=== PATIENT | male | born 1965 | race Caucasian/White ===

== ENCOUNTER 2018-11-19 02:22 | Emergency (ER) | payer OTHER ==
[2018-11-19 03:48] LABS: Protime INR 1.35
[2018-11-19 03:48] LABS: Absolute Lymphocytes (CBC) 1.9 K/uL (0.7-4.9); Absolute Monocytes 1.3 K/uL (0.1-1.3); Absolute Neutrophil 8.4 K/uL (1.8-8.0); Basophils % 0.6 % (0-1.3); Eosinophils % 2.6 % (0-4.4); Hematocrit 41.7 % (39.6-49.0); Lymphocytes % 15.7 % (15.3-44.8); MPV 8.6 fL (7.6-11.3); Monocytes % 10.8 % (3.3-12.3)
[2018-11-19 03:56] LABS: Potassium 4.1 mmol/L (3.5-5.1)
--- NOTE | 2018-11-19 04:14 | EDPHYS ---
Physician Documentation [facility] Name: Meryl Nelson Age: 53 yrs Sex: Male : 1965 Arrival Date: 11/19/2018 Time: 02:24 Bed 6 Private MD: ED Physician Uriel Bhatia HPI: 11/19 04:14 This 53 yrs old Male presents to ER via Ambulatory with complaints of Nose kdr Pain. 04:14 The patient presents with a nose bleed, that is apparently anterior, from the right kdr nare, occurred from an unknown cause, after blowing nose, while sneezing, that is intermittent moderate amount bright red, stopped /dried blood noted. causative factors include: unknown, and the bleeding resolved prior to arrival. Onset: The symptoms/episode began/occurred suddenly, just prior to arrival. Modifying factors: The symptoms are alleviated by nothing. the symptoms are aggravated by blowing nose. Associated signs and symptoms: Loss of consciousness: the patient experienced no loss of consciousness, Pertinent positives: Pertinent negatives: blurred vision, chest pain, cough, ear ache, fever, lightheadedness, nausea, rhinorrhea, shortness of breath, sore throat, vertigo. Severity of symptoms: At their worst the symptoms were very mild in the emergency department the symptoms have resolved. The patient has not experienced similar symptoms in the past. The patient has not recently seen a physician. The patient is concerned that since he is on Coumadin, he may have a coagulopathy. Historical: - Allergies: 02:40 No Known Allergies; lp1 - Home Meds: 02:40 metoprolol tartrate 100 mg Oral tab 1 tab 2 times per day [Active]; warfarin 5 mg Oral lp1 tab 1 tab once daily [Active]; lisinopril 20 mg Oral tab 1 tab once daily [Active]; Lyrica 75 mg Oral daily [Active]; Seroquel Oral [Active]; duloxetine oral oral [Active]; - PMHx: 02:40 Hypertension; neuropathy; Diabetes - NIDDM; Bipolar disorder; lp1 - PSHx: 02:40 Artificial heart valve; lp1 - Immunization history:: Adult Immunizations up to date. - Social history:: Smoking status: Patient/guardian denies using tobacco. - Ebola Screening: : No symptoms or risks identified at this time. ROS: 04:14 Constitutional: Negative for fever, chills, and weight loss, Eyes: Negative for injury, kdr pain, redness, and discharge, Neck: Negative for injury, pain, and swelling, Cardiovascular: Negative for chest pain, palpitations, and edema, Respiratory: Negative for shortness of breath, cough, wheezing, and pleuritic chest pain, Abdomen/GI: Negative for abdominal pain, nausea, vomiting, diarrhea, and constipation. 04:14 ENT: Positive for nose bleed, Negative for Exam: 04:14 Constitutional: This is a well developed, well nourished patient who is awake, alert, kdr and in no acute distress. Head/Face: Normocephalic, atraumatic. Eyes: Pupils equal round and reactive to light, extra-ocular motions intact. Lids and lashes normal. Conjunctiva and sclera are non-icteric and not injected. Cornea within normal limits. Periorbital areas with no swelling, redness, or edema. Neck: Trachea midline, no thyromegaly or masses palpated, and no cervical lymphadenopathy. Supple, full range of motion without nuchal rigidity, or vertebral point tenderness. No Meningismus. Chest/axilla: Normal chest wall appearance and motion. Nontender with no deformity. No lesions are appreciated. Cardiovascular: Regular rate and rhythm with a normal S1 and S2. No gallops, murmurs, or rubs. Normal PMI, no JVD. No pulse deficits. 04:14 ENT: Nose: External nose: no obvious acute abnormality, Nasal septum: is midline, no septal hematoma appreciated, Nasal mucosa: Dried blood. clotted blood, in right nare, small amount in superior aspect. Vital Signs: 02:41 BP 163 / 85; Pulse 92; Resp 18; Temp 98.3(O); Pulse Ox 98% on R/A; Weight 136.08 kg; lp1 Height 6 ft. 1 in. (185.42 cm); Pain 0/10; 03:37 BP 128 / 51; Pulse 86; Resp 17; Pulse Ox 100% on R/A; Pain 0/10; ed1 04:21 BP 143 / 76; Pulse 79; Resp 16; Pulse Ox 100% on R/A; Pain 0/10; ed1 02:41 Body Mass Index 39.58 (136.08 kg, 185.42 cm) lp1 MDM: 04:13 Patient medically screened. kdr 04:14 Data reviewed: vital signs, nurses notes. Counseling: I had a detailed discussion with kdr the patient and/or guardian regarding: the historical points, exam findings, and any diagnostic results supporting the discharge/admit diagnosis, lab results, the need for outpatient follow up. 11/19 02:58 Order name: PT-INR; Complete Time: 04:05 kdr 11/19 02:58 Order name: CBC with Diff; Complete Time: 04:05 kdr 11/19 02:58 Order name: Chem 7; Complete Time: 04:05 kdr Administered Medications: No medications were administered Disposition: 11/19/18 04:13 Discharged to Home. Impression: Epistaxis - Right nare. - Condition is Stable. - Discharge Instructions: Nosebleed, [id number]. - Medication Reconciliation Form, Thank You Letter form. - Follow up: Private Physician; When: 2 - 3 days; Reason: If symptoms return, Further diagnostic work-up, Recheck today's complaints, Continuance of care, Re-evaluation by your physician. Follow up: Parisa Santos MD; When: 2 - 3 days; Reason: If symptoms return, Further diagnostic work-up, Recheck today's complaints, Continuance of care, Re-evaluation by your physician. - Problem is new. - Symptoms have improved. Signatures: Dispatcher [employer] EDMS Uriel Bhatia MD MD kdr Keysha Brooks RN RN ed1 Alejandrina Jo RN RN lp1 Corrections: (The following items were deleted from the chart) 04:22 04:13 11/19/2018 04:13 Discharged to Home. Impression: Epistaxis - Right nare. ed1 Condition is Stable. Forms are Medication Reconciliation Form, Thank You Letter, Antibiotic Education, Prescription Opioid Use. Follow up: Private Physician; When: 2 - 3 days; Reason: If symptoms return, Further diagnostic work-up, Recheck today's complaints, Continuance of care, Re-evaluation by your physician. Follow up: Parisa Santos; When: 2 - 3 days; Reason: If symptoms return, Further diagnostic work-up, Recheck today's complaints, Continuance of care, Re-evaluation by your physician. Problem is new. Symptoms have improved. kdr
--- NOTE | 2018-11-19 04:14 | ER ---
Nurse's Notes [facility] Name: Meryl Nelson Age: 53 yrs Sex: Male : 1965 Arrival Date: 11/19/2018 Time: 02:24 Bed 6 Private MD: Diagnosis: Epistaxis-Right nare Presentation: 11/19 02:37 Presenting complaint: Patient states: Bleeding to right nostril that began about 1800 lp1 last night after sneezing, patient states bleeding to right nostril every time he sneezes; has been having congestion, sore throat since Tuesday; No active bleeding during triage. Transition of care: patient was not received from another setting of care. Onset of symptoms was November 18, 2018 at 18:00. Risk Assessment: Do you want to hurt yourself or someone else? Patient reports no desire to harm self or others. Initial Sepsis Screen: Does the patient meet any 2 criteria? No. Patient's initial sepsis screen is negative. Does the patient have a suspected source of infection? No. Patient's initial sepsis screen is negative. Care prior to arrival: None. 02:37 Method Of Arrival: Ambulatory lp1 02:37 Acuity: BOBBY 4 lp1 Historical: - Allergies: 02:40 No Known Allergies; lp1 - Home Meds: 02:40 metoprolol tartrate 100 mg Oral tab 1 tab 2 times per day [Active]; warfarin 5 mg Oral lp1 tab 1 tab once daily [Active]; lisinopril 20 mg Oral tab 1 tab once daily [Active]; Lyrica 75 mg Oral daily [Active]; Seroquel Oral [Active]; duloxetine oral oral [Active]; - PMHx: 02:40 Hypertension; neuropathy; Diabetes - NIDDM; Bipolar disorder; lp1 - PSHx: 02:40 Artificial heart valve; lp1 - Immunization history:: Adult Immunizations up to date. - Social history:: Smoking status: Patient/guardian denies using tobacco. - Ebola Screening: : No symptoms or risks identified at this time. Screenin:41 Abuse screen: Denies threats or abuse. Denies injuries from another. Nutritional lp1 screening: No deficits noted. Tuberculosis screening: No symptoms or risk factors identified. Fall Risk None identified. Assessment: 03:37 General: Appears in no apparent distress. Behavior is calm, cooperative. Pain: Denies ed1 pain. Neuro: Level of Consciousness is awake, alert, obeys commands, Oriented to person, place, time, situation. Cardiovascular: Denies chest pain, Heart tones S1 S2 present. Respiratory: Airway is patent Respiratory effort is even, unlabored, Respiratory pattern is regular, symmetrical, Breath sounds are clear bilaterally. GI: No signs and/or symptoms were reported involving the gastrointestinal system. : No signs and/or symptoms were reported regarding the genitourinary system. EENT: Reports nasal discharge that is bloody. Derm: Skin is pink, warm \T\ dry. Musculoskeletal: Circulation, motion, and sensation intact. 04:21 Reassessment: Patient appears in no apparent distress at this time. Patient and/or ed1 family updated on plan of care and expected duration. Pain level reassessed. Patient is alert, oriented x 3, equal unlabored respirations, skin warm/dry/pink. No active bleeding noted Patient denies pain at this time. Vital Signs: 02:41 BP 163 / 85; Pulse 92; Resp 18; Temp 98.3(O); Pulse Ox 98% on R/A; Weight 136.08 kg; lp1 Height 6 ft. 1 in. (185.42 cm); Pain 0/10; 03:37 BP 128 / 51; Pulse 86; Resp 17; Pulse Ox 100% on R/A; Pain 0/10; ed1 04:21 BP 143 / 76; Pulse 79; Resp 16; Pulse Ox 100% on R/A; Pain 0/10; ed1 02:41 Body Mass Index 39.58 (136.08 kg, 185.42 cm) lp1 ED Course: 02:24 Patient arrived in ED. ds1 02:24 Keysha Brooks, RN is Primary Nurse. ed1 02:39 Triage completed. lp1 02:41 Arm band placed on left wrist. lp1 02:41 Patient has correct armband on for positive identification. Bed in low position. Pulse lp1 ox on. NIBP on. 02:54 Uriel Bhatia MD is Attending Physician. kdr 03:37 No provider procedures requiring assistance completed. ed1 04:13 Parisa Santos MD is Referral Physician. kdr 04:21 Patient did not have IV access during this emergency room visit. ed1 Administered Medications: No medications were administered Outcome: 04:13 Discharge ordered by . kdr 04:21 Discharged to home ambulatory. ed1 04:21 Condition: good 04:21 Discharge instructions given to patient, Instructed on discharge instructions, follow up and referral plans. Demonstrated understanding of instructions, follow-up care. 04:22 Patient left the ED. ed1 Signatures: Uriel Bhatia MD MD kdr Sanford, Demi ds1 Keysha Brooks RN RN ed1 Alejandrina Jo RN RN lp1
== END 2018-11-19 04:22 | disposition home or self-care (01) ==
LOC: ER 02:22
DX: R04.0 Epistaxis (principal); I10 Essential (primary) hypertension; E11.21 Type 2 diabetes mellitus with diabetic nephropathy; F31.9 Bipolar disorder, unspecified; Z79.01 Long term (current) use of anticoagulants; Z95.2 Presence of prosthetic heart valve
CPT/HCPCS: 36415; 80048; 85025; 85610; 99283

== ENCOUNTER 2019-02-13 09:09 | Emergency (ER) | payer OTHER ==
--- NOTE | 2019-02-13 10:32 | ER ---
Nurse's Notes [facility] Name: Meryl Nelson Age: 53 yrs Sex: Male : 1965 Arrival Date: 02/13/2019 Time: 09:12 Bed 18 Private MD: Jacques Reinoso Diagnosis: Dental caries;Dental root caries Presentation: 02/13 09:20 Presenting complaint: Patient states: "I have this infection that infecting the whole aj1 upper part of my jaw and I have an artificial heart valve so I'm at risk for endocarditis, I can't get help from my family doctor because he wont get involved in my dental care and my insurance declined to give me dental permission they said I have to come here. It started out as one tooth and then it just affected the whole top of my gums". Transition of care: patient was not received from another setting of care. Onset of symptoms was January 2019. Risk Assessment: Do you want to hurt yourself or someone else? Patient reports no desire to harm self or others. Initial Sepsis Screen: Does the patient meet any 2 criteria? No. Patient's initial sepsis screen is negative. Does the patient have a suspected source of infection? Yes: Other: dental infection. Care prior to arrival: None. 09:20 Method Of Arrival: Ambulatory aj 09:20 Acuity: BOBBY 3 aj1 Triage Assessment: 09:23 General: Appears in no apparent distress. uncomfortable, Behavior is calm, cooperative, aj1 appropriate for age. Pain: Complains of pain in mouth Pain currently is 4 out of 10 on a pain scale. Neuro: Level of Consciousness is awake, alert, obeys commands. Cardiovascular: Patient's skin is warm and dry. Respiratory: Airway is patent Respiratory effort is even, unlabored, Respiratory pattern is regular, symmetrical. Historical: - Allergies: 09: No Known Allergies; aj1 - Home Meds: : lisinopril 20 mg Oral tab 1 tab once daily [Active]; duloxetine Oral [Active]; Lyrica aj1 75 mg Oral daily [Active]; metoprolol tartrate 100 mg Oral tab 1 tab 2 times per day [Active]; Seroquel Oral [Active]; warfarin 5 mg Oral tab 1 tab once daily [Active]; - PMHx: 09:23 Bipolar disorder; Diabetes - NIDDM; Hypertension; neuropathy; artificial heart valve; aj1 - Immunization history:: Flu vaccine is up to date. - Social history:: Smoking status: Patient/guardian denies using tobacco. - Ebola Screening: : Patient denies travel to an Ebola-affected area in the 21 days before illness onset. - Family history:: not pertinent. Screenin:28 Abuse screen: Denies threats or abuse. Denies injuries from another. Nutritional bp screening: No deficits noted. Tuberculosis screening: No symptoms or risk factors identified. Fall Risk None identified. Assessment: 09:28 General: SEE TRIAGE NOTE. bp 10:39 Reassessment: PT D/C HOME AMBULATORY, DX WITH DENTAL CARIES. bp Vital Signs: 09:23 BP 144 / 90; Pulse 76; Resp 18; Temp 97.0; Pulse Ox 97% on R/A; Weight 140.61 kg (R); aj1 Height 6 ft. 1 in. (185.42 cm) (R); Pain 4/10; 10:29 BP 165 / 76; Pulse 69; Resp 14; Pulse Ox 96% ; bp 09:23 Body Mass Index 40.90 (140.61 kg, 185.42 cm) aj1 ED Course: 09:12 Patient arrived in ED. mr 09:13 Jacques Reinoso MD is Private Physician. mr 09:22 Triage completed. aj1 09:23 Arm band placed on Patient placed in an exam room. aj1 09:25 Macho Blanchard MD is Attending Physician. arden 09:27 Kem Castaneda, KVNG is Primary Nurse. bp 09:28 Patient has correct armband on for positive identification. Bed in low position. Call bp light in reach. Side rails up X2. 10:31 Jacques Reinoso MD is Referral Physician. arden 10:32 Stuart Fontana DDS is Referral Physician. arden 10:39 No provider procedures requiring assistance completed. Patient did not have IV access bp during this emergency room visit. Administered Medications: 10:33 Drug: Augmentin 875 mg Route: PO; bp 10:33 Follow up: Response: No adverse reaction bp Outcome: 10:31 Discharge ordered by MD. arden 10:40 Discharged to home ambulatory. bp 10:40 Condition: stable 10:40 Discharge instructions given to patient, Instructed on discharge instructions, follow up and referral plans. medication usage, Demonstrated understanding of instructions, follow-up care, medications, Prescriptions given X 1. 10:40 Patient left the ED. bp Signatures: Michelle Cheema RN RN aj1 Macho Blanchard MD MD cha Rivera Jeanne Kem Bob RN RN bp
--- NOTE | 2019-02-13 10:33 | EDPHYS ---
Physician Documentation [facility] Name: Meryl Nelson Age: 53 yrs Sex: Male : 1965 Arrival Date: 02/13/2019 Time: 09:12 Bed 18 Private MD: Jacques Reinoso ED Physician Macho Blanchard HPI: 02/13 10:27 This 53 yrs old Male presents to ER via Ambulatory with complaints of Mouth arden Problem. 10:27 The patient presents with pain, redness, swelling. The problem is located in the arden frenulum and gums. Onset: The symptoms/episode began/occurred 7 day(s) ago. Duration: The symptoms are continuous, and are steadily getting worse. Modifying factors: The symptoms are alleviated by nothing, the symptoms are aggravated by nothing. Associated signs and symptoms: The patient has no apparent associated signs or symptoms. Severity of symptoms: At their worst the symptoms were mild, in the emergency department the symptoms are unchanged. The patient has not experienced similar symptoms in the past. Historical: - Allergies: 09:23 No Known Allergies; aj1 - Home Meds: 09:23 lisinopril 20 mg Oral tab 1 tab once daily [Active]; duloxetine Oral [Active]; Lyrica aj1 75 mg Oral daily [Active]; metoprolol tartrate 100 mg Oral tab 1 tab 2 times per day [Active]; Seroquel Oral [Active]; warfarin 5 mg Oral tab 1 tab once daily [Active]; - PMHx: 09:23 Bipolar disorder; Diabetes - NIDDM; Hypertension; neuropathy; artificial heart valve; aj1 - Immunization history:: Flu vaccine is up to date. - Social history:: Smoking status: Patient/guardian denies using tobacco. - Ebola Screening: : Patient denies travel to an Ebola-affected area in the 21 days before illness onset. - Family history:: not pertinent. ROS: 10:27 Constitutional: Negative for fever, chills, and weight loss, Eyes: Negative for injury, arden pain, redness, and discharge, Neck: Negative for injury, pain, and swelling, Cardiovascular: Negative for chest pain, palpitations, and edema, Respiratory: Negative for shortness of breath, cough, wheezing, and pleuritic chest pain, Abdomen/GI: Negative for abdominal pain, nausea, vomiting, diarrhea, and constipation, Back: Negative for injury and pain, : Negative for injury, bleeding, discharge, and swelling, MS/Extremity: Negative for injury and deformity, Skin: Negative for injury, rash, and discoloration, Neuro: Negative for headache, weakness, numbness, tingling, and seizure, Psych: Negative for depression, anxiety, suicide ideation, homicidal ideation, and hallucinations, Allergy/Immunology: Negative for hives, rash, and allergies, Endocrine: Negative for neck swelling, polydipsia, polyuria, polyphagia, and marked weight changes, Hematologic/Lymphatic: Negative for swollen nodes, abnormal bleeding, and unusual bruising. 10:27 ENT: Positive for dental pain, Teeth pain Exam: 10:27 Constitutional: This is a well developed, well nourished patient who is awake, alert, arden and in no acute distress. Head/Face: Normocephalic, atraumatic. Eyes: Pupils equal round and reactive to light, extra-ocular motions intact. Lids and lashes normal. Conjunctiva and sclera are non-icteric and not injected. Cornea within normal limits. Periorbital areas with no swelling, redness, or edema. Neck: Trachea midline, no thyromegaly or masses palpated, and no cervical lymphadenopathy. Supple, full range of motion without nuchal rigidity, or vertebral point tenderness. No Meningismus. Chest/axilla: Normal chest wall appearance and motion. Nontender with no deformity. No lesions are appreciated. Cardiovascular: Regular rate and rhythm with a normal S1 and S2. No gallops, murmurs, or rubs. Normal PMI, no JVD. No pulse deficits. Respiratory: Lungs have equal breath sounds bilaterally, clear to auscultation and percussion. No rales, rhonchi or wheezes noted. No increased work of breathing, no retractions or nasal flaring. Abdomen/GI: Soft, non-tender, with normal bowel sounds. No distension or tympany. No guarding or rebound. No evidence of tenderness throughout. Back: No spinal tenderness. No costovertebral tenderness. Full range of motion. Skin: Warm, dry with normal turgor. Normal color with no rashes, no lesions, and no evidence of cellulitis. MS/ Extremity: Pulses equal, no cyanosis. Neurovascular intact. Full, normal range of motion. Neuro: Awake and alert, GCS 15, oriented to person, place, time, and situation. Cranial nerves II-XII grossly intact. Motor strength 5/5 in all extremities. Sensory grossly intact. Cerebellar exam normal. Normal gait. Psych: Awake, alert, with orientation to person, place and time. Behavior, mood, and affect are within normal limits. 10:27 ENT: Mouth: Lips: normal, Oral mucosa: normal, Gums: noted to have cellulitis, Tongue: is normal, abscess, is not appreciated, drooling, is not appreciated, Posterior pharynx: is normal, airway is patent, no erythema, no exudate, no peritonsilar mass, no pooling of secretions, no swelling, normal tonsil apperance, normal sized tonsils, normal uvula appearance, normal uvula size. 10:27 : Vital Signs: 09:23 BP 144 / 90; Pulse 76; Resp 18; Temp 97.0; Pulse Ox 97% on R/A; Weight 140.61 kg (R); aj1 Height 6 ft. 1 in. (185.42 cm) (R); Pain 4/10; 10:29 BP 165 / 76; Pulse 69; Resp 14; Pulse Ox 96% ; bp 09:23 Body Mass Index 40.90 (140.61 kg, 185.42 cm) aj1 MDM: 09:25 Patient medically screened. [facility] 10:30 Data reviewed: vital signs, nurses notes. arden Administered Medications: 10:33 Drug: Augmentin 875 mg Route: PO; bp 10:33 Follow up: Response: No adverse reaction bp Disposition: 02/13/19 10:31 Discharged to Home. Impression: Dental caries, Dental root caries. - Condition is Stable. - Discharge Instructions: Dental Caries, Adult, Dental Pain, Type 2 Diabetes Mellitus, Diagnosis, Adult, Dental Pain, [id number], Diet and Dental Disease, Type 2 Diabetes Mellitus, Diagnosis, Adult, [id number], Type 2 Diabetes Mellitus, Self Care, Adult. - Prescriptions for Augmentin 875- 125 mg Oral Tablet - take 1 tablet by ORAL route every 12 hours for 10 days; 20 tablet. - Medication Reconciliation Form, Thank You Letter, Antibiotic Education, Prescription Opioid Use form. - Follow up: Jacques Reinoso MD; When: 2 - 3 days; Reason: Recheck today's complaints, Continuance of care, Re-evaluation by your physician. Follow up: Stuart Fontana DDS; When: 2 - 3 days; Reason: Recheck today's complaints, Re-evaluation by your physician. - Problem is new. - Symptoms have improved. Signatures: Michelle Cheema RN RN aj1 Macho Blanchard MD MD cha Peltier, Brian, RN RN bp Corrections: (The following items were deleted from the chart) 10:32 10:31 02/13/2019 10:31 Discharged to Home. Impression: Dental caries; Dental root arden caries. Condition is Stable. Forms are Medication Reconciliation Form, Thank You Letter, Antibiotic Education, Prescription Opioid Use. Follow up: Jacques Reinoso; When: 2 - 3 days; Reason: Recheck today's complaints, Continuance of care, Re-evaluation by your physician. Problem is new. Symptoms have improved. arden 10:40 10:32 02/13/2019 10:31 Discharged to Home. Impression: Dental caries; Dental root bp caries. Condition is Stable. Discharge Instructions: Dental Caries, Adult, Dental Pain, Type 2 Diabetes Mellitus, Diagnosis, Adult, Dental Pain, [id number], Diet and Dental Disease, Type 2 Diabetes Mellitus, Diagnosis, Adult, [id number], Type 2 Diabetes Mellitus, Self Care, Adult. Prescriptions for Augmentin 875-125 mg Oral Tablet - take 1 tablet by ORAL route every 12 hours for 10 days; 20 tablet. and Forms are Medication Reconciliation Form, Thank You Letter, Antibiotic Education, Prescription Opioid Use. Follow up: Jacques Reinoso; When: 2 - 3 days; Reason: Recheck today's complaints, Continuance of care, Re-evaluation by your physician. Follow up: Stuart Fontana; When: 2 - 3 days; Reason: Recheck today's complaints, Re-evaluation by your physician. Problem is new. Symptoms have improved. arden
[2019-02-13] MEDS ORDERED: AMOX/K CLAV 875 MG TAB ONE (10:45)
== END 2019-02-13 10:40 | disposition home or self-care (01) ==
LOC: ER 09:09
DX: K02.7 Dental root caries (principal); K02.9 Dental caries, unspecified; F31.9 Bipolar disorder, unspecified; E11.9 Type 2 diabetes mellitus without complications; I10 Essential (primary) hypertension; Z79.01 Long term (current) use of anticoagulants
CPT/HCPCS: 99283

== ENCOUNTER 2021-01-29 18:15 | Emergency (ER) | payer OTHER ==
[2021-01-29] MEDS ORDERED: HYDROCODONE/APAP 7.5/325 MG TAB ONE (22:00)
--- NOTE | 2021-01-29 23:11 | EDPHYS ---
Physician Documentation [facility] Name: Meryl Nelson Age: 55 yrs Sex: Male : 1965 Arrival Date: 01/29/2021 Time: 18:17 Bed 18 Private MD: ED Physician Lobo Gonzalez HPI: 01/29 21:10 This 55 yrs old Male presents to ER via Ambulatory with complaints of Foot cp Injury. 21:10 The patient presents with pain, that is acute, swelling, tenderness. The complaints cp affect the dorsum of left foot. Context: resulted from the patient falling, the patient can fully bear weight, the patient is able to ambulate, with moderate difficulty. Onset: The symptoms/episode began/occurred 2 day(s) ago. Associated signs and symptoms: Pertinent negatives calf tenderness, fever. Treatment prior to arrival includes: no previous treatment. Historical: - Allergies: 18:41 No Known Allergies; tw2 - Home Meds: 18:41 warfarin 5 mg Oral tab 1 tab once daily [Active]; Lyrica 75 mg Oral daily [Active]; tw2 lisinopril 20 mg Oral tab 1 tab once daily [Active]; duloxetine Oral [Active]; carvedilol 6.25 mg oral tab 1 tab 2 times per day [Active]; - PMHx: 18:41 Artificial heart valve; Bipolar disorder; Diabetes - NIDDM; Hypertension; neuropathy; tw2 - PSHx: 18:41 None; tw2 - Immunization history:: Adult Immunizations. - Social history:: Smoking status: . ROS: 21:15 MS/extremity: Positive for ecchymosis, pain, swelling, tenderness, of the dorsum of cp left foot, Negative for paresthesias. 21:15 Constitutional: Negative for body aches, chills, fever. cp 21:15 Cardiovascular: Negative for chest pain. 21:15 Respiratory: Negative for cough, shortness of breath, wheezing. 21:15 Neuro: Negative for altered mental status, headache, weakness. 21:15 All other systems are negative. Exam: 21:22 Constitutional: The patient appears in no acute distress, alert, awake, cp non-diaphoretic, non-toxic, well developed, well nourished. 21:22 Head/Face: Normocephalic, atraumatic. cp 21:22 Cardiovascular: Rate: normal. 21:22 Respiratory: the patient does not display signs of respiratory distress, Respirations: normal, no use of accessory muscles. 21:22 Musculoskeletal/extremity: Extremities: grossly normal except: noted in the dorsum of left foot: ecchymosis, pain, swelling, tenderness, There is no evidence of erythema, ROM: limited passive range of motion due to pain, in the left foot, Pulses: noted to be 2+ in the left dorsalis pedis artery. 21:22 Skin: cellulitis, is not appreciated, no rash present. Vital Signs: 18:37 BP 141 / 80; Pulse 95; Resp 18; Temp 98.1(TE); Pulse Ox 95% on R/A; Weight 154.22 kg tw2 (R); Height 6 ft. 1 in. (185.42 cm) (R); Pain 2/10; 18:37 Body Mass Index 44.86 (154.22 kg, 185.42 cm) tw2 Procedures: 23:30 Splinting: Splint applied to left foot using walking boot. applied by nurse. Examined cp by me, post splint application: neurovascular intact, Patient tolerated well. MDM: 21:09 Patient medically screened. cp 22:00 Differential diagnosis: dislocation, closed fracture, contusion. cp 23:10 Data reviewed: vital signs, nurses notes, radiologic studies, plain films. cp 23:10 Test interpretation: by ED physician or midlevel provider: xrays of left foot negative cp for fracture. Counseling: I had a detailed discussion with the patient and/or guardian regarding: the historical points, exam findings, and any diagnostic results supporting the discharge/admit diagnosis, radiology results, the need for outpatient follow up, a orthopedic surgeon, to return to the emergency department if symptoms worsen or persist or if there are any questions or concerns that arise at home. Response to treatment: the patient's symptoms have markedly improved after treatment, and as a result, I will discharge patient. 01/29 21:03 Order name: XRAY Foot LEFT 3 View cp 01/29 23:09 Order name: Walking boot; Complete Time: 23:36 cp 01/29 23:09 Order name: Crutches; Complete Time: 23:35 cp Administered Medications: 21:45 Drug: Hydrocodone-Acetaminophen (7.5 mg-325 mg) 1 tabs Route: PO; sf 23:35 Follow up: Response: No adverse reaction; Pain is decreased sf Disposition: 23:30 Chart complete. cp 01/30 06:35 Co-signature as Attending Physician, Lobo Gonzalez MD. [email or web address] Disposition: 01/29/21 23:10 Discharged to Home. Impression: Unspecified sprain of left foot. - Condition is Stable. - Discharge Instructions: Foot Sprain. - Prescriptions for Tramadol 50 mg Oral Tablet - take 1 tablet by ORAL route every 8 hours as needed; 12 tablet. - Medication Reconciliation Form, Thank You Letter, Antibiotic Education, Prescription Opioid Use form. - Follow up: Robert Macias MD; When: 5 - 6 days; Reason: Recheck today's complaints. - Problem is new. - Symptoms have improved. Signatures: Dispatcher [employer] EDMS Macho Villasenor PA PA cp Dionna Gamboa RN RN 2 Lobo Gonzalez MD MD [facility] Robert Sheridan RN RN Corrections: (The following items were deleted from the chart) 01/29 23:35 23:10 01/29/2021 23:10 Discharged to Home. Impression: Unspecified sprain of left foot. sf Condition is Stable. Forms are Medication Reconciliation Form, Thank You Letter, Antibiotic Education, Prescription Opioid Use. Follow up: Robert Macias; When: 5 - 6 days; Reason: Recheck today's complaints. Problem is new. Symptoms have improved. cp
--- NOTE | 2021-01-29 23:36 | ER ---
Nurse's Notes [facility] Name: Meryl Nelson Age: 55 yrs Sex: Male : 1965 Arrival Date: 01/29/2021 Time: 18:17 Bed 18 Private MD: Diagnosis: Unspecified sprain of left foot Presentation: 01/29 18:37 Chief complaint: Patient states: i broke my LEFT foot, i dont know what i did, i fell tw2 and hit my head 2 days ago, it was on a bit after that i had the pain, i can still walk on it, it is swelling and has started to get red and inflammed looking. Coronavirus screen: At this time, the client does not indicate any symptoms associated with coronavirus-19. Ebola Screen: Patient denies travel to an Ebola-affected area in the 21 days before illness onset. Initial Sepsis Screen: Does the patient meet any 2 criteria? HR > 90 bpm. No. Patient's initial sepsis screen is negative. Does the patient have a suspected source of infection? No. Patient's initial sepsis screen is negative. Risk Assessment: Do you want to hurt yourself or someone else? Patient reports no desire to harm self or others. Onset of symptoms was January 29, 2021. 18:37 Method Of Arrival: Ambulatory tw2 18:37 Acuity: BOBBY 4 tw2 Triage Assessment: 18:41 General: Appears in no apparent distress. obese, Behavior is calm, cooperative, tw2 appropriate for age. Pain: Complains of pain in left foot. Musculoskeletal: Range of motion: intact in all extremities, Reports increased swelling and redness of the LEFT foot. Injury Description: injury from fall. Historical: - Allergies: 18:41 No Known Allergies; tw2 - Home Meds: 18:41 warfarin 5 mg Oral tab 1 tab once daily [Active]; Lyrica 75 mg Oral daily [Active]; tw2 lisinopril 20 mg Oral tab 1 tab once daily [Active]; duloxetine Oral [Active]; carvedilol 6.25 mg oral tab 1 tab 2 times per day [Active]; - PMHx: 18:41 Artificial heart valve; Bipolar disorder; Diabetes - NIDDM; Hypertension; neuropathy; tw2 - PSHx: 18:41 None; tw2 - Immunization history:: Adult Immunizations. - Social history:: Smoking status: . Screenin:40 Abuse screen: Denies threats or abuse. Denies injuries from another. Nutritional sf screening: No deficits noted. Tuberculosis screening: No symptoms or risk factors identified. Fall Risk Fall in past 12 months (25 points). No secondary diagnosis (0 pts). No IV (0 pts). Ambulatory Aid- None/Bed Rest/Nurse Assist (0 pts). Gait- Impaired (20 pts.). Mental Status- Oriented to own ability (0 pts). Total Ballesteros Fall Scale indicates High Risk Score (45 or more points). Fall prevention measures have been instituted. Side Rails Up X 2 Placed Close to Nursing Station. Assessment: 21:40 General: Appears in no apparent distress. unkempt, Behavior is calm, cooperative. Pain: sf Complains of pain in dorsum of left foot. Neuro: No deficits noted. Level of Consciousness is awake, alert, Oriented to person, place, time, situation. Cardiovascular: No deficits noted. Patient's skin is warm and dry. Respiratory: No deficits noted. Airway is patent Respiratory effort is even, unlabored, Respiratory pattern is regular, symmetrical. GI: No deficits noted. No signs and/or symptoms were reported involving the gastrointestinal system. : No deficits noted. No signs and/or symptoms were reported regarding the genitourinary system. Derm: No deficits noted. No signs and/or symptoms reported regarding the dermatologic system. Musculoskeletal: Range of motion: intact in all extremities, Swelling present in left foot. Vital Signs: 18:37 BP 141 / 80; Pulse 95; Resp 18; Temp 98.1(TE); Pulse Ox 95% on R/A; Weight 154.22 kg tw2 (R); Height 6 ft. 1 in. (185.42 cm) (R); Pain 2/10; 18:37 Body Mass Index 44.86 (154.22 kg, 185.42 cm) tw2 ED Course: 18:17 Patient arrived in ED. ds1 18:39 Triage completed. tw2 18:42 Arm band placed on. tw2 20:56 Macho Villasenor PA is PHCP. cp 20:56 Lobo Gonzalez MD is Attending Physician. cp 21:30 XRAY Foot LEFT 3 View In Process Unspecified. EDMS 21:36 Sheridan, Robert, RN is Primary Nurse. sf 21:40 Patient has correct armband on for positive identification. Bed in low position. Call sf light in reach. Side rails up X 1. Door closed. Noise minimized. Visitors limited. Lights dimmed. 21:40 No provider procedures requiring assistance completed. Patient did not have IV access sf during this emergency room visit. 23:10 Robert Macias MD is Referral Physician. cp 23:20 Crutch training done. ortho boot applied to left foot. sf Administered Medications: 21:45 Drug: Hydrocodone-Acetaminophen (7.5 mg-325 mg) 1 tabs Route: PO; sf 23:35 Follow up: Response: No adverse reaction; Pain is decreased sf Outcome: 23:10 Discharge ordered by MD. cp 23:20 Discharged to home ambulatory, with crutches. sf 23:20 Condition: stable 23:20 Discharge instructions given to patient, Instructed on discharge instructions, follow up and referral plans. medication usage, crutch walking, ortho boot use Demonstrated understanding of instructions, follow-up care, medications, crutch walking, splint care, Prescriptions given X 1. 23:35 Patient left the ED. sf Signatures: Dispatcher [employer] [facility] Mcaho Villasenor PA PA Dionna Javier, RN RN tw2 Robert Sheridan, RN RN sf
[2021-01-29 23:40] VITALS: BP 141/80; TEMP 98.1; O2SAT 95
--- NOTE | 2021-01-30 10:59 | RAD REPORT ---
EXAM DESCRIPTION: Foot Left 3 View CLINICAL HISTORY: 55 years Male, Pain;Swelling COMPARISON: None. FINDINGS: No fracture or dislocation. Joint spaces are preserved. Osteopenia. Diffuse soft tissue swelling IMPRESSION: No acute osseous abnormality. Electronically signed by: Doe Moreno DO 01/29/2021 10:21 PM CDT Due to temporary technical issues with the PACS/Fluency reporting system, reports are being signed by the in house radiologist without review as a courtesy to ensure prompt reporting. The interpreting r adiologist is fully responsible for the content of the report.
== END 2021-01-29 23:35 | disposition home or self-care (01) ==
LOC: ER 18:15
DX: S93.602A Unspecified sprain of left foot, initial encounter (principal); W18.30XA Fall on same level, unspecified, initial encounter; I10 Essential (primary) hypertension; E11.40 Type 2 diabetes mellitus with diabetic neuropathy, unspecified; Z95.2 Presence of prosthetic heart valve; Z79.01 Long term (current) use of anticoagulants
CPT/HCPCS: 99284

== ENCOUNTER 2021-10-29 09:30 | Emergency (ER) | payer OTHER ==
[2021-10-29] MEDS ORDERED: MORPHINE 4 MG/ML SYR ONE (10:24)
[2021-10-29] MEDS ORDERED: ONDANSETRON 4 MG/2 ML VIAL ONE (10:24)
[2021-10-29] MEDS ORDERED: NA CHLORIDE 0.9% 100 ML ONE (10:24)
[2021-10-29] MEDS ORDERED: PIPERACIL/TAZO 3.375 GM VIAL IV ONE (10:25)
[2021-10-29 10:27] LABS: Absolute Lymphocytes (CBC) 1.8 K/uL (0.7-4.9); Hematocrit 41.6 % (39.6-49.0); Lymphocytes % 12.6 % (15.3-44.8); MPV 8.4 fL (7.6-11.3); RBC Red Blood Cell Count 4.74 M/uL (4.33-5.43)
[2021-10-29 10:51] LABS: Potassium 3.8 mmol/L (3.5-5.1)
--- NOTE | 2021-10-29 10:55 | RAD REPORT ---
EXAM DESCRIPTION: US - Extremity Venous Uni Ltd - 10/29/2021 10:24 am CLINICAL HISTORY: Pain;Swelling COMPARISON: None. TECHNIQUE: Real-time sonographic evaluation of the left lower extremity deep venous system was perfo rmed. FINDINGS: Normal compressibility, flow augmentation, phasic flow and spontaneous flow are identified in the left lower extremity common femoral, superficial femoral, popliteal and posterior tibial vein s. No intraluminal filling defects seen. IMPRESSION: No DVT in the left lower extremity.
--- NOTE | 2021-10-29 11:28 | EDPHYS ---
Physician Documentation [facility] Name: Meryl Nelson Age: 56 yrs Sex: Male : 1965 Arrival Date: 10/29/2021 Time: 09:36 Bed 15 Private MD: ED Physician Uriel Bhatia HPI: 10/29 14:27 This 56 yrs old Male presents to ER via Ambulatory with complaints of Leg Swelling, Leg kdr Pain. 14:27 The patient presents with decreased range of motion, pain, that is acute, swelling, kdr tenderness. The complaints affect the lateral aspect of left calf, left lateral ankle, left calf, left Achilles, medial aspect of left calf, left medial ankle, left stokes and anterior aspect of left ankle. Context: The problem was sustained at home, resulted from an unknown cause, the patient can fully bear weight, the patient is able to ambulate, with mild difficulty, Problem is a result from a previous injury: No. Onset: The symptoms/episode began/occurred gradually, 1 week(s) ago. Modifying factors: The symptoms are alleviated by nothing. the symptoms are aggravated by nothing. Associated signs and symptoms: The patient has no apparent associated signs or symptoms. Treatment prior to arrival includes: no previous treatment. Severity of symptoms: At their worst the symptoms were mild, moderate, just prior to arrival, in the emergency department the symptoms are unchanged. The patient has not experienced similar symptoms in the past. The patient has not recently seen a physician. Historical: - Allergies: 09:41 No Known Allergies; ic1 - Home Meds: 09:41 carvedilol 6.25 mg Oral tab 1 tab 2 times per day [Active]; duloxetine Oral [Active]; ic1 lisinopril 20 mg Oral tab 1 tab once daily [Active]; Lyrica 75 mg Oral daily [Active]; warfarin 5 mg Oral tab 1 tab once daily [Active]; - PMHx: 09:41 Artificial heart valve; Bipolar disorder; Hypertension; Diabetes - NIDDM; neuropathy; ic1 - Immunization history:: Adult Immunizations up to date. - Social history:: Smoking status: Patient denies any tobacco usage or history of. ROS: 14:27 Constitutional: Negative for fever, chills, and weight loss, Eyes: Negative for injury, kdr pain, redness, and discharge, Neck: Negative for injury, pain, and swelling, Cardiovascular: Negative for chest pain, palpitations, and edema, Respiratory: Negative for shortness of breath, cough, wheezing, and pleuritic chest pain, Abdomen/GI: Negative for abdominal pain, nausea, vomiting, diarrhea, and constipation, Back: Negative for injury and pain, : Negative for injury, bleeding, discharge, and swelling, MS/Extremity: Negative for injury and deformity, Neuro: Negative for headache, weakness, numbness, tingling, and seizure activity. Psych: Negative for depression, anxiety, suicide ideation, homicidal ideation, and hallucinations, Allergy/Immunology: Negative for hives, rash, and allergies, Endocrine: Negative for neck swelling, polydipsia, polyuria, polyphagia, and marked weight changes, Hematologic/Lymphatic: Negative for swollen nodes, abnormal bleeding, and unusual bruising. 14:27 Skin: Positive for cellulitis, erythema, swelling, of the lateral aspect of left calf, left lateral ankle, left calf, left Achilles, medial aspect of left calf, left medial ankle, left stokes and anterior aspect of left ankle, diffusely. Exam: 14:27 Constitutional: This is a well developed, well nourished patient who is awake, alert, kdr and in no acute distress. Head/Face: Normocephalic, atraumatic. Eyes: Pupils equal round and reactive to light, extra-ocular motions intact. Lids and lashes normal. Conjunctiva and sclera are non-icteric and not injected. Cornea within normal limits. Periorbital areas with no swelling, redness, or edema. Neck: Trachea midline, no thyromegaly or masses palpated, and no cervical lymphadenopathy. Supple, full range of motion without nuchal rigidity, or vertebral point tenderness. No Meningismus. Chest/axilla: Normal chest wall appearance and motion. Nontender with no deformity. No lesions are appreciated. Cardiovascular: Regular rate and rhythm with a normal S1 and S2. No gallops, murmurs, or rubs. Normal PMI, no JVD. No pulse deficits. Respiratory: Lungs have equal breath sounds bilaterally, clear to auscultation and percussion. No rales, rhonchi or wheezes noted. No increased work of breathing, no retractions or nasal flaring. Back: No spinal tenderness. No costovertebral tenderness. Full range of motion. Skin: Warm, dry with normal turgor. Normal color with no rashes, no lesions, and no evidence of cellulitis. MS/ Extremity: Pulses equal, no cyanosis. Neurovascular intact. Full, normal range of motion. Neuro: Awake and alert, GCS 15, oriented to person, place, time, and situation. Cranial nerves II-XII grossly intact. Motor strength 5/5 in all extremities. Sensory grossly intact. Cerebellar exam normal. Normal gait. Psych: Awake, alert, with orientation to person, place and time. Behavior, mood, and affect are within normal limits. Vital Signs: 09:39 Pulse 90; Resp 18; Temp 98.5(O); Pulse Ox 94% on R/A; ic1 10:48 BP 161 / 75; Pulse 85; Resp 21; Pulse Ox 83% on R/A; ww 11:12 BP 134 / 66; Pulse 83; Resp 14; Pulse Ox 93% on 2 lpm NC; ww 12:28 BP 116 / 75; Pulse 87; Resp 18; Temp 98.8; Pulse Ox 93% on R/A; ww 10:48 2LNC placed, patient states that he has had low readings previously ww MDM: 11:27 Patient medically screened. kdr 14:30 Data reviewed: vital signs, nurses notes, lab test result(s), radiologic studies. kdr Counseling: I had a detailed discussion with the patient and/or guardian regarding: the historical points, exam findings, and any diagnostic results supporting the discharge/admit diagnosis, lab results, radiology results, the need for outpatient follow up. ED course: Patient is feeling much better with the interventions given. He was happy with the care provided and the plan for discharge and follow-up. Patient was offered admission however he indicated that he had a number of things to take care of with regard to his roommate and that he would follow-up as needed. He had no other concerns or questions and was discharged in good condition. 10/29 09:52 Order name: CBC with Diff; Complete Time: 11:00 kdr 10/29 09:52 Order name: Chem 7; Complete Time: 11:00 kdr 10/29 09:52 Order name: US Extremity Venous Unilateral Ltd; Complete Time: 11:00 kdr 10/29 09:52 Order name: Blood Culture Adult (2) kdr Administered Medications: 10:50 Drug: morphine 4 mg Route: IVP; Site: left antecubital; ww 10:52 Drug: Zofran (Ondansetron) 4 mg Route: IVP; Site: left antecubital; ww 10:59 Drug: Zosyn (piperacillin-tazobactam) 3.375 grams Route: IVPB; Infused Over: 60 mins; Site: left antecubital; Disposition Summary: 10/29/21 11:27 Discharge Ordered Location: Home kdr Problem: new kdr Symptoms: have improved kdr Condition: Stable kdr Diagnosis - Cellulitis of left lower limb kdr Followup: kdr - With: Private Physician - When: 2 - 3 days - Reason: If symptoms return, Further diagnostic work-up, Recheck today's complaints, Continuance of care, Re-evaluation by your physician Discharge Instructions: - Discharge Summary Sheet kdr - Cellulitis, Adult, [id number] kdr Forms: - Medication Reconciliation Form kdr - Thank You Letter kdr - Antibiotic Education kdr - Prescription Opioid Use kdr Prescriptions: - Tramadol 50 mg Oral Tablet - take 1 tablet by ORAL route every 8 hours as needed; 12 tablet; Refills: 0, kdr Product Selection Permitted - Bactrim DS 800-160 mg Oral Tablet - take 1 tablet by ORAL route every 12 hours for 10 days; 20 tablet; Refills: 0, kdr Product Selection Permitted - Keflex 750 mg Oral capsule - take 1 capsule by ORAL route 4 times per day; 40 capsule; Refills: 0, Product kdr Selection Permitted Signatures: Dispatcher [employer] Uriel Chambers MD MD kdr Wood, Whitney, RN RN ww Creggett, Iesha, RN RN ic1
--- NOTE | 2021-10-29 11:28 | ER ---
Nurse's Notes [facility] Name: Meryl Nelson Age: 56 yrs Sex: Male : 1965 Arrival Date: 10/29/2021 Time: 09:36 Bed 15 Private MD: Diagnosis: Cellulitis of left lower limb Presentation: 10/29 09:40 Chief complaint: Patient states: Pt c/o L leg swelling and pain x 24 hours. Also thinks ic1 he may had a fever. Denies recent trauma to the extremity. Coronavirus screen: Vaccine status: Patient reports receiving the 2nd dose of the covid vaccine. Ebola Screen: No symptoms or risks identified at this time. Initial Sepsis Screen: Does the patient meet any 2 criteria? No. Patient's initial sepsis screen is negative. Does the patient have a suspected source of infection? No. Patient's initial sepsis screen is negative. Risk Assessment: Do you want to hurt yourself or someone else? Patient reports no desire to harm self or others. Onset of symptoms was October 29, 2021. 09:40 Method Of Arrival: Ambulatory ic1 09:40 Acuity: BOBBY 3 ic1 Triage Assessment: 09:41 General: Appears in no apparent distress. Behavior is calm, cooperative. Pain: ic1 Complains of pain in left leg. Historical: - Allergies: 09:41 No Known Allergies; ic1 - Home Meds: 09:41 carvedilol 6.25 mg Oral tab 1 tab 2 times per day [Active]; duloxetine Oral [Active]; ic1 lisinopril 20 mg Oral tab 1 tab once daily [Active]; Lyrica 75 mg Oral daily [Active]; warfarin 5 mg Oral tab 1 tab once daily [Active]; - PMHx: 09:41 Artificial heart valve; Bipolar disorder; Hypertension; Diabetes - NIDDM; neuropathy; ic1 - Immunization history:: Adult Immunizations up to date. - Social history:: Smoking status: Patient denies any tobacco usage or history of. Screenin:14 Abuse screen: Denies threats or abuse. Denies injuries from another. Nutritional ww screening: No deficits noted. Tuberculosis screening: No symptoms or risk factors identified. Fall Risk None identified. Assessment: 10:30 General: Appears uncomfortable, obese, Behavior is calm, cooperative, appropriate for ww age. Pain: Complains of pain in lateral aspect of right calf, right calf, medial aspect of right calf, right stokes and left leg. Neuro: Level of Consciousness is awake, alert, obeys commands, Oriented to person, place, time, situation, Speech is normal. Cardiovascular: Denies chest pain, Patient's skin is warm and dry. Rhythm is regular Chest pain is denied. Respiratory: Airway is patent Respiratory effort is even, unlabored, Respiratory pattern is regular, symmetrical, Denies shortness of breath. GI: Abdomen is obese, Abd is soft and non tender X 4 quads. : No deficits noted. No signs and/or symptoms were reported regarding the genitourinary system. EENT: No deficits noted. No signs and/or symptoms were reported regarding the EENT system. Derm: Skin has lesions on bilateral lower extremity with redness and swelling. Musculoskeletal: Circulation, motion, and sensation intact. 11:40 Reassessment: Patient appears in no apparent distress at this time. No changes from previously documented assessment. Patient and/or family updated on plan of care and expected duration. Pain level reassessed. 12:27 Reassessment: Patient appears in no apparent distress at this time. ww Vital Signs: 09:39 Pulse 90; Resp 18; Temp 98.5(O); Pulse Ox 94% on R/A; ic1 10:48 BP 161 / 75; Pulse 85; Resp 21; Pulse Ox 83% on R/A; ww 11:12 BP 134 / 66; Pulse 83; Resp 14; Pulse Ox 93% on 2 lpm NC; ww 12:28 BP 116 / 75; Pulse 87; Resp 18; Temp 98.8; Pulse Ox 93% on R/A; ww 10:48 2LNC placed, patient states that he has had low readings previously ED Course: 09:36 Patient arrived in ED. am2 09:39 Uriel Bhatia MD is Attending Physician. kdr 09:41 Triage completed. ic1 09:41 Arm band placed on right wrist. ic1 09:43 Donita Camacho, RN is Primary Nurse. ww 10:10 Initial lab(s) drawn, by va, sent to lab. Inserted saline lock: 18 gauge in left ww antecubital area, using aseptic technique. Blood collected. 10:24 US Extremity Venous Unilateral Ltd In Process Unspecified. EDMS 11:14 Patient has correct armband on for positive identification. Bed in low position. Call ww light in reach. Side rails up X 1. teacher of the emotionally disturbed on. Pulse ox on. NIBP on. 12:27 No provider procedures requiring assistance completed. intact, bleeding controlled, No ww redness/swelling at site. Pressure dressing applied. Administered Medications: 10:50 Drug: morphine 4 mg Route: IVP; Site: left antecubital; ww 10:52 Drug: Zofran (Ondansetron) 4 mg Route: IVP; Site: left antecubital; ww 10:59 Drug: Zosyn (piperacillin-tazobactam) 3.375 grams Route: IVPB; Infused Over: 60 mins; ww Site: left antecubital; Outcome: 11:27 Discharge ordered by . kdr 12:27 Discharged to home ww 12:27 Condition: stable 12:27 Discharge instructions given to patient, Instructed on discharge instructions, follow up and referral plans. medication usage, safety practices, wound care, Demonstrated understanding of instructions, follow-up care, medications, wound care, Prescriptions given X 3. 12:28 Patient left the ED. ww Signatures: Dispatcher [employer] EDMS Uriel Bhatia MD MD kdr Anne Luna Whitney RN RN Tania Page RN RN ic1
[2021-10-29 12:43] VITALS: O2SAT 93
[2021-10-29 12:45] VITALS: BP 116/75; TEMP 98.8
== END 2021-10-29 12:28 | disposition home or self-care (01) ==
LOC: ER 09:30
DX: L03.116 Cellulitis of left lower limb (principal); I10 Essential (primary) hypertension; Z95.4 Presence of other heart-valve replacement; Z79.01 Long term (current) use of anticoagulants
CPT/HCPCS: 87040 ×2; 85025; 80048; 36415; 93971; 96375; 96374; 99284; J2543; J2405

== ENCOUNTER 2021-11-02 11:01 | Inpatient (IN) | payer OTHER ==
[2021-11-02] MEDS ORDERED: FUROSEMIDE 20 MG/ 2ML VIAL ONE (12:22)
--- NOTE | 2021-11-02 12:31 | RAD REPORT ---
EXAM DESCRIPTION: RAD - Chest Single View - 11/02/2021 12:25 pm CLINICAL HISTORY: DYSPNEA COMPARISON: CHEST SINGLE VIEW dated 07/24/2008; CHEST SINGLE VIEW dated 07/16/2008 FINDINGS: Lines: None. Lungs: Increased bilateral interstitial markings. Pleural: Small effusions likely. Cardiac: Cardiomegaly. Sternotomy. Bones: No acute fractures. Other: IMPRESSION: Interstitial pulmonary edema, less likely multiple pneumonia.
[2021-11-02 12:47] LABS: Protime INR 2.46
[2021-11-02 12:48] LABS: Hematocrit 43.8 % (39.6-49.0); Lymphocytes % 16.6 % (15.3-44.8); MPV 8.5 fL (7.6-11.3); RBC Red Blood Cell Count 5.01 M/uL (4.33-5.43)
[2021-11-02 13:02] LABS: Albumin 3.1 g/dL (3.4-5.0); Bilirubin Direct 0.2 mg/dL (0-0.2); Bilirubin Total 0.5 mg/dL (0.2-1.0); Potassium 4.1 mmol/L (3.5-5.1); Protein, Total 8.4 g/dL (6.4-8.2); Troponin High Sensitivity 16.3 pg/mL (<58.9)
[2021-11-02] MEDS ORDERED: ENOXAPARIN 100 MG/ML SYR SQ ONE (15:15)
[2021-11-02] MEDS ORDERED: METOPROLOL TARTRATE 5 MG/5 ML INJ IV ONE (15:15)
[2021-11-02] MEDS ORDERED: ENOXAPARIN 40 MG/0.4 ML SQ ONE (15:16)
--- NOTE | 2021-11-02 16:18 | ER ---
Nurse's Notes [facility] Name: Meryl Nelson Age: 56 yrs Sex: Male : 1965 Arrival Date: 11/02/2021 Time: 11:03 Bed 3 Private MD: Diagnosis: Unspecified atrial fibrillation;Unspecified combined systolic (congestive) and diastolic (congestive) heart failure Presentation: 11/02 11:32 Chief complaint: Patient states: hx of chf with increased sob and infection noted to l 6 lower leg. states sob x 24hrs and infection x 4 days. currently taking antibiotics for cellulitis to e. Coronavirus screen: Vaccine status:. Ebola Screen: Patient denies travel to an Ebola-affected area in the 21 days before illness onset. Initial Sepsis Screen: Does the patient meet any 2 criteria? RR > 20 per min. Systolic BP < 90 mmHg. Mean Arterial Pressure (MAP) < 65. HR > 90 bpm. Does the patient have a suspected source of infection? Yes: Skin breakdown/wound. Risk Assessment: Do you want to hurt yourself or someone else? Patient reports no desire to harm self or others. Onset of symptoms was October 05, 2021. 11:32 Method Of Arrival: Ambulatory [facility] 11:32 Acuity: BOBBY 3 [facility] Triage Assessment: 11:35 General: Appears uncomfortable, obese, well groomed, Behavior is calm, cooperative. 6 Pain: Complains of pain in scalp. Respiratory: Reports shortness of breath cough that is non-productive, pain with cough Airway is patent Trachea midline Respiratory effort is even, Onset: The symptoms/episode began/occurred suddenly, the patient has moderate shortness of breath. Historical: - Allergies: 12:35 No Known Allergies; ld1 - PMHx: 12:35 Artificial heart valve; Diabetes - NIDDM; Bipolar disorder; Hypertension; neuropathy; ld1 - PSHx: 12:35 None; ld1 - Immunization history:: Adult Immunizations up to date. - Social history:: Smoking status: Patient denies any tobacco usage or history of. Screenin:35 Abuse screen: Denies threats or abuse. Denies injuries from another. Nutritional ld1 screening: No deficits noted. Tuberculosis screening: No symptoms or risk factors identified. Fall Risk None identified. Assessment: 12:35 General: Appears in no apparent distress. uncomfortable, Behavior is calm, cooperative, ld1 appropriate for age. Pain: Denies pain. Neuro: Level of Consciousness is awake, alert, obeys commands, Oriented to person, place, time, situation. Cardiovascular: Capillary refill < 3 seconds Patient's skin is warm and dry. Rhythm is sinus tachycardia. Respiratory: Airway is patent Respiratory effort is even, unlabored, Breath sounds are clear bilaterally. 13:58 Reassessment: Patient appears in no apparent distress at this time. Patient and/or ld1 family updated on plan of care and expected duration. Pain level reassessed. Pt reports "feeling a little bit better.". 15:53 General: Appears in no apparent distress. uncomfortable, Behavior is calm, cooperative, jd3 appropriate for age, anxious. Pain: Denies pain. Neuro: Level of Consciousness is awake, alert, obeys commands, Oriented to person, place, time, situation. Cardiovascular: Capillary refill < 3 seconds Patient's skin is warm and dry. Rhythm is irregular. Respiratory: Reports shortness of breath at rest Airway is patent Respiratory effort is even, unlabored, Respiratory pattern is regular, symmetrical, Breath sounds are clear bilaterally. GI: No signs and/or symptoms were reported involving the gastrointestinal system. : No signs and/or symptoms were reported regarding the genitourinary system. EENT: No signs and/or symptoms were reported regarding the EENT system. Derm: Skin is intact, Skin is dry, Skin is normal, Skin temperature is warm. Musculoskeletal: Circulation, motion, and sensation intact. Range of motion: intact in all extremities. 17:43 Reassessment: Patient appears in no apparent distress at this time. Patient and/or jd3 family updated on plan of care and expected duration. Pain level reassessed. Patient is alert, oriented x 3, equal unlabored respirations, skin warm/dry/pink. Vital Signs: 11:32 BP 153 / 115; Pulse 127; Resp 22; Temp 98.4; Pulse Ox 94% ; Weight 145.15 kg; Height 6 jh6 ft. 1 in. (185.42 cm); Pain 2/10; 12:35 Pulse 122; Resp 18; Pulse Ox 94% on R/A; ld1 13:57 BP 146 / 105; Pulse 136; Resp 18; Pulse Ox 94% on R/A; ld1 15:02 BP 155 / 99; Pulse 134; Resp 21; Pulse Ox 97% on R/A; ld1 15:54 BP 163 / 89; Pulse 110; Resp 18 S; Pulse Ox 96% on R/A; jd3 17:44 BP 159 / 90; Pulse 74; Resp 17 S; Pulse Ox 96% on R/A; jd3 11:32 Body Mass Index 42.22 (145.15 kg, 185.42 cm) 6 ED Course: 11:03 Patient arrived in ED. as 11:34 Triage completed. jh6 11:36 Arm band placed on left wrist. jh6 11:59 Faby Mejia FNP-C is PHCP. kb 11:59 Mukund Bland MD is Attending Physician. kb 12:25 XRAY Chest (1 view) In Process Unspecified. EDMS 12:35 Patient has correct armband on for positive identification. Call light in reach. Side ld1 rails up X2. Pulse ox on. NIBP on. Door closed. Noise minimized. Warm blanket given. 12:35 COVID-19 SARS RT PCR (Document "Date of Onset" if Symptomatic) Sent. ld1 12:35 No provider procedures requiring assistance completed. Inserted saline lock: 20 gauge ld1 in left antecubital area, using aseptic technique. Blood collected. 12:38 Sanna Pierre, KVNG is Primary Nurse. jh5 15:39 Primary Nurse role handed off by Sanna Pierre, KVNG jd3 15:39 Chino Tse, KVNG is Primary Nurse. jd3 15:53 EKG done, by ED staff, reviewed by Mukund Bland MD. jd3 16:17 Prince Leblanc MD is Hospitalizing Provider. kb 17:43 Patient admitted, IV remains in place. jd3 Administered Medications: 12:35 Drug: Lasix (furosemide) 40 mg Route: IVP; Site: left antecubital; ld1 14:49 Follow up: Response: No adverse reaction ld1 15:20 Drug: Lovenox (enoxaparin) 1 mg/kg Route: Sub-Q; Site: abdomen; ld1 16:20 Follow up: Response: No adverse reaction jd3 15:20 Drug: Lopressor (metoprolol) 5 mg Route: IVP; Site: left antecubital; ld1 15:35 Drug: Lopressor (metoprolol) 5 mg Route: IVP; Site: left antecubital; ld1 15:48 Drug: Lopressor (metoprolol) 5 mg Route: IVP; Site: left antecubital; jd3 16:40 Follow up: Response: No adverse reaction jd3 16:39 Drug: Metoprolol 25 mg Route: PO; jd3 17:30 Follow up: Response: No adverse reaction jd3 16:39 Drug: Ativan (LORazepam) 0.5 mg Route: IVP; Site: left antecubital; jd3 17:30 Follow up: Response: No adverse reaction jd3 Outcome: 16:17 Decision to Hospitalize by Provider. kb 17:42 Admitted to Med/surg accompanied by tech, via wheelchair, room 219, with chart, Report jd3 called to Ibeth CALDERON 17:42 Condition: stable 17:42 Instructed on the need for admit, Demonstrated understanding of instructions. 18:04 Patient left the ED. jhoracio Signatures: Dispatcher [employer] EDFaby Arvizu, PRODUCE ASSOCIATE-C PRODUCE ASSOCIATE-Vaishali Garcia Jonathon RN RN jd3 Joaquina Vásquez RN RN ld1 Sanna Pierre RN RN jh5 Elva Gaitan RN RN jh6 Corrections: (The following items were deleted from the chart) 15:53 15:53 EKG done, dara jhoracio
--- NOTE | 2021-11-02 16:18 | EDPHYS ---
Physician Documentation [facility] Name: Meryl Nelson Age: 56 yrs Sex: Male : 1965 Arrival Date: 11/02/2021 Time: 11:03 Bed 3 Private MD: ED Physician Mukund Bland HPI: 11/02 16:37 This 56 yrs old Male presents to ER via Ambulatory with complaints of Shortness Of kb Breath. 16:18 Pt reports he has been retaining fluid to lower extremities for a month, was diagnosed kb with left lower extremity cellulitis 4 days ago, started antibiotics at that time. Comes in today for shortness of breath that has been getting worse since it started 2 days ago. . 16:37 The patient has shortness of breath at rest. Onset: The symptoms/episode began/occurred kb 2 day(s) ago. Duration: The symptoms are continuous. The patient's shortness of breath is aggravated by exertion, is alleviated by nothing. Associated signs and symptoms: The patient has no apparent associated signs or symptoms. Severity of symptoms: At their worst the symptoms were moderate in the emergency department the symptoms are unchanged. The patient has not experienced similar symptoms in the past. The patient has not recently seen a physician. Historical: - Allergies: 12:35 No Known Allergies; ld1 - PMHx: 12:35 Artificial heart valve; Diabetes - NIDDM; Bipolar disorder; Hypertension; neuropathy; ld1 - PSHx: 12:35 None; ld1 - Immunization history:: Adult Immunizations up to date. - Social history:: Smoking status: Patient denies any tobacco usage or history of. ROS: 16:42 Constitutional: Negative for fever, chills, and weight loss. kb 16:42 Respiratory: Positive for shortness of breath, Negative for cough, dyspnea on exertion, hemoptysis, orthopnea, pleurisy, sputum production, wheezing. 16:42 All other systems are negative. 16:42 Cardiovascular: Positive for edema. kb Exam: 16:42 Constitutional: This is a well developed, well nourished patient who is awake, alert, kb and in no acute distress. Head/Face: Normocephalic, atraumatic. ENT: Moist Mucous membranes Abdomen/GI: Soft, non-tender. No distention Skin: Warm, dry with normal turgor. Normal color. MS/ Extremity: Pulses equal, no cyanosis. Neurovascular intact. Full, normal range of motion. Neuro: Awake and alert, GCS 15, oriented to person, place, time, and situation. Moves all extremities. Normal gait. Psych: Awake, alert, with orientation to person, place and time. Behavior, mood, and affect are within normal limits. 16:42 Cardiovascular: Rate: tachycardic, Rhythm: irregularly irregular, Pulses: no pulse deficits are appreciated, Edema: 2+ edema to level of left ankle and right ankle. 16:42 Respiratory: mild respiratory distress is noted, moderate respiratory distress is noted, Respirations: labored breathing, Breath sounds: decreased breath sounds, that are moderate, are located in both bases. Vital Signs: 11:32 BP 153 / 115; Pulse 127; Resp 22; Temp 98.4; Pulse Ox 94% ; Weight 145.15 kg; Height 6 6 ft. 1 in. (185.42 cm); Pain 2/10; 12:35 Pulse 122; Resp 18; Pulse Ox 94% on R/A; ld1 13:57 BP 146 / 105; Pulse 136; Resp 18; Pulse Ox 94% on R/A; ld1 15:02 BP 155 / 99; Pulse 134; Resp 21; Pulse Ox 97% on R/A; ld1 15:54 BP 163 / 89; Pulse 110; Resp 18 S; Pulse Ox 96% on R/A; jd3 17:44 BP 159 / 90; Pulse 74; Resp 17 S; Pulse Ox 96% on R/A; jd3 11:32 Body Mass Index 42.22 (145.15 kg, 185.42 cm) [facility] MDM: 12:00 Patient medically screened. kb 16:16 Data reviewed: vital signs, nurses notes. Data interpreted: Pulse oximetry: on room air kb is 96 %. Interpretation: normal. Counseling: I had a detailed discussion with the patient and/or guardian regarding: the historical points, exam findings, and any diagnostic results supporting the discharge/admit diagnosis, lab results, radiology results, the need for further work-up and treatment in the hospital. Physician consultation: Prince Benji GOMEZ was contacted at 16:00, regarding admission, to the telemetry unit. patient's condition, and will see patient in ED. 11/02 12:09 Order name: Basic Metabolic Panel kb 11/02 12:09 Order name: CBC with Diff; Complete Time: 13:04 kb 11/02 12:09 Order name: LFT's kb 11/02 12:09 Order name: Magnesium kb 11/02 12:09 Order name: NT PRO-BNP kb 11/02 12:09 Order name: PT-INR; Complete Time: 12:49 kb 11/02 12:09 Order name: Troponin HS kb 11/02 12:09 Order name: XRAY Chest (1 view); Complete Time: 12:41 kb 11/02 12:09 Order name: COVID-19 SARS RT PCR (Document "Date of Onset" if Symptomatic); Complete kb Time: 14:30 11/02 15:15 Order name: Troponin HS; Complete Time: 16:12 kb 11/02 12:09 Order name: EKG; Complete Time: 12:10 kb 11/02 12:09 Order name: Cardiac monitoring; Complete Time: 12:53 kb 11/02 12:09 Order name: EKG - Nurse/Tech; Complete Time: 12:53 kb 11/02 12:09 Order name: IV Saline Lock; Complete Time: 12:35 kb 11/02 12:09 Order name: Labs collected and sent; Complete Time: 12:35 kb 11/02 12:09 Order name: O2 Per Protocol; Complete Time: 12:35 kb 11/02 12:09 Order name: O2 Sat Monitoring; Complete Time: 12:35 kb 11/02 14:44 Order name: Vital Signs; Complete Time: 15:02 kb 11/02 14:44 Order name: EKG; Complete Time: 14:45 kb 11/02 14:44 Order name: EKG - Nurse/Tech; Complete Time: 15:01 kb 11/02 15:35 Order name: EKG; Complete Time: 15:36 kb 11/02 15:35 Order name: EKG - Nurse/Tech; Complete Time: 15:42 kb 11/02 15:37 Order name: Labs - recollect needed: recollect green top; Complete Time: 15:44 bd 11/02 16:40 Order name: EKG - Nurse/Tech; Complete Time: 16:40 jd3 Administered Medications: 12:35 Drug: Lasix (furosemide) 40 mg Route: IVP; Site: left antecubital; ld1 14:49 Follow up: Response: No adverse reaction ld1 15:20 Drug: Lovenox (enoxaparin) 1 mg/kg Route: Sub-Q; Site: abdomen; ld1 16:20 Follow up: Response: No adverse reaction jd3 15:20 Drug: Lopressor (metoprolol) 5 mg Route: IVP; Site: left antecubital; ld1 15:35 Drug: Lopressor (metoprolol) 5 mg Route: IVP; Site: left antecubital; ld1 15:48 Drug: Lopressor (metoprolol) 5 mg Route: IVP; Site: left antecubital; jd3 16:40 Follow up: Response: No adverse reaction jd3 16:39 Drug: Metoprolol 25 mg Route: PO; jd3 17:30 Follow up: Response: No adverse reaction jd3 16:39 Drug: Ativan (LORazepam) 0.5 mg Route: IVP; Site: left antecubital; jd3 17:30 Follow up: Response: No adverse reaction jd3 Disposition: 18:17 Co-signature as Attending Physician, Mukund Bland MD I agree with the assessment and rn plan of care. Attestation: The patient's history, exam findings, diagnostics, and a summary of any interventions or procedures was reviewed in detail with Faby BURGESS. Disposition Summary: 11/02/21 16:17 Hospitalization Ordered Hospitalization Status: Inpatient Admission kb Provider: Prince vita Leblanc Location: Telemetry/MedSurg (Inpatient) kb Condition: Stable kb Problem: new kb Symptoms: are unchanged kb Bed/Room Type: Standard Room Assignment: 219(11/02/21 16:53) dw Diagnosis - Unspecified atrial fibrillation kb - Unspecified combined systolic (congestive) and diastolic (congestive) heart failure kb Forms: - Medication Reconciliation Form kb - SBAR form kb Signatures: Dispatcher [employer] Faby Carson FNP-C FNP-Ckb Dirrim, Barbara bd Woody, Diana, RN RN Mukund Kennedy MD MD rn Davies, Jonathon, RN RN jd3 Dibbern, Lauren, RN RN ld1 Elva Gaitan RN RN jh6 Corrections: (The following items were deleted from the chart) 16:53 16:17 kb dw
[2021-11-02] MEDS ORDERED: LORazepam 2 MG/ML VIAL ONE (16:32)
[2021-11-02] MEDS ORDERED: METOPROLOL TAR 25 MG TAB ONE (16:33)
--- NOTE | 2021-11-02 17:40 | P.HP ---
Certification for Inpatient Patient admitted to: Inpatient With expected LOS: >2 Midnights Practitioner: I am a practitioner with admitting privileges, knowledge of patient current condition, hospital course, and medical plan of care. Services: Services provided to patient in accordance with Admission requirements found in Title 42 Section 412.3 of the Code of Federal Regulations Patient History Date of Service: 11/02/21 Reason for admission: ChF exacerbation History of Present Illness: Patient is a 56-year-old male with a past medical history of obesity, aortic valve replacement with a mechanical valve. Is currently on warfarin. He presented to the ER complaining of acute onset of shortness of breath that started the day before admission. Patient denies any fever or cough. He reports that his been having orthopneic symptoms and bilateral lower extremity edema. His legs have been swollen for the past 6 years but more so over the past few weeks. He follows up with a patient educator at [place]. He is currently on treatment for left lower extremity cellulitis. He has a visibly inflamed left lower extremity. Patient follows up with a patient educator. ER course: He arrived in the ER in rapid A. fib and required 3 injection Lopressor to restore normal heart rate. He was volume overloaded on physical exam. His chest x-ray showed mild pulmonary edema. He was given 40 mg of IV Lasix. During my encounter with the patient, he was more comfortable and was able to lie flat on his bed. His oxygen saturation was 96% on room air. Allergies No Known Allergies Allergy (Verified 07/22/16 11:19) Home Medications: Doxepin HCl [Sinequan] 100 mg PO BEDTIME 07/22/16 Duloxetine HCl [Cymbalta] 60 mg PO TID 07/22/16 Metoprolol Tartrate [Lopressor] 100 mg PO BID 07/22/16 Quetiapine [Seroquel] 100 mg PO DAILY 07/22/16 Warfarin Sodium [Coumadin] 5 mg PO DAILY 5 PM 07/22/16 Physical Examination - Physical Exam General: In no apparent distress HEENT: Atraumatic, Normocephalic Respiratory: Diminished, Crackles/rales Cardiovascular: Edema, Systolic murmur Musculoskeletal: Swelling Neurological: Normal speech, Normal affect - Studies Laboratory Data (last 24 hrs) 11/02/21 12:30: PT 28.5 H, INR 2.46 11/02/21 12:30: WBC 12.10 H D, Hgb 14.3, Hct 43.8, Plt Count 378 D 11/02/21 12:30: Sodium 138, Potassium 4.1, BUN 15, Creatinine 0.92, Glucose 124 H, Magnesium BOTTLE HOP, Total Bilirubin 0.5, AST 128 H, ALT 194 H, Alkaline Phosphatase 127 H Assessment and Plan - Problems (Diagnosis) (1) Acute hypoxemic respiratory failure Current Visit: Yes Status: Acute (2) CHF exacerbation Current Visit: Yes Status: Acute (3) H/O mechanical aortic valve replacement Current Visit: Yes Status: Acute (4) Rapid atrial fibrillation Current Visit: Yes Status: Acute - Advance Directives Does patient have a Living Will: No Does patient have a Durable POA for Healthcare: No Physician Review Additional Text: Assessment Patient is 56-year-old male with a known past medical history of mechanical aortic valve replacement for which is on warfarin. He is currently being admitted for decompensated CHF. He has no known history of congestive heart failure. Acute respiratory distress Rapid atrial fibrillation Mechanical aortic valve Obesity Left lower extremity cellulitis Plan: Admit inpatient with telemetry Start patient on diuresis and monitor ins and outs I will restart his metoprolol at 100 mg twice daily Follow-up 2D echo Resume home dose of warfarin at 6 mg Patient is currently on doxycycline and Keflex for which he is taking for his left lower extremity cellulitis. We'll continue on this Repeat CBC tomorrow
[2021-11-02] MEDS: FUROSEMIDE 40 MG/4 ML VIAL IV SCH (20:48)
[2021-11-02] MEDS ORDERED: DULOXETINE 30 MG CAP PO SCH (21:00)
[2021-11-02] MEDS ORDERED: HOME MED 1 EA UNK (Duloxetine Hcl [Cymbalta] 60 MG Capsule.Dr) PO SCH (21:00)
[2021-11-02] MEDS ORDERED: DOXEPIN HCL 25 MG CAP PO SCH (21:00)
[2021-11-02] MEDS ORDERED: HOME MED 1 EA UNK (Metoprolol Tartrate [Lopressor] 100 MG Tablet) PO SCH (21:00)
[2021-11-02] MEDS ORDERED: DOXEPIN HCL 50 MG PO SCH (21:00)
[2021-11-02] MEDS ORDERED: METOPROLOL TAR 50 MG TAB PO SCH (21:00)
[2021-11-03] MEDS: METOPROLOL TAR 50 MG TAB PO SCH ×3 (03:48→21:35)
[2021-11-03 05:30] LABS: Absolute Lymphocytes (CBC) 2.5 K/uL (0.7-4.9); Hematocrit 43.7 % (39.6-49.0); Lymphocytes % 18.6 % (15.3-44.8); MPV 8.1 fL (7.6-11.3); RBC Red Blood Cell Count 4.97 M/uL (4.33-5.43)
[2021-11-03] MEDS ORDERED: CEPHALEXIN 250 MG CAP ONE (06:20)
[2021-11-03] MEDS: CEPHALEXIN 250 MG CAP PO SCH ×2 (06:37→12:47)
[2021-11-03 08:07] LABS: Protime INR 1.79
--- NOTE | 2021-11-03 08:14 | EKG ---
Test Date: 2021-11-03 Test Time: 01:02:34 Commercial Singer: UMAG MEASUREMENT RESULTS: Intervals: Rate: 111 [place]: QRSD: 88 QT: 370 QTc: 503 [place]: P: DE: QRS: 54 T: 81 INTERPRETIVE STATEMENTS: Atrial fibrillation with rapid ventricular response with premature ventricular or aberrantly conducted complexes Nonspecific ST and T wave abnormality, probably digitalis effect Abnormal ECG Compared to ECG 07/22/2016 11:35:27 Ventricular premature complex(es) now present ST (T wave) deviation now present Sinus rhythm no longer present Electronically Signed On 11-03-21 08:13:37 FISHER NET by Burke Green
--- NOTE | 2021-11-03 08:16 | EKG ---
Test Date: 2021-11-02 Test Time: 15:03:02 Fingerprint Technician: JR Harrison MEASUREMENT RESULTS: Intervals: Rate: 133 NV: QRSD: 84 QT: 320 QTc: 476 [place]: P: NV: QRS: 82 T: 66 INTERPRETIVE STATEMENTS: Atrial fibrillation with rapid ventricular response ST elevation, consider inferior injury or acute infarct ACUTE OK / STEMI Consider right ventricular involvement in acute inferior infarct Abnormal ECG Compared to ECG 11/02/2021 12:47:29 Myocardial infarct finding now present Myocardial infarct finding now present ST (T wave) deviation still present Electronically Signed On 11-03-21 08:13:52 PRESS WORKER HELPER by Burke Green
--- NOTE | 2021-11-03 08:17 | EKG ---
Test Date: 2021-11-02 Test Time: 12:47:29 Warehouse Receiving Supervisor: KV MEASUREMENT RESULTS: Intervals: Rate: 129 ME: QRSD: 94 QT: 318 QTc: 465 [place]: P: ME: QRS: 55 T: 68 INTERPRETIVE STATEMENTS: Atrial fibrillation with rapid ventricular response Nonspecific ST abnormality Abnormal ECG Compared to ECG 11/02/2021 12:45:54 Myocardial infarct finding no longer present Myocardial infarct finding no longer present ST (T wave) deviation still present Electronically Signed On 11-03-21 08:13:57 INFLATED BALL MOLDER by Burke Green
--- NOTE | 2021-11-03 08:17 | EKG ---
Test Date: 2021-11-02 Test Time: 12:45:54 Frame Aligner: KV MEASUREMENT RESULTS: Intervals: Rate: 129 [place]: QRSD: 82 QT: 364 QTc: 533 [place]: P: GA: QRS: 60 T: 82 INTERPRETIVE STATEMENTS: Age and gender specific ECG analysis Atrial fibrillation with rapid ventricular response ST elevation, consider inferior injury or acute infarct ACUTE MN / STEMI Consider right ventricular involvement in acute inferior infarct Abnormal ECG Compared to ECG 07/22/2016 11:35:27 ST (T wave) deviation now present Myocardial infarct finding now present Myocardial infarct finding now present Sinus rhythm no longer present Electronically Signed On 11-03-21 08:13:58 NITROCELLULOSE OPERATOR by Burke Green
[2021-11-03] MEDS ORDERED: GLUCAGON 1 MG/VIAL IM PRN (08:19)
[2021-11-03] MEDS ORDERED: D50W 25 GM/50 ML SYRINGE IV PRN (08:19)
[2021-11-03] MEDS: QUETIAPINE 100MG TAB PO SCH (09:00)
[2021-11-03] MEDS ORDERED: DOXYCYCLINE 100 MG CAP PO SCH (09:00)
[2021-11-03] MEDS: FUROSEMIDE 40 MG/4 ML VIAL IV SCH ×2 (09:09→16:26)
[2021-11-03] MEDS: ACETAMINOPHEN 500 MG TAB PO PRN ×2 (09:10→16:33)
[2021-11-03 10:25] LABS: Albumin 2.7 g/dL (3.4-5.0); Bilirubin Total 0.8 mg/dL (0.2-1.0); Potassium 3.5 mmol/L (3.5-5.1); Protein, Total 7.5 g/dL (6.4-8.2)
[2021-11-03] MEDS: INSULIN -REGULAR HUMAN 50 UNIT/0.5 ML ML IV SCH ×3 (11:30→21:00)
--- NOTE | 2021-11-03 12:57 | P.PN ---
Subjective Date of Service: 11/03/21 Chief Complaint: ChF exacerbation Subjective: Improving (Patient still has enough redness and swelling to his LLE) Physical Examination - Vital Signs Temperature: 97.6 F Blood Pressure: 147/72 Pulse: 65 Respirations: 16 Pulse Ox (%): 94 - Physical Exam General: In no apparent distress, Obese HEENT: Atraumatic, Normocephalic Respiratory: Normal air movement, Diminished Cardiovascular: Regular rate/rhythm, Normal S1 S2, Systolic murmur Musculoskeletal: Swelling, Erythema, Tenderness Neurological: Normal speech, Normal affect - Studies Laboratory Data (last 24 hrs) 11/02/21 12:30: WBC 12.10 H D, Hgb 14.3, Hct 43.8, Plt Count 378 D 11/02/21 12:30: Sodium 138, Potassium 4.1, BUN 15, Creatinine 0.92, Glucose 124 H, Magnesium 2.0, Total Bilirubin 0.5, AST 128 H, ALT 194 H, Alkaline Phosphatase 127 H Assessment & Plan - Problems (Diagnosis) (1) Acute hypoxemic respiratory failure Current Visit: Yes Status: Acute (2) CHF exacerbation Current Visit: Yes Status: Acute (3) H/O mechanical aortic valve replacement Current Visit: Yes Status: Acute (4) Rapid atrial fibrillation Current Visit: Yes Status: Acute Physician Review: Patient Assessed, Agree with Above Assessment and Plan Physician Review Additional Text: Assessment Patient is 56-year-old male with a known past medical history of mechanical aortic valve replacement for which is on warfarin. He is currently being admitted for decompensated CHF. He has no known history of congestive heart failure. He developed rapid atrial fibrillation in the ER. It resolved after 3 injections of Lopressor. He is also being treated for LLE cellulitis with doxycycline and keflex. Acute respiratory distress Rapid atrial fibrillation Mechanical aortic valve Obesity Left lower extremity cellulitis Plan: Continue telemetry I will consult cardiology for evaluation of new onset CHF Continue lasix and metoprolol Follow up TTE I will change his antibiotics to IV Clindamycin Continue warfarin at 6 mg Monitor INR Follow repeat EKG
[2021-11-03] MEDS: CLINDAMYCIN PHOSPHATE 900 MG in NA CHLORIDE 0.9% 50 ML IV SCH ×2 (14:17→16:27)
[2021-11-03] MEDS ORDERED: HOME MED 1 EA UNK (Pregabalin [Lyrica] 25 MG Capsule) PO SCH (15:03)
[2021-11-03] MEDS ORDERED: clonazePAM 1 MG TAB PO PRN (15:06)
[2021-11-03] MEDS: DIVALPROEX DR 250 MG TAB PO SCH (16:26)
[2021-11-03] MEDS ORDERED: WARFARIN SODIUM 6 MG TAB PO SCH (17:00)
--- NOTE | 2021-11-03 17:40 | EKG ---
Test Date: 2021-11-03 Test Time: 13:50:21 Cad Design Engineer: ELIZ MEASUREMENT RESULTS: Intervals: Rate: 75 [place]: 160 QRSD: 92 QT: 444 QTc: 495 [place]: P: 57 [place]: 160 QRS: 53 T: 78 INTERPRETIVE STATEMENTS: Normal sinus rhythm Possible Left atrial enlargement Prolonged QT Abnormal ECG Compared to ECG 11/03/2021 01:02:34 Prolonged QT interval now present Atrial fibrillation no longer present Ventricular premature complex(es) no longer present ST (T wave) deviation no longer present Electronically Signed On 11-03-21 17:40:17 SUBWAY TRAIN OPERATOR by Burke Green
--- NOTE | 2021-11-03 17:41 | EKG ---
Test Date: 2021-11-02 Test Time: 16:38:31 Collector Of Internal Revenue: JR Harrison MEASUREMENT RESULTS: Intervals: Rate: 74 ND: 162 QRSD: 90 QT: 414 QTc: 459 [place]: P: 63 ND: 162 QRS: 80 T: 62 INTERPRETIVE STATEMENTS: Normal sinus rhythm Biatrial enlargement Nonspecific ST abnormality Abnormal ECG Compared to ECG 11/02/2021 15:46:01 Atrial abnormality now present Atrial fibrillation no longer present Ventricular premature complex(es) no longer present ST (T wave) deviation still present Electronically Signed On 11-03-21 17:40:25 INTERMEDIATE PROJECT MANAGER by Burke Green
--- NOTE | 2021-11-03 17:41 | EKG ---
Test Date: 2021-11-02 Test Time: 15:46:01 Display Decorator: JR Harrison MEASUREMENT RESULTS: Intervals: Rate: 107 AR: QRSD: 90 QT: 358 QTc: 477 [place]: P: AR: QRS: 81 T: 51 INTERPRETIVE STATEMENTS: Atrial fibrillation with rapid ventricular response with premature ventricular or aberrantly conducted complexes Nonspecific ST abnormality, probably digitalis effect Abnormal ECG Compared to ECG 11/02/2021 15:03:02 Ventricular premature complex(es) now present Myocardial infarct finding no longer present Myocardial infarct finding no longer present ST (T wave) deviation still present Electronically Signed On 11-03-21 17:40:31 RELEASE OF INFORMATION SPECIALIST by Burke Green
[2021-11-03 18:42] LABS: Magnesium 1.8
[2021-11-03 19:50] VITALS: O2SAT 95
[2021-11-03 19:56] VITALS: BMI 43.2
[2021-11-03] MEDS ORDERED: DOXEPIN HCL 25 MG CAP PO SCH (21:00)
[2021-11-03] MEDS: GABAPENTIN 300 MG CAP PO SCH (21:35)
[2021-11-03] MEDS: PREGABALIN 75 MG CAP PO SCH (21:36)
[2021-11-04] MEDS: DIVALPROEX DR 250 MG TAB PO SCH ×2 (00:54→09:47)
[2021-11-04] MEDS: CLINDAMYCIN PHOSPHATE 900 MG in NA CHLORIDE 0.9% 50 ML IV SCH ×2 (01:00→09:44)
[2021-11-04] MEDS ORDERED: CLINDAMYCIN IV 150 MG/ML (6 mL) VIAL ONE (01:05)
[2021-11-04] MEDS ORDERED: NA CHLORIDE 0.9% 50 ML ONE (01:06)
[2021-11-04 05:46] LABS: Absolute Lymphocytes (CBC) 2.8 K/uL (0.7-4.9); Lymphocytes % 28.7 % (15.3-44.8); MPV 8.1 fL (7.6-11.3); RBC Red Blood Cell Count 4.54 M/uL (4.33-5.43)
[2021-11-04] MEDS: INSULIN -REGULAR HUMAN 50 UNIT/0.5 ML ML IV SCH ×2 (07:30→11:30)
[2021-11-04 07:40] LABS: Potassium 3.6 mmol/L (3.5-5.1)
--- NOTE | 2021-11-04 08:23 | ECHO ---
HEIGHT: 6 ft 1 in WEIGHT: 328 lb 0 oz DATE OF STUDY: 11/03/[address]: Prince Rebecca Leblanc MD 2-DIMENSIONAL: YES M.MODE: YES DOPPLER: YES COLOR FLOW: YES TDS: NO PORTABLE: NO DEFINITY: NO BUBBLE STUDY: NO DIAGNOSIS: CONGESTIVE HEART FAILURE CARDIAC HISTORY: CATHERIZATION: NO SURGERY: NO PROSTHETIC VALVE: YES PACEMAKER: NO MEASUREMENTS (cm) DIASTOLIC (NORMALS) SYSTOLIC (NORMALS) IVSd 1.3 (0.6-1.2) LA Diam 4.4 (1.9-4.0) LVEF 55% LVIDd 5.9 (3.5-5.7) LVIDs 4.5 (2.0-3.5) %FS 24% LVPWd 1.4 (0.6-1.2) Ao Diam 3.1 (2.0-3.7) 2 DIMENSIONAL ASSESSMENT: RIGHT ATRIUM: NORMAL LEFT ATRIUM: DILATED RIGHT VENTRICLE: NORMAL LEFT VENTRICLE: LEFT VENTRICULAR HYPERTROPHY TRICUSPID VALVE: NORMAL MITRAL VALVE: NORMAL PULMONIC VALVE: NORMAL AORTIC VALVE: STATUS POST AORTIC VALVE REPLACEMENT PERICARDIAL EFFUSION: NONE AORTIC ROOT: NORMAL LEFT VENTRICULAR WALL MOTION: NORMAL. DOPPLER/COLOR FLOW: NORMAL. COMMENTS: STATUS POST MECHANICAL AORTIC VALVE AREA - NORMAL FUNCTION. EJECTION FRACTION 51-55%. LEFT VENTRICULAR HYPERTROPHY. LEFT ATRIAL ENLARGEMENT. NO EFFUSION. TECHNOLOGIST: SUDEEP HAWKINS
[2021-11-04] MEDS: QUETIAPINE 100MG TAB PO SCH (09:00)
[2021-11-04] MEDS: FUROSEMIDE 40 MG/4 ML VIAL IV SCH (09:45)
[2021-11-04] MEDS: METOPROLOL TAR 50 MG TAB PO SCH (09:46)
[2021-11-04] MEDS: GABAPENTIN 300 MG CAP PO SCH (09:46)
[2021-11-04] MEDS: PREGABALIN 75 MG CAP PO SCH (09:47)
--- NOTE | 2021-11-04 10:03 | P.DS ---
Admission Date: 11/02/21 Discharge Date: 11/04/21 Disposition: ROUTINE DISCHARGE Discharge Condition: GOOD Reason for Admission: ChF exacerbation - Problems (1) Acute hypoxemic respiratory failure Current Visit: Yes Status: Acute (2) CHF exacerbation Current Visit: Yes Status: Acute (3) H/O mechanical aortic valve replacement Current Visit: Yes Status: Acute (4) Rapid atrial fibrillation Current Visit: Yes Status: Acute Brief History of Present Illness: Patient is a 56-year-old male with a past medical history of obesity, aortic valve replacement with a mechanical valve. Is currently on warfarin. He presented to the ER complaining of acute onset of shortness of breath that started the day before admission. Patient denies any fever or cough. He reports that his been having orthopneic symptoms and bilateral lower extremity edema. His legs have been swollen for the past 6 years but more so over the past few weeks. He follows up with a campaign assistant at [facility]. He is currently on treatment for left lower extremity cellulitis. He has a visibly inflamed left lower extremity. Patient follows up with a campaign assistant. ER course: He arrived in the ER in rapid A. fib and required 3 injection Lopressor to restore normal heart rate. He was volume overloaded on physical exam. His chest x-ray showed mild pulmonary edema. He was given 40 mg of IV Lasix. During my encounter with the patient, he was more comfortable and was able to lie flat on his bed. His oxygen saturation was 96% on room air. Hospital Course: Is a 56-year-old male with obesity, hypertension and mechanical aortic valve. He was admitted for decompensated CHF after he presented with shortness of breath and lower extremity edema. His chest x-ray had evidence of mild interstitial edema. He was diuresed and felt well. He has been successfully weaned off oxygen. He is orthopneic symptoms resolved. His 2D echo revealed a preserved EF but evidence of LVH. Patient also had a left lower extremity cellulitis which appears to have failed outpatient treatment with doxycycline and Keflex. He was placed on clindamycin here and his cellulitis is nearly resolved. Patient can be discharged today. Vital Signs/Physical Exam: Temp Pulse Resp BP Pulse Ox 97.0 F 64 18 129/61 95 11/04/21 08:00 11/04/21 09:46 11/04/21 08:00 11/04/21 09:46 11/04/21 08:00 General: In no apparent distress, Cooperative HEENT: Atraumatic, Normocephalic Cardiovascular: Systolic murmur Musculoskeletal: No clubbing, No contractures Integumentary: Other (Faint edema and erythema of the left lower extremity) Neurological: Normal speech, Abnormal affect Laboratory Data at Discharge: WBC 9.60 K/uL (4.3-10.9) D 11/04/21 05:05 Hgb 13.1 g/dL (13.6-17.9) L 11/04/21 05:05 Hct 40.0 % (39.6-49.0) 11/04/21 05:05 Plt Count 336 K/uL (152-406) 11/04/21 05:05 PT 20.7 SECONDS (9.5-12.5) H 11/03/21 07:26 INR 1.79 11/03/21 07:26 Sodium 139 mmol/L (136-145) 11/04/21 05:05 Potassium 3.6 mmol/L (3.5-5.1) 11/04/21 05:05 BUN 19 mg/dL (7-18) H 11/04/21 05:05 Creatinine 1.07 mg/dL (0.55-1.3) 11/04/21 05:05 Glucose 99 mg/dL (74-106) 11/04/21 05:05 Magnesium 1.8 11/03/21 09:32 Total Bilirubin 0.8 mg/dL (0.2-1.0) 11/03/21 09:32 AST 66 U/L (15-37) H 11/03/21 09:32 ALT 137 U/L (12-78) H 11/03/21 09:32 Alkaline Phosphatase 101 U/L (45-117) 11/03/21 09:32 Home Medications: Warfarin Sodium [Coumadin*] 6 mg PO DAILY 5 PM 07/22/16 Divalproex Sodium 1 tab PO BID 11/02/21 Fluoxetine HCl 1 tab PO DAILY AFTER SUPPER 11/02/21 Gabapentin 1 tab PO TID 11/02/21 Pregabalin [Lyrica] 75 mg PO TID 11/02/21 Furosemide 40 mg PO DAILY #28 tablet 11/04/21 Metoprolol Tartrate [Lopressor*] 100 mg PO BID #60 tab 11/04/21 clindamycin HCL [Clindamycin HCl] 300 mg PO QID #20 capsule 11/04/21 New Medications: clindamycin HCL [Clindamycin HCl] 300 mg PO QID #20 capsule Furosemide 40 mg PO DAILY #28 tablet Metoprolol Tartrate [Lopressor*] 100 mg PO BID #60 tab Followup: Faviola Barragan NP [Primary Care Provider] -
[2021-11-04 12:22] VITALS: BP 142/65; TEMP 97.1
[2021-11-04 12:23] LABS: Magnesium 1.9
--- NOTE | 2021-11-07 17:31 | CON ---
Date of Consultation: 11/03/2021 Reason For Consultation: Congestive heart failure. Subjective: The patient is 56 years old, patient of Dr. Betancourt, has a history of artificial heart v alve that is mechanical. The patient takes Coumadin. The patient also has diabetes, bipolar disorde r, hypertension, and neuropathy. Came in with left lower leg cellulitis that has been going on for 4 days, on antibiotics. He also came in with shortness of breath. Denied any chest pain, nausea, vom iting, PND, orthopnea, pedal edema, palpitation, or syncope. Past Medical History: As stated above. Allergies: NONE. Review of Systems: Negative. Social History: Negative. Family History: Noncontributory. Medications: At home include Coumadin, divalproex, Lasix 40 mg daily, gabapentin, metoprolol 100 b.i .d., Lyrica, and clindamycin for the cellulitis. Physical Examination: Vital Signs: The patient weighed 330 pounds. Blood pressure is 120/55, pulse is 70, respiratory rat e is 16, afebrile, atrial fibrillation, rate of 70. O2 saturation was 96% on room air. HEENT: Negative. Neck: Supple with no bruit. Chest: Clear. Cardiac: Revealed a crisp aortic valve sound. No murmurs, gallops, or rubs. Regular rhythm and rat e. Abdomen: Obese. Extremities: Revealed cellulitis in the right lower extremity and 1+ edema. Diagnostic Data: Chest x-ray showed interstitial pulmonary edema. White count was 13,000. INR was 2.46. Glucose was 124. Mildly elevated liver function tests. BNP of 3984. Procalcitonin was negat marshal. COVID was negative. EKG showed atrial fibrillation. Echocardiogram showed an ejection fractio n of 55%, status post mechanical aortic valve with normal function, slight left atrial enlargement, b ut no wall motion abnormalities. Impression And Plan: 1.Right lower extremity cellulitis that is improving on antibiotics. 2.Mild congestive heart failure, volume overload with normal ejection fraction. 3.Diabetes. 4.Status post artificial aortic valve that is mechanical with normal function. No regurgitation. T he patient has also history of hypertension, bipolar disorders, and neuropathy. I am comfortable wit h the patient going home whenever it is okay with the admitting physician. He does take Lasix at [facility] e 40 mg daily. I think he needs to double his Lasix to b.i.d., continue his beta-suri, continue h is Coumadin. He should follow up with his assembler billiard table in the very near future. CHERELLE Voice ID: [id number] Report ID: [id number]
== END 2021-11-04 12:34 | disposition home or self-care (01) | DRG 291 ==
LOC: ER 11:01 → ERHOLD 16:30 → 2ND 17:53
PROVIDERS: ADMIT Internal Medicine; ATTEND Internal Medicine
DX: I11.0 Hypertensive heart disease with heart failure (principal); J96.01 Acute respiratory failure with hypoxia; Z68.41 Body mass index [BMI] 40.0-44.9, adult; L03.116 Cellulitis of left lower limb; I50.9 Heart failure, unspecified; E11.40 Type 2 diabetes mellitus with diabetic neuropathy, unspecified; I48.91 Unspecified atrial fibrillation; E66.9 Obesity, unspecified; Z95.4 Presence of other heart-valve replacement; Z79.01 Long term (current) use of anticoagulants; Z79.899 Other long term (current) drug therapy; Z20.822 Contact with and (suspected) exposure to COVID-19
CPT/HCPCS: 36415; 71045; 80048; 80053; 80076; 82947; 83735; 83880; 84145; 84484; 85025; 85610; 93005; 93306; 96372; 96374; 96375; 99285; J1650; J1940; S0077; U0003

== ENCOUNTER 2022-01-14 17:07 | Inpatient (IN) | payer OTHER ==
--- OUTSIDE RECORDS SUMMARY | 2022-01-14 17:09 | XMS REPORT | Continuity of Care Document ---
:1965 Author Organization [facility] t Address [address] [place] [address] Care Team Providers Name Role Phone La[place] Attending Clinician Unavailable Problems This patient has no known problems. Allergies, Adverse Reactions, Alerts This patient has no known allergies or adverse reactions. Medications This patient has no known medications. Procedures This patient has no known procedures. Encounters Start End Encounter Admission Attending Care Care Encounter Source Date/Time Date/Time Type Type Clinicians Facility Department ID 2021-11-16 Outpatient [place], [facility] [id number] [facility] [address] 14:09:03 Faviola kes - [facility] Outpat[facility] Clinics 2021-11-16 2021-11-16 ambulatory [facility] [id number] [facility] 2021-11-16 2021-11-16 ambulatory [facility] [id number] [facility]00 [facility] Results This patient has no known results.
--- NOTE | 2022-01-14 19:34 | RAD REPORT ---
EXAM DESCRIPTION: Milena Single View01/14/2022 7:27 pm CLINICAL HISTORY: Edema COMPARISON: October 2021 FINDINGS: The lungs appear clear of acute infiltrate. The heart is mildly enlarged. Postsurgical changes involve the chest. Upper lobe vessels are prominent indicative of pulmonary venous hypertension
[2022-01-14] MEDS ORDERED: FENTANYL CITR 100 MCG/2 ML ONE (19:54)
[2022-01-14 19:57] LABS: Absolute Lymphocytes (CBC) 2.3 K/uL (0.7-4.9); Hematocrit 38.3 % (39.6-49.0); Lymphocytes % 20.3 % (15.3-44.8); MPV 8.1 fL (7.6-11.3); RBC Red Blood Cell Count 4.46 M/uL (4.33-5.43)
[2022-01-14 19:58] LABS: Protime INR 3.53
[2022-01-14 20:13] LABS: Albumin 3.2 g/dL (3.4-5.0); Bilirubin Direct 0.1 mg/dL (0-0.2); Bilirubin Total 0.3 mg/dL (0.2-1.0); Magnesium 2.3 mg/dL (1.8-2.4); Potassium 4.1 mmol/L (3.5-5.1); Protein, Total 8.3 g/dL (6.4-8.2)
--- NOTE | 2022-01-14 20:24 | RAD REPORT ---
EXAM DESCRIPTION: USExtrem Venous W Compress Bil01/14/2022 8:15 pm CLINICAL HISTORY: Leg pain COMPARISON: October 2021 FINDINGS: The common femoral, superficial femoral, popliteal and posterior tibial veins bilaterally are compressible and demonstrate augmentation. Doppler demonstrates good flow. Grayscale, color and spectral analysis performed on all vessels IMPRESSION: No evidence of deep venous thrombosis involving either lower extremity.
--- NOTE | 2022-01-14 20:39 | RAD REPORT ---
EXAM DESCRIPTION: US - Lower Extremity Arterial Bilat - 01/14/2022 8:15 pm CLINICAL HISTORY: Leg pain COMPARISON: None FINDINGS: The common femoral, superficial femoral and popliteal arteries bilaterally demonstrate monophasic wav eforms The posterior tibial and dorsalis pedis arteries demonstrate monophasic waveforms bilaterally. No high-grade stenosis/occlusion seen Grayscale, color and spectral analysis performed on all vessels IMPRESSION: Monophasic bilateral arterial waveforms. This may indicate aortoiliac disease
--- NOTE | 2022-01-14 21:42 | EDPHYS ---
Physician Documentation [facility] Name: Meryl Nelson Age: 56 yrs Sex: Male : 1965 Arrival Date: 01/14/2022 Time: 17:09 Bed 20 Private MD: ED Physician Macho Blanchard HPI: 01/14 19:05 This 56 yrs old Male presents to ER via Ambulatory with complaints of Wound Infection. cp 19:05 The patient presents with swelling, tenderness, pain to lower legs. patient reports cp open wounds with drainage noted to left lower leg. 19:05 Onset: The symptoms/episode began/occurred 2 month(s) ago. Associated signs and cp symptoms: Pertinent positives: calf tenderness, warmth, Pertinent negatives fever. Treatment prior to arrival includes: no previous treatment. Severity of symptoms: in the emergency department the symptoms are unchanged, despite home interventions. Historical: - Allergies: 17:10 No Known Allergies; ll1 - PMHx: 17:10 Bipolar disorder; Diabetes - NIDDM; Hypertension; neuropathy; Artificial heart valve; ll1 - PSHx: 17:18 heart valve SX; ll1 - Immunization history:: Client reports receiving the 2nd dose of the Covid vaccine, Flu vaccine is up to date. - Social history:: Smoking status: Patient denies any tobacco usage or history of. ROS: 19:10 Constitutional: Negative for body aches, chills, fever, poor PO intake. cp 19:10 Eyes: Negative for injury, pain, redness, and discharge. cp 19:10 ENT: Negative for drainage from ear(s), ear pain, sore throat, difficulty swallowing, difficulty handling secretions. 19:10 Cardiovascular: Positive for edema, Negative for chest pain, palpitations. 19:10 Respiratory: Negative for cough, wheezing. 19:10 Abdomen/GI: Negative for abdominal pain, nausea, vomiting, and diarrhea. 19:10 Back: Negative for pain at rest, pain with movement. 19:10 Skin: Positive for cellulitis, of the left foot and left lower leg. 19:10 Neuro: Negative for altered mental status, headache, weakness. 19:10 All other systems are negative. Exam: 19:15 Constitutional: The patient appears in no acute distress, alert, awake, cp non-diaphoretic, non-toxic, well developed, well nourished, obese. 19:15 Head/Face: Normocephalic, atraumatic. cp 19:15 Eyes: Periorbital structures: appear normal, Conjunctiva: normal, no exudate, no injection, Sclera: no appreciated abnormality, Lids and lashes: appear normal, bilaterally. 19:15 ENT: External ear(s): are unremarkable, Nose: is normal, Mouth: Lips: moist, Oral mucosa: moist, Posterior pharynx: Airway: no evidence of obstruction, patent. 19:15 Chest/axilla: Inspection: normal. 19:15 Cardiovascular: Rate: normal, Rhythm: irregular, Edema: pedal edema, that is moderate, ankle edema, that is moderate, JVD: is not appreciated. 19:15 Respiratory: the patient does not display signs of respiratory distress, Respirations: normal, no use of accessory muscles, no retractions, labored breathing, is not present, Breath sounds: are clear throughout, no decreased breath sounds, no stridor, no wheezing. 19:15 Abdomen/GI: Exam negative for discomfort, distension, guarding, Inspection: abdomen appears normal. 19:15 Back: pain, is absent. 19:15 Skin: cellulitis, that is moderate, irregular, on the left lower leg and left foot, multiple superficial open wounds noted to left lower leg that are draining. 19:15 Neuro: Orientation: to person, place \\T\\ time. Mentation: is normal. 20:20 ECG was reviewed by the Attending Physician. cp Vital Signs: 17:16 BP 116 / 72; Pulse 99; Resp 17; Temp 98.1; Pulse Ox 97% ; Weight 149.69 kg; Height 6 ll1 ft. 1 in. (185.42 cm); Pain 3/10; 01/15 00:18 BP 111 / 70; Pulse 82; Resp 16; Pulse Ox 98% on R/A; kd3 01/14 17:16 Body Mass Index 43.54 (149.69 kg, 185.42 cm) ll1 MDM: 01/14 18:55 Patient medically screened. cp 19:30 Differential diagnosis: cellulitis, DVT, abscess, arterial occlusion, lymphedema. cp 21:30 Data reviewed: vital signs, nurses notes, lab test result(s), EKG, radiologic studies, cp plain films, ultrasound. 21:30 Test interpretation: by ED physician or midlevel provider: ECG, plain radiologic cp studies. 21:35 Physician consultation: Hunter Riley was called at 21:35, was contacted at 21:35, cp regarding admission, to the telemetry unit. patient's condition, and will see patient in ED, shortly. 01/14 18:58 Order name: Wound Culture cp 01/14 18:58 Order name: Basic Metabolic Panel; Complete Time: 20:18 cp 01/14 20:19 Interpretation: Normal except: BUN 20. cp 01/14 18:58 Order name: CBC with Diff; Complete Time: 20:18 cp 01/14 20:48 Interpretation: WBC 11.1; HGB 12.8; HCT 38.3; Reviewed. cp 01/14 18:58 Order name: LFT's; Complete Time: 20:18 cp 01/14 18:58 Order name: Magnesium; Complete Time: 20:18 cp 01/14 18:58 Order name: NT PRO-BNP; Complete Time: 20:18 cp 01/14 18:58 Order name: US LE Arterial Bilateral; Complete Time: 20:47 cp 01/14 18:58 Order name: US Extremity Venous W Compression Silvestre; Complete Time: 20:47 cp 01/14 18:58 Order name: PT-INR; Complete Time: 20:18 cp 01/14 18:58 Order name: Procalcitonin; Complete Time: 20:47 cp 01/14 18:58 Order name: Lactate; Complete Time: 20:18 cp 01/14 18:58 Order name: Blood Culture Adult (2) cp 01/14 22:23 Order name: COVID-19 SARS RT PCR (Document "Date of Onset" if Symptomatic); Complete la1 Time: 23:23 01/14 18:58 Order name: XRAY Chest (1 view); Complete Time: 20:18 cp 01/14 18:58 Order name: EKG; Complete Time: 18:59 cp 01/14 18:58 Order name: Cardiac monitoring; Complete Time: 20:18 cp 01/14 18:58 Order name: EKG - Nurse/Tech; Complete Time: 20:18 cp 01/14 18:58 Order name: IV Saline Lock; Complete Time: 19:47 cp 01/14 18:58 Order name: Labs collected and sent; Complete Time: 19:47 cp 01/14 18:58 Order name: O2 Per Protocol; Complete Time: 20:18 cp 01/14 18:58 Order name: O2 Sat Monitoring; Complete Time: 20:18 cp EC:20 Rate is 92 beats/min. Rhythm is irregular. QRS interval is normal. QT interval is cp normal. T waves are Inverted in lead aVR. Interpreted by me. Reviewed by me. Administered Medications: 20:18 Drug: fentaNYL (PF) 25 mcg Route: IVP; Site: left antecubital; kd3 21:41 Follow up: Response: Pain is unchanged, physician notified kd3 20:41 Drug: fentaNYL (PF) 25 mcg Route: IVP; Site: left antecubital; kd3 21:41 Follow up: Response: Pain is unchanged, physician notified kd3 22:18 Drug: Cefepime 2 grams Route: IVPB; Rate: 200 ml/hr; Infused Over: 30 mins; Site: left kd3 antecubital; 23:11 Follow up: Response: No adverse reaction; IV Status: Completed infusion kd3 22:18 Drug: morphine 4 mg Route: IVP; Site: left antecubital; kd3 23:11 Follow up: Response: No adverse reaction kd3 23:11 Drug: vancoMYCIN 1.5 grams Route: IVPB; Rate: calculated rate; Site: left antecubital; kd3 Disposition Summary: 01/14/22 21:41 Hospitalization Ordered Hospitalization Status: Inpatient Admission cp Provider: Ld Gonzales cp Location: Telemetry/MedSurg (Inpatient) cp Condition: Fair cp Problem: new cp Symptoms: have improved cp Bed/Room Type: Standard cp Room Assignment: 229(01/14/22 23:17) Diagnosis - Cellulitis of left lower limb cp - Chronic atrial fibrillation cp Forms: - Medication Reconciliation Form cp - SBAR form cp Addendum: 01/22/2022 07:55 Co-signature as Attending Physician, Macho Blanchard MD I agree with the assessment and c jaffe plan of care. Signatures: Dispatcher [employer] Macho Murphy MD MD cha Attema, Lee, FIRE SUPERVISOR-C FIRE SUPERVISOR-Cla1 Macho Villasenor PA PA cp Garcia, Cindy, RN RN cg Odell Quintanilla RN RN ll1 aPmela Heck RN RN kd3 Corrections: (The following items were deleted from the chart) 01/14 23:17 21:41 cp cg
--- NOTE | 2022-01-14 21:42 | ER ---
Nurse's Notes [facility] Name: Meryl Nelson Age: 56 yrs Sex: Male : 1965 Arrival Date: 01/14/2022 Time: 17:09 Bed 20 Private MD: Diagnosis: Cellulitis of left lower limb;Chronic atrial fibrillation Presentation: 01/14 17:16 Chief complaint: Patient states: LLE wounds, swelling, drainage for 3 months, worse for ll1 the past 8 days. No fever. Sent in for further eval. by Patsy Garber's office. Coronavirus screen: Vaccine status: Patient reports receiving the 2nd dose of the covid vaccine. Client denies travel out of the [place] in the last 14 days. At this time, the client does not indicate any symptoms associated with coronavirus-19. Ebola Screen: Patient denies travel to an Ebola-affected area in the 21 days before illness onset. Initial Sepsis Screen: Does the patient meet any 2 criteria? HR > 90 bpm. No. Patient's initial sepsis screen is negative. Does the patient have a suspected source of infection? Yes: Skin breakdown/wound. Risk Assessment: Do you want to hurt yourself or someone else? Patient reports no desire to harm self or others. Onset of symptoms was October 27, 2021. 17:16 Method Of Arrival: Ambulatory ll1 17:16 Acuity: BOBBY 3 ll1 Triage Assessment: 17:17 General: Appears ill, Behavior is cooperative, appropriate for age. Pain: Complains of ll1 pain in left leg Quality of pain is described as aching. Derm: Wound noted left leg chronic wound to LLE for 3+ months. Getting worse than usual for the past eight days. Sent in for eval. by PCP. Reports pain peeling. Historical: - Allergies: 17:10 No Known Allergies; ll1 - PMHx: 17:10 Bipolar disorder; Diabetes - NIDDM; Hypertension; neuropathy; Artificial heart valve; ll1 - PSHx: 17:18 heart valve SX; ll1 - Immunization history:: Client reports receiving the 2nd dose of the Covid vaccine, Flu vaccine is up to date. - Social history:: Smoking status: Patient denies any tobacco usage or history of. Screenin/15 00:15 Abuse screen: Denies threats or abuse. Denies injuries from another. Nutritional kd3 screening: No deficits noted. Tuberculosis screening: No symptoms or risk factors identified. Fall Risk IV access (20 points). Assessment: 01/14 18:00 Reassessment: No changes from previously documented assessment. Patient and/or family ll1 updated on plan of care and expected duration. Pain level reassessed. Patient is alert, oriented x 3, equal unlabored respirations, skin warm/dry/pink. 18:46 Reassessment: No changes from previously documented assessment. Patient and/or family ll1 updated on plan of care and expected duration. Pain level reassessed. Patient is alert, oriented x 3, equal unlabored respirations, skin warm/dry/pink. Vital Signs: 17:16 BP 116 / 72; Pulse 99; Resp 17; Temp 98.1; Pulse Ox 97% ; Weight 149.69 kg; Height 6 ll1 ft. 1 in. (185.42 cm); Pain 310; 01/15 00:18 BP 111 / 70; Pulse 82; Resp 16; Pulse Ox 98% on R/A; kd3 01/14 17:16 Body Mass Index 43.54 (149.69 kg, 185.42 cm) ll1 ED Course: 01/14 17:09 Patient arrived in ED. mr 17:10 Arm band placed on. ll1 17:18 Triage completed. ll1 18:44 Macho Villasenor PA is PHCP. cp 18:45 Macho Blanchard MD is Attending Physician. cp 18:46 Patient placed in an exam room, on a stretcher. ll1 19:12 Pamela Heck, RN is Primary Nurse. kd3 19:28 XRAY Chest (1 view) In Process Unspecified. EDMS 19:47 PT-INR Sent. kd3 19:47 NT PRO-BNP Sent. kd3 19:47 Magnesium Sent. kd3 19:47 LFT's Sent. kd3 19:47 CBC with Diff Sent. kd3 19:47 Basic Metabolic Panel Sent. kd3 19:47 Procalcitonin Sent. kd3 19:48 Blood Culture Adult (2) Sent. kd3 19:48 Lactate Sent. kd3 20:16 US LE Arterial Bilateral In Process Unspecified. EDMS 20:16 US Extremity Venous W Compression Silvestre In Process Unspecified. EDMS 20:44 Inserted saline lock: 20 gauge in left antecubital area, using aseptic technique. kd3 21:41 Ld Gonzales MD is Hospitalizing Provider. cp 01/15 00:16 No provider procedures requiring assistance completed. Patient admitted, IV remains in kd3 place. 00:17 Patient has correct armband on for positive identification. Bed in low position. kd3 Administered Medications: 01/14 20:18 Drug: fentaNYL (PF) 25 mcg Route: IVP; Site: left antecubital; kd3 21:41 Follow up: Response: Pain is unchanged, physician notified kd3 20:41 Drug: fentaNYL (PF) 25 mcg Route: IVP; Site: left antecubital; kd3 21:41 Follow up: Response: Pain is unchanged, physician notified kd3 22:18 Drug: Cefepime 2 grams Route: IVPB; Rate: 200 ml/hr; Infused Over: 30 mins; Site: left kd3 antecubital; 23:11 Follow up: Response: No adverse reaction; IV Status: Completed infusion kd3 22:18 Drug: morphine 4 mg Route: IVP; Site: left antecubital; kd3 23:11 Follow up: Response: No adverse reaction kd3 23:11 Drug: vancoMYCIN 1.5 grams Route: IVPB; Rate: calculated rate; Site: left antecubital; kd3 Outcome: 21:41 Decision to Hospitalize by Provider. cp 01/15 00:17 Admitted to Med/surg accompanied by tech. kd3 Condition: stable Condition: stable Instructed on the need for admit, Demonstrated understanding of instructions, follow-up care. 00:18 Patient left the ED. kd3 Signatures: Dispatcher [employer] [facility] Fredo Jeanne Macho Costa PA PA cp Odell Quintanilla, RN RN ll1 Pamela Heck RN RN kd3 Corrections: (The following items were deleted from the chart) 01/14 18:48 17:17 Derm: Wound noted left leg chronic wound to LLE for 3+ months. Getting worse than ll1 usual for the past two weeks. Sent in for eval. by PCP. Reports pain peeling, ll1
[2022-01-14] MEDS ORDERED: MORPHINE 4 MG/ML SYR ONE (22:15)
[2022-01-14] MEDS ORDERED: CEFEPIME 2 GM VIAL ONE (22:15)
[2022-01-14] MEDS ORDERED: VANCOMYCIN 500 MG/VIAL ONE (22:16)
[2022-01-14] MEDS ORDERED: NA CHLORIDE 0.9% 100 ML IV ONE (22:16)
[2022-01-14] MEDS ORDERED: VANCOMYCIN 1 GM/VIAL ONE (22:16)
[2022-01-14] MEDS ORDERED: NA CHLORIDE 0.9% 250 ML ONE (22:16)
--- NOTE | 2022-01-14 23:10 | P.HP ---
Certification for Inpatient Patient admitted to: Inpatient With expected LOS: >2 Midnights Patient will require the following post-hospital care: None Practitioner: I am a practitioner with admitting privileges, knowledge of patient current condition, hospital course, and medical plan of care. Services: Services provided to patient in accordance with Admission requirements found in Title 42 Section 412.3 of the Code of Federal Regulations Patient History Date of Service: 01/14/22 Reason for admission: LLE cellulitis History of Present Illness: 56-year-old male with history of chronic diastolic congestive heart failure, atrial fibrillation on chronic anticoagulation therapy, mechanical aortic valve, diabetes mellitus type [id number], hypertension, BPD presents to the emergency department for left lower extremity weeping, swelling, redness. Patient reports ongoing problems with his lower extremities with bouts of cellulitis, this time patient presents with significant cellulitis, ulcerations to the anterior and posterior aspect of the left lower extremity with significant weeping and some purulent drainage noted. His labs were significant for a mild leukocytosis venous ultrasound bilateral lower extremities negative for DVT arterial ultrasound demonstrated monophasic flow in bilateral lower extremities. Patient was started on vancomycin and cefepime in the emergency department ED provider wishes to admit for further evaluation and management left lower extremity cellulitis. Allergies No Known Allergies Allergy (Verified 07/22/16 11:19) Home Medications: Warfarin Sodium [Coumadin*] 6 mg PO DAILY 5 PM 07/22/16 Divalproex Sodium 1 tab PO BID 11/02/21 Fluoxetine HCl 1 tab PO DAILY AFTER SUPPER 11/02/21 Gabapentin 1 tab PO TID 11/02/21 Pregabalin [Lyrica] 75 mg PO TID 11/02/21 Furosemide 40 mg PO DAILY #28 tablet 11/04/21 Metoprolol Tartrate [Lopressor*] 100 mg PO BID #60 tab 11/04/21 clindamycin HCL [Clindamycin HCl] 300 mg PO QID #20 capsule 11/04/21 - Past Medical/Surgical History Diabetic: Yes -: DM -: Bipolar -: Neuropathy -: HTN -: CHF -: A. fib -: Mechanical aortic valve Psychosocial/ Personal History: Lives at home - Family History Mother -: Diabetes Father -: Cancer Brother -: Liver disease - Social History Smoking Status: Never smoker Alcohol use: No CD- Drugs: No Caffeine use: Yes Place of Residence: Home Review of Systems 10-point ROS is otherwise unremarkable Musculoskeletal: Leg Pain Integumentary: As per HPI Physical Examination - Physical Exam General: Alert, In no apparent distress, Oriented x3, Obese HEENT: Atraumatic, PERRLA, Mucous membr. moist/pink, EOMI, Sclerae nonicteric Neck: Supple, 2+ carotid pulse no bruit, No LAD, Without JVD or thyroid abnormality Respiratory: Clear to auscultation bilaterally, Normal air movement Cardiovascular: Regular rate/rhythm, Normal S1 S2 Capillary refill: <2 Seconds Gastrointestinal: Normal bowel sounds, No tenderness Musculoskeletal: No tenderness Integumentary: Venous stasis ulcer, Other (Significant cellulitis anterior posterior aspects of left lower extremity with weeping, mild purulent drainage) Neurological: Normal speech, Normal strength at 5/5 x4 extr, Normal tone, Normal affect Lymphatics: No axilla or inguinal lymphadenopathy - Studies Laboratory Data (last 24 hrs) 01/14/22 19:38: PT 39.8 H, INR 3.53 01/14/22 19:38: WBC 11.1 H, Hgb 12.8 L, Hct 38.3 L, Plt Count 395 01/14/22 19:38: Sodium 137, Potassium 4.1, BUN 20 H, Creatinine 0.88, Glucose 100, Magnesium 2.3, Total Bilirubin 0.3, AST 30, ALT 50, Alkaline Phosphatase 90 Assessment and Plan - Plan Assessment: Cellulitis left lower extremity Atrial fibrillation/mechanical aortic valve on chronic anticoagulation therapy Chronic diastolic congestive heart failure Diabetes mellitus type [id number] Hypertension Bipolar disorder Anxiety Obesity Plan: Cellulitis left lower extremity: Continue broad-spectrum antibiotics vancomycin/cefepime blood cultures were obtained we will obtain wound cultures. Wound therapy consulted. Extensive cellulitis of the left lower extremity noted with weeping and some purulent drainage. Negative for DVT, monophasic flow bilateral lower extremities with arterial ultrasound. Atrial fibrillation/mechanical aortic valve on chronic anticoagulation therapy: Continue patient's metoprolol 100 mg p.o. twice daily, Coumadin 6 mg p.o. daily with daily INRs. Monitor on telemetry. Chronic diastolic congestive heart failure: Continue Lasix 40 mg p.o. twice daily Diabetes mellitus type [id number]: ACH S Accu-Chek, Riss Hypertension: Continue home meds Bipolar disorder:Continue home meds Anxiety:Continue home meds Obesity: Discuss lifestyle changes DVT PPX: Continue Coumadin, daily INR Code status: Full Discharge Plan: Home Plan to discharge in: Greater than 2 days - Advance Directives Does patient have a Living Will: No Does patient have a Durable POA for Healthcare: No - Code Status/Comfort Care Code Status Assessed: Yes (Full code) Critical Care: No Time Spent Managing Pts Care (In Minutes): 55
[2022-01-14] MEDS ORDERED: ONDANSETRON 4 MG/2 ML VIAL IV PRN (23:52)
[2022-01-14] MEDS ORDERED: VANCOMYCIN 1 GM in NA CHLORIDE 0.9% 250 ML IVPB SCH (23:52)
[2022-01-14] MEDS ORDERED: ACETAMINOPHEN 500 MG TAB PO PRN (23:52)
[2022-01-15] MEDS ORDERED: VANCOMYCIN 500 MG in NA CHLORIDE 0.9% 100 ML IVPB ONE ×2 (00:15→01:00)
[2022-01-15 00:27] VITALS: BMI 44.5
[2022-01-15] MEDS: HYDROCODONE/APAP 7.5/325 MG TAB PO PRN ×2 (01:03→11:04)
[2022-01-15] MEDS: clonazePAM 0.5 MG TAB PO PRN ×2 (01:04→16:43)
[2022-01-15] MEDS: METOPROLOL TAR 50 MG TAB PO SCH ×3 (02:17→20:50)
[2022-01-15 05:58] LABS: Absolute Lymphocytes (CBC) 1.5 K/uL (0.7-4.9); Hematocrit 37.6 % (39.6-49.0); Lymphocytes % 12.3 % (15.3-44.8); MPV 7.8 fL (7.6-11.3); RBC Red Blood Cell Count 4.32 M/uL (4.33-5.43)
[2022-01-15 06:00] LABS: Protime INR 3.14
[2022-01-15 06:12] LABS: ALT/SGPT 42 U/L (12-78); AST/SGOT 26 U/L (15-37); Albumin 2.9 g/dL (3.4-5.0); Alkaline Phosphatase 85 U/L (45-117); BUN Blood Urea Nitrogen 19 mg/dL (7-18); Bicarbonate 30 mmol/L (21-32); Bilirubin Total 0.6 mg/dL (0.2-1.0); Glucose Level 106 mg/dL (74-106); Potassium 4.2 mmol/L (3.5-5.1); Protein, Total 7.4 g/dL (6.4-8.2); Sodium Level 139 mmol/L (136-145)
[2022-01-15] MEDS: INSULIN -REGULAR HUMAN 50 UNIT/0.5 ML ML SQ SCH ×4 (07:30→20:46)
[2022-01-15 08:11] LABS: Urine Appearance CLOUDY (Clear); Urine Bilirubin NEGATIVE (Negative); Urine Blood NEGATIVE (Negative); Urine Color DK YELLOW (Yellow); Urine Glucose NEGATIVE (Negative); Urine Protein NEGATIVE (Negative); Urine Specific Gravity >=1.030 (1.005-1.030); Urine Urobilinogen 0.2 mg/dL (0.2-1.0)
[2022-01-15 08:25] LABS: Urine Microscopic Reflex NO UMIC
--- NOTE | 2022-01-15 08:47 | P.PN ---
Subjective Date of Service: 01/15/22 Chief Complaint: LLE cellulitis Subjective: No new changes Physical Examination - Vital Signs Blood Pressure: 110/72 Pulse: 105 Respirations: 18 Pulse Ox (%): 99 - Physical Exam General: Alert, Oriented x3 HEENT: Atraumatic, Normocephalic Neck: Supple Respiratory: Normal air movement Cardiovascular: Regular rate/rhythm, Normal S1 S2 Gastrointestinal: Soft and benign Integumentary: Skin breakdown, Skin lesion, Tenderness/swelling, Erythema, Warmth Neurological: Normal speech - Studies Laboratory Data (last 24 hrs) 01/14/22 19:38: PT 39.8 H, INR 3.53 01/14/22 19:38: WBC 11.1 H, Hgb 12.8 L, Hct 38.3 L, Plt Count 395 01/14/22 19:38: Sodium 137, Potassium 4.1, BUN 20 H, Creatinine 0.88, Glucose 100, Magnesium 2.3, Total Bilirubin 0.3, AST 30, ALT 50, Alkaline Phosphatase 90 Assessment And Plan - Plan Cellulitis left lower extremity Atrial fibrillation/mechanical aortic valve on chronic anticoagulation therapy Chronic diastolic congestive heart failure Diabetes mellitus type [id number] Hypertension Bipolar disorder Anxiety Obesity Plan: Cellulitis left lower extremity: Wound care to be continued. Surgeon consulted for possible debridement. Empiric antibiotic with vancomycin and cefepime continued. We will monitor cultures for adjustment of antibiotic as needed. Atrial fibrillation/mechanical aortic valve on chronic anticoagulation therapy: We will continue patient's metoprolol 100 mg p.o. twice daily, Coumadin 6 mg p.o. daily with daily INRs. Monitor on telemetry. Chronic diastolic congestive heart failure: We will continue Lasix 40 mg p.o. twice daily. Diabetes mellitus type [id number]: Low-carb diet and ACHS Accu-Chek, Insulin sliding scale to be continued. Hypertension: We will monitor blood pressure per unit protocol hand continue home meds Bipolar disorder: We will continue home meds. Anxiety:Continue home meds Obesity: Discuss lifestyle changes DVT PPX: Continue Coumadin, daily INR
[2022-01-15] MEDS: DIVALPROEX DR 250 MG TAB PO SCH ×2 (09:25→20:50)
[2022-01-15] MEDS: SILVER SULFADIAZINE 1% 50 GM TOP SCH ×2 (09:26→20:51)
[2022-01-15] MEDS: FUROSEMIDE 40 MG TABLET PO SCH ×2 (09:26→16:42)
[2022-01-15] MEDS: CEFEPIME 1 GM in NA CHLORIDE 0.9% 100 ML IV SCH ×2 (09:31→20:49)
[2022-01-15] MEDS ORDERED: NA CHLORIDE 0.9% 100 ML ONE (09:34)
[2022-01-15] MEDS ORDERED: CEFEPIME 1 GM/VIAL ONE (09:34)
[2022-01-15] MEDS: VANCOMYCIN 2 GM in NA CHLORIDE 0.9% 500 ML IV SCH (14:00)
[2022-01-15] MEDS: WARFARIN SODIUM 6 MG TAB PO SCH (16:43)
[2022-01-16] MEDS: VANCOMYCIN 2 GM in NA CHLORIDE 0.9% 500 ML IV SCH (00:04)
[2022-01-16] MEDS: HYDROCODONE/APAP 7.5/325 MG TAB PO PRN ×2 (00:10→15:36)
[2022-01-16] MEDS: clonazePAM 0.5 MG TAB PO PRN (03:41)
[2022-01-16 05:37] LABS: Hematocrit 35.1 % (39.6-49.0); Lymphocytes % 24.4 % (15.3-44.8); RBC Red Blood Cell Count 4.06 M/uL (4.33-5.43)
[2022-01-16 05:38] LABS: Absolute Lymphocytes (CBC) 2.3 K/uL (0.7-4.9)
[2022-01-16 05:39] LABS: Protime INR 2.48
[2022-01-16 05:52] LABS: ALT/SGPT 48 U/L (12-78); AST/SGOT 31 U/L (15-37); Albumin 2.6 g/dL (3.4-5.0); Alkaline Phosphatase 74 U/L (45-117); BUN Blood Urea Nitrogen 17 mg/dL (7-18); Bicarbonate 28 mmol/L (21-32); Bilirubin Total 0.8 mg/dL (0.2-1.0); Glucose Level 94 mg/dL (74-106); Potassium 3.4 mmol/L (3.5-5.1); Protein, Total 6.9 g/dL (6.4-8.2); Sodium Level 138 mmol/L (136-145)
[2022-01-16] MEDS: INSULIN -REGULAR HUMAN 50 UNIT/0.5 ML ML SQ SCH ×4 (07:30→21:00)
--- NOTE | 2022-01-16 07:38 | P.PN ---
Subjective Date of Service: 01/16/22 Chief Complaint: LLE cellulitis Subjective: No new changes Physical Examination - Vital Signs Temperature: 97.3 F Blood Pressure: 135/68 Pulse: 92 Respirations: 18 Pulse Ox (%): 96 - Physical Exam General: Alert, Oriented x3 HEENT: Atraumatic, Normocephalic Neck: Supple Respiratory: Normal air movement Cardiovascular: Regular rate/rhythm, Normal S1 S2 Gastrointestinal: Soft and benign Integumentary: Skin breakdown, Skin lesion, Erythema, Warmth - Studies Microbiology Data (last 24 hrs): 01/14/22 19:38 Wound - Calf Gram Stain - Final Assessment And Plan - Plan Cellulitis left lower extremity Atrial fibrillation/mechanical aortic valve on chronic anticoagulation therapy Chronic diastolic congestive heart failure Diabetes mellitus type [id number] Hypertension Bipolar disorder Anxiety Obesity Plan: Cellulitis left lower extremity: Wound care to be continued. Empiric antibiotic with vancomycin and cefepime continued. We will monitor cultures for adjustment of antibiotic as needed. Atrial fibrillation/mechanical aortic valve on chronic anticoagulation therapy: We will continue patient's metoprolol 100 mg p.o. twice daily, Coumadin 6 mg p.o. daily with daily INRs. Monitor on telemetry. Chronic diastolic congestive heart failure: We will continue Lasix 40 mg p.o. twice daily. Diabetes mellitus type [id number]: Low-carb diet and ACHS Accu-Chek, Insulin sliding scale to be continued. Hypertension: We will monitor blood pressure per unit protocol hand continue home meds Bipolar disorder: We will continue home meds. Anxiety:Continue home meds Obesity: Discuss lifestyle changes DVT PPX: Continue Coumadin, daily INR
[2022-01-16] MEDS ORDERED: POTASSIUM CL SA 10 MEQ TAB PO ONE (09:00)
[2022-01-16] MEDS: FUROSEMIDE 40 MG TABLET PO SCH ×2 (09:33→17:24)
[2022-01-16] MEDS: CEFEPIME 1 GM in NA CHLORIDE 0.9% 100 ML IV SCH ×2 (09:33→22:18)
[2022-01-16] MEDS: SILVER SULFADIAZINE 1% 50 GM TOP SCH ×2 (09:34→22:20)
[2022-01-16] MEDS: DIVALPROEX DR 250 MG TAB PO SCH ×2 (09:34→22:17)
[2022-01-16] MEDS: METOPROLOL TAR 50 MG TAB PO SCH ×2 (09:34→22:17)
[2022-01-16] MEDS: MORPHINE 2 MG/ML SYR IV PRN ×2 (12:11→19:58)
[2022-01-16] MEDS: VANCOMYCIN 1.75 GM in NA CHLORIDE 0.9% 500 ML IV SCH (15:20)
[2022-01-16] MEDS: WARFARIN SODIUM 6 MG TAB PO SCH (17:24)
[2022-01-16] MEDS ORDERED: POTASSIUM 25 MEQ EFFERV TAB PO ONE (21:00)
--- NOTE | 2022-01-16 21:00 | CON ---
Date of Consultation: 01/16/2022 Reason For Consultation: Atrial fibrillation, mechanical aortic valve. History Of Present Illness: 56-year-old male with history of heart failure, atrial fibrillation, mec hanical aortic valve on Coumadin, diabetes, hypertension, lower extremity edema, diastolic heart fail ure, presented with left lower extremity cellulitis and wound. In the hospital, his heart rate is ru nning between 100-110, so I was consulted. The patient denies having any chest pain or shortness of breath. Past Medical History: As outlined above in the HPI. Medications: Refer reconciliation sheet for detailed list. Allergies: NO KNOWN DRUG ALLERGIES. Family History: No premature coronary artery disease. Has history of cancer on the father's side. Social History: Does not smoke or drink. Does not use any drugs. Review of Systems: All systems reviewed and they were negative except as mentioned in the HPI. Physical Examination: Vital Signs: Reviewed. Head and Neck: Pupils are equal, reactive to light. Intact eye movements. No JVD. No cervical lym phadenopathy. Neck: Supple. Thyroid is not enlarged. Lungs: Clear to auscultation bilaterally. No rhonchi, rales, or crackles. No accessory muscle use. Heart: Irregularly irregular. No extra sounds. Abdomen: Soft, nontender. Bowel sounds positive. No organomegaly. No masses or hernia. No rigidi ty or rebound. Extremities: No edema, clubbing, or cyanosis. Intact pulses. Skin: No rash. Neurologic: Alert, awake, and oriented x3. No acute focal deficits appreciated. Lymph nodes: No cervical lymphadenopathy. Investigations: His white blood cell count is 9.5, hemoglobin 11.6 with a creatinine 0.74. Assessment And Recommendation: 1.Atrial fibrillation, rapid ventricular response. Add Cardizem 30 mg p.o. q.8 hours and once heart rate is controlled to switch to long acting and continue metoprolol and Coumadin. INR therapeutic a t 2.48. 2.Mechanical aortic valve. INR is therapeutic. Continue current therapy with Coumadin and INR chec k periodically. Thank you for the consult. SR/MODL Voice ID: [id number] Report ID: [id number]
[2022-01-16] MEDS ORDERED: NA CHLORIDE 0.9% 100 ML ONE (22:12)
[2022-01-16] MEDS ORDERED: CEFEPIME 1 GM/VIAL ONE (22:13)
[2022-01-16] MEDS: clonazePAM 0.5 MG TAB PO SCH (22:17)
[2022-01-17] MEDS: VANCOMYCIN 1.75 GM in NA CHLORIDE 0.9% 500 ML IV SCH (02:13)
[2022-01-17] MEDS: HYDROCODONE/APAP 7.5/325 MG TAB PO PRN (02:17)
[2022-01-17 04:14] LABS: Protime INR 2.34
[2022-01-17 04:20] LABS: Absolute Lymphocytes (CBC) 2.1 K/uL (0.7-4.9); Lymphocytes % 23.6 % (15.3-44.8); MPV 8.2 fL (7.6-11.3); RBC Red Blood Cell Count 4.06 M/uL (4.33-5.43)
[2022-01-17 04:31] LABS: ALT/SGPT 62 U/L (12-78); AST/SGOT 45 U/L (15-37); Albumin 2.8 g/dL (3.4-5.0); Alkaline Phosphatase 79 U/L (45-117); BUN Blood Urea Nitrogen 17 mg/dL (7-18); Bicarbonate 27 mmol/L (21-32); Bilirubin Total 0.6 mg/dL (0.2-1.0); Glucose Level 94 mg/dL (74-106); Potassium 3.6 mmol/L (3.5-5.1); Protein, Total 7.2 g/dL (6.4-8.2); Sodium Level 139 mmol/L (136-145)
[2022-01-17] MEDS: INSULIN -REGULAR HUMAN 50 UNIT/0.5 ML ML SQ SCH ×2 (07:30→11:30)
--- NOTE | 2022-01-17 07:50 | P.PN ---
Subjective Date of Service: 01/17/22 Chief Complaint: LLE cellulitis Physical Examination - Vital Signs Temperature: 97.7 F Blood Pressure: 133/75 Pulse: 87 Respirations: 16 Pulse Ox (%): 95 - Studies Microbiology Data (last 24 hrs): 01/14/22 19:38 Wound - Calf Gram Stain - Final Assessment And Plan - Plan Cellulitis left lower extremity Atrial fibrillation/mechanical aortic valve on chronic anticoagulation therapy Chronic diastolic congestive heart failure Diabetes mellitus type [id number] Hypertension Bipolar disorder Anxiety Obesity Plan: Cellulitis left lower extremity: Wound care to be continued. Empiric antibiotic with vancomycin and cefepime continued. We will monitor cultures for adjustment of antibiotic as needed. Atrial fibrillation/mechanical aortic valve on chronic anticoagulation therapy: We will continue patient's metoprolol 100 mg p.o. twice daily, Coumadin 6 mg p.o. daily with daily INRs. Monitor on telemetry. Chronic diastolic congestive heart failure: We will continue Lasix 40 mg p.o. twice daily. Diabetes mellitus type [id number]: Low-carb diet and ACHS Accu-Chek, Insulin sliding scale to be continued. Hypertension: We will monitor blood pressure per unit protocol hand continue home meds Bipolar disorder: We will continue home meds. Anxiety:Continue home meds Obesity: Discuss lifestyle changes DVT PPX: Continue Coumadin, daily INR
[2022-01-17] MEDS ORDERED: POTASSIUM CL SA 10 MEQ TAB PO ONE (09:00)
[2022-01-17] MEDS ORDERED: CEFEPIME 2 GM in NA CHLORIDE 0.9% 100 ML IV SCH (09:00)
[2022-01-17] MEDS: clonazePAM 0.5 MG TAB PO SCH (09:33)
[2022-01-17] MEDS: FUROSEMIDE 40 MG TABLET PO SCH (09:34)
[2022-01-17] MEDS: DIVALPROEX DR 250 MG TAB PO SCH (09:34)
[2022-01-17] MEDS: SILVER SULFADIAZINE 1% 50 GM TOP SCH (09:35)
[2022-01-17] MEDS: METOPROLOL TAR 50 MG TAB PO SCH (09:35)
--- NOTE | 2022-01-17 09:38 | P.DS ---
Admission Date: 01/14/22 Discharge Date: 01/17/22 Disposition: ROUTINE DISCHARGE Discharge Condition: GOOD Reason for Admission: LLE cellulitis Consultations: Surgery-Dr Jung. Brief History of Present Illness: 56-year-old male with history of chronic diastolic congestive heart failure, atrial fibrillation on chronic anticoagulation therapy, mechanical aortic valve, diabetes mellitus type [id number], hypertension, BPD presents to the emergency department for left lower extremity weeping, swelling, redness. Patient reports ongoing problems with his lower extremities with bouts of cellulitis, this time patient presents with significant cellulitis, ulcerations to the anterior and posterior aspect of the left lower extremity with significant weeping and some purulent drainage noted. His labs were significant for a mild leukocytosis venous ultrasound bilateral lower extremities negative for DVT arterial ultrasound demonstrated monophasic flow in bilateral lower extremities. Patient was started on vancomycin and cefepime in the emergency department ED provider wishes to admit for further evaluation and management left lower extremity cellulitis. Hospital Course: Significant improvement in his wounds after surgeon evaluated patient and determined that he does not need significant debridement. He is to continue with wound care recommendation with chemical debridement and follow-up with surgeon on outpatient. He had wound culture that grew Pseudomonas pulses antibiotic sensitivity was noted. He will be discharged home with oral Levaquin to complete a 7-day course of treatment. He will follow with Dr. Jung for wound care on outpatient. Vital Signs/Physical Exam: Temp Pulse Resp BP Pulse Ox 96.8 F 84 18 129/75 97 01/17/22 08:00 01/17/22 08:00 01/17/22 08:00 01/17/22 08:00 01/17/22 08:00 General: Alert, Oriented x3 HEENT: Atraumatic, Normocephalic Neck: Supple Respiratory: Normal air movement Cardiovascular: Regular rate/rhythm, Normal S1 S2 Gastrointestinal: Soft and benign Integumentary: Skin breakdown, Skin lesion, Tenderness/swelling Neurological: Normal speech Laboratory Data at Discharge: WBC 8.9 K/uL (4.3-10.9) 01/17/22 03:51 Hgb 11.6 g/dL (13.6-17.9) L 01/17/22 03:51 Hct 35.0 % (39.6-49.0) L 01/17/22 03:51 Plt Count 325 K/uL (152-406) 01/17/22 03:51 PT 26.2 SECONDS (9.5-12.5) H 01/17/22 03:51 INR 2.34 01/17/22 03:51 Sodium 139 mmol/L (136-145) 01/17/22 03:51 Potassium 3.6 mmol/L (3.5-5.1) 01/17/22 03:51 BUN 17 mg/dL (7-18) 01/17/22 03:51 Creatinine 0.81 mg/dL (0.55-1.3) 01/17/22 03:51 Glucose 94 mg/dL (74-106) 01/17/22 03:51 Magnesium 2.3 mg/dL (1.8-2.4) 01/14/22 19:38 Total Bilirubin 0.6 mg/dL (0.2-1.0) 01/17/22 03:51 AST 45 U/L (15-37) H 01/17/22 03:51 ALT 62 U/L (12-78) 01/17/22 03:51 Alkaline Phosphatase 79 U/L (45-117) 01/17/22 03:51 Home Medications: Warfarin Sodium [Coumadin*] 6 mg PO DAILY 5 PM 07/22/16 Divalproex Sodium 1 tab PO BID 11/02/21 Fluoxetine HCl 1 tab PO DAILY AFTER SUPPER 11/02/21 Gabapentin 1 tab PO TID 11/02/21 Pregabalin [Lyrica] 75 mg PO TID 11/02/21 Metoprolol Tartrate [Lopressor*] 100 mg PO BID #60 tab 11/04/21 ARIPiprazole [Aripiprazole] 20 mg PO DAILY 01/15/22 Furosemide 40 mg PO BID 01/15/22 Lisinopril [Zestril] 20 mg PO BID 01/15/22 Tramadol HCl [Ultram] 50 mg PO BID 01/15/22 Diet: AHA Followup: Faviola Barragan NP [Primary Care Provider] - Cholo Jung MD [ACTIVE - CAN ADMIT] -
[2022-01-17] MEDS ORDERED: levoFLOXacin 750 MG TAB PO SCH (10:00)
[2022-01-17 10:12] VITALS: O2SAT 97
[2022-01-17 12:59] VITALS: BP 127/77; TEMP 97
--- NOTE | 2022-01-26 12:51 | CON ---
Date of Consultation: 01/16/2022 Brief History Of Present Illness: The patient is a 56-year-old male with a history of machine ii trimmer heriberto diastolic congestive heart failure, atrial fibrillation, on chronic anticoagulation, mechanical a ortic valve, diabetes type 2, hypertension, who presents to the emergency department with left lower extremity weeping, cellulitis, swelling and redness. It has been ongoing problem with multiple bouts of lower extremity cellulitis, swelling, pain, tenderness, and wound creation with ulceration. Curr ently, he is admitted for the above-stated problem. His wounds are simply exposed at this point. Past Medical History: Significant for diabetes, hypertension, CHF, atrial fibrillation, mechanical a ortic valve, neuropathy, diabetes type 2, and bipolar disorder. Allergies: NO KNOWN DRUG ALLERGIES. Home Medications: Include warfarin, divalproex, fluoxetine, gabapentin, Lyrica, furosemide, Lopresso r, clindamycin. Family History: Significant for mother had diabetes, father had cancer, brother had liver disease. Social History: The patient denies smoking, alcohol, or recreational drug use. Review of Systems: Ten-point review of systems other than HPI, denies. Physical Examination: General: At the time of my examination; the patient is awake, alert, and oriented. Psychiatric: The patient has a flat affect, but otherwise answers questions appropriately. General Appearance: The patient is obese and appears somewhat disheveled. HEENT: Otherwise normocephalic. Sclerae are anicteric. Mucous membranes moist. Oropharynx clear. Neck: Supple without JVD. Chest: Normal expansion and excursion. Abdomen: Nontender. Extremities: Focused examination of bilateral lower extremities, he has bilateral anterior tibial wo unds. The left anterior lower extremity wound has a larger area of weeping, the right is dry and sudeep ears scabbed. The area on the left has surrounding cellulitis extending to below the knee and there is significant bilateral lower extremity lymphedema extending all the way up to the thighs. Laboratory Data: The patient had a laboratory exam, which revealed a white blood cell count of 9.5, hemoglobin 11.1, hematocrit 35.1, platelet count was 304. Neutrophils are normal at 60%. PT 27.8, I NR 2.48. Sodium 138, potassium 3.4, chloride 107, carbon dioxide 28, BUN of 17, creatinine 0.7, gluc ose is 94, total bilirubin 0.8, AST 31, ALT 48, alkaline phosphatase 74. He had imaging performed, [facility] included an extremity venous study on 01/14, which was officially read as no evidence of DVT inv olving either lower extremity. He additionally had a Doppler study on 01/14, officially read as the common femoral, superficial femoral, and popliteal arteries bilaterally demonstrate monophasic wavefo heber. Posterior tibial and dorsalis pedis arteries also demonstrate monophasic waveforms bilaterally. No high-grade stenosis or occlusion seen. Monophasic bilateral arterial waveforms may indicate aor toiliac disease. Assessment And Plan: This is a 56-year-old male, who presents with signs and symptoms of bilateral p eripheral arterial disease with diabetes and anterior tibial wounds, worse on the left than the right . 1.Continue antibiotics. 2.Continue medical management. 3.I have explained that we will place Silvadene wraps circumferentially around the bilateral lower e xtremities, Kerlix, Marty, and compression wraps with elevation of the bilateral lower extremities. Ad ditionally, the patient will need endovascular evaluation for possible intervention and interrogation of possible aortoiliac disease. I have explained the risks, benefits, and alternatives of the above stated plan. The patient agreed to proceed as indicated. Thank you for this interesting consult. PATRICIA/BHARTI Voice ID: [id number] Report ID: [id number]
== END 2022-01-17 12:50 | disposition home or self-care (01) | DRG 603 ==
LOC: ER 17:07 → ERHOLD 22:27 → 2ND 23:47
PROVIDERS: ADMIT Internal Medicine Nephrology; ATTEND Internal Medicine
DX: L03.116 Cellulitis of left lower limb (principal); I50.32 Chronic diastolic (congestive) heart failure; Z68.41 Body mass index [BMI] 40.0-44.9, adult; I48.91 Unspecified atrial fibrillation; I11.0 Hypertensive heart disease with heart failure; E11.9 Type 2 diabetes mellitus without complications; F31.9 Bipolar disorder, unspecified; F41.9 Anxiety disorder, unspecified; E66.9 Obesity, unspecified; B96.5 Pseudomonas (aeruginosa) (mallei) (pseudomallei) as the cause of diseases classified elsewhere; Z95.2 Presence of prosthetic heart valve; Z79.01 Long term (current) use of anticoagulants; Z20.822 Contact with and (suspected) exposure to COVID-19
CPT/HCPCS: 36415; 71045; 80048; 80053; 80076; 80202; 81003; 82947; 83036; 83605; 83735; 83880; 84132; 84145; 85025; 85610; 87040; 87070; 87077; 87186; 87205; 93005; 93925; 93970; 96365; 96375; 99285; J0692; J2270; J3010; J3370; J7040; J7050; U0003

== ENCOUNTER 2022-10-26 11:34 | Inpatient (IN) | payer OTHER ==
--- OUTSIDE RECORDS SUMMARY | 2022-10-26 11:38 | XMS REPORT | Continuity of Care Document ---
:1965 Author Organization [facility] t Address [address] [place] [address] Care Team Providers Name Role Phone Faviola Barragan Attending Clinician Unavailable Payers Payer Name Policy Type Policy Number Effective Date Expiration Date Ben eub[employer] [facility] 2 [id number] 2011 Common Spi rit 00:00:00 [facility] Problems Condition Condition Condition Status Onset Resolution Last Treating Co mments Source Name Details Category Date Date Treatment Clinician Date [id number] Cellulitis Problem Co mmon of left [facility] limb [facility] [id number] Cellulitis Problem C ommon [id number] of right [facility] limb [facility] [id number] Uncontroll Problem [facility] diabetes - [facility] mellitus [facility] hyperglyce Medica l [facility] [id number] PVD Problem Common (periphera Spirit l vascular - CHI disease) [facility] Seizure Seizure Problem Common [facility] [id number] Statin Problem Common intoleranc [facility] e [facility] [id number] Neuropathy Problem Co mmon [facility] Basal cell Basal cell Problem C ommon carcinoma carcinoma Spir it of face of face [facility] History of Aortic Problem Commo n heart valve Spirit valve replaced - CHI recipient [facility] Gastroesop GERD Problem Commo n hageal without Spirit reflux esophagiti - CHI disease s [facility] Hypertensi Hypertensi Problem C ommon on on [facility] [id number] 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 - CHI anticoagul [facility] [id number] Type 2 Problem Common diabetes Spirit mellitus - CHI without St complicati [facility] on, Medical without Center long-term current use of insulin [id number] Male-to-fe Problem Co mmon male Spirit transgende - CHI r person [facility] [id number] Type 2 Problem Common diabetes Spirit mellitus - CHI with diabetic [facility] neuropathy Medica l , without Center long-term current use of insulin [id number] Body mass Problem Com mon index Spirit [BMI] - CHI 45.0-49.9, [facility] [id number] Injury of Problem Co mmon [id number] left foot, Spiri t subsequent - [facility] encounter [facility] [id number] Ankylosing Problem Comm on spondyliti Spirit s of - CHI cervical [facility] Bipolar Bipolar Problem Common disorder disorder Spirit - [facility] [id number] Kidney Problem Common pain [facility] [id number] Mixed Problem Common hyperlipid Spirit emia - CHI [facility] Atrial Atrial Problem Common fibrillati fibrillati Sp michael on on - CHI [facility] [id number] Morbid Problem Commo n [id number] (severe) Spirit obesity - CHI due to [facility] [id number] Acute Problem Commo n [id number] combined Spirit systolic - CHI and diastolic [facility] congestive Medica l heart Center failure Allergies, Adverse Reactions, Alerts Allergy Allergy Status Severity Reaction(s) Onset Inactive Treating Comm ents Source Name Type Date Date Clinician Substan Substan Active diarrhea Comm on ce with ce with Spirit 3-hydrox 3-hydrox - CHI y-3-meth y-3-meth ylglutar ylglutar [facility] yl-coenz yl-coenz Medica l yme A yme A Center reductas reductas e e inhibito inhibito r r mechanis mechanis m of m of action action (substan (substan ce) ce) Social History Social Habit Start Date Stop Date Quantity Comments Source History of Tobacco Use Co mmon Spirit [facility] Sex Assigned At Com mon Spirit - CHI [facility] Smoking Status Start Date Stop Date Source Never Smoker Common [facility] Medications Ordered Filled Start Stop Current Ordering Indication Dosage Frequency Signature Comments Components Source Medication Medication Date Date Medication? Clinician (SIG) Name Name Pregabalin Pregabalin 2021-10 No TID Pregabalin 75 MG 75 MG 0-20 75 MG 00:00: 00 Pregabalin Pregabalin 2021-10 No TID Pregabalin 75 MG 75 MG 0-20 75 MG 00:00: 00 Pregabalin Pregabalin 2021-10 No TID Pregabalin 75 MG 75 MG 0-20 75 MG 00:00: 00 Ezetimibe Ezetimibe 2021-0 No 1{table QD Ezetimibe 10 MG 10 MG 5-12 t} 10 MG 00:00: 00 Ezetimibe Ezetimibe 2021-0 No 1{table QD Ezetimibe 10 MG 10 MG 5-12 t} 10 MG 00:00: 00 traMADol traMADol 2021-0 2021- No 1{table BID traMADol HCl 100 MG HCl 100 MG 01-01 t} HCl 100 MG 00:00: 00:00 00 :00 traMADol traMADol 2021-0 2021- No 1{table BID traMADol HCl 100 MG HCl 100 MG 01-01 t} HCl 100 MG 00:00: 00:00 00 :00 Pregabalin Pregabalin 2021-0 No 1{capsu TID Pregabalin 75 MG 75 MG 3- le} 75 MG 00:00: 00 Pregabalin Pregabalin 2021-0 No 1{capsu TID Pregabalin 75 MG 75 MG 3- le} 75 MG 00:00: 00 Pregabalin Pregabalin 2021-0 No 1{capsu TID Pregabalin 75 MG 75 MG 3- le} 75 MG 00:00: 00 Pregabalin Pregabalin 2021-0 No 1{capsu TID Pregabalin 75 MG 75 MG 3-01 le} 75 MG 00:00: 00 Pregabalin Pregabalin 2020-1 No 1{capsu TID Pregabalin 75 MG 75 MG 1-30 le} 75 MG 00:00: 00 Pregabalin Pregabalin 2020-1 No 1{capsu TID Pregabalin 75 MG 75 MG 1-30 le} 75 MG 00:00: 00 Ezetimibe Ezetimibe 2020-1 No 1{table QD Ezetimibe 10 MG 10 MG 1-24 t} 10 MG 00:00: 00 Ezetimibe Ezetimibe 2020-1 No 1{table QD Ezetimibe 10 MG 10 MG 1-24 t} 10 MG 00:00: 00 Ezetimibe Ezetimibe 2020-1 No 1{table QD Ezetimibe 10 MG 10 MG 1-24 t} 10 MG 00:00: 00 Ezetimibe Ezetimibe 2020- No 1{table QD Ezetimibe 10 MG 10 MG 1-24 t} 10 MG 00:00: 00 Ezetimibe Ezetimibe 2020- No 1{table QD Ezetimibe 10 MG 10 MG 1-24 t} 10 MG 00:00: 00 Ezetimibe Ezetimibe 2020- No 1{table QD Ezetimibe 10 MG 10 MG 1-24 t} 10 MG 00:00: 00 traMADol traMADol No 1{table QD traMADol HCl 50 MG HCl 50 MG t_as_ne HCl 50 MG eded} Propranolol Propranolol No Propranolo HCl 20 MG HCl 20 MG l HCl 20 MG Januvia 100 Januvia 100 No QD Januvia MG MG 100 MG Abilify 5 Abilify 5 No 1{table QD Abilify 5 MG MG t} MG FLUoxetine FLUoxetine No FLUoxetine HCl 60 MG HCl 60 MG HCl 60 MG Lisinopril Lisinopril No 1{table BID Lisinopril 20 MG 20 MG t} 20 MG Furosemide Furosemide No 1{table BID Furosemide 40 MG 40 MG t} 40 MG Metoprolol Metoprolol No 1{table BID Metoprolol Tartrate 50 Tartrate 50 t_with_ Tartrate MG MG food} 50 MG Magnesium Magnesium No Magnesium 400 MG 400 MG 400 MG Jantoven 6 Jantoven 6 No Jantoven 6 MG MG MG Gabapentin Gabapentin No 1{capsu TID Gabapentin 300 MG 300 MG le} 300 MG clonazePAM clonazePAM No 1{table QD clonazePAM 0.5 MG 0.5 MG t} 0.5 MG traMADol traMADol No 1{table QD traMADol HCl 50 MG HCl 50 MG t_as_ne HCl 50 MG eded} Propranolol Propranolol No Propranolo HCl 20 MG HCl 20 MG l HCl 20 MG Januvia 100 Januvia 100 No QD Januvia MG MG 100 MG Magnesium Magnesium No Magnesium 400 MG 400 MG 400 MG Gabapentin Gabapentin No Gabapentin 400 MG 400 MG 400 MG clonazePAM clonazePAM No 1{table QD clonazePAM 0.5 MG 0.5 MG t} 0.5 MG Propranolol Propranolol No Propranolo HCl 20 MG HCl 20 MG l HCl 20 MG Lisinopril Lisinopril No 1{table BID Lisinopril 20 MG 20 MG t} 20 MG Divalproex Divalproex No Divalproex Sodium 125 Sodium 125 Sodium 125 MG MG MG Furosemide Furosemide No 1{table BID Furosemide 40 MG 40 MG t} 40 MG Abilify 5 Abilify 5 No 1{table QD Abilify 5 MG MG t} MG Metoprolol Metoprolol No 1{table BID Metoprolol Tartrate Tartrate t_with_ Tartrate 100 MG 100 MG food} 100 MG Januvia 100 Januvia 100 No QD Januvia MG MG 100 MG Ezetimibe Ezetimibe No 1{table QD Ezetimibe 10 MG 10 MG t} 10 MG Benztropine Benztropine No 1{table QD Benztropin Mesylate 1 Mesylate 1 t} e Mesylate MG MG 1 MG Carvedilol Carvedilol No Carvedilol 6.25 MG 6.25 MG 6.25 MG traMADol traMADol No 1{table QD traMADol HCl 50 MG HCl 50 MG t_as_ne HCl 50 MG eded} Jantoven 6 Jantoven 6 No Jantoven 6 MG MG MG FLUoxetine FLUoxetine No FLUoxetine HCl 60 MG HCl 60 MG HCl 60 MG Magnesium Magnesium No Magnesium 400 MG 400 MG 400 MG Gabapentin Gabapentin No Gabapentin 400 MG 400 MG 400 MG clonazePAM clonazePAM No 1{table QD clonazePAM 0.5 MG 0.5 MG t} 0.5 MG Propranolol Propranolol No Propranolo HCl 20 MG HCl 20 MG l HCl 20 MG Furosemide Furosemide No 1{table BID Furosemide 40 MG 40 MG t} 40 MG Abilify 5 Abilify 5 No 1{table QD Abilify 5 MG MG t} MG Divalproex Divalproex No Divalproex Sodium 125 Sodium 125 Sodium 125 MG MG MG traMADol traMADol No 1{table QD traMADol HCl 50 MG HCl 50 MG t_as_ne HCl 50 MG eded} Metoprolol Metoprolol No 1{table BID Metoprolol Tartrate Tartrate t_with_ Tartrate 100 MG 100 MG food} 100 MG Januvia 100 Januvia 100 No QD Januvia MG MG 100 MG Lisinopril Lisinopril No 1{table BID Lisinopril 20 MG 20 MG t} 20 MG Benztropine Benztropine No 1{table QD Benztropin Mesylate 1 Mesylate 1 t} e Mesylate MG MG 1 MG Carvedilol Carvedilol No Carvedilol 6.25 MG 6.25 MG 6.25 MG Octtoven 6 Octtoven 6 No Jantoven 6 MG MG MG Ezetimibe Ezetimibe No 1{table QD Ezetimibe 10 MG 10 MG t} 10 MG FLUoxetine FLUoxetine No FLUoxetine HCl 60 MG HCl 60 MG HCl 60 MG Magnesium Magnesium No Magnesium 400 MG 400 MG 400 MG Gabapentin Gabapentin No Gabapentin 400 MG 400 MG 400 MG clonazePAM clonazePAM No 1{table QD clonazePAM 0.5 MG 0.5 MG t} 0.5 MG Propranolol Propranolol No Propranolo HCl 20 MG HCl 20 MG l HCl 20 MG Lisinopril Lisinopril No 1{table BID Lisinopril 20 MG 20 MG t} 20 MG Divalproex Divalproex No Divalproex Sodium 125 Sodium 125 Sodium 125 MG MG MG Furosemide Furosemide No 1{table BID Furosemide 40 MG 40 MG t} 40 MG Abilify 5 Abilify 5 No 1{table QD Abilify 5 MG MG t} MG Metoprolol Metoprolol No 1{table BID Metoprolol Tartrate Tartrate t_with_ Tartrate 100 MG 100 MG food} 100 MG Januvia 100 Januvia 100 No QD Januvia MG MG 100 MG Ezetimibe Ezetimibe No 1{table QD Ezetimibe 10 MG 10 MG t} 10 MG Benztropine Benztropine No 1{table QD Benztropin Mesylate 1 Mesylate 1 t} e Mesylate MG MG 1 MG Carvedilol Carvedilol No Carvedilol 6.25 MG 6.25 MG 6.25 MG traMADol traMADol No 1{table QD traMADol HCl 50 MG HCl 50 MG t_as_ne HCl 50 MG eded} Octtoven 6 Octtoven 6 No Jantoven 6 MG MG MG FLUoxetine FLUoxetine No FLUoxetine HCl 60 MG HCl 60 MG HCl 60 MG Magnesium Magnesium No Magnesium 400 MG 400 MG 400 MG Jantoven 6 Jantoven 6 No Jantoven 6 MG MG MG Lisinopril Lisinopril No 1{table BID Lisinopril 20 MG 20 MG t} 20 MG FLUoxetine FLUoxetine No FLUoxetine HCl 60 MG HCl 60 MG HCl 60 MG Januvia 100 Januvia 100 No Januvia MG MG 100 MG Metoprolol Metoprolol No 1{table BID Metoprolol Tartrate 50 Tartrate 50 t_with_ Tartrate MG MG food} 50 MG Propranolol Propranolol No Propranolo HCl 20 MG HCl 20 MG l HCl 20 MG Januvia 100 Januvia 100 No QD Januvia MG MG 100 MG Jantoven 1 Octtoven 1 No 1{table Jantoven 1 MG MG t} MG Gabapentin Gabapentin No 1{capsu TID Gabapentin 300 MG 300 MG le} 300 MG OLANZapine OLANZapine No OLANZapine 5 MG 5 MG 5 MG clonazePAM clonazePAM No 1{table QD clonazePAM 0.5 MG 0.5 MG t} 0.5 MG Magnesium Magnesium No Magnesium 400 MG 400 MG 400 MG Jantoven 6 Octtoven 6 No Jantoven 6 MG MG MG Lisinopril Lisinopril No 1{table BID Lisinopril 20 MG 20 MG t} 20 MG FLUoxetine FLUoxetine No FLUoxetine HCl 60 MG HCl 60 MG HCl 60 MG Januvia 100 Januvia 100 No Januvia MG MG 100 MG Metoprolol Metoprolol No 1{table BID Metoprolol Tartrate 50 Tartrate 50 t_with_ Tartrate MG MG food} 50 MG Propranolol Propranolol No Propranolo HCl 20 MG HCl 20 MG l HCl 20 MG Januvia 100 Januvia 100 No QD Januvia MG MG 100 MG Jantoven 1 Octtoven 1 No 1{table Jantoven 1 MG MG t} MG Gabapentin Gabapentin No 1{capsu TID Gabapentin 300 MG 300 MG le} 300 MG OLANZapine OLANZapine No OLANZapine 5 MG 5 MG 5 MG clonazePAM clonazePAM No 1{table QD clonazePAM 0.5 MG 0.5 MG t} 0.5 MG Januvia 100 Januvia 100 No QD Januvia MG MG 100 MG Jantoven 1 Jantoven 1 No 1{table Jantoven 1 MG MG t} MG FLUoxetine FLUoxetine No FLUoxetine HCl 60 MG HCl 60 MG HCl 60 MG Lisinopril Lisinopril No 1{table BID Lisinopril 20 MG 20 MG t} 20 MG OLANZapine OLANZapine No OLANZapine 5 MG 5 MG 5 MG Magnesium Magnesium No Magnesium 400 MG 400 MG 400 MG Januvia 100 Januvia 100 No Januvia MG MG 100 MG clonazePAM clonazePAM No 1{table QD clonazePAM 0.5 MG 0.5 MG t} 0.5 MG Metoprolol Metoprolol No 1{table BID Metoprolol Tartrate 50 Tartrate 50 t_with_ Tartrate MG MG food} 50 MG Jantoven 6 Octtoven 6 No Jantoven 6 MG MG MG Propranolol Propranolol No Propranolo HCl 20 MG HCl 20 MG l HCl 20 MG Gabapentin Gabapentin No 1{capsu TID Gabapentin 300 MG 300 MG le} 300 MG Januvia 100 Januvia 100 No QD Januvia MG MG 100 MG Jantoven 1 Octtoven 1 No 1{table Jantoven 1 MG MG t} MG FLUoxetine FLUoxetine No FLUoxetine HCl 60 MG HCl 60 MG HCl 60 MG Lisinopril Lisinopril No 1{table BID Lisinopril 20 MG 20 MG t} 20 MG OLANZapine OLANZapine No OLANZapine 5 MG 5 MG 5 MG Magnesium Magnesium No Magnesium 400 MG 400 MG 400 MG Januvia 100 Januvia 100 No Januvia MG MG 100 MG clonazePAM clonazePAM No 1{table QD clonazePAM 0.5 MG 0.5 MG t} 0.5 MG Metoprolol Metoprolol No 1{table BID Metoprolol Tartrate 50 Tartrate 50 t_with_ Tartrate MG MG food} 50 MG Octtoven 6 Octtoven 6 No Jantoven 6 MG MG MG Propranolol Propranolol No Propranolo HCl 20 MG HCl 20 MG l HCl 20 MG Gabapentin Gabapentin No 1{capsu TID Gabapentin 300 MG 300 MG le} 300 MG Abilify 5 Abilify 5 No 1{table QD Abilify 5 MG MG t} MG FLUoxetine FLUoxetine No FLUoxetine HCl 60 MG HCl 60 MG HCl 60 MG Lisinopril Lisinopril No 1{table BID Lisinopril 20 MG 20 MG t} 20 MG Furosemide Furosemide No 1{table BID Furosemide 40 MG 40 MG t} 40 MG Metoprolol Metoprolol No 1{table BID Metoprolol Tartrate 50 Tartrate 50 t_with_ Tartrate MG MG food} 50 MG Magnesium Magnesium No Magnesium 400 MG 400 MG 400 MG Jantoven 6 Jantoven 6 No Jantoven 6 MG MG MG Gabapentin Gabapentin No 1{capsu TID Gabapentin 300 MG 300 MG le} 300 MG clonazePAM clonazePAM No 1{table QD clonazePAM 0.5 MG 0.5 MG t} 0.5 MG Immunizations Ordered Immunization Filled Immunization Date Status Commen ts Source Name Name Moderna COVID-19 Moderna COVID-19 2021-01-24 Completed [facility] Vaccine Vaccine 08:27:00 - [facility] Moderna COVID-19 Moderna COVID-19 2021-01-24 Completed [facility] m[facility] Vaccine Vaccine 08:27:00 [facility] Moderna COVID-19 Moderna COVID-19 2021-01-24 Completed [facility] mmon [facility] Vaccine Vaccine 08:27:00 - [facility] Moderna COVID-19 Moderna COVID-19 2021-01-24 Completed Co mmon [facility] Vaccine Vaccine 08:27:00 - [facility] Moderna COVID-19 Moderna COVID-19 2021-01-24 Completed Co mmon [facility] Vaccine Vaccine 08:27:00 [facility] Moderna COVID-19 Moderna COVID-19 2021-01-24 Completed Co mmon [facility] Vaccine Vaccine 08:27:00 - [facility] Moderna COVID-19 Moderna COVID-19 2021-01-24 Completed Co m[facility] Vaccine Vaccine 08:27:00 [facility] Moderna COVID-19 Moderna COVID-19 2021-01-24 Completed [facility] m[facility] Vaccine Vaccine 08:27:00 [facility] Moderna COVID-19 Moderna COVID-19 2021-01-24 Completed Co mmon [facility] Vaccine Vaccine 08:27:00 [facility] Moderna COVID-19 Moderna COVID-19 2020-12-27 Completed [facility] mmon [facility] Vaccine Vaccine 08:27:00 [facility] Moderna COVID-19 Moderna COVID-19 2020-12-27 Completed [facility] m[facility] Vaccine Vaccine 08:27:00 [facility] Moderna COVID-19 Moderna COVID-19 2020-12-27 Completed [facility] mmon [facility] Vaccine Vaccine 08:27:00 - [facility] Moderna COVID-19 Moderna COVID-19 2020-12-27 Completed [facility] m[facility] Vaccine Vaccine 08:27:00 - [facility] Moderna COVID-19 Moderna COVID-19 2020-12-27 Completed [facility] mmon [facility] Vaccine Vaccine 08:27:00 - [facility] Moderna COVID-19 Moderna COVID-19 2020-12-27 Completed [facility] mmon [facility] Vaccine Vaccine 08:27:00 - [facility] Moderna COVID-19 Moderna COVID-19 2020-12-27 Completed Co mmon [facility] Vaccine Vaccine 08:27:00 - [facility] Moderna COVID-19 Moderna COVID-19 2020-12-27 Completed Co m[facility] Vaccine Vaccine 08:27:00 - [facility] Moderna COVID-19 Moderna COVID-19 2020-12-27 Completed Co mmon [facility] Vaccine Vaccine 08:27:00 - [facility] Flucelvax - Flucelvax - 2018-08-10 Completed Common Spiri t multidose vial multidose vial 14:14:00 - [facility] Flucelvax - Flucelvax - 2018-08-10 Completed Common Spiri t multidose vial multidose vial 14:14:00 - [facility] Flucelvax - Flucelvax - 2018-08-10 Completed Common Spiri t multidose vial multidose vial 14:14:00 - [facility] Flucelvax - Flucelvax - 2018-08-10 Completed Common Spiri t multidose vial multidose vial 14:14:00 - [facility] Flucelvax - Flucelvax - 2018-08-10 Completed Common Spiri t multidose vial multidose vial 14:14:00 - [facility] Flucelvax - Flucelvax - 2018-08-10 Completed Common Spiri t multidose vial multidose vial 14:14:00 - [facility] Flucelvax - Flucelvax - 2018-08-10 Completed Common Spiri t multidose vial multidose vial 14:14:00 - [facility] Flucelvax - Flucelvax - 2018-08-10 Completed Common Spiri t multidose vial multidose vial 14:14:00 - [facility] Flucelvax - Flucelvax - 2018-08-10 Completed Common Spiri t multidose vial multidose vial 14:14:00 - [facility] Vital Signs Vital Name Observation Time Observation Value Comments Source height 2022-07-22 08:20:00 72 [in_i] [facility] weight 2022-07-22 08:20:00 328 [lb_av] [facility] temperature 2022-07-22 08:20:00 97.2 [degF] [facility] bmi 2022-07-22 08:20:00 44.48 kg/m2 [facility] oximetry 2022-07-22 08:20:00 98 % [facility] respiratory rate 2022-07-22 08:20:00 18 /min Comm on [facility] blood pressure 2022-07-22 08:20:00 130 mm[Hg] [facility] systolic [facility] blood pressure 2022-07-22 08:20:00 60 mm[Hg] [facility] diastolic [facility] height 2022-02-11 14:00:00 72 [in_i] [facility] weight 2022-02-11 14:00:00 331.6 [lb_av] [facility] temperature 2022-02-11 14:00:00 97.7 [degF] [facility] bmi 2022-02-11 14:00:00 44.97 kg/m2 [facility] oximetry 2022-02-11 14:00:00 97 % [facility] respiratory rate 2022-02-11 14:00:00 18 /min Comm on [facility] blood pressure 2022-02-11 14:00:00 138 mm[Hg] [facility] - systolic [facility] blood pressure 2022-02-11 14:00:00 74 mm[Hg] [facility] - diastolic [facility] height 2021-11-16 14:20:00 72 [in_i] [facility] weight 2021-11-16 14:20:00 341 [lb_av] [facility] temperature 2021-11-16 14:20:00 97.1 [degF] [facility] bmi 2021-11-16 14:20:00 46.24 kg/m2 [facility] oximetry 2021-11-16 14:20:00 96 % [facility] respiratory rate 2021-11-16 14:20:00 18 /min Comm on [facility] blood pressure 2021-11-16 14:20:00 136 mm[Hg] [facility] - systolic [facility] blood pressure 2021-11-16 14:20:00 78 mm[Hg] [facility] - diastolic [facility] Procedures This patient has no known procedures. Encounters Start End Encounter Admission Attending Care Care Encounter Source Date/Time Date/Time Type Type Clinicians Facility Department ID 2022-10-14 [facility] [place], STBLAINELC STLMLC [id number] Common 08:15:02 Faviola [id number] [facility] 2022-05-10 Outpatient [place], STBLAINELC STLMLC [id number] Common 09:21:01 Faviola [id number] [facility] 2021-11-16 Outpatient [place], STLMLC STLMLC [id number] Common 14:09:03 Faviola [facility] 2022-07-22 2022-07-22 OFFICE STLC STLC [id number] Co mmon 00:00:00 00:00:00 VISIT [facility] LEVEL 4 [facility] 2022-07-16 2022-07-16 (TEL) STLC STLC [id number] Co mmon 00:00:00 00:00:00 [facility] 2022-02-11 2022-02-11 OFFICE STLMLC STLMLC [id number] Co mmon 00:00:00 00:00:[address] 2022-02-09 2022-02-09 (TEL) STLMLC STLMLC [id number] Co mmon 00:00:00 00:00:00 [facility] 2022-01-22 2022-01-22 (TEL) STLMLC STLMLC [id number] Co mmon 00:00:00 00:00:00 [facility] 2021-12-31 2021-12-31 (TEL) STLMLC STLMLC [id number] Co mmon 00:00:00 00:00:00 [facility] 2021-11-16 2021-11-16 (TEL) STLMLC STLMLC [id number] Co mmon 00:00:00 00:00:00 [facility] 2021-11-16 2021-11-16 OFFICE STLMLC STLMLC [id number] Co mmon 00:00:00 00:00:[address] Results This patient has no known results.
[2022-10-26] MEDS ORDERED: HYDROCODONE/APAP 5/325 MG TAB ONE (13:10)
[2022-10-26 13:14] LABS: Absolute Lymphocytes (CBC) 1.5 K/uL (0.7-4.9); Hematocrit 32.4 % (39.6-49.0); Lymphocytes % 12.4 % (15.3-44.8); MCV 81.3 fL (80-100); MPV 7.2 fL (7.6-11.3); RBC Red Blood Cell Count 3.99 M/uL (4.33-5.43)
[2022-10-26 13:27] LABS: SARS-CoV-2 Antigen Rapid Res Negative (Negative)
[2022-10-26 13:33] LABS: Albumin 2.9 g/dL (3.4-5.0); Bilirubin Total 0.6 mg/dL (0.2-1.0); Potassium 4.6 mmol/L (3.5-5.1); Protein, Total 8.6 g/dL (6.4-8.2)
[2022-10-26 13:34] LABS: Troponin High Sensitivity 8.4 pg/mL (<58.9)
--- NOTE | 2022-10-26 13:55 | ER ---
Nurse's Notes [facility] Name: Meryl Nelson Age: 57 yrs Sex: Male : 1965 Arrival Date: 10/26/2022 Time: 11:36 Bed 14 Private MD: Diagnosis: BLE leg wounds;Lymphedema, not elsewhere classified;Cellulitis, unspecified;acute kidney injury;impaired ADLS Presentation: 10/26 12:12 Chief complaint: Patient states: Reports possible scabies to rectal area, ERP visually jl7 inspected area and dried fecal matter noted. Coronavirus screen: At this time, the client does not indicate any symptoms associated with coronavirus-19. Ebola Screen: No symptoms or risks identified at this time. Initial Sepsis Screen: Does the patient meet any 2 criteria? No. Patient's initial sepsis screen is negative. Does the patient have a suspected source of infection? No. Patient's initial sepsis screen is negative. Risk Assessment: Do you want to hurt yourself or someone else? Patient reports no desire to harm self or others. Onset of symptoms is unknown. 12:12 Method Of Arrival: Ambulatory [facility] 12:12 Acuity: BOBBY 3 jl7 Triage Assessment: 12:15 General: Appears in no apparent distress. uncomfortable, unkempt, Behavior is jl7 cooperative, flat. Pain: Complains of pain in right leg and left leg Pain currently is 4 out of 10 on a pain scale. Neuro: Level of Consciousness is awake, alert, obeys commands, Oriented to person, place, time, situation. Cardiovascular: Patient's skin is warm and dry. Respiratory: Airway is patent Respiratory effort is even, unlabored, Respiratory pattern is regular, symmetrical. Derm: Skin is pink, warm \T\ dry. Historical: - Allergies: 12:15 No Known Allergies; jl7 - PMHx: 12:15 Artificial heart valve; Atrial fibrillation; Bipolar disorder; Diabetes - NIDDM; jl7 diabetic leg ulcers; Hypertension; Lymphadema; neuropathy; - PSHx: 12:15 heart valve SX; jl7 - Immunization history:: Client reports receiving the 2nd dose of the Covid vaccine. - Social history:: Smoking status: Patient denies any tobacco usage or history of. Screenin:41 [facility] ED Fall Risk Assessment (Adult) History of falling in the last 3 months, db including since admission No falls in past 3 months (0 pts) Confusion or Disorientation No (0 pts) Intoxicated or Sedated No (0 pts) Impaired Gait No (0 pts) Mobility Assist Device Used No (0 pt) Altered Elimination No (0 pt) Score/Fall Risk Level 0 - 2 = Low Risk Oriented to surroundings, Maintained a safe environment. Abuse screen: Denies threats or abuse. Denies injuries from another. Nutritional screening: No deficits noted. Tuberculosis screening: No symptoms or risk factors identified. Assessment: 15:30 Reassessment: Patient appears in no apparent distress at this time. Patient and/or db family updated on plan of care and expected duration. Pain level reassessed. Patient is alert, oriented x 3, equal unlabored respirations, skin warm/dry/pink. rash to bilateral legs patient states thought it was scabies. General: Appears in no apparent distress. comfortable, Behavior is calm, cooperative. Pain: Complains of pain in right leg and left leg. Neuro: No deficits noted. Level of Consciousness is awake, alert, obeys commands, Oriented to person, place, time, situation. Cardiovascular: No deficits noted. Derm: Rash noted that is Reports pain. 18:53 Reassessment: See [facility] for continued charting. db Vital Signs: 12:12 BP 105 / 61; Pulse 97; Resp 17; Temp 98.6; Pulse Ox 94% on R/A; Weight 136.08 kg; jl7 Height 6 ft. 1 in. (185.42 cm); Pain 4/10; 15:45 BP 102 / 60; Pulse 89; Resp 16; Pulse Ox 97% on R/A; db 12:12 Body Mass Index 39.58 (136.08 kg, 185.42 cm) jl7 ED Course: 11:36 Patient arrived in ED. as 11:45 Alisha Rodrigez PA is PHCP. en 11:45 Stevan Valdez DO is Attending Physician. en 12:15 Triage completed. jl7 12:15 Arm band placed on right wrist. jl7 13:09 Inserted saline lock: 20 gauge in right antecubital area, using aseptic technique. ss 13:49 Lee Diaz MD is Hospitalizing Provider. en 14:15 First set of blood cultures drawn by me, Second set of blood cultures drawn by me. bc6 14:18 Blood Culture Adult (2) Sent. 6 15:06 Kaylin Leggett, RN is Primary Nurse. db 19:18 Patient has correct armband on for positive identification. Placed in gown. Bed in low db position. Call light in reach. Side rails up X 1. Client placed on continuous cardiac and pulse oximetry monitoring. NIBP monitoring applied. Warm blanket given. 19:18 No provider procedures requiring assistance completed. Patient admitted, IV remains in db place. Administered Medications: 13:11 Drug: HYDROcodone-acetaminophen 5 mg-325 mg 1 tabs Route: PO; ss 15:44 Follow up: Response: No adverse reaction db 15:43 Drug: Cefepime 1 grams Route: IVPB; Rate: 200 ml/hr; Infused Over: 30 mins; Site: right db antecubital; 16:30 Follow up: Response: No adverse reaction; IV Status: Completed infusion; IV Intake: db 100ml 19:19 Follow up: Response: No adverse reaction db 15:43 Drug: NS 0.9% 1000 ml Route: IV; Rate: 1 bolus; Site: right antecubital; db 19:19 Follow up: Response: No adverse reaction; IV Status: Completed infusion; IV Intake: db 1000ml 16:30 Drug: vancoMYCIN 1 grams Route: IVPB; Infused Over: 2 hrs; Site: right antecubital; db 19:19 Follow up: IV Status: Completed infusion; IV Intake: 250ml db Medication: 19:18 VIS not applicable for this client. db Intake: 16:30 IV: 100ml; Total: 100ml. db 19:19 IV: 1000ml; Total: 1100ml. db 19:19 IV: 250ml; Total: 1350ml. db Outcome: 13:54 Decision to Hospitalize by Provider. en 19:18 Admitted to Tele db 19:18 Condition: stable 19:18 Instructed on the need for admit. 22:10 Admitted to Med/surg accompanied by nurse, via stretcher, room 421, with chart, Report ha1 called to KVNG Alvarez 22:24 Patient left the ED. as6 Signatures: Vaishali Salinas Shelby, RN RN ss Apryl Coronel RN RN jl7 Carlo Combs RN RN as6 StanleyAlisha williamson PA PA en Ayala, Heidy, RN RN ha1 Kaylin Leggett, RN RN db Meron Townsend [facility]
--- NOTE | 2022-10-26 13:55 | EDPHYS ---
Physician Documentation [facility] Name: Meryl Nelson Age: 57 yrs Sex: Male : 1965 Arrival Date: 10/26/2022 Time: 11:36 Bed 14 Private MD: ED Physician Stevan Valdez HPI: 10/26 12:20 This 57 yrs old Male presents to ER via Ambulatory with complaints of scabies. en 12:20 57-year-old male, nonbinary patient with hypertension, diabetes, CHF, lymphedema en presents to ED with worsening bilateral lower extremity wounds, seeping blisters increased left leg pain and pruritus of the rectum with poor hygiene. Patient has a roommate but they are incapacitated and they have no assistance at home. The patient is unable to shower and manage ADLs. He uses a shoe horn wrapped in toilet paper to assist with bathroom hygiene unsuccessfully. Patient reports perirectal pruritus, pain, burning. He also reports increased pain and drainage from the left leg over the last 4 days. No fevers or chills.. Historical: - Allergies: 12:15 No Known Allergies; jl7 - PMHx: 12:15 Artificial heart valve; Atrial fibrillation; Bipolar disorder; Diabetes - NIDDM; jl7 diabetic leg ulcers; Hypertension; Lymphadema; neuropathy; - PSHx: 12:15 heart valve SX; jl7 - Immunization history:: Client reports receiving the 2nd dose of the Covid vaccine. - Social history:: Smoking status: Patient denies any tobacco usage or history of. ROS: 12:20 Constitutional: Negative for fever, chills, and weight loss. en 12:20 Cardiovascular: Negative for chest pain. 12:20 Cardiovascular: Positive for edema. 12:20 Respiratory: Negative for shortness of breath. 12:20 MS/extremity: Positive for rash, swelling, warmth, Increased pain and draining wound bilateral lower extremity. 12:20 Skin: Positive for See musculoskeletal exam. 12:20 All other systems are negative. Exam: 12:20 Constitutional: The patient appears Disheveled appearing, poor hygiene with stool caked en in the perineum 12:20 ENT: Poor dentition. 12:20 Cardiovascular: Rate: normal, Rhythm: regular, Heart sounds: normal, no rub, 3+ edema bilateral lower extremities to the knees secondary to chronic venous stasis and lymphedema. 12:20 Respiratory: Exam negative for Respirations: normal, Breath sounds: are clear throughout, no rales, rhonchi, no stridor, no wheezing. 12:20 Musculoskeletal/extremity: Decreased range of motion of bilateral lower extremities decreasing mobility secondary to chronic lymphedema. He has significant ulceration with seeping wounds of bilateral lower extremities without purulent drainage hyperemia from venous stasis so unable to differentiate between cellulitis versus worsening lymphedema. Unable to assess pulses secondary to edema. 12:20 Skin: See above. 13:55 Abdomen/GI: Perirectal area is inflamed and irritated from poor hygiene. There may be en intertriginous candidiasis component as well. No fissures, masses, induration.. Vital Signs: 12:12 BP 105 / 61; Pulse 97; Resp 17; Temp 98.6; Pulse Ox 94% on R/A; Weight 136.08 kg; jl7 Height 6 ft. 1 in. (185.42 cm); Pain 4/10; 15:45 BP 102 / 60; Pulse 89; Resp 16; Pulse Ox 97% on R/A; db 12:12 Body Mass Index 39.58 (136.08 kg, 185.42 cm) jl7 MDM: 11:45 Patient medically screened. en 12:20 Differential diagnosis: SeePatient has lower ankle and poor support at home, they are en no longer able to manage ADLs. Limited hygiene. Unable to rule out cellulitis versus worsening hyperemia from venous stasis secondary lymphedema. Chronic seeping wounds to bilateral lower extremities and ulceration to the perirectal area from poor hygiene. Patient is a heart rate of 97 otherwise no other SIRS criteria. We will manage pain with p.o. medications check labs. Nursing to give patient a bed bath to build to further evaluate perirectal area and perineum. We will check to rule out coexistent infection and BMP secondary to diabetes, BNP to rule out CHF chest x-ray secondary to peripheral edema. 12:37 Data reviewed: vital signs, lab test result(s). Management of patient was discussed en with the following: media services director to see patient. Care significantly affected by the following Social Determinants of Health: Poor access to healthcare and/or lack of insurance, Poor access to transportation, Inadequate housing, Problems related to primary support group, Unemployment. 13:38 Data reviewed: EKG, A fib \T\89bpm, RAD, No STEMI. Independent interpretation of the en following test(s) in the Emergency Department EKG: See my EKG interpretation above. Care significantly affected by the following chronic conditions: Hypertension, Congestive Heart Failure, Obesity, A Fib. 13:42 ED course: Patient with a WBC count at 12,000. it is not greater than 12,000, so not a en second SIRS criteria. However given the extensive nature of his lymphedema and inability to differentiate between worsening hyperemia from lymphedema versus secondary cellulitis, will draw blood cultures and give dose of Vanco and cefepime. Patient with new NAEEM. Previous creatinine in July 2022 was within normal limits. Will admit. 13:54 Patient medically screened. en 10/26 12:20 Order name: CBC with Diff; Complete Time: 13:37 en 10/26 12:20 Order name: CMP; Complete Time: 13:37 en 10/26 12:36 Order name: BNP; Complete Time: 13:37 en 10/26 12:36 Order name: Troponin High Sensitivity; Complete Time: 13:37 en 10/26 12:36 Order name: SARS RAPID; Complete Time: 13:37 en 10/26 13:49 Order name: Blood Culture Adult (2) en 10/26 17:41 Order name: Glucose, Ancillary Testing; Complete Time: 18:11 EDMI 10/26 18:01 Order name: Urine Dipstick-Ancillary; Complete Time: 18:11 EDMI 10/26 18:57 Order name: Urinalysis [facility] 10/26 19:10 Order name: Phosphorus EDMI 10/26 19:10 Order name: Creatine Phosphokinase EDMI 10/26 19:10 Order name: Magnesium EDMI 10/26 21:30 Order name: Glucose, Ancillary Testing [facility] 10/26 12:20 Order name: Saline Lock; Complete Time: 13:09 en 10/26 12:36 Order name: EKG - Nurse/Tech; Complete Time: 13:06 en Administered Medications: 13:11 Drug: HYDROcodone-acetaminophen 5 mg-325 mg 1 tabs Route: PO; ss 15:44 Follow up: Response: No adverse reaction db 15:43 Drug: Cefepime 1 grams Route: IVPB; Rate: 200 ml/hr; Infused Over: 30 mins; Site: right db antecubital; 16:30 Follow up: Response: No adverse reaction; IV Status: Completed infusion; IV Intake: db 100ml 19:19 Follow up: Response: No adverse reaction db 15:43 Drug: NS 0.9% 1000 ml Route: IV; Rate: 1 bolus; Site: right antecubital; db 19:19 Follow up: Response: No adverse reaction; IV Status: Completed infusion; IV Intake: db 1000ml 16:30 Drug: vancoMYCIN 1 grams Route: IVPB; Infused Over: 2 hrs; Site: right antecubital; db 19:19 Follow up: IV Status: Completed infusion; IV Intake: 250ml db Disposition: 19:18 Co-signature as Attending Physician, Stevan Valdez DO I reviewed the patient's care ms3 provided by the Advanced Practice Provider and agree with the diagnosis and treatment plan. Disposition Summary: 10/26/22 13:54 Hospitalization Ordered Hospitalization Status: Inpatient Admission en Provider: Lee Diaz Location: Telemetry/MedSurg (Inpatient) en Condition: Fair en Problem: an acute exacerbation en Symptoms: have worsened en Bed/Room Type: Standard en Room Assignment: 421(10/26/22 21:09) cg Diagnosis - BLE leg wounds en - Lymphedema, not elsewhere classified en - Cellulitis, unspecified en - acute kidney injury en - impaired ADLS en Forms: - Medication Reconciliation Form en - SBAR form en Signatures: Dispatcher [employer] EDLexie Howard RN RN ss Garcia, Cindy, RN RN cg Leal, Jahala, RN RN jl7 Stevan Valdez DO DO ms3 Alisha Rodrigez PA PA en Benton, Danielle RN Ginger Montoya PA-C PALingC sb4 Corrections: (The following items were deleted from the chart) 12:30 12:20 Differential diagnosis: Patient has lower ankle and poor support at home, they en are no longer able to manage ADLs. Limited hygiene. Unable to rule out cellulitis versus worsening hyperemia from venous stasis secondary lymphedema. Chronic seeping wounds to bilateral lower extremities and ulceration to the perirectal area from poor hygiene. Patient is a heart rate of 97 otherwise no other SIRS criteria. We will manage pain with p.o. medications check labs. Nursing to give patient a bed bath to build to further evaluate perirectal area and perineum en 21:09 13:54 en cg
[2022-10-26] MEDS ORDERED: VANCOMYCIN 1 GM/VIAL ONE (15:13)
[2022-10-26] MEDS ORDERED: NA CHLORIDE 0.9% 250 ML ONE (15:13)
[2022-10-26] MEDS ORDERED: NA CHLORIDE 0.9% 1,000 ML ONE (15:13)
[2022-10-26] MEDS ORDERED: CEFEPIME 1 GM/VIAL ONE (15:14)
[2022-10-26] MEDS ORDERED: NA CHLORIDE 0.9% 100 ML ONE (15:14)
[2022-10-26] MEDS ORDERED: ONDANSETRON 4 MG/2 ML VIAL IV PRN (15:43)
[2022-10-26] MEDS ORDERED: clonazePAM 0.5 MG TAB PO PRN (15:44)
[2022-10-26] MEDS ORDERED: GLUCAGON 1 MG/VIAL IM PRN (15:49)
--- NOTE | 2022-10-26 15:59 | P.HP ---
Certification for Inpatient Patient admitted to: Inpatient With expected LOS: >2 Midnights Patient will require the following post-hospital care: None Practitioner: I am a practitioner with admitting privileges, knowledge of patient current condition, hospital course, and medical plan of care. Services: Services provided to patient in accordance with Admission requirements found in Title 42 Section 412.3 of the Code of Federal Regulations Patient History Date of Service: 10/26/22 Reason for admission: BLE wounds\cellulitis History of Present Illness: Patient is a 57-year-old male with a past medical history significant for atrial fibrillation, bipolar disorder, DM 2 with neuropathy, lymphedema, artificial heart valve, hypertension, CHF who presents with complaint of worsening bilateral lower extremity wounds\cellulitis. Patient reported that he has been having bilateral lower extremity wounds, swelling\redness\pain that has been jered oing for at least a year now. Patient reported that he is on antibiotics and has been compliant with antibiotics intake. Patient reported worsening symptoms with weeping noticed in bilateral lower extremities. Patient also reported that he thought he had had scabies in his perineum/anus, but examination reveals redness\excoriation in the perirectal area. Patient also reports perirectal pruritus and pain. Patient rated bilateral lower extremities pain as 10/10 in severity and described pain as stabbing in quality. Patient reported associated signs and symptoms of shortness of breath, weakness and fatigue. Patient denies any other signs or symptoms. Symptoms are aggravated or relieved by nothing. Patient decided to present to the hospital due to worsening symptoms. Allergies No Known Allergies Allergy (Verified 07/11/22 18:18) Home Medications: Divalproex Sodium 500 mg PO BID 11/02/21 Fluoxetine HCl 1 tab PO BEDTIME 11/02/21 Pregabalin [Lyrica] 75 mg PO TID 11/02/21 ARIPiprazole [Aripiprazole] 5 mg PO DAILY 01/15/22 Furosemide 40 mg PO BID 01/15/22 Lisinopril [Zestril] 20 mg PO DAILY 01/15/22 Metoprolol Tartrate [Lopressor*] 100 mg PO BID tab 01/17/22 Silver Sulfadiazine Crm [Silvadene*] 1 appl TOP BID 20 Days #100 jar 01/17/22 Warfarin Sodium [Coumadin*] 6 mg PO DAILY 5 PM tab 01/17/22 Fluoxetine HCl [Prozac] 20 mg PO DAILY 07/11/22 Sitagliptin Phosphate [Januvia] 100 mg PO DAILY 07/11/22 clonazePAM [Klonopin*] 1 tab PO DAILYPRN PRN 07/11/22 Aspirin Chewable [Aspirin Chewable*] 81 mg PO DAILY tab.chew 07/14/22 Atorvastatin Calcium [Lipitor] 40 mg PO BEDTIME #30 tab 07/14/22 Sulfamethoxazole/Trimethoprim [Bactrim Ds Tablet] 1 each PO BID 10 Days #20 tab 07/14/22 - Past Medical/Surgical History Diabetic: Yes -: DM -: Bipolar -: Neuropathy -: HTN -: CHF -: A. fib -: Mechanical aortic valve Psychosocial/ Personal History: Lives at home. - Family History Mother -: Diabetes Father -: Cancer Notes: throat Brother -: Liver disease - Social History Smoking Status: Never smoker Alcohol use: No CD- Drugs: No Caffeine use: Yes Place of Residence: Home Review of Systems General: Weakness, Other ([place]) Eyes: Unremarkable ENT: Unremarkable Respiratory: Shortness of Breath Cardiovascular: Unremarkable Gastrointestinal: Unremarkable Genitourinary: Unremarkable Musculoskeletal: Other (BLE swelling\pain ) Integumentary: Other (BLE redness, redness\mild excoriation to perirectal area, BLE wounds ) Neurological: Weakness Lymphatics: Unremarkable Physical Examination - Physical Exam General: Alert, In no apparent distress, Oriented x3, Cooperative HEENT: Atraumatic, PERRLA, Mucous membr. moist/pink, EOMI, Sclerae nonicteric Neck: Supple, 2+ carotid pulse no bruit, No LAD, Without JVD or thyroid abnormality Respiratory: Diminished Cardiovascular: Edema, Irregular heart rate/rhythm Capillary refill: <2 Seconds Gastrointestinal: Normal bowel sounds, Soft and benign, No tenderness Musculoskeletal: Swelling, Erythema, Tenderness Integumentary: Tenderness/swelling, Erythema, Other (BLE redness, redness\mild excoriation to perirectal area) Neurological: Normal speech, Normal tone, Normal affect Lymphatics: No axilla or inguinal lymphadenopathy Rectal: Other (redness\mild excoriation ) - Studies Laboratory Data (last 24 hrs) 10/26/22 13:06: Sodium 135 L, Potassium 4.6, BUN 40 H, Creatinine 1.61 H, Glucose 96, Total Bilirubin 0.6, AST 16, ALT 31, Alkaline Phosphatase 86 10/26/22 13:06: WBC 12.00 H, Hgb 10.9 L, Hct 32.4 L, Plt Count 486 H Assessment and Plan - Plan --Chronic bilateral lower extremity cellulitis\wounds with acute exacerbation. Wound care and infectious disease MD consult initiated. Patient placed on antibiotics. Blood cultures pending Will await further recommendation from infectious disease MD. --Acute pain. We will manage pain with current pain medication regimen. --Acute on chronic diastolic CHF exacerbation. Continue diuresis with Lasix. Daily weight and strict I/O. Continue supportive care. --Atrial fibrillation. Continue Eliquis. -- History of artificial heart valve. Continue Eliquis. --Hypertension. Patient currently hypotensive. We will hold off on BP meds. We will continue to monitor blood pressure levels -- Lymphedema. Continue current treatment regimen. --DM2 with neuropathy. BS monitoring with sliding scale insulin. Continue Lyrica for his neuropathy. --Bipolar disorder. Continue home medication. --Hyperlipidemia. Continue statin. --Leukocytosis. Blood cultures pending. Continue antibiotics. --Anemia of chronic disease. H&H stable. We will continue to monitor hemoglobin and transfuse if less than 7.0. --NAEEM. Nephrology consulted. We will await further recommendations. --DVT prophylaxis with Lovenox subQ. Discharge Plan: Home Plan to discharge in: Greater than 2 days - Advance Directives Does patient have a Living Will: No Does patient have a Durable POA for Healthcare: No - Code Status/Comfort Care Code Status Assessed: Yes Physician Review: Patient Assessed, Agree with Above Assessment and Plan Critical Care: No
[2022-10-26] MEDS ORDERED: D10W 250 ML BAG IV PRN (16:02)
[2022-10-26 16:07] VITALS: BMI 39.5
[2022-10-26] MEDS: INSULIN -REGULAR HUMAN 50 UNIT/0.5 ML ML SQ SCH ×2 (16:30→21:00)
[2022-10-26] MEDS: FUROSEMIDE 40 MG/4 ML VIAL IV SCH (17:00)
[2022-10-26 18:01] LABS: Urine Blood Negative (Negative); Urine Glucose Negative (Negative); Urine Protein Negative (Negative); Urine Specific Gravity 1.025 (1.005-1.030); Urine pH 5.5 (5.0-7.0)
[2022-10-26] MEDS ORDERED: FUROSEMIDE 40 MG/4 ML VIAL ONE (18:16)
[2022-10-26] MEDS ORDERED: CLINDAMYCIN 600MG/D5W 50 ML IV ONE (18:17)
[2022-10-26] MEDS: CLINDAMYCIN 600MG/D5W 50 ML IV SCH (18:28)
[2022-10-26 18:56] LABS: Urine Bacteria None Seen /HPF (<20); Urine Bilirubin NEGATIVE (Negative); Urine Blood Negative (Negative); Urine Clarity Clear (Clear); Urine Color Yellow (Yellow); Urine Glucose NEGATIVE (Negative); Urine Mucus Slight /HPF (None Seen); Urine Protein TRACE (Negative); Urine RBC <5 /HPF (None Seen); Urine Urobilinogen Normal (Normal); Urine pH 5.5 (5.0-7.0)
[2022-10-26 19:10] LABS: Magnesium 2.5 mg/dL (1.6-2.4); Phosphorus 3.1 mg/dL (2.5-4.9)
[2022-10-26] MEDS: ATORVASTATIN 40 MG TAB PO SCH (21:00)
[2022-10-26] MEDS: NYSTATIN PWDR 100000 UNIT/GM TOP SCH (21:00)
[2022-10-26] MEDS ORDERED: HOME MED 1 EA UNK (Fluoxetine Hcl [Fluoxetine Hcl] 60 MG Tablet) PO SCH (21:00)
[2022-10-26] MEDS ORDERED: HOME MED 1 EA UNK (Pregabalin [Lyrica] 25 MG Capsule) PO SCH (21:00)
[2022-10-26] MEDS ORDERED: METOPROLOL TAR 50 MG TAB PO SCH (21:00)
[2022-10-26] MEDS: SILVER SULFADIAZINE TOP SCH (21:00)
[2022-10-26] MEDS ORDERED: ATORVASTATIN 20 MG TAB ONE (21:39)
[2022-10-26] MEDS ORDERED: ACETAMINOPHEN 325 MG TABLET ONE (21:39)
[2022-10-26] MEDS: ACETAMINOPHEN 325 MG TABLET PO PRN (21:41)
[2022-10-26] MEDS: PREGABALIN 75 MG CAP PO SCH (22:55)
[2022-10-26] MEDS: WARFARIN SODIUM 6 MG TAB PO SCH (22:55)
[2022-10-26] MEDS: DIVALPROEX DR 250 MG TAB PO SCH (23:52)
[2022-10-27] MEDS: CLINDAMYCIN 600MG/D5W 50 ML IV SCH ×3 (01:00→17:05)
[2022-10-27 04:16] LABS: Hematocrit 28.6 % (39.6-49.0); Lymphocytes % 17.2 % (15.3-44.8); MCV 81.6 fL (80-100); MPV 7.5 fL (7.6-11.3)
[2022-10-27 04:44] LABS: Potassium 4.6 mmol/L (3.5-5.1)
[2022-10-27] MEDS: INSULIN -REGULAR HUMAN 50 UNIT/0.5 ML ML SQ SCH ×4 (07:30→21:00)
[2022-10-27] MEDS ORDERED: INFLUENZA VACCINE (for 6+ mo) 0.5 ML DOSE IMVAC ONE (08:00)
[2022-10-27] MEDS: ASPIRIN 81 MG CHEWABLE TABLET PO SCH (08:16)
[2022-10-27] MEDS: ARIPiprazole 5 MG TAB PO SCH (08:16)
[2022-10-27] MEDS: FLUOXETINE 20 MG CAP PO SCH (08:17)
[2022-10-27] MEDS: PREGABALIN 75 MG CAP PO SCH ×3 (08:17→21:05)
[2022-10-27] MEDS: FUROSEMIDE 40 MG/4 ML VIAL IV SCH ×2 (08:17→16:04)
[2022-10-27] MEDS: SILVER SULFADIAZINE TOP SCH ×2 (08:18→21:00)
--- NOTE | 2022-10-27 08:56 | P.CNS ---
Chief Complaint: BLE wounds\cellulitis History of Present Illness: Patient is a 57-year-old male with a past medical history significant for atrial fibrillation, bipolar disorder, DM 2 with neuropathy, lymphedema, artificial heart valve, hypertension, CHF who presents with complaint of worsening bilateral lower extremity wounds\cellulitis. Patient reported that he has been having bilateral lower extremity wounds, swelling\redness\pain that has been ongoing for at least a year now. Patient reported that he is on antibiotics and has been compliant with antibiotics intake. Patient reported worsening symptoms with weeping noticed in bilateral lower extremities. Patient also reported that he thought he had had scabies in his perineum/anus, but examination reveals redness\excoriation in the perirectal area. Patient also reports perirectal pruritus and pain. Patient rated bilateral lower extremities pain as 10/10 in severity and described pain as stabbing in quality. Patient reported associated signs and symptoms of shortness of breath, weakness and fatigue. Patient denies any other signs or symptoms. Symptoms are aggravated or relieved by nothing. Patient decided to present to the hospital due to worsening symptoms. ID has been consulted for IV antibiotics recommendation and management of lower extremities cellulitis Allergies No Known Allergies Allergy (Verified 07/11/22 18:18) Home Medications: Divalproex Sodium 500 mg PO BID 11/02/21 Fluoxetine HCl 1 tab PO BEDTIME 11/02/21 Pregabalin [Lyrica] 75 mg PO TID 11/02/21 ARIPiprazole [Aripiprazole] 5 mg PO DAILY 01/15/22 Furosemide 40 mg PO BID 01/15/22 Lisinopril [Zestril] 20 mg PO DAILY 01/15/22 Metoprolol Tartrate [Lopressor*] 100 mg PO BID tab 01/17/22 Silver Sulfadiazine Crm [Silvadene*] 1 appl TOP BID 20 Days #100 jar 01/17/22 Warfarin Sodium [Coumadin*] 6 mg PO DAILY 5 PM tab 01/17/22 Fluoxetine HCl [Prozac] 20 mg PO DAILY 07/11/22 Sitagliptin Phosphate [Januvia] 100 mg PO DAILY 07/11/22 clonazePAM [Klonopin*] 1 tab PO DAILYPRN PRN 07/11/22 Aspirin Chewable [Aspirin Chewable*] 81 mg PO DAILY tab.chew 07/14/22 Atorvastatin Calcium [Lipitor] 40 mg PO BEDTIME #30 tab 07/14/22 Sulfamethoxazole/Trimethoprim [Bactrim Ds Tablet] 1 each PO BID 10 Days #20 tab 07/14/22 - Past Medical/Surgical History Diabetic: Yes -: DM -: Bipolar -: Neuropathy -: HTN -: CHF -: A. fib -: Mechanical aortic valve Psychosocial/ Personal History: Lives at home. - Family History Mother Medical History: Diabetes Father Medical History: Cancer Notes: throat Brother Medical History: Liver disease - Social History Alcohol use: Yes CD- Drugs: No Caffeine use: Yes Place of Residence: Home Review of Systems Musculoskeletal: As per HPI Integumentary: As per HPI Physical Examination Temp Pulse Resp BP Pulse Ox 97 F 96 H 19 101/58 L 93 10/27/22 08:00 10/27/22 08:17 10/27/22 08:00 10/27/22 08:17 10/27/22 08:00 General: Alert, In no apparent distress, Oriented x3 Respiratory: Clear to auscultation bilaterally Cardiovascular: Edema (b/l lyphedema, stasis dermatitis, cellulitis), Irregular heart rate/rhythm (a-fib) Gastrointestinal: Normal bowel sounds Musculoskeletal: Swelling, Erythema, Tenderness, Warmth, Other (b/l lyphedema, stasis dermatitis, cellulitis) Integumentary: Skin lesion, Tenderness/swelling, Erythema, Warmth, Other (b/l lyphedema, stasis dermatitis, cellulitis) Neurological: Normal speech, Normal tone, Normal affect Laboratory Data (last 24 hrs) 10/26/22 13:06: Phosphorus 3.1, Magnesium 2.5 H 10/26/22 13:06: Sodium 135 L, Potassium 4.6, BUN 40 H, Creatinine 1.61 H, Glucose 96, Total Bilirubin 0.6, AST 16, ALT 31, Alkaline Phosphatase 86 10/26/22 13:06: WBC 12.00 H, Hgb 10.9 L, Hct 32.4 L, Plt Count 486 H Acetaminophen (Acetaminophen 325 Mg Tablet) 650 mg PO Q6H PRN PRN Reason: TEMP > 100.4' F Last Admin: 10/26/22 21:41 Dose: 650 mg Hydrocodone Bitart/Acetaminophen (Hydrocodone/Apap 10/325 Tab) 1 tab PO Q6H PRN PRN Reason: Pain scale 5-7 (Moderate) Aripiprazole (Aripiprazole 5 Mg Tab) 5 mg PO DAILY [facility] Last Admin: 10/27/22 08:16 Dose: 5 mg Aspirin (Aspirin 81 Mg Chewable Tablet) 81 mg PO DAILY [facility] Last Admin: 10/27/22 08:16 Dose: 81 mg Atorvastatin Calcium (Atorvastatin 40 Mg Tab) 40 mg PO BEDTIME [facility] Last Admin: 10/26/22 21:00 Dose: 40 mg Clonazepam (Clonazepam 0.5 Mg Tab) 0.5 mg PO DAILYPRN PRN PRN Reason: ANXIETY Dextrose (D10w 250 Ml Bag) 125 ml IV PRN PRN PRN Reason: HYPOGLYCEMIA Divalproex Sodium (Divalproex Dr 250 Mg Tab) 500 mg PO BID [facility] Last Admin: 10/26/22 23:52 Dose: 500 mg Fluoxetine HCl (Fluoxetine 20 Mg Cap) 60 mg PO DAILY [facility] Last Admin: 10/27/22 08:17 Dose: 60 mg Furosemide (Furosemide 40 Mg/4 Ml Vial) 40 mg IV BIDL [facility] Last Admin: 10/27/22 08:17 Dose: 40 mg Glucagon (Glucagon 1 Mg/Vial) 1 mg IM 1X PRN PRN Reason: HYPOGLYCEMIA Home Med (Home Med 1 Ea Unk [Silver Sulfadiazine 1% 50 Gm]) 1 ea TOP BID [facility] Last Admin: 10/27/22 08:18 Dose: Not Given Clindamycin HCl/Dextrose (Cleocin 600 Mg/50 Ml Ivpb) 50 mls @ 100 mls/hr IV Q8HR [facility]; Protocol Last Admin: 10/27/22 01:00 Dose: 50 mls Insulin Human Regular (Insulin -Regular Human 50 Unit/0.5 Ml Ml) 0 unit SQ ACHS [facility]; Protocol Last Admin: 10/27/22 07:30 Dose: Not Given Nystatin (Nystatin Pwdr [id number] Unit/Gm) 1 appl TOP BID [facility] Last Admin: 10/26/22 21:00 Dose: 1 appl Ondansetron HCl (Ondansetron 4 Mg/2 Ml Vial) 4 mg IV Q6HP PRN PRN Reason: NAUSEA / VOMITING Pregabalin (Pregabalin 75 Mg Cap) 75 mg PO TID [facility] Last Admin: 10/27/22 08:17 Dose: 75 mg Sodium Chloride (Flush Normal Saline 10 Ml) 10 ml IV BID [facility] Last Admin: 10/27/22 08:18 Dose: 10 ml Warfarin Sodium (Warfarin Sodium 6 Mg Tab) 6 mg PO DAILY 5 PM [facility] Last Admin: 10/26/22 22:55 Dose: 6 mg - Problems (1) Cellulitis of left lower extremity Current Visit: No Status: Acute Plan: Cultures: 10/26 UA: Negative 10/26 BC: Pending Antibiotics: IV Clindamycin, 10/26 to Recommendations: Continue IV clindamycin ID will recommend the antibiotics drug of choice when culture available Wound care team onboard and would follow the recommendation for wound care Conclusions/Impression: - Chronic bilateral lower extremity cellulitis\wounds with acute exacerbation. Wound care and infectious disease MD consult initiated. Patient placed on antibiotics. Blood cultures pending Will await further recommendation from infectious disease MD. - Acute pain. We will manage pain with current pain medication regimen. - Acute on chronic diastolic CHF exacerbation. Continue diuresis with Lasix. Daily weight and strict I/O. Continue supportive care. - Atrial fibrillation. Continue Eliquis. - History of artificial heart valve. Continue Eliquis. - Hypertension. Patient currently hypotensive. We will hold off on BP meds. We will continue to monitor blood pressure levels - Lymphedema. Continue current treatment regimen. - DM2 with neuropathy. BS monitoring with sliding scale insulin. Continue Lyri ca for his neuropathy. - Bipolar disorder. Continue home medication. - Hyperlipidemia. Continue statin. - Leukocytosis. Blood cultures pending. Continue antibiotics. - Anemia of chronic disease. H&H stable. We will continue to monitor hemoglobin and transfuse if less than 7.0. - NAEEM. Nephrology consulted. We will await further recommendations. ID will closely monitor the patient for signs of infection with fever and WBC trends Case has been discussed with Dr. Avendano N Thank you Dr. Diaz for consult
[2022-10-27] MEDS ORDERED: FLUOXETINE 20 MG CAP PO SCH (09:00)
[2022-10-27] MEDS ORDERED: ENOXAPARIN 40 MG/0.4 ML SQ SCH (09:00)
[2022-10-27] MEDS ORDERED: ARIPIPRAZOLE 20 MG PO SCH (09:00)
[2022-10-27] MEDS: DIVALPROEX DR 250 MG TAB PO SCH (09:00)
[2022-10-27] MEDS: NYSTATIN PWDR 100000 UNIT/GM TOP SCH ×2 (09:00→21:00)
[2022-10-27] MEDS: DIVALPROEX DR 500MG TAB PO SCH ×2 (10:20→21:05)
--- NOTE | 2022-10-27 10:24 | P.CNS ---
Date of Consult: 10/27/22 Reason for Consult: NAEEM Requesting Physician: Suzanne Watson Chief Complaint: BLE wounds\cellulitis History of Present Illness: Patient is a 57-year-old male with a reported past medical history of mechanical heart valve performed several years ago for congenital heart condition on chronic anticoagulation, chronic diastolic dsyfunction, dyspnea, LE edema/lymphedema, LE wonds and other who presented yesterday with complaints of worsening bilateral lower extremity swelling, wounds and redness. These issues have been going for some time pt reported and pt has been on Abx recently. Pt also has chronic pain his legs and takes Lyrica among other meds. Allergies No Known Allergies Allergy (Verified 07/11/22 18:18) Home Medications: Divalproex Sodium 500 mg PO BID 11/02/21 Fluoxetine HCl 1 tab PO BEDTIME 11/02/21 Pregabalin [Lyrica] 75 mg PO TID 11/02/21 ARIPiprazole [Aripiprazole] 5 mg PO DAILY 01/15/22 Furosemide 40 mg PO BID 01/15/22 Lisinopril [Zestril] 20 mg PO DAILY 01/15/22 Metoprolol Tartrate [Lopressor*] 100 mg PO BID tab 01/17/22 Silver Sulfadiazine Crm [Silvadene*] 1 appl TOP BID 20 Days #100 jar 01/17/22 Warfarin Sodium [Coumadin*] 6 mg PO DAILY 5 PM tab 01/17/22 Fluoxetine HCl [Prozac] 20 mg PO DAILY 07/11/22 Sitagliptin Phosphate [Januvia] 100 mg PO DAILY 07/11/22 clonazePAM [Klonopin*] 1 tab PO DAILYPRN PRN 07/11/22 Aspirin Chewable [Aspirin Chewable*] 81 mg PO DAILY tab.chew 07/14/22 Atorvastatin Calcium [Lipitor] 40 mg PO BEDTIME #30 tab 07/14/22 Sulfamethoxazole/Trimethoprim [Bactrim Ds Tablet] 1 each PO BID 10 Days #20 tab 07/14/22 - Past Medical/Surgical History Diabetic: Yes -: DM -: Bipolar -: Neuropathy -: HTN -: CHF -: A. fib -: Mechanical aortic valve Psychosocial/ Personal History: Lives at home. - Family History Mother Medical History: Diabetes Father Medical History: Cancer Notes: throat Brother Medical History: Liver disease - Social History Alcohol use: Yes CD- Drugs: No Caffeine use: Yes Place of Residence: Home Review of Systems General: As per HPI Respiratory: Shortness of Breath Cardiovascular: Edema, As per HPI Musculoskeletal: Pedal edema, As per HPI Integumentary: As per HPI Neurological: Unremarkable Physical Examination Temp Pulse Resp BP Pulse Ox 97 F 96 H 19 101/58 L 93 10/27/22 08:00 10/27/22 08:17 10/27/22 08:00 10/27/22 08:17 10/27/22 08:00 General: Alert, In no apparent distress, Cooperative HEENT: Atraumatic, Normocephalic, PERRLA Neck: Supple Respiratory: Clear to auscultation bilaterally, Normal air movement Cardiovascular: Regular rate/rhythm, Edema Gastrointestinal: Soft and benign, No tenderness Musculoskeletal: Swelling, Erythema Integumentary: Skin breakdown, Skin lesion, Venous stasis ulcer Neurological: Normal speech, Normal tone, Normal affect Laboratory Data (last 24 hrs) 10/26/22 13:06: Phosphorus 3.1, Magnesium 2.5 H 10/26/22 13:06: Sodium 135 L, Potassium 4.6, BUN 40 H, Creatinine 1.61 H, Glucose 96, Total Bilirubin 0.6, AST 16, ALT 31, Alkaline Phosphatase 86 10/26/22 13:06: WBC 12.00 H, Hgb 10.9 L, Hct 32.4 L, Plt Count 486 H Conclusions/Impression: A/P) 1. Abnormal results of kidney function studies. Stage 1 NAEEM on admission in the setting of relative hypotension, combined ACEi use, chronic diuretic use and possible recent Bactrim Abx use. Post initial hydration or with hold offending agents, repeat Cr level this AM is lower and within normal limits 2. Cont to hold ACEi at this time as BP remains soft. 3. UA on admission not to impressive, no sig dipstick proteinuria 4. Chronic peripheral edema that is likely multifactorial but not renal related although can not exclude meds such as Lyrica and a hypoalbuminemic state contributing to venous insufficiency/lymphedema picture. Diuretic management per primary team. Elevate feet, compression therapy as tolerated, wound care, other 5. Avoid NSAIDs. Giuliano Gaytan MD, ERIBERTO
[2022-10-27] MEDS: ALBUMIN HUMAN 25% 12.5 GM, FUROSEMIDE 100 MG in NA CHLORIDE 0.9% 40 ML IV SCH ×3 (14:16→23:27)
[2022-10-27 16:47] LABS: Protime INR 1.55
[2022-10-27] MEDS: WARFARIN SODIUM 6 MG TAB PO SCH (17:04)
[2022-10-27] MEDS: HYDROCODONE/APAP 10/325 TAB PO PRN (17:04)
[2022-10-27] MEDS: ATORVASTATIN 40 MG TAB PO SCH (21:05)
[2022-10-28] MEDS: CLINDAMYCIN 600MG/D5W 50 ML IV SCH ×3 (01:16→16:16)
--- NOTE | 2022-10-28 02:19 | P.PN ---
Subjective Date of Service: 10/27/22 Subjective: No new changes, No C/O voiced, Improving Review of Systems 10-point ROS is otherwise unremarkable Physical Examination - Vital Signs Temperature: 96.9 F Blood Pressure: 112/62 Pulse: 104 Respirations: 18 Pulse Ox (%): 96 - Physical Exam General: Alert, In no apparent distress, Oriented x3 Respiratory: Clear to auscultation bilaterally, Normal air movement Cardiovascular: Regular rate/rhythm, Normal S1 S2 Gastrointestinal: Normal bowel sounds, Soft and benign, Non-distended, No tenderness Musculoskeletal: No clubbing, No swelling, No tenderness Neurological: Sensation intact, Cranial nerves 3-12 intact - Studies Medications List Reviewed: Yes Assessment & Plan - Problems (Diagnosis) (1) Venous insufficiency Current Visit: Yes Status: Acute (2) Cellulitis of left lower extremity Current Visit: No Status: Acute (3) H/O mechanical aortic valve replacement Current Visit: No Status: Acute (4) Atrial fibrillation Current Visit: No Status: Chronic Qualifiers: Atrial fibrillation type: paroxysmal Qualified Code(s): I48.0 - Paroxysmal atrial fibrillation (5) CHF (congestive heart failure) Current Visit: No Status: Chronic Qualifiers: Heart failure type: unspecified Heart failure chronicity: acute on chronic Qualified Code(s): I50.9 - Heart failure, unspecified (6) Type 2 diabetes mellitus Current Visit: No Status: Chronic Qualifiers: Diabetes mellitus termite control technician insulin use: without termite control technician use Diabetes mellitus complication status: with hyperglycemia Qualified Code(s): E11.65 - Type 2 diabetes mellitus with hyperglycemia - Plan Continue with plan of care as mentioned below: 1. Continue with IV antibiotic 2. Continue with local wound care 3. Wound care consultation appreciated 4. Hep-Lock IV 5. Monitor CBC 6. Strict blood sugar monitoring 7. Pain control 8. Continue with lasix/albumin drip 9. GI and DVT prophylaxis Discharge Plan: Home Plan to discharge in: Greater than 2 days - Advance Directives Does patient have a Living Will: No Does patient have a Durable POA for Healthcare: No Physician Review: Patient Assessed, Agree with Above Assessment and Plan Critical Care: No Time Spent Managing PTS Care (In Minutes): 35
[2022-10-28 04:01] LABS: Protime INR 1.9
[2022-10-28] MEDS: ALBUMIN HUMAN 25% 12.5 GM, FUROSEMIDE 100 MG in NA CHLORIDE 0.9% 40 ML IV SCH ×2 (04:57→10:00)
[2022-10-28] MEDS: INSULIN -REGULAR HUMAN 50 UNIT/0.5 ML ML SQ SCH ×4 (07:30→20:51)
[2022-10-28] MEDS: DIVALPROEX DR 500MG TAB PO SCH ×2 (07:51→20:50)
[2022-10-28] MEDS: FLUOXETINE 20 MG CAP PO SCH (07:51)
[2022-10-28] MEDS: ARIPiprazole 5 MG TAB PO SCH (07:51)
[2022-10-28] MEDS: FUROSEMIDE 40 MG/4 ML VIAL IV SCH (07:51)
[2022-10-28] MEDS: ASPIRIN 81 MG CHEWABLE TABLET PO SCH (07:51)
[2022-10-28] MEDS: PREGABALIN 75 MG CAP PO SCH ×3 (07:51→20:50)
[2022-10-28] MEDS: NYSTATIN PWDR 100000 UNIT/GM TOP SCH ×2 (07:53→20:51)
[2022-10-28] MEDS: SILVER SULFADIAZINE TOP SCH ×2 (07:53→20:51)
--- NOTE | 2022-10-28 08:39 | P.PN ---
Subjective Date of Service: 10/28/22 Chief Complaint: BLE wounds\cellulitis Patient sitting at the edge of the bed with no signs of having cardiopulmonary distress. Reported feeling better Physical Examination - Vital Signs Temperature: 96.8 F Blood Pressure: 109/53 Pulse: 98 Respirations: 19 Pulse Ox (%): 95 - Physical Exam General: Alert, In no apparent distress, Oriented x3 Respiratory: Clear to auscultation bilaterally Cardiovascular: Normal S1 S2, Edema (b/l lyphedema, stasis dermatitis, cellulitis) Gastrointestinal: Normal bowel sounds Musculoskeletal: Swelling (b/l lyphedema, stasis dermatitis, cellulitis), Erythema, Warmth Integumentary: Skin lesion, Erythema, Warmth, Venous stasis ulcer (b/l lyphedema, stasis dermatitis, cellulitis) Neurological: Normal speech, Normal tone, Normal affect - Studies Acetaminophen (Acetaminophen 325 Mg Tablet) 650 mg PO Q6H PRN PRN Reason: TEMP > 100.4' F Last Admin: 10/26/22 21:41 Dose: 650 mg Hydrocodone Bitart/Acetaminophen (Hydrocodone/Apap 10/325 Tab) 1 tab PO Q6H PRN PRN Reason: Pain scale 5-7 (Moderate) Last Admin: 10/27/22 17:04 Dose: 1 tab Aripiprazole (Aripiprazole 5 Mg Tab) 5 mg PO DAILY [facility] Last Admin: 10/28/22 07:51 Dose: 5 mg Aspirin (Aspirin 81 Mg Chewable Tablet) 81 mg PO DAILY [facility] Last Admin: 10/28/22 07:51 Dose: 81 mg Atorvastatin Calcium (Atorvastatin 40 Mg Tab) 40 mg PO BEDTIME [facility] Last Admin: 10/27/22 21:05 Dose: 40 mg Clonazepam (Clonazepam 0.5 Mg Tab) 0.5 mg PO DAILYPRN PRN PRN Reason: ANXIETY Dextrose (D10w 250 Ml Bag) 125 ml IV PRN PRN PRN Reason: HYPOGLYCEMIA Divalproex Sodium (Divalproex Dr 500mg Tab) 500 mg PO BID [facility] Last Admin: 10/28/22 07:51 Dose: 500 mg Fluoxetine HCl (Fluoxetine 20 Mg Cap) 60 mg PO DAILY [facility] Last Admin: 10/28/22 07:51 Dose: 60 mg Furosemide (Furosemide 20 Mg/ 2ml Vial) 20 mg IV BIDL [facility] Glucagon (Glucagon 1 Mg/Vial) 1 mg IM 1X PRN PRN Reason: HYPOGLYCEMIA Home Med (Home Med 1 Ea Unk [Silver Sulfadiazine 1% 50 Gm]) 1 ea TOP BID [facility] Last Admin: 10/28/22 07:53 Dose: Not Given Clindamycin HCl/Dextrose (Cleocin 600 Mg/50 Ml Ivpb) 50 mls @ 100 mls/hr IV Q8HR [facility]; Protocol Last Admin: 10/28/22 07:52 Dose: 50 mls Insulin Human Regular (Insulin -Regular Human 50 Unit/0.5 Ml Ml) 0 unit SQ ACHS [facility]; Protocol Last Admin: 10/28/22 11:30 Dose: Not Given Nystatin (Nystatin Pwdr [id number] Unit/Gm) 1 appl TOP BID [facility] Last Admin: 10/28/22 07:53 Dose: Not Given Ondansetron HCl (Ondansetron 4 Mg/2 Ml Vial) 4 mg IV Q6HP PRN PRN Reason: NAUSEA / VOMITING Pregabalin (Pregabalin 75 Mg Cap) 75 mg PO TID [facility] Last Admin: 10/28/22 07:51 Dose: 75 mg Sodium Chloride (Flush Normal Saline 10 Ml) 10 ml IV BID [facility] Last Admin: 10/28/22 07:53 Dose: 10 ml Warfarin Sodium (Warfarin Sodium 6 Mg Tab) 6 mg PO DAILY 5 PM [facility] Last Admin: 10/27/22 17:04 Dose: 6 mg Microbiology Data (last 24 hrs): 10/26/22 14:15 Blood - Blood Aerobic Blood Culture - Preliminary No growth in 24 hours. 10/26/22 14:15 Blood - Blood Anaerobic Blood Culture - Preliminary No growth in 24 hours. 10/26/22 14:00 Blood - Blood Aerobic Blood Culture - Preliminary No growth in 24 hours. 10/26/22 14:00 Blood - Blood Anaerobic Blood Culture - Preliminary No growth in 24 hours. Medications List Reviewed: Yes Assessment And Plan - Current Problems (Diagnosis) (1) Cellulitis of left lower extremity Current Visit: No Status: Acute Plan: Cultures: 10/27 WOCN Left leg: Pending 10/26 UA: Negative 10/26 BC: Negative Antibiotics: IV Clindamycin, 10/26 to Recommendations: Continue IV clindamycin ID will recommend the antibiotics drug of choice when culture available Wound care team onboard and would follow the recommendation for wound care - Plan - Chronic bilateral lower extremity cellulitis\wounds with acute exacerbation. Wound culture pending - Lymphedema - Venous insufficiency - Stasis dermatitis - Onychomycosis - Acute pain - Acute on chronic diastolic CHF exacerbation - Atrial fibrillation - History of artificial heart valve - Hypertension - DM2 with neuropathy - Bipolar disorder - Hyperlipidemia - Leukocytosis - Anemia of chronic disease - NAEEM ID will closely monitor the patient for signs of infection with fever and WBC trends Case has been discussed with Dr. Avendano N Physician Review: Patient Assessed, Agree with Above Assessment and Plan
[2022-10-28] MEDS: FUROSEMIDE 20 MG/ 2ML VIAL IV SCH (16:16)
[2022-10-28] MEDS: WARFARIN SODIUM 6 MG TAB PO SCH (16:17)
--- NOTE | 2022-10-28 18:12 | EKG ---
Test Date: 2022-10-26 Test Time: 13:07:57 Food Analyst: SAÚL MEASUREMENT RESULTS: Intervals: Rate: 89 [place]: QRSD: 88 QT: 366 QTc: 445 [place]: P: [place]: QRS: 49 T: 89 INTERPRETIVE STATEMENTS: Atrial fibrillation Nonspecific ST and T wave abnormality, probably digitalis effect Abnormal ECG Compared to ECG 07/11/2022 02:57:15 No significant changes Electronically Signed On 10-28-22 18:10:50 RV SERVICER by Jimmie Mcwilliams
[2022-10-28] MEDS: ATORVASTATIN 40 MG TAB PO SCH (20:50)
[2022-10-29] MEDS: CLINDAMYCIN 600MG/D5W 50 ML IV SCH ×3 (00:16→16:54)
[2022-10-29] MEDS: HYDROCODONE/APAP 10/325 TAB PO PRN ×2 (00:17→08:45)
[2022-10-29 04:31] LABS: Protime INR 2.11
[2022-10-29] MEDS: INSULIN -REGULAR HUMAN 50 UNIT/0.5 ML ML SQ SCH ×4 (07:30→20:54)
[2022-10-29] MEDS: DIVALPROEX DR 500MG TAB PO SCH ×2 (08:38→20:53)
[2022-10-29] MEDS: ARIPiprazole 5 MG TAB PO SCH (08:39)
[2022-10-29] MEDS: FUROSEMIDE 20 MG/ 2ML VIAL IV SCH ×2 (08:39→16:55)
[2022-10-29] MEDS: ASPIRIN 81 MG CHEWABLE TABLET PO SCH (08:39)
[2022-10-29] MEDS: PREGABALIN 75 MG CAP PO SCH ×3 (08:39→20:53)
[2022-10-29] MEDS: FLUOXETINE 20 MG CAP PO SCH (08:39)
[2022-10-29] MEDS: SILVER SULFADIAZINE TOP SCH ×2 (08:42→20:53)
[2022-10-29] MEDS: NYSTATIN PWDR 100000 UNIT/GM TOP SCH ×2 (08:43→20:54)
[2022-10-29] MEDS: WARFARIN SODIUM 6 MG TAB PO SCH (16:55)
--- NOTE | 2022-10-29 20:32 | PN ---
Subjective: The patient is lying in bed, feels much better today. Denies any headache, nausea, vomi ting, chest pain, abdominal pain, constipation, or diarrhea. Objective: Vital Signs: Reviewed. Lungs: Basal crackles. Heart: S1, S2 regular. Abdomen: Soft, nontender. Bowel sounds present. Extremities: 3+ nonpitting edema. Laboratory Data: WBC 11.7, hemoglobin 9.4, and platelets 424. BUN 29, creatinine 1, albumin level i s 2.9. Cultures are negative. Medication: The patient is currently on clindamycin 600 mg IV. Assessment And Plan: Bilateral lower extremity cellulitis and stasis dermatitis, stasis ulcer as wel l as leukocytosis and currently on clindamycin. Anemia of chronic disease, moderate protein-calorie malnourishment, lymphedema, onychomycosis, and diabetes mellitus. We will follow the patient as need ed. NF/MODL Voice ID: [id number] Report ID: [id number]
[2022-10-29] MEDS: ATORVASTATIN 40 MG TAB PO SCH (20:53)
[2022-10-30] MEDS: CLINDAMYCIN 600MG/D5W 50 ML IV SCH ×2 (00:01→08:03)
[2022-10-30] MEDS: HYDROCODONE/APAP 10/325 TAB PO PRN (00:42)
[2022-10-30 04:12] LABS: Protime INR 2.35
[2022-10-30] MEDS: INSULIN -REGULAR HUMAN 50 UNIT/0.5 ML ML SQ SCH ×3 (07:30→15:40)
[2022-10-30 07:54] VITALS: O2SAT 97
[2022-10-30] MEDS: DIVALPROEX DR 500MG TAB PO SCH (08:03)
[2022-10-30] MEDS: ARIPiprazole 5 MG TAB PO SCH (08:03)
[2022-10-30] MEDS: ASPIRIN 81 MG CHEWABLE TABLET PO SCH (08:03)
[2022-10-30] MEDS: FLUOXETINE 20 MG CAP PO SCH (08:03)
[2022-10-30] MEDS: PREGABALIN 75 MG CAP PO SCH ×2 (08:04→13:18)
[2022-10-30] MEDS: FUROSEMIDE 20 MG/ 2ML VIAL IV SCH (08:04)
[2022-10-30] MEDS: SILVER SULFADIAZINE TOP SCH (08:05)
[2022-10-30] MEDS: NYSTATIN PWDR 100000 UNIT/GM TOP SCH (08:05)
[2022-10-30 11:46] LABS: Absolute Lymphocytes (CBC) 1.7 K/uL (0.7-4.9); Hematocrit 33.3 % (39.6-49.0); Lymphocytes % 17.9 % (15.3-44.8); MCV 81.9 fL (80-100); MPV 6.9 fL (7.6-11.3); RBC Red Blood Cell Count 4.07 M/uL (4.33-5.43)
[2022-10-30 12:01] LABS: Albumin 2.8 g/dL (3.4-5.0); Bilirubin Total 0.3 mg/dL (0.2-1.0); Potassium 3.3 mmol/L (3.5-5.1); Protein, Total 7.6 g/dL (6.4-8.2)
[2022-10-30] MEDS: ACETAMINOPHEN 325 MG TABLET PO PRN (13:21)
--- NOTE | 2022-10-30 14:21 | P.PN ---
Date of Service: 10/28/22 Subjective Patient continues to improve. Clinical symptoms continue to improve. There was some erythema of the lower extremity. Continue with antibiotic regimen Review of Systems 10-point ROS is otherwise unremarkable Physical Examination - Vital Signs Reviewed - Physical Exam General: Alert, In no apparent distress, Oriented x3 Respiratory: Clear to auscultation bilaterally, Normal air movement Cardiovascular: Regular rate/rhythm, Normal S1 S2 Gastrointestinal: Normal bowel sounds, Soft and benign, Non-distended, No tenderness Musculoskeletal: No clubbing, No swelling, No tenderness Neurological: No focal deficits Assessment & Plan - Problems (Diagnosis) (1) Venous insufficiency Current Visit: Yes Status: Acute (2) Cellulitis of left lower extremity Current Visit: No Status: Acute (3) H/O mechanical aortic valve replacement Current Visit: No Status: Acute (4) Atrial fibrillation Current Visit: No Status: Chronic Qualifiers: Atrial fibrillation type: paroxysmal Qualified Code(s): I48.0 - Paroxysmal atrial fibrillation (5) CHF (congestive heart failure) Current Visit: No Status: Chronic Qualifiers: Heart failure type: unspecified Heart failure chronicity: acute on chronic Qualified Code(s): I50.9 - Heart failure, unspecified (6) Type 2 diabetes mellitus Current Visit: No Status: Chronic Qualifiers: Diabetes mellitus long term care phlebotomist insulin use: without chcf use Diabetes mellitus complication status: with hyperglycemia Qualified Code(s): E11.65 - Type 2 diabetes mellitus with hyperglycemia - Plan Continue with plan of care as mentioned below: 1. Continue with IV antibiotic 2. Continue with local wound care; steroids x 1 3. Wound care consultation appreciated 4. Hep-Lock IV 5. Monitor CBC 6. Strict BS monitoring 7. Pain control 8. Continue with lasix/albumin drip 9. GI and DVT prophylaxis
--- NOTE | 2022-10-30 14:22 | P.PN ---
Date of Service: 10/29/22 Subjective Patient denies any new complaints. Symptoms are improving. Lower extremity edema still significant but we are still aggressively diuresing. Continue with antibiotics. Review of Systems 10-point ROS is otherwise unremarkable Physical Examination - Vital Signs Reviewed - Physical Exam General: Alert, In no apparent distress, Oriented x3 Respiratory: Clear to auscultation bilaterally Cardiovascular: Regular rate/rhythm without any murmurs Gastrointestinal: Normal BS, Soft and benign, Non-distended, No tenderness Musculoskeletal: No clubbing, No swelling, No tenderness Neurological: No focal deficits Assessment & Plan - Problems (Diagnosis) (1) Venous insufficiency Current Visit: Yes Status: Acute (2) Cellulitis of left lower extremity Current Visit: No Status: Acute (3) H/O mechanical aortic valve replacement Current Visit: No Status: Acute (4) Atrial fibrillation Current Visit: No Status: Chronic Qualifiers: Atrial fibrillation type: paroxysmal Qualified Code(s): I48.0 - Paroxysmal atrial fibrillation (5) CHF (congestive heart failure) Current Visit: No Status: Chronic Qualifiers: Heart failure type: unspecified Heart failure chronicity: acute on chronic Qualified Code(s): I50.9 - Heart failure, unspecified (6) Type 2 diabetes mellitus Current Visit: No Status: Chronic Qualifiers: Diabetes mellitus equipment operator intermodal yard insulin use: without equipment operator intermodal yard use Diabetes mellitus complication status: with hyperglycemia Qualified Code(s): E11.65 - Type 2 diabetes mellitus with hyperglycemia - Plan Continue with plan of care as mentioned below: 1. Continue with IV antibiotic 2. Continue with local wound care; steroids x 1 3. Wound care consultation appreciated 4. Hep-Lock IV 5. Monitor CBC 6. Strict BS monitoring 7. Pain control 8. Continue with lasix/albumin drip 9. GI and DVT prophylaxis
--- NOTE | 2022-10-30 14:23 | P.PN ---
Date of Service: 10/30/22 Subjective Patient continues have significant erythema and edema. But somewhat improved. We will do one more days of antibiotic therapy and diuresing and then discharged home. Review of Systems 10-point ROS is otherwise unremarkable Physical Examination - Vital Signs Reviewed - Physical Exam General: Alert, In no apparent distress, Oriented x3 Respiratory: Clear to auscultation bilaterally Cardiovascular: Regular rate/rhythm without any murmurs Gastrointestinal: Normal BS, Soft and benign, Non-distended, No tenderness Musculoskeletal: No clubbing, No swelling, No tenderness Neurological: No focal deficits Assessment & Plan - Problems (Diagnosis) (1) Venous insufficiency Current Visit: Yes Status: Acute (2) Cellulitis of left lower extremity Current Visit: No Status: Acute (3) H/O mechanical aortic valve replacement Current Visit: No Status: Acute (4) Atrial fibrillation Current Visit: No Status: Chronic Qualifiers: Atrial fibrillation type: paroxysmal Qualified Code(s): I48.0 - Paroxysmal atrial fibrillation (5) CHF (congestive heart failure) Current Visit: No Status: Chronic Qualifiers: Heart failure type: unspecified Heart failure chronicity: acute on chronic Qualified Code(s): I50.9 - Heart failure, unspecified (6) Type 2 diabetes mellitus Current Visit: No Status: Chronic Qualifiers: Diabetes mellitus custodial insulin use: without custodial use Diabetes mellitus complication status: with hyperglycemia Qualified Code(s): E11.65 - Type 2 diabetes mellitus with hyperglycemia - Plan Continue with plan of care as mentioned below: 1. Change to oral antibiotics 2. IV steroids 3. Wound care consultation appreciated 4. Hep-Lock IV 5. Monitor CBC 6. Strict BS monitoring 7. Pain control 8. Continue with lasix/albumin drip 9. GI and DVT prophylaxis
[2022-10-30] MEDS ORDERED: HYDROCORTISONE SUC 100 MG INJ IV ONE (15:00)
[2022-10-30] MEDS ORDERED: carvediloL 6.25 MG TAB PO ONE (15:00)
[2022-10-30] MEDS ORDERED: FUROSEMIDE 20 MG/ 2ML VIAL IV SCH (15:00)
[2022-10-30] MEDS ORDERED: ALBUMIN HUMAN 25% 50 ML IV ONE (15:00)
[2022-10-30 15:42] VITALS: BP 129/65
[2022-10-30 16:20] VITALS: TEMP 96.8
[2022-10-30] MEDS: WARFARIN SODIUM 6 MG TAB PO SCH (16:20)
[2022-10-30] MEDS ORDERED: carvediloL 6.25 MG TAB PO SCH (21:00)
== END 2022-10-30 18:01 | disposition home or self-care (01) | DRG 602 ==
LOC: ER 11:34 → ERHOLD 15:38 → 4TH 21:30
PROVIDERS: ADMIT Hospitalist; ATTEND Hospitalist
DX: L03.116 Cellulitis of left lower limb (principal); I50.33 Acute on chronic diastolic (congestive) heart failure; N17.9 Acute kidney failure, unspecified; E44.0 Moderate protein-calorie malnutrition; L03.115 Cellulitis of right lower limb; I11.0 Hypertensive heart disease with heart failure; E11.40 Type 2 diabetes mellitus with diabetic neuropathy, unspecified; E11.65 Type 2 diabetes mellitus with hyperglycemia; F31.9 Bipolar disorder, unspecified; I89.0 Lymphedema, not elsewhere classified; E78.5 Hyperlipidemia, unspecified; I48.0 Paroxysmal atrial fibrillation; E66.9 Obesity, unspecified; I87.2 Venous insufficiency (chronic) (peripheral); D63.8 Anemia in other chronic diseases classified elsewhere; D72.829 Elevated white blood cell count, unspecified; B35.1 Tinea unguium; Z95.2 Presence of prosthetic heart valve; Z68.39 Body mass index [BMI] 39.0-39.9, adult; Z79.82 Long term (current) use of aspirin; Z79.899 Other long term (current) drug therapy; Z20.822 Contact with and (suspected) exposure to COVID-19
CPT/HCPCS: 36415; 80048; 80053; 81001; 81003; 82550; 82947; 83735; 83880; 84100; 84484; 85025; 85610; 87040; 87070; 87075; 87205; 87811; 93005; 96365; 96366; 96367; 99285; J0692; J1720; J1940; J3370; J7030; J7050; P9047

== ENCOUNTER 2024-05-14 13:11 | Inpatient (IN) | payer OTHER ==
--- OUTSIDE RECORDS SUMMARY | 2024-05-14 13:16 | XMS REPORT | Continuity of Care Document ---
Author Name Unknown Address [address] [facility] [address] [place], [place] [address] [place] [address] thconnect Address [address] [facility] [address] [place] [address] Care Team Providers Care Tongue Stitcher Name Role Phone Faviola Barragan Attending Clinician Unavailable Payers Payer Name Policy Type Policy Number Effective Date Expirati on Date Source [employer] [facility] [id number] 2011 00:00:00 [facility] Problems Condition Name Condition Details Condition Category Status Onset Date Resolution Date Last Treatment Date Treating Clinician Comments Source [id number] Cellulitis of left lower limb Problem [facility] [id number] Cellulitis of right lower limb Problem [facility] [id number] Uncontroll ed type 2 diabetes mellitus with hyperglyce aleks Problem [facility] [id number] PVD (periphera l vascular disease) Problem [facility] Seizure Seizure Problem [facility] [id number] Statin intoleranc e Problem [facility] [id number] Neuropathy Problem Com [facility] Basal cell carcinoma of face Basal cell carcinoma of face Problem [facility] History of heart valve recipient Aortic valve replaced Problem [facility] Gastroesop hageal reflux disease GERD without esophagiti s Problem [facility] Hypertensi on Hypertensi on Problem [facility] [id number] alf current use of anticoagul ant Problem [facility] [id number] Type 2 diabetes mellitus without complicati on, without long-term current use of insulin Problem [facility] [id number] Male-to-fe male transgende r person Problem [facility] [id number] Type 2 diabetes mellitus with diabetic neuropathy , without long-term current use of insulin Problem [facility] [id number] Body mass index [BMI] 45.0-49.9, adult Problem [facility] [id number] Injury of left foot, subsequent encounter Problem [facility] [id number] Ankylosing spondyliti s of cervical region Problem [facility] Bipolar disorder Bipolar disorder Problem [facility] [id number] Kidney pain Problem [facility] [id number] Mixed hyperlipid emia Problem [facility] Atrial fibrillati on Atrial fibrillati on Problem [facility] [id number] Morbid (severe) obesity due to excess calories Problem [facility] [id number] Acute combined systolic and diastolic congestive heart failure Problem [facility] [id number] Encounter for preoperati ve dental examinatio n Problem [facility] [id number] Difficulty swallowing solids Problem [facility] Allergies, Adverse Reactions, Alerts Allergy Name Allergy Type Status Severity Reaction(s) Onset Date Inactive Date Treating Clinician Comments Source Substanc e with 3-hydrox y-3-meth ylglutar yl-coenz yme A reductas e inhibito r mechanis m of action (substan ce) Substanc e with 3-hydrox y-3-meth ylglutar yl-coenz yme A reductas e inhibito r mechanis m of action (substan ce) Active myalgias [facility] ezetimib e ezetimib e Active diarrhea [facility] Social History Social Habit Start Date Stop Date Quantity Comments Source History of Tobacco Use [facility] Sex Assigned At [facility] Smoking Status Start Date Stop Date Source Never Smoker [facility] Medications Ordered Medication Name Filled Medication Name Start Date Stop Date Current Medication? Ordering Clinician Indication Dosage Frequency Signature (SIG) Comments Components Source Pregabalin 75 MG Pregabalin 75 MG 16 00:00: 00 No 1{capsu le} TID Pregabalin 75 MG clonazePAM 0.5 MG clonazePAM 0.5 MG No 1{table t} QD clonazePAM 0.5 MG Januvia 100 MG Januvia 100 MG No 1{table t} QD Januvia 100 MG Lisinopril 20 MG Lisinopril 20 MG No 1{table t} QD Lisinopril 20 MG Jantoven 6 MG Jantoven 6 MG No 1{table t} QD Jantoven 6 MG Abilify 5 MG Abilify 5 MG No 1{table t} QD Abilify 5 MG Furosemide 40 MG Furosemide 40 MG No 1{table t} BID Furosemide 40 MG Metoprolol Tartrate 100 MG Metoprolol Tartrate 100 MG No 1{table t_with_ food} BID Metoprolol Tartrate 100 MG Benztropine Mesylate 1 MG Benztropine Mesylate 1 MG No 1{table t} QD Benztropin e Mesylate 1 MG metOLazone 2.5 MG metOLazone 2.5 MG No 1{table t} BID metOLazone 2.5 MG FLUoxetine HCl 20 MG FLUoxetine HCl 20 MG No FLUoxetine HCl 20 MG Divalproex Sodium 500 MG Divalproex Sodium 500 MG No Divalproex Sodium 500 MG Klor-Con M20 20 MEQ Klor-Con M20 20 MEQ No 1{table t_with_ food} QD Klor-Con M20 20 MEQ Magnesium 400 MG Magnesium 400 MG No Magnesium 400 MG Immunizations Ordered Immunization Name Filled Immunization Name Date Status Comments Source Moderna COVID-19 Vaccine Moderna COVID-19 Vaccine 2021-01-24 08:27:00 [facility] Moderna COVID-19 Vaccine Moderna COVID-19 Vaccine 2021-01-24 08:27:00 Completed [facility] Moderna COVID-19 Vaccine Moderna COVID-19 Vaccine 2021-01-24 08:27:00 Completed [facility] Moderna COVID-19 Vaccine Moderna COVID-19 Vaccine 2021-01-24 08:27:00 Completed [facility] Moderna COVID-19 Vaccine Moderna COVID-19 Vaccine 2021-01-24 08:27:00 Completed [facility] Moderna COVID-19 Vaccine Moderna COVID-19 Vaccine 2021-01-24 08:27:00 Completed [facility] Moderna COVID-19 Vaccine Moderna COVID-19 Vaccine 2021-01-24 08:27:00 Completed [facility] Moderna COVID-19 Vaccine Moderna COVID-19 Vaccine 2021-01-24 08:27:00 Completed [facility] Moderna COVID-19 Vaccine Moderna COVID-19 Vaccine 2021-01-24 08:27:00 Completed [facility] Moderna COVID-19 Vaccine Moderna COVID-19 Vaccine 2021-01-24 08:27:00 Completed [facility] Moderna COVID-19 Vaccine Moderna COVID-19 Vaccine 2021-01-24 08:27:00 Completed [facility] Moderna COVID-19 Vaccine Moderna COVID-19 Vaccine 2020-12-27 08:27:00 Completed [facility] Moderna COVID-19 Vaccine Moderna COVID-19 Vaccine 2020-12-27 08:27:00 Completed [facility] Moderna COVID-19 Vaccine Moderna COVID-19 Vaccine 2020-12-27 08:27:00 Completed [facility] Moderna COVID-19 Vaccine Moderna COVID-19 Vaccine 2020-12-27 08:27:00 Completed [facility] Moderna COVID-19 Vaccine Moderna COVID-19 Vaccine 2020-12-27 08:27:00 Completed [facility] Moderna COVID-19 Vaccine Moderna COVID-19 Vaccine 2020-12-27 08:27:00 Completed [facility] Moderna COVID-19 Vaccine Moderna COVID-19 Vaccine 2020-12-27 08:27:00 Completed [facility] Moderna COVID-19 Vaccine Moderna COVID-19 Vaccine 2020-12-27 08:27:00 Completed [facility] Moderna COVID-19 Vaccine Moderna COVID-19 Vaccine 2020-12-27 08:27:00 Completed [facility] Moderna COVID-19 Vaccine Moderna COVID-19 Vaccine 2020-12-27 08:27:00 Completed [facility] Moderna COVID-19 Vaccine Moderna COVID-19 Vaccine 2020-12-27 08:27:00 Completed [facility] Flucelvax - multidose vial Flucelvax - multidose vial 2018-08-10 14:14:00 Completed [facility] Flucelvax - multidose vial Flucelvax - multidose vial 2018-08-10 14:14:00 Completed [facility] Flucelvax - multidose vial Flucelvax - multidose vial 2018-08-10 14:14:00 Completed [facility] Flucelvax - multidose vial Flucelvax - multidose vial 2018-08-10 14:14:00 Completed [facility] Flucelvax - multidose vial Flucelvax - multidose vial 2018-08-10 14:14:00 Completed [facility] Flucelvax - multidose vial Flucelvax - multidose vial 2018-08-10 14:14:00 Completed [facility] Flucelvax - multidose vial Flucelvax - multidose vial 2018-08-10 14:14:00 Completed [facility] Flucelvax - multidose vial Flucelvax - multidose vial 2018-08-10 14:14:00 Completed [facility] Flucelvax - multidose vial Flucelvax - multidose vial 2018-08-10 14:14:00 [facility] Flucelvax - multidose vial Flucelvax - multidose vial 2018-08-10 14:14:00 Completed [facility] Flucelvax - multidose vial Flucelvax - multidose vial 2018-08-10 14:14:00 Completed [facility] Moderna COVID-19 Vaccine Moderna COVID-19 Vaccine Unknown Completed [facility] Moderna COVID-19 Vaccine Moderna COVID-19 Vaccine Unknown Completed [facility] Fluarix Fluarix Unknown Completed [facility] Flucelvax - multidose vial Flucelvax - multidose vial Unknown Completed [facility] Moderna COVID-19 Vaccine Moderna COVID-19 Vaccine Unknown Completed [facility] Moderna COVID-19 Vaccine Moderna COVID-19 Vaccine Unknown Completed [facility] Fluarix (IIV4) - SDS - 0.5mL Fluarix (IIV4) - SDS - 0.5mL Unknown Completed [facility] Flucelvax (ccIIV4) - MDV - 0.5mL Flucelvax (ccIIV4) - MDV - 0.5mL Unknown Completed [facility] Moderna COVID-19 Vaccine Moderna COVID-19 Vaccine Unknown Completed [facility] Moderna COVID-19 Vaccine Moderna COVID-19 Vaccine Unknown Completed [facility] Fluarix (IIV4) - SDS - 0.5mL Fluarix (IIV4) - SDS - 0.5mL Unknown Completed [facility] Flucelvax (ccIIV4) - MDV - 0.5mL Flucelvax (ccIIV4) - MDV - 0.5mL Unknown Completed [facility] Moderna COVID-19 Vaccine Moderna COVID-19 Vaccine Unknown Completed [facility] Moderna COVID-19 Vaccine Moderna COVID-19 Vaccine Unknown Completed [facility] Fluarix (IIV4) - SDS - 0.5mL Fluarix (IIV4) - SDS - 0.5mL Unknown Completed [facility] Flucelvax (ccIIV4) - MDV - 0.5mL Flucelvax (ccIIV4) - MDV - 0.5mL Unknown Completed [facility] Moderna COVID-19 Vaccine Moderna COVID-19 Vaccine Unknown Completed [facility] Moderna COVID-19 Vaccine Moderna COVID-19 Vaccine Unknown Completed [facility] Fluarix (IIV4) - SDS - 0.5mL Fluarix (IIV4) - SDS - 0.5mL Unknown Completed [facility] Flucelvax (ccIIV4) - MDV - 0.5mL Flucelvax (ccIIV4) - MDV - 0.5mL Unknown Completed [facility] Moderna COVID-19 Vaccine Moderna COVID-19 Vaccine Unknown Completed [facility] Moderna COVID-19 Vaccine Moderna COVID-19 Vaccine Unknown Completed [facility] Fluarix (IIV4) - SDS - 0.5mL Fluarix (IIV4) - SDS - 0.5mL Unknown Completed [facility] Flucelvax (ccIIV4) - MDV - 0.5mL Flucelvax (ccIIV4) - MDV - 0.5mL Unknown Completed [facility] Moderna COVID-19 Vaccine Moderna COVID-19 Vaccine Unknown Completed [facility] Moderna COVID-19 Vaccine Moderna COVID-19 Vaccine Unknown Completed [facility] Fluarix (IIV4) - SDS - 0.5mL Fluarix (IIV4) - SDS - 0.5mL Unknown Completed [facility] Flucelvax (ccIIV4) - MDV - 0.5mL Flucelvax (ccIIV4) - MDV - 0.5mL Unknown Completed [facility] Moderna COVID-19 Vaccine Moderna COVID-19 Vaccine Unknown Completed [facility] Moderna COVID-19 Vaccine Moderna COVID-19 Vaccine Unknown Completed [facility] Fluarix (IIV4) - SDS - 0.5mL Fluarix (IIV4) - SDS - 0.5mL Unknown Completed [facility] Flucelvax (ccIIV4) - MDV - 0.5mL Flucelvax (ccIIV4) - MDV - 0.5mL Unknown Completed [facility] Vital Signs Vital Name Observation Time Observation Value Comments S raimundo height 2024-05-01 15:00:00 72 [in_i] Commo n [facility] weight 2024-05-01 15:00:00 296.0 [lb_av] Co [facility] temperature 2024-05-01 15:00:00 97.5 [degF] Com [facility] bmi 2024-05-01 15:00:00 40.14 kg/m2 Comm on [facility] oximetry 2024-05-01 15:00:00 95 % Commo n [facility] respiratory rate 2024-05-01 15:00:00 15 /min [facility] blood pressure systolic 2024-05-01 15:00:00 106 mm[Hg] [facility] blood pressure diastolic 2024-05-01 15:00:00 61 mm[Hg] [facility] height 2024-01-16 14:20:00 72 [in_i] Commo n [facility] weight 2024-01-16 14:20:00 303.6 [lb_av] Co [facility] temperature 2024-01-16 14:20:00 97.7 [degF] Com [facility] bmi 2024-01-16 14:20:00 41.17 kg/m2 Comm on [facility] oximetry 2024-01-16 14:20:00 96 % Commo n [facility] respiratory rate 2024-01-16 14:20:00 15 /min Common [facility] blood pressure systolic 2024-01-16 14:20:00 93 mm[Hg] Common [facility] blood pressure diastolic 2024-01-16 14:20:00 55 mm[Hg] [facility] height 2023-09-22 15:20:00 72 [in_i] Commo n [facility] weight 2023-09-22 15:20:00 298.2 [lb_av] Co mmon [facility] temperature 2023-09-22 15:20:00 97.7 [degF] Com [facility] bmi 2023-09-22 15:20:00 40.44 kg/m2 Comm on [facility] oximetry 2023-09-22 15:20:00 97 % Commo n [facility] respiratory rate 2023-09-22 15:20:00 15 /min [facility] blood pressure systolic 2023-09-22 15:20:00 109 mm[Hg] [facility] blood pressure diastolic 2023-09-22 15:20:00 62 mm[Hg] Common [facility] height 2023-09-06 09:40:00 72 [in_i] Commo n [facility] weight 2023-09-06 09:40:00 296.4 [lb_av] Co mmon [facility] temperature 2023-09-06 09:40:00 97.5 [degF] Com [facility] bmi 2023-09-06 09:40:00 40.19 kg/m2 Comm on [facility] oximetry 2023-09-06 09:40:00 96 % Commo n [facility] respiratory rate 2023-09-06 09:40:00 15 /min [facility] blood pressure systolic 2023-09-06 09:40:00 98 mm[Hg] Common [facility] blood pressure diastolic 2023-09-06 09:40:00 59 mm[Hg] Common [facility] height 2023-06-27 14:00:00 72 [in_i] Commo n [facility] weight 2023-06-27 14:00:00 284.8 [lb_av] Co mmon [facility] temperature 2023-06-27 14:00:00 97.2 [degF] Com mon [facility] bmi 2023-06-27 14:00:00 38.62 kg/m2 Comm on [facility] oximetry 2023-06-27 14:00:00 95 % Commo n [facility] respiratory rate 2023-06-27 14:00:00 15 /min [facility] blood pressure systolic 2023-06-27 14:00:00 83 mm[Hg] [facility] blood pressure diastolic 2023-06-27 14:00:00 51 mm[Hg] Common [facility] height 2023-03-31 11:20:00 72 [in_i] Commo n [facility] weight 2023-03-31 11:20:00 293.0 [lb_av] Co mmon [facility] temperature 2023-03-31 11:20:00 98.0 [degF] Com mon [facility] bmi 2023-03-31 11:20:00 39.73 kg/m2 Comm on [facility] oximetry 2023-03-31 11:20:00 95 % Commo n [facility] respiratory rate 2023-03-31 11:20:00 16 /min Common [facility] blood pressure systolic 2023-03-31 11:20:00 97 mm[Hg] Common [facility] blood pressure diastolic 2023-03-31 11:20:00 58 mm[Hg] Common [facility] height 2022-07-22 08:20:00 72 [in_i] Commo n [facility] weight 2022-07-22 08:20:00 328 [lb_av] Comm on [facility] temperature 2022-07-22 08:20:00 97.2 [degF] Com mon [facility] bmi 2022-07-22 08:20:00 44.48 kg/m2 Comm on [facility] oximetry 2022-07-22 08:20:00 98 % Commo n [facility] respiratory rate 2022-07-22 08:20:00 18 /min Common [facility] blood pressure systolic 2022-07-22 08:20:00 130 mm[Hg] Common [facility] blood pressure diastolic 2022-07-22 08:20:00 60 mm[Hg] Common [facility] height 2022-02-11 14:00:00 72 [in_i] Commo n [facility] weight 2022-02-11 14:00:00 331.6 [lb_av] Co mmon [facility] temperature 2022-02-11 14:00:00 97.7 [degF] Com [facility] bmi 2022-02-11 14:00:00 44.97 kg/m2 Comm on [facility] oximetry 2022-02-11 14:00:00 97 % Commo n [facility] respiratory rate 2022-02-11 14:00:00 18 /min Common [facility] blood pressure systolic 2022-02-11 14:00:00 138 mm[Hg] Common [facility] blood pressure diastolic 2022-02-11 14:00:00 74 mm[Hg] Common [facility] height 2021-11-16 14:20:00 72 [in_i] Commo n [facility] weight 2021-11-16 14:20:00 341 [lb_av] Comm on [facility] temperature 2021-11-16 14:20:00 97.1 [degF] Com mon [facility] bmi 2021-11-16 14:20:00 46.24 kg/m2 Comm on [facility] oximetry 2021-11-16 14:20:00 96 % Commo n [facility] respiratory rate 2021-11-16 14:20:00 18 /min [facility] blood pressure systolic 2021-11-16 14:20:00 136 mm[Hg] [facility] blood pressure diastolic 2021-11-16 14:20:00 78 mm[Hg] [facility] Encounters Start Date/Time End Date/Time Encounter Type Admission Type Attending [facility] Facility Care Department Encounter ID Source 2024-04-12 14:15:00 Outpatient LaurelFaviola [facility] [id number] [facility] 2023-06-27 13:56:00 Outpatient [facility]aviola [facility] [id number] [facility] 2023-03-31 12:02:00 Outpatient [facility] [id number] [facility] 2022-11-03 09:54:02 Outpatient Sharon [facility]Faviola [facility] [id number] [facility] 2022-10-14 08:15:02 Outpatient Sharon [facility]Faviola sal[facility] [id number] [facility] 2022-05-10 09:21:01 Outpatient LaurelFaviola [facility] [id number] [facility] 2021-11-16 14:09:03 Outpatient LaurelFaviola [facility] [id number] [facility] 2024-05-01 00:00:00 2024-05-01 00:00:00 OFFICE VISIT ESTAB PT LEVEL 4 [facility]LMLC STL[facility]C [id number] [facility] 2024-04-17 00:00:00 2024-04-17 00:00:00 (TEL) [facility]LMLC STL[facility]C [id number] [facility] 2024-02-01 00:00:00 2024-02-01 00:00:00 (TEL) STLMLC STL[facility]C [id number] [facility] 2024-01-16 00:00:00 2024-01-16 00:00:00 OFFICE VISIT ESTAB PT LEVEL 4 [facility] STL[facility]C [id number] [facility] 2023-09-22 00:00:00 2023-09-22 00:00:00 OFFICE VISIT ESTAB PT LEVEL 3 [facility] STL[facility]C [id number] [facility] 2023-09-09 00:00:00 2023-09-09 00:00:00 (TEL) STLMLC STLMLC [id number] [facility] 2023-09-06 00:00:00 2023-09-06 00:00:00 OFFICE VISIT ESTAB PT LEVEL 3 [facility] STL[facility]C [id number] [facility] 2023-06-27 00:00:00 2023-06-27 00:00:00 OFFICE VISIT ESTAB PT LEVEL 4 [facility] STL[facility]C [id number] [facility] 2023-05-13 00:00:00 2023-05-13 00:00:00 (TEL) STLMLC STLMLC [id number] [facility] 2023-03-31 00:00:00 2023-03-31 00:00:00 OFFICE VISIT ESTAB PT LEVEL 4 [facility]C STLMLC [id number] [facility] 2022-10-25 00:00:00 2022-10-25 00:00:00 (TEL) STLMLC STLMLC [id number] [facility] 2022-07-22 00:00:00 2022-07-22 00:00:00 OFFICE VISIT ESTAB PT LEVEL 4 [facility]LMLC STLMLC [id number] [facility] 2022-07-16 00:00:00 2022-07-16 00:00:00 (TEL) STLMLC STLMLC [id number] [facility] 2022-02-11 00:00:00 2022-02-11 00:00:00 OFFICE VISIT ESTAB PT LEVEL 4 [facility]C STLMLC [id number] [facility] 2022-02-09 00:00:00 2022-02-09 00:00:00 (TEL) STLMLC STLMLC [id number] [facility] 2022-01-22 00:00:00 2022-01-22 00:00:00 (TEL) STLMLC STLMLC [id number] [facility] 2021-12-31 00:00:00 2021-12-31 00:00:00 (TEL) STLMLC STLMLC [id number] [facility] 2021-11-26 00:00:00 2021-11-26 00:00:00 (TEL) STLMLC STLMLC [id number] [facility] 2021-11-16 00:00:00 2021-11-16 00:00:00 (TEL) STLMLC STLMLC [id number] [facility] 2021-11-16 00:00:00 2021-11-16 00:00:00 OFFICE VISIT ESTAB PT LEVEL 4 [facility]LMLC STLMLC [id number] [facility] Results Test Description Test Time Test Comments Results Result Co mments Source CBC (INCLUDES DIFF/PLT)2024-04-18 00:00:00* Test Item Value Reference Range Interpretation Comme nts ABSOLUTE BASOPHILS (test code = 704-7) 121 cells/uL See_Comment N [Automated m essage] The system which generated this result transmitted reference range: 0-200 cells/uL. The reference range was not used to interpret this result as normal/abnormal. ABSOLUTE EOSINOPHILS (test code = 711-2) 330 cells/uL See_Comment N [Automated m essage] The system which generated this result transmitted reference range: 15-500 cells/uL. The reference range was not used to interpret this result as normal/abnormal. ABSOLUTE LYMPHOCYTES (test code = 731-0) 2541 cells/uL See_Comment N [Automated m essage] The system which generated this result transmitted reference range: 850-3900 cells/uL. The reference range was not used to interpret this result as normal/abnormal. ABSOLUTE MONOCYTES (test code = 742-7) 1276 cells/uL See_Comment H [Automated m essage] The system which generated this result transmitted reference range: 200-950 cells/uL. The reference range was not used to interpret this result as normal/abnormal. ABSOLUTE NEUTROPHILS (test code = 751-8) 6732 cells/uL See_Comment N [Automated m essage] The system which generated this result transmitted reference range: 4668-0398 cells/uL. The reference range was not used to interpret this result as normal/abnormal. BASOPHILS (test code = 706-2) 1.1 % N EOSINOPHILS (test code = 713-8) 3.0 % N HEMATOCRIT (test code = 4544-3) 39.5 % See_Comment N [Automated messa ge] The system which generated this result transmitted reference range: 38.5-50.0 %. The reference range was not used to interpret this result as normal/abnormal. HEMOGLOBIN (test code = 718-7) 12.6 g/dL See_Comment L [Automated messa ge] The system which generated this result transmitted reference range: 13.2-17.1 g/dL. The reference range was not used to interpret this result as normal/abnormal. LYMPHOCYTES (test code = 736-9) 23.1 % N MCH (test code = 785-6) 27.5 pg See_Comment N [Automated messa ge] The system which generated this result transmitted reference range: 27.0-33.0 pg. The reference range was not used to interpret this result as normal/abnormal. MCHC (test code = 786-4) 31.9 g/dL See_Comment L [Automated messa ge] The system which generated this result transmitted reference range: 32.0-36.0 g/dL. The reference range was not used to interpret this result as normal/abnormal. MCV (test code = 787-2) 86.1 fL See_Comment N [Automated messa ge] The system which generated this result transmitted reference range: 80.0-100.0 fL. The reference range was not used to interpret this result as normal/abnormal. MONOCYTES (test code = 5905-5) 11.6 % N MPV (test code = 776-5) 11.1 fL See_Comment N [Automated messa ge] The system which generated this result transmitted reference range: 7.5-12.5 fL. The reference range was not used to interpret this result as normal/abnormal. NEUTROPHILS (test code = 770-8) 61.2 % N PLATELET COUNT (test code = 777-3) 390 Thousand/uL See_Comment N [Automated message] The system which generated this result transmitted reference range: 140-400 Thousand/uL. The reference range was not used to interpret this result as normal/abnormal. RDW (test code = 788-0) 14.0 % See_Comment N [Automated messa ge] The system which generated this result transmitted reference range: 11.0-15.0 %. The reference range was not used to interpret this result as normal/abnormal. RED BLOOD CELL COUNT (test code = 789-8) 4.59 Million/uL See_Comment N [Automated message] The system which generated this result transmitted reference range: 4.20-5.80 Million/uL. The reference range was not used to interpret this result as normal/abnormal. WHITE BLOOD CELL COUNT (test code = 6690-2) 11.0 Thousand/uL See_Comment H [Automated message] The system which generated this result transmitted reference range: 3.8-10.8 Thousand/uL. The reference range was not used to interpret this result as normal/abnormal. MICROALBUMIN, RANDOM URINE (W/CREATININE)2024-04-18 00:00:00* Test Item Value Reference Range Interpretation Comme nts CREATININE, RANDOM URINE (test code = 2161-8) 140 mg/dL See_Comment N [Automated messa ge] The system which generated this result transmitted reference range: 20-320 mg/dL. The reference range was not used to interpret this result as normal/abnormal. ALBUMIN, URINE (test code = 45470-9) 0.3 mg/dL See Note: mg/dL N ALBUMIN/CREATININE RATIO, RANDOM URINE (test code = 9318-7) 2 mg/g creat See_Comment N [Automated messa ge] The system which generated this result transmitted reference range: <30 mg/g creat. The reference range was not used to interpret this result as normal/abnormal. LIPID [id number] 00:00:00* Test Item Value Reference Range Interpretation Comme nts CHOL/HDLC RATIO (test code = 9830-1) 5.9 (calc) See_Comment H [Automated messa ge] The system which generated this result transmitted reference range: <5.0 (calc). The reference range was not used to interpret this result as normal/abnormal. CHOLESTEROL, TOTAL (test code = 2093-3) 190 mg/dL See_Comment N [Automated message] The system which generated this result transmitted reference range: <200 mg/dL. The reference range was not used to interpret this result as normal/abnormal. HDL CHOLESTEROL (test code = 2085-9) 32 mg/dL See_Comment L [Automated messa ge] The system which generated this result transmitted reference range: > OR = 40 mg/dL. The reference range was not used to interpret this result as normal/abnormal. LDL-CHOLESTEROL (test code = 26836-4) 127 mg/dL (calc) H NON HDL CHOLESTEROL (test code = 61579-6) 158 mg/dL (calc) See_Comment H [Automated message] The system which generated this result transmitted reference range: <130 mg/dL (calc). The reference range was not used to interpret this result as normal/abnormal. TRIGLYCERIDES (test code = 2571-8) 190 mg/dL See_Comment H [Automated messa ge] The system which generated this result transmitted reference range: <150 mg/dL. The reference range was not used to interpret this result as normal/abnormal. COMPREHENSIVE METABOLIC PANEL(CMP)2024-04-18 00:00:00* Test Item Value Reference Range Interpretation Comme nts ALBUMIN (test code = 1751-7) 3.8 g/dL See_Comment N [Automated messa ge] The system which generated this result transmitted reference range: 3.6-5.1 g/dL. The reference range was not used to interpret this result as normal/abnormal. ALBUMIN/GLOBULIN RATIO (test code = 1759-0) 1.0 (calc) See_Comment N [Automated messa ge] The system which generated this result transmitted reference range: 1.0-2.5 (calc). The reference range was not used to interpret this result as normal/abnormal. ALKALINE PHOSPHATASE (test code = 6768-6) 102 U/L See_Comment N [Automated message] The system which generated this result transmitted reference range: 35-144 U/L. The reference range was not used to interpret this result as normal/abnormal. ALT (test code = 1742-6) 21 U/L See_Comment N [Automated messa ge] The system which generated this result transmitted reference range: 9-46 U/L. The reference range was not used to interpret this result as normal/abnormal. AST (test code = 1920-8) 19 U/L See_Comment N [Automated messa ge] The system which generated this result transmitted reference range: 10-35 U/L. The reference range was not used to interpret this result as normal/abnormal. BILIRUBIN, TOTAL (test code = 1975-2) 0.4 mg/dL See_Comment N [Automated message] The system which generated this result transmitted reference range: 0.2-1.2 mg/dL. The reference range was not used to interpret this result as normal/abnormal. BUN/CREATININE RATIO (test code = 3097-3) 22 (calc) See_Comment N [Automated message] The system which generated this result transmitted reference range: 6-22 (calc). The reference range was not used to interpret this result as normal/abnormal. CALCIUM (test code = 46996-9) 9.0 mg/dL See_Comment N [Automated messa ge] The system which generated this result transmitted reference range: 8.6-10.3 mg/dL. The reference range was not used to interpret this result as normal/abnormal. CARBON DIOXIDE (test code = 8-9) 33 mmol/L See_Comment H [Automated messa ge] The system which generated this result transmitted reference range: 20-32 mmol/L. The reference range was not used to interpret this result as normal/abnormal. CHLORIDE (test code = 2075-0) 91 mmol/L See_Comment L [Automated messa ge] The system which generated this result transmitted reference range: 98-110 mmol/L. The reference range was not used to interpret this result as normal/abnormal. CREATININE (test code = 2160-0) 1.23 mg/dL See_Comment N [Automated [employer]] The system which generated this result transmitted reference range: 0.70-1.30 mg/dL. The reference range was not used to interpret this result as normal/abnormal. GLOBULIN (test code = 33201-3) 3.7 g/dL (calc) See_Comment N [Automated message] The system which generated this result transmitted reference range: 1.9-3.7 g/dL (calc). The reference range was not used to interpret this result as normal/abnormal. GLUCOSE (test code = 2345-7) 96 mg/dL See_Comment N [Automated [employer]] The system which generated this result transmitted reference range: 65-99 mg/dL. The reference range was not used to interpret this result as normal/abnormal. POTASSIUM (test code = 2823-3) 3.6 mmol/L See_Comment N [Automated [employer]] The system which generated this result transmitted reference range: 3.5-5.3 mmol/L. The reference range was not used to interpret this result as normal/abnormal. PROTEIN, TOTAL (test code = 2885-2) 7.5 g/dL See_Comment N [Automated [employer]] The system which generated this result transmitted reference range: 6.1-8.1 g/dL. The reference range was not used to interpret this result as normal/abnormal. SODIUM (test code = 2951-2) 137 mmol/L See_Comment N [Automated [employer]] The system which generated this result transmitted reference range: 135-146 mmol/L. The reference range was not used to interpret this result as normal/abnormal. UREA NITROGEN (BUN) (test code = 3094-0) 27 mg/dL See_Comment H [Automated message] The system which generated this result transmitted reference range: 7-25 mg/dL. The reference range was not used to interpret this result as normal/abnormal. HEMOGLOBIN [id number] 00:00:00* Test Item Value Reference Range Interpretation Comme nts A1C (test code = 4548-4) 6.1 COMPREHENSIVE METABOLIC PANEL(CMP)2023-07-11 00:00:00* Test Item Value Reference Range Interpretation Comme nts ALBUMIN (test code = 1751-7) 4.1 g/dL See_Comment N [Automated messa ge] The system which generated this result transmitted reference range: 3.6-5.1 g/dL. The reference range was not used to interpret this result as normal/abnormal. ALBUMIN/GLOBULIN RATIO (test code = 1759-0) 1.1 (calc) See_Comment N [Automated messa ge] The system which generated this result transmitted reference range: 1.0-2.5 (calc). The reference range was not used to interpret this result as normal/abnormal. ALKALINE PHOSPHATASE (test code = 6768-6) 81 U/L See_Comment N [Automated message] The system which generated this result transmitted reference range: 35-144 U/L. The reference range was not used to interpret this result as normal/abnormal. ALT (test code = 1742-6) 15 U/L See_Comment N [Automated messa ge] The system which generated this result transmitted reference range: 9-46 U/L. The reference range was not used to interpret this result as normal/abnormal. AST (test code = 1920-8) 14 U/L See_Comment N [Automated messa ge] The system which generated this result transmitted reference range: 10-35 U/L. The reference range was not used to interpret this result as normal/abnormal. BILIRUBIN, TOTAL (test code = 1975-2) 0.4 mg/dL See_Comment N [Automated message] The system which generated this result transmitted reference range: 0.2-1.2 mg/dL. The reference range was not used to interpret this result as normal/abnormal. BUN/CREATININE RATIO (test code = 3097-3) SEE NOTE: (calc) See_Comment [Automated message] The system which generated this result transmitted reference range: 6-22 (calc). The reference range was not used to interpret this result as normal/abnormal. CALCIUM (test code = 10510-5) 9.0 mg/dL See_Comment N [Automated messa ge] The system which generated this result transmitted reference range: 8.6-10.3 mg/dL. The reference range was not used to interpret this result as normal/abnormal. CARBON DIOXIDE (test code = 8-9) 31 mmol/L See_Comment N [Automated messa ge] The system which generated this result transmitted reference range: 20-32 mmol/L. The reference range was not used to interpret this result as normal/abnormal. CHLORIDE (test code = 2075-0) 96 mmol/L See_Comment L [Automated messa ge] The system which generated this result transmitted reference range: 98-110 mmol/L. The reference range was not used to interpret this result as normal/abnormal. CREATININE (test code = 2160-0) 1.06 mg/dL See_Comment N [Automated messa ge] The system which generated this result transmitted reference range: 0.70-1.30 mg/dL. The reference range was not used to interpret this result as normal/abnormal. GLOBULIN (test code = 66304-3) 3.7 g/dL (calc) See_Comment N [Automated message] The system which generated this result transmitted reference range: 1.9-3.7 g/dL (calc). The reference range was not used to interpret this result as normal/abnormal. GLUCOSE (test code = 2345-7) 82 mg/dL See_Comment N [Automated messa ge] The system which generated this result transmitted reference range: 65-139 mg/dL. The reference range was not used to interpret this result as normal/abnormal. POTASSIUM (test code = 2823-3) 3.8 mmol/L See_Comment N [Automated messa ge] The system which generated this result transmitted reference range: 3.5-5.3 mmol/L. The reference range was not used to interpret this result as normal/abnormal. PROTEIN, TOTAL (test code = 2885-2) 7.8 g/dL See_Comment N [Automated messa ge] The system which generated this result transmitted reference range: 6.1-8.1 g/dL. The reference range was not used to interpret this result as normal/abnormal. SODIUM (test code = 2951-2) 139 mmol/L See_Comment N [Automated messa ge] The system which generated this result transmitted reference range: 135-146 mmol/L. The reference range was not used to interpret this result as normal/abnormal. UREA NITROGEN (BUN) (test code = 3094-0) 19 mg/dL See_Comment N [Automated message] The system which generated this result transmitted reference range: 7-25 mg/dL. The reference range was not used to interpret this result as normal/abnormal. HEMOGLOBIN [id number] 00:00:00* Test Item Value Reference Range Interpretation Comme nts HEMOGLOBIN A1c (test code = 4548-4) 5.7 % of total Hgb See_Comment H [Automated message] The system which generated this result transmitted reference range: <5.7 % of total Hgb. The reference range was not used to interpret this result as normal/abnormal. CBC (INCLUDES DIFF/PLT)2023-07-11 00:00:00* Test Item Value Reference Range Interpretation Comme nts ABSOLUTE BASOPHILS (test code = 704-7) 134 cells/uL See_Comment N [Automated m essage] The system which generated this result transmitted reference range: 0-200 cells/uL. The reference range was not used to interpret this result as normal/abnormal. ABSOLUTE EOSINOPHILS (test code = 711-2) 235 cells/uL See_Comment N [Automated m essage] The system which generated this result transmitted reference range: 15-500 cells/uL. The reference range was not used to interpret this result as normal/abnormal. ABSOLUTE LYMPHOCYTES (test code = 731-0) 2688 cells/uL See_Comment N [Automated m essage] The system which generated this result transmitted reference range: 850-3900 cells/uL. The reference range was not used to interpret this result as normal/abnormal. ABSOLUTE MONOCYTES (test code = 742-7) 1131 cells/uL See_Comment H [Automated m essage] The system which generated this result transmitted reference range: 200-950 cells/uL. The reference range was not used to interpret this result as normal/abnormal. ABSOLUTE NEUTROPHILS (test code = 751-8) 7011 cells/uL See_Comment N [Automated m essage] The system which generated this result transmitted reference range: 5355-6539 cells/uL. The reference range was not used to interpret this result as normal/abnormal. BASOPHILS (test code = 706-2) 1.2 % N EOSINOPHILS (test code = 713-8) 2.1 % N HEMATOCRIT (test code = 4544-3) 36.2 % See_Comment L [Automated [employer] ge] The system which generated this result transmitted reference range: 38.5-50.0 %. The reference range was not used to interpret this result as normal/abnormal. HEMOGLOBIN (test code = 718-7) 12.2 g/dL See_Comment L [Automated messa ge] The system which generated this result transmitted reference range: 13.2-17.1 g/dL. The reference range was not used to interpret this result as normal/abnormal. LYMPHOCYTES (test code = 736-9) 24.0 % N MCH (test code = 785-6) 28.9 pg See_Comment N [Automated messa ge] The system which generated this result transmitted reference range: 27.0-33.0 pg. The reference range was not used to interpret this result as normal/abnormal. MCHC (test code = 786-4) 33.7 g/dL See_Comment N [Automated messa ge] The system which generated this result transmitted reference range: 32.0-36.0 g/dL. The reference range was not used to interpret this result as normal/abnormal. MCV (test code = 787-2) 85.8 fL See_Comment N [Automated messa ge] The system which generated this result transmitted reference range: 80.0-100.0 fL. The reference range was not used to interpret this result as normal/abnormal. MONOCYTES (test code = 5905-5) 10.1 % N MPV (test code = 776-5) 10.1 fL See_Comment N [Automated messa ge] The system which generated this result transmitted reference range: 7.5-12.5 fL. The reference range was not used to interpret this result as normal/abnormal. NEUTROPHILS (test code = 770-8) 62.6 % N PLATELET COUNT (test code = 777-3) 439 Thousand/uL See_Comment H [Automated message] The system which generated this result transmitted reference range: 140-400 Thousand/uL. The reference range was not used to interpret this result as normal/abnormal. RDW (test code = 788-0) 13.4 % See_Comment N [Automated messa ge] The system which generated this result transmitted reference range: 11.0-15.0 %. The reference range was not used to interpret this result as normal/abnormal. RED BLOOD CELL COUNT (test code = 789-8) 4.22 Million/uL See_Comment N [Automated message] The system which generated this result transmitted reference range: 4.20-5.80 Million/uL. The reference range was not used to interpret this result as normal/abnormal. WHITE BLOOD CELL COUNT (test code = 6690-2) 11.2 Thousand/uL See_Comment H [Automated message] The system which generated this result transmitted reference range: 3.8-10.8 Thousand/uL. The reference range was not used to interpret this result as normal/abnormal. MICROALBUMIN, RANDOM URINE (W/CREATININE)2023-07-11 00:00:00* Test Item Value Reference Range Interpretation Comme nts CREATININE, RANDOM URINE (test code = 2161-8) 122 mg/dL See_Comment N [Automated [employer]] The system which generated this result transmitted reference range: 20-320 mg/dL. The reference range was not used to interpret this result as normal/abnormal. ALBUMIN, URINE (test code = 48913-8) 0.3 mg/dL See Note: mg/dL N ALBUMIN/CREATININ E RATIO, RANDOM URINE (test code = 9318-7) 2 mcg/mg creat See_Comment N [Automated [employer]] The system which generated this result transmitted reference range: <30 mcg/mg creat. The reference range was not used to interpret this result as normal/abnormal. LIPID [id number] 00:00:00* Test Item Value Reference Range Interpretation Comme nts CHOL/HDLC RATIO (test code = 9830-1) 5.4 (calc) See_Comment H [Automated [employer] ge] The system which generated this result transmitted reference range: <5.0 (calc). The reference range was not used to interpret this result as normal/abnormal. CHOLESTEROL, TOTAL (test code = 2093-3) 179 mg/dL See_Comment N [Automated message] The system which generated this result transmitted reference range: <200 mg/dL. The reference range was not used to interpret this result as normal/abnormal. HDL CHOLESTEROL (test code = 2085-9) 33 mg/dL See_Comment L [Automated [employer] ge] The system which generated this result transmitted reference range: > OR = 40 mg/dL. The reference range was not used to interpret this result as normal/abnormal. LDL-CHOLESTEROL (test code = 24591-9) 117 mg/dL (calc) H NON HDL CHOLESTEROL (test code = 94241-2) 146 mg/dL (calc) See_Comment H [Automated message] The system which generated this result transmitted reference range: <130 mg/dL (calc). The reference range was not used to interpret this result as normal/abnormal. TRIGLYCERIDES (test code = 2571-8) 171 mg/dL See_Comment H [Automated messa ge] The system which generated this result transmitted reference range: <150 mg/dL. The reference range was not used to interpret this result as normal/abnormal.
--- NOTE | 2024-05-14 14:25 | RAD REPORT ---
EXAM DESCRIPTION: RAD - Foot Right 3 View - 05/14/2024 2:06 pm CLINICAL HISTORY: Right foot pain FINDINGS: No fracture or dislocation is seen Mild lateral subluxation first proximal phalanx No bony destructive lesions seen Large posterior calcaneal spurs
[2024-05-14 14:38] LABS: Absolute Basophils 0.1 K/uL (0-0.5); Absolute Eosinophils 0.3 K/uL (0-0.5); Absolute Monocytes 1.1 K/uL (0.1-1.3); Absolute Neutrophil 6.8 K/uL (1.8-8.0); Basophils % 0.8 % (0-1.3); Eosinophils % 3.1 % (0-4.4); Hematocrit 35.4 % (39.6-49.0); Hemoglobin 11.2 g/dL (13.6-17.9); Lymphocytes % 19.2 % (15.3-44.8); MCH 26.7 pg (27.0-35.0); MCHC 31.7 g/dL (32.0-36.0); MCV 84.1 fL (80-100); MPV 8.3 fL (7.6-11.3); Monocytes % 10.8 % (3.3-12.3); Neutrophils % 66.1 % (41.7-73.7); Platelets 331 thou/uL (152-406); Red Cell Distribution Width 14.8 % (12.1-15.2)
[2024-05-14 14:44] LABS: PT Prothrombin Time 20.5 SECONDS (9.4-12.5); PTT, Activated Partial Thromb 35.7 SECONDS (24.3-36.9); Protime INR 1.86
[2024-05-14 14:59] LABS: Albumin 3.1 g/dL (3.4-5.0); Albumin/Globulin Ratio 0.7 (1.1-1.8); Anion Gap 4.7 mEq/L (5.0-15.0); Bilirubin Total 0.4 mg/dL (0.2-1.0); C-Reactive Protein 59.9 mg/L (<3.00); Globulin 4.7 g/dL (2.3-3.5); Potassium 2.7 mEq/L (3.5-5.1); Protein, Total 7.8 g/dL (6.4-8.2)
[2024-05-14] MEDS ORDERED: NA CHLORIDE 0.9% 500 ML ONE (15:52)
[2024-05-14] MEDS ORDERED: NS KCL 20MEQ 1,000 ML IV ONE (15:52)
[2024-05-14] MEDS ORDERED: NA CHLORIDE 0.9% 100 ML ONE (16:01)
[2024-05-14] MEDS ORDERED: PIPERACIL/TAZO 3.375 GM VIAL IV ONE (16:01)
--- NOTE | 2024-05-14 16:11 | EDPHYS ---
Physician Documentation [facility] Name: Meryl Nelson Age: 59 yrs Sex: Male : 1965 Arrival Date: 05/14/2024 Time: 13:11 Bed 6 Private MD: ED Physician Mukund Bland HPI: 05/14 13:40 This 59 yrs old Male presents to ER via Ambulatory with complaints of Wound Check - leg cp and foot. 13:40 The patient presents with wounds to right foot and left lower leg. cp 13:40 Onset: The symptoms/episode began/occurred at an unknown time. Associated signs and cp symptoms: Pertinent positives: swelling, warmth, erythema, Pertinent negatives fever. Treatment prior to arrival includes: no previous treatment. Historical: - Allergies: 13:23 No Known Allergies; cm10 - PMHx: 13:23 Artificial heart valve; Artificial heart valve; Atrial fibrillation; Bipolar disorder; cm10 Diabetes - NIDDM; diabetic leg ulcers; Hypertension; Lymphadema; neuropathy; - PSHx: 13:23 heart valve SX; cm10 - Immunization history:: Adult Immunizations up to date. - Infectious Disease History:: Denies. - Social history:: Smoking status: Patient denies any tobacco usage or history of. ROS: 13:45 Constitutional: Negative for fever, cp 13:45 Eyes: Negative for injury, pain, redness, and discharge, cp 13:45 Cardiovascular: Positive for edema, Negative for chest pain, 13:45 Respiratory: Negative for cough, shortness of breath, wheezing, 13:45 Abdomen/GI: Negative for abdominal pain, vomiting, diarrhea, constipation, 13:45 Skin: Positive for wounds to right foot and left lower leg, 13:45 Neuro: Negative for altered mental status, headache, 13:45 All other systems are negative, Exam: 13:50 Constitutional: The patient appears in no acute distress, alert, awake, cp non-diaphoretic, non-toxic, well developed, well nourished, obese, 13:50 Head/Face: Normocephalic, atraumatic. cp 13:50 Eyes: Periorbital structures: appear normal, Conjunctiva: normal, Sclera: no appreciated abnormality, Lids and lashes: appear normal, bilaterally, 13:50 ENT: External ear(s): are unremarkable, Nose: is normal, Mouth: Lips: moist, Oral mucosa: moist, Posterior pharynx: Airway: no evidence of obstruction, patent, 13:50 Neck: ROM/movement: is normal, is supple, without pain, no range of motions limitations, 13:50 Chest/axilla: Inspection: normal, 13:50 Cardiovascular: Rate: normal, Rhythm: regular, Edema: ankle edema, that is moderate, JVD: is not appreciated, 13:50 Respiratory: the patient does not display signs of respiratory distress, Respirations: normal, no use of accessory muscles, no retractions, labored breathing, is not present, Breath sounds: are clear throughout, no decreased breath sounds, no stridor, no wheezing, 13:50 Abdomen/GI: Inspection: abdomen appears normal, Palpation: abdomen is soft and non-tender, in all quadrants, 13:50 Back: pain, is absent, ROM is normal, 13:50 Skin: open wound noted plantar side base of right great toe through dermal layer of skin with mild erythema and no drainage expressed. superficial wound noted to left posterior lower leg with moderate erythema. 13:50 Neuro: Orientation: to person, place, situation, Motor: moves all fours, Gait: is steady, 15:10 ECG was reviewed by the Attending Physician. cp Vital Signs: 13:23 BP 100 / 55; Pulse 86; Resp 18; Temp 98.2; Pulse Ox 94% on R/A; Weight 133.81 kg; cm10 Height 6 ft. 1 in. ; Pain 1/10; 15:34 BP 117 / 56; Pulse 77; Resp 17; Pulse Ox 98% on R/A; rs5 17:08 BP 122 / 66; Pulse 70; Resp 18; Pulse Ox 98% on R/A; rs5 13:23 Body Mass Index 38.92 (133.81 kg, 185.42 cm) cm10 13:23 Pain Scale: Adult cm10 MDM: 13:27 Patient medically screened. cp 16:15 Data reviewed: vital signs, nurses notes, lab test result(s), EKG, radiologic studies, cp plain films, and as a result, I will admit patient. 16:15 Differential diagnosis: sepsis, osteomyelitis, cellulitis, DKA. Management of patient cp was discussed with the following: Hospitalist: Rolanda Yarbrough will admit after discussion. Independent interpretation of the following test(s) in the Emergency Department EKG: See my EKG interpretation above. Care significantly affected by the following chronic conditions: Diabetes, Obesity. Counseling: I had a detailed discussion with the patient and/or guardian regarding the historical points, exam findings, and any diagnostic results supporting the discharge/admit diagnosis, lab results, radiology results, the need for further work-up and treatment in the hospital. 05/14 13:34 Order name: CBC with Diff; Complete Time: 15:25 cp 05/14 15:25 Interpretation: Normal except: RBC 4.20; HGB 11.2; HCT 35.4; MCH 26.7; MCHC 31.7. cp 05/14 13:34 Order name: CMP; Complete Time: 15:25 cp 05/14 13:34 Order name: Lactate w/ 2H reflex if indic.; Complete Time: 15:25 cp 05/14 13:34 Order name: Protime (+inr); Complete Time: 15:25 cp 05/14 13:34 Order name: Ptt, Activated; Complete Time: 15:25 cp 05/14 13:34 Order name: CRP; Complete Time: 15:25 cp 05/14 17:29 Order name: Valproic Acid (Depakene) Level EDMS 05/14 17:29 Order name: Thyroid Stimulating Hormone EDMS 05/14 17:29 Order name: Urinalysis w/ reflexes EDMS 05/14 17:29 Order name: CBC with Automated Diff EDMS 05/14 17:29 Order name: CBC with Automated Diff EDMS 05/14 17:29 Order name: CBC with Automated Diff EDMS 05/14 17:29 Order name: CBC with Automated Diff EDMS 05/14 17:29 Order name: Comprehensive Metabolic Panel EDMS 05/14 17:29 Order name: Comprehensive Metabolic Panel EDMS 05/14 17:29 Order name: Comprehensive Metabolic Panel EDMS 05/14 17:29 Order name: Comprehensive Metabolic Panel EDMS 05/14 17:29 Order name: Lipid Profile EDMS 05/14 17:29 Order name: Lipid Profile EDMS 05/14 17:29 Order name: Magnesium EDMS 05/14 17:29 Order name: Magnesium EDMS 05/14 17:29 Order name: Magnesium EDMS 05/14 17:29 Order name: Magnesium EDMS 05/14 17:29 Order name: Phosphorus EDMS 05/14 17:29 Order name: Phosphorus EDMS 05/14 17:29 Order name: Phosphorus EDMS 05/14 17:29 Order name: Phosphorus EDMS 05/14 17:29 Order name: Protime (+INR) EDMS 05/14 17:29 Order name: Protime (+INR) EDMS 05/14 17:38 Order name: Potassium EDWV 05/14 13:34 Order name: XRAY Foot RIGHT 3 View; Complete Time: 15:25 cp 08 15:31 Order name: US Extremity Venous Unilateral Ltd; Complete Time: 17:16 cp 08 17:16 Interpretation: Report reviewed. cp 05/14 16:39 Order name: US Lower Extremity Artery Uni Ltd; Complete Time: 17:16 aa5 05/14 13:34 Order name: EKG; Complete Time: 13:34 cp 08 17:29 Order name: Patient Safety Orders EDWV 05/14 17:29 Order name: CONS Physician Consult EDWV 05/14 13:34 Order name: Accucheck; Complete Time: 15:09 cp 05/14 13:34 Order name: Cardiac monitoring; Complete Time: 15:09 cp 05/14 13:34 Order name: EKG - Nurse/Tech; Complete Time: 15:09 cp 05/14 13:34 Order name: IV Saline Lock - Large Bore; Complete Time: 15:09 cp 12 13:34 Order name: Labs collected and sent; Complete Time: 15:10 cp 05/14 13:34 Order name: O2 Per Protocol; Complete Time: 15:10 cp 05/14 13:34 Order name: O2 Sat Monitoring; Complete Time: 15:10 cp 05/14 13:34 Order name: Vital Signs; Complete Time: 15:10 cp EC:10 Rate is 79 beats/min. Rhythm is irregular. QRS interval is normal. QT interval is cp prolonged. T waves are Inverted in leads aVL, aVR, V2. Interpreted by me. Reviewed by me. Administered Medications: 15:59 Drug: NS 0.9% IV 500 ml IV at 500 ml/hr continuous Route: IV; Rate: 500 ml/hr; Site: rs5 left antecubital; 16:40 Follow up: Response: No adverse reaction; IV Status: Completed infusion; IV Intake: rs5 500ml 15:59 Drug: Potassium Chloride IV 20 mEq IV at calculated rate once; administer over 1-2 rs5 hours Route: IV; Rate: calculated rate; Site: left antecubital; 17:10 Follow up: Response: No adverse reaction; IV Status: Infusion continued rs5 16:00 Drug: Piperacillin-Tazobactam IVPB 3.375 grams IVPB once over 60 mins; (mix in NS 100 rs5 mL) Route: IVPB; Infused Over: 60 mins; Site: left antecubital; 16:35 Follow up: Response: No adverse reaction rs5 Disposition Summary: 05/14/24 16:11 Hospitalization Ordered Notes: Hospitalization Status: Inpatient Admission cp Provider: Ele Montelongo cp Location: Telemetry/MedSurg (Inpatient) cp Condition: Stable cp Problem: new cp Symptoms: have improved cp Bed/Room Type: Standard cp Room Assignment: 406(05/14/24 17:30) eb Diagnosis - Hypokalemia cp - Cellulitis of left lower limb cp - Unspecified atrial fibrillation cp - Foot Laceration/ Open wound of foot - right cp Forms: - Medication Reconciliation Form cp - SBAR form cp - Leadership Thank You Letter cp Addendum: 05/17/2024 10:31 Co-signature as Attending Physician, Mukund Bland MD I reviewed the patient's care r n provided by the Advanced Practice Provider and agree with the diagnosis and treatment plan. Signatures: Dispatcher [employer] EDMukund Cordoba MD MD rn Page, Corey, PA PA cp Alisha Jensen Ricky, RN RN rs5 Judy Salinas RN RN cm10 Corrections: (The following items were deleted from the chart) 05/14 15:34 15:34 Extremity Venous Uni Ltd+[email or web address].RAD.BRZ ordered. EDMS EDMS 16:40 16:40 Lower Extremity Artery Uni Ltd+US.RAD.BRZ ordered. EDMS EDMS 17:30 16:11 cp eb
--- NOTE | 2024-05-14 16:11 | ER ---
Nurse's Notes [facility] Name: Meryl Nelson Age: 59 yrs Sex: Male : 1965 Arrival Date: 05/14/2024 Time: 13:11 Bed 6 Private MD: Diagnosis: Hypokalemia;Cellulitis of left lower limb;Unspecified atrial fibrillation;Foot Laceration/ Open wound of foot-right Presentation: 05/14 13:23 Chief complaint: Patient states: Wound to left heel onset 1 week ago and wound to right cm10 toes onset 2 days ago. Pt has not redness and swelling to bilateral lower legs. Coronavirus screen: Client denies travel out of the [place] in the last 14 days. At this time, the client does not indicate any symptoms associated with coronavirus-19. Ebola Screen: Patient denies travel to an Ebola-affected area in the 21 days before illness onset. No symptoms or risks identified at this time. Initial Sepsis Screen: Does the patient meet any 2 criteria? No. Patient's initial sepsis screen is negative. Does the patient have a suspected source of infection? No. Patient's initial sepsis screen is negative. Risk Assessment: Do you want to hurt yourself or someone else? Patient reports no desire to harm self or others. Onset of symptoms was May 14, 2024. 13:23 Method Of Arrival: Ambulatory 10 13:23 Acuity: BOBBY 3 cm10 Historical: - Allergies: 13:23 No Known Allergies; cm10 - PMHx: 13:23 Artificial heart valve; Artificial heart valve; Atrial fibrillation; Bipolar disorder; cm10 Diabetes - NIDDM; diabetic leg ulcers; Hypertension; Lymphadema; neuropathy; - PSHx: 13:23 heart valve SX; cm10 - Immunization history:: Adult Immunizations up to date. - Infectious Disease History:: Denies. - Social history:: Smoking status: Patient denies any tobacco usage or history of. Screenin:10 [facility] ED Fall Risk Assessment (Adult) History of falling in the last 3 months, tl4 including since admission No falls in past 3 months (0 pts) Confusion or Disorientation No (0 pts) Intoxicated or Sedated No (0 pts) Impaired Gait No (0 pts) Mobility Assist Device Used No (0 pt) Altered Elimination No (0 pt) Score/Fall Risk Level 0 - 2 = Low Risk Oriented to surroundings, Maintained a safe environment, Educated pt \T\ family on fall prevention, incl call for assistance when getting out of bed, Assessed \T\ reinforced patient's understanding of fall precautions. Abuse screen: Denies threats or abuse. Denies injuries from another. Nutritional screening: No deficits noted. Tuberculosis screening: No symptoms or risk factors identified. Assessment: 13:30 General: Appears in no apparent distress. comfortable, Behavior is calm, cooperative. rs5 Pain: Denies pain. Neuro: Level of Consciousness is awake, alert, obeys commands, Oriented to person, place, time, situation. Cardiovascular: Patient's skin is warm and dry. Respiratory: Airway is patent Respiratory effort is even, unlabored, Respiratory pattern is regular, symmetrical. GI: Abdomen is round non-distended, Abd is soft and non tender X 4 quads. : No signs and/or symptoms were reported regarding the genitourinary system. EENT: No signs and/or symptoms were reported regarding the EENT system. Derm: Skin is intact, Skin is pink, warm \T\ dry. Wound noted back of left foot, and top of right foot. 13:30 Musculoskeletal: Range of motion: intact in all extremities, Swelling present in right rs5 leg and left leg. 14:41 Reassessment: Patient and/or family updated on plan of care and expected duration. Pain rs5 level reassessed. Patient is alert, oriented x 3, equal unlabored respirations, skin warm/dry/pink. 15:34 Reassessment: No changes from previously documented assessment. rs5 16:41 Reassessment: No changes from previously documented assessment. rs5 17:08 Reassessment: Patient and/or family updated on plan of care and expected duration. Pain rs5 level reassessed. Patient is alert, oriented x 3, equal unlabored respirations, skin warm/dry/pink. Vital Signs: 13:23 BP 100 / 55; Pulse 86; Resp 18; Temp 98.2; Pulse Ox 94% on R/A; Weight 133.81 kg; cm10 Height 6 ft. 1 in. ; Pain 10/12; 15:34 BP 117 / 56; Pulse 77; Resp 17; Pulse Ox 98% on R/A; rs5 17:08 BP 122 / 66; Pulse 70; Resp 18; Pulse Ox 98% on R/A; rs5 13:23 Body Mass Index 38.92 (133.81 kg, 185.42 cm) cm10 13:23 Pain Scale: Adult cm10 ED Course: 13:15 Patient arrived in ED. im 13:18 Macho Villasenor PA is PHCP. cp 13:18 Mukund Bland MD is Attending Physician. cp 13:25 Triage completed. cm10 13:25 Arm band placed on Patient placed in an exam room, on a stretcher. cm10 13:40 Inserted saline lock: 20 gauge in left antecubital area, using aseptic technique. Blood rs5 collected. Flushed with 10 mL NS. 14:07 Farhat Mccabe, RN is Primary Nurse. rs5 14:08 XRAY Foot RIGHT 3 View In Process Unspecified. EDMS 15:10 Patient has correct armband on for positive identification. Placed in gown. Bed in low tl4 position. Call light in reach. Side rails up X2. Adult w/ patient. Provided Education on: ed process, call newby. 15:10 EKG done, by ED staff, reviewed by Macho SIMON. zm 16:10 Ele Montelongo MD is Hospitalizing Provider. cp 16:51 US Extremity Venous Unilateral Ltd In Process Unspecified. EDMS 16:51 US Lower Extremity Artery Uni Ltd In Process Unspecified. EDMS 17:09 No provider procedures requiring assistance completed. rs5 17:10 Patient admitted, IV remains in place. rs5 Administered Medications: 15:59 Drug: NS 0.9% IV 500 ml IV at 500 ml/hr continuous Route: IV; Rate: 500 ml/hr; Site: rs5 left antecubital; 16:40 Follow up: Response: No adverse reaction; IV Status: Completed infusion; IV Intake: rs5 500ml 15:59 Drug: Potassium Chloride IV 20 mEq IV at calculated rate once; administer over 1-2 rs5 hours Route: IV; Rate: calculated rate; Site: left antecubital; 17:10 Follow up: Response: No adverse reaction; IV Status: Infusion continued rs5 16:00 Drug: Piperacillin-Tazobactam IVPB 3.375 grams IVPB once over 60 mins; (mix in NS 100 rs5 mL) Route: IVPB; Infused Over: 60 mins; Site: left antecubital; 16:35 Follow up: Response: No adverse reaction rs5 Medication: 15:10 VIS not applicable for this client. tl4 Intake: 16:40 IV: 500ml; Total: 500ml. rs5 Outcome: 16:11 Decision to Hospitalize by Provider. cp 17:10 Admitted to ER Hold. Please see [facility] for further documentation. rs5 17:10 Condition: stable 17:10 Instructed on the need for admit, Demonstrated understanding of instructions, 18:15 Patient left the ED. rs5 Signatures: Dispatcher [employer] EDMS Macho Villasenor PA PA cp Martinez, Zaina zm Sotelo, Ricky RN RN rs5 Sharon Palmer Clarissa RN RN cm10 Carroll Ho RN RN tl4
--- NOTE | 2024-05-14 17:08 | P.HP ---
Certification for Inpatient Patient admitted to: Inpatient With expected LOS: >2 Midnights Patient will require the following post-hospital care: Home Health Services Practitioner: I am a practitioner with admitting privileges, knowledge of patient current condition, hospital course, and medical plan of care. Services: Services provided to patient in accordance with Admission requirements found in Title 42 Section 412.3 of the Code of Federal Regulations <Rolanda Yarbrough - Last Filed: 05/14/24 17:43> Patient History Date of Service: 05/14/24 Reason for admission: recurrent cellulitis, infected toe wound, DM, electrolyte derangement History of Present Illness: A-fib with mechanical heart valve Ms. Ольга Nelson is a 59-year-old female with a past medical history of hypertension, hyperlipidemia, diabetes, hypothyroidism, CHF, A-fib with a mechanical heart valve on chronic anti- coagulation, and lymphedema. She has a long history of cellulitis. She states about a month ago she noted an area of blood on the floor after her shower but could not find a lesion. A few days ago she noted a diabetic ulcer to her med ial right great toe at the base. She noted she had a low-grade fever and that her left leg seem to be getting more red. She called her PCP requesting p.o. antibiotics and was referred to the emergency department. On arrival her vital signs were: 100/55, 86, 18, 98.2, 94% on room air. The patient is 6 foot 1 and has a weight of 133.8 kg. The diabetic ulcer was noted to the right great toe and she was diagnosed with cellulitis of the left lower extremity. Vascular studies were performed and there is no DVT. X-ray of the right foot shows no fracture or dislocation, no bony destructive lesions, and a large posterior calcaneal spur. Labs: WBC 10.4, H/H 11.2/35.4 with platelets of 331, she is noted to have a sodium was 134, potassium 2.7, chloride 93, CO2 39, glucose 130, BUN 42, with a creatinine of 1.65 and a GFR 48, LFTs normal, albumin 3.1, lactate 1, INR 1.86, C-reactive 59.9. She will be evaluated further, treated with IV antibiotics, management of electrolytes, and consultation with Dr. Jung. Home medications list reviewed: Yes - Past Medical/Surgical History Has patient received pneumonia vaccine in the past: Yes Diabetic: Yes -: DM -: Bipolar -: Neuropathy -: HTN -: CHF -: A. fib -: Mechanical aortic valve Psychosocial/ Personal History: Lives at home. - Family History Mother -: Diabetes Father -: Cancer Notes: throat Brother -: Liver disease - Social History Alcohol use: Yes CD- Drugs: No Caffeine use: Yes Place of Residence: Home <Rolanda Yarbrough - Last Filed: 05/14/24 17:43> Date of Service: 05/14/24 <Ele Montelongo - Last Filed: 05/14/24 18:01> Allergies No Known Allergies Allergy (Verified 07/11/22 18:18) Home Medications: Divalproex Sodium 500 mg PO BID 11/02/21 Fluoxetine HCl 1 tab PO BEDTIME 11/02/21 Pregabalin [Lyrica] 75 mg PO TID 11/02/21 ARIPiprazole [Aripiprazole] 5 mg PO DAILY 01/15/22 Furosemide 40 mg PO BID 01/15/22 Metoprolol Tartrate [Lopressor*] 100 mg PO BID tab 01/17/22 Silver Sulfadiazine Crm [Silvadene*] 1 appl TOP BID 20 Days #100 jar 01/17/22 Warfarin Sodium [Coumadin*] 6 mg PO DAILY 5 PM tab 01/17/22 Fluoxetine HCl [Prozac] 20 mg PO DAILY 07/11/22 Sitagliptin Phosphate [Januvia] 100 mg PO DAILY 07/11/22 clonazePAM [Klonopin*] 1 tab PO DAILYPRN PRN 07/11/22 Aspirin Chewable [Aspirin Chewable*] 81 mg PO DAILY tab.chew 07/14/22 Atorvastatin Calcium [Lipitor] 40 mg PO BEDTIME #30 tab 07/14/22 Aspirin Chewable [Aspirin Chewable*] 81 mg PO DAILY #30 tab.chew 10/30/22 Nystatin Powder [Mycostatin (Powder)*] 1 appl TOP BID #1 btl 10/30/22 Sulfamethoxazole/Trimethoprim [Bactrim Ds Tablet] 1 each PO BID 10 Days #20 tab 10/30/22 carvediloL [Coreg*] 6.25 mg PO BID #60 tab 10/30/22 Review of Systems 10-point ROS is otherwise unremarkable General: Fever, As per HPI Integumentary: As per HPI Lymphatics: Other (lymphedema) <Rolanda Yarbrough - Last Filed: 05/14/24 17:43> Physical Examination - Physical Exam General: Alert, In no apparent distress, Oriented x3 HEENT: Atraumatic, Normocephalic Neck: Supple Respiratory: Normal air movement Cardiovascular: Irregular heart rate/rhythm Capillary refill: <2 Seconds Gastrointestinal: Normal bowel sounds Musculoskeletal: No clubbing Integumentary: Erythema (left lower extremity), Diabetic ulcer (base of right medial great toe) Neurological: Normal speech, Normal affect, Abnormal sensation Lymphatics: Other (lymphedema to lower extremities) External genitalia: Deferred Rectal: Deferred - Studies Laboratory Data (last 24 hrs) 05/14/24 05/14/24 05/14/24 14:20 14:20 14:20 WBC 10.40 Hgb 11.2 L Hct 35.4 L Plt Count 331 PT 20.5 H INR 1.86 APTT 35.7 Sodium 134 L Potassium 2.7 L BUN 42 H Creatinine 1.65 H Glucose 130 H Total Bilirubin 0.4 AST 21 ALT 30 Alkaline Phosphatase 94 <Rolanda Yarbrough - Last Filed: 05/14/24 17:43> - Studies Laboratory Data (last 24 hrs) 05/14/24 05/14/24 05/14/24 14:20 14:20 14:20 WBC 10.40 Hgb 11.2 L Hct 35.4 L Plt Count 331 PT 20.5 H INR 1.86 APTT 35.7 Sodium 134 L Potassium 2.7 L BUN 42 H Creatinine 1.65 H Glucose 130 H Total Bilirubin 0.4 AST 21 ALT 30 Alkaline Phosphatase 94 <Ele Montelongo - Last Filed: 05/14/24 18:01> Assessment and Plan - Plan Cellulitis Keep legs elevated Vancomycin 1.5gm IV BID, pharmacy to adjust Rocephin 1 gm IV daily (send UC) Hypokalemia Replete and monitor (20meq given in ED) tele NAEEM monitor and trend probable poor preload 2nd to lasix and metazolone, lymphedema Diabetes monitor and trend SSI moderate coverage maintain strict BS control ADA diet diabetic ulcer Consult Dr. Jung atrial fibrillation Has mechanical valve Chronic anticoagulant - med list reconciliation Tele HTN pt states she recently changed from coreg to metoprolol reconcile med list HLD Continue statin Lyphedema SCDs, cheryle to lower extremities VTE/GI prophylaxis On Coumadin??/Protonix Plan to discharge in: Greater than 2 days - Advance Directives Does patient have a Living Will: No Does patient have a Durable POA for Healthcare: No - Code Status/Comfort Care Code Status Assessed: Yes (Full) <Rolanda Yarbrough - Last Filed: 05/14/24 17:43> - Plan Pt seen and examined. I agree with the note by the PAGE MAKEUP SYSTEM OPERATOR. Pt is a 59 yo female with past medical history of Artificial heart valve, A. fib, bipolar disorder, DM II, Htn and lymphedema who presents with cellulitis on the left heel and wound b elow the right toe. The wound on the left heel started about 1 week ago and the right toe wound started 2 days ago after a semi-simeon nail pierced his leg. On admission, lab studies shoe wbc 10.4, Hgb 11.2, K 2.7, Cr 1.65, CRP 59.9, lactate 1.0, and Na 134. At bedside, pt is in NAD A/P: Left leg cellulitis/ right great toe wound: Will continue iv vanc and rocephin. F/u blood and wound cultures. Continue IVF. Lactate is 1.0. CRP is 59.9. Consulted Gen surgeon. A.Fib: Will continue telemetry, BB NAEEM: Cr is 1.65. Will continue IVF, avoid nephrotoxins and monitor renal function. Hyperkalemia: k is 2.7. Will replete and monitor. Will check mag level. DM II: continue accheck, SSI and ADA diet. Htn: Continue home med Lymphedema: keep legs elevated. DVT ppx: SCD Code: full <Ele Montelongo - Last Filed: 05/14/24 18:01>
--- NOTE | 2024-05-14 17:11 | RAD REPORT ---
EXAM DESCRIPTION: USExtremity Venous Uni Ltd05/14/2024 4:49 pm CLINICAL HISTORY: left leg pain COMPARISON: None FINDINGS: Left common femoral, superficial femoral, greater saphenous, popliteal and posterior tibi al veins are compressible and demonstrate augmentation. Doppler demonstrates good flow. Grayscale, color and spectral analysis performed on all vessels IMPRESSION: No evidence of deep venous thrombosis involving the left lower extremity.
--- NOTE | 2024-05-14 17:12 | RAD REPORT ---
EXAM DESCRIPTION: US - Lower Extremity Artery Uni Ltd - 05/14/2024 4:49 pm CLINICAL HISTORY: Leg pain COMPARISON: None FINDINGS: The left common femoral, superficial femoral and popliteal arteries demonstrate triphasic waveforms The left posterior tibial and dorsalis pedis arteries demonstrate monophasic waveforms Grayscale, color and spectral analysis performed on all vessels IMPRESSION: Mild to moderate distal lower extremity arterial disease
[2024-05-14] MEDS: POTASSIUM 25 MEQ EFFERV TAB PO ONE (18:33)
[2024-05-14] MEDS: KCL 20 MEQ/100 mL IVPB 20 MEQ/100 ML BAG IV SCH (18:41)
[2024-05-14] MEDS: NA CHLORIDE 0.9% 250 ML ONE (18:43)
[2024-05-14] MEDS: INSULIN REGULAR (HUMAN) 100 UNIT/ML SQ SCH (21:00)
[2024-05-14] MEDS: VANCOMYCIN 2 GM in NA CHLORIDE 0.9% 500 ML IVPB SCH (21:30)
[2024-05-14] MEDS: ARIPiprazole 5 MG TAB PO SCH (21:35)
[2024-05-14] MEDS: PREGABALIN 50 MG CAP PO SCH (21:35)
[2024-05-14 22:21] VITALS: O2SAT 95; BMI 38.9
[2024-05-15 00:16] LABS: Magnesium 1.9 mg/dL (1.6-2.4)
[2024-05-15] MEDS: POTASSIUM 25 MEQ EFFERV TAB PO ONE (02:10)
[2024-05-15 06:27] LABS: Absolute Basophils 0.1 K/uL (0-0.5); Absolute Eosinophils 0.2 K/uL (0-0.5); Absolute Lymphocytes (CBC) 1.9 K/uL (0.7-4.9); Absolute Monocytes 1.4 K/uL (0.1-1.3); Absolute Neutrophil 6.4 K/uL (1.8-8.0); Hematocrit 32.2 % (39.6-49.0); MCH 28.3 pg (27.0-35.0); MCHC 34.3 g/dL (32.0-36.0); MCV 82.5 fL (80-100); MPV 8.1 fL (7.6-11.3); Monocytes % 14.2 % (3.3-12.3); Neutrophils % 63.8 % (41.7-73.7); Platelets 334 thou/uL (152-406); Red Cell Distribution Width 14.6 % (12.1-15.2)
[2024-05-15 06:40] LABS: PT Prothrombin Time 18.2 SECONDS (9.4-12.5); Protime INR 1.65
[2024-05-15 06:56] LABS: Albumin 2.8 g/dL (3.4-5.0); Albumin/Globulin Ratio 0.7 (1.1-1.8); Anion Gap 1.6 mEq/L (5.0-15.0); Bilirubin Total 0.4 mg/dL (0.2-1.0); Globulin 4.2 g/dL (2.3-3.5); Magnesium 1.7 mg/dL (1.6-2.4); Phosphorus 2.4 mg/dL (2.5-4.9); Potassium 3.6 mEq/L (3.5-5.1); Thyroid Stimulating Hormone 1.2 uIU/mL (0.358-3.740)
[2024-05-15] MEDS: ASPIRIN EC 81 MG TAB PO SCH (10:19)
[2024-05-15] MEDS: FUROSEMIDE 40 MG/4 ML VIAL IV SCH (10:20)
[2024-05-15] MEDS: CEFTRIAXONE 1,000 MG in NA CHLORIDE 0.9% 50 ML IVPB SCH (10:22)
[2024-05-15] MEDS ORDERED: POTASSIUM CL SA 10 MEQ TAB PO ONE (10:30)
[2024-05-15] MEDS ORDERED: POTASS/SODIUM PHOSPHATE 1 PKT POWD.PACK PO SCH (11:00)
[2024-05-15] MEDS: MAGNESIUM SULFATE 1 gm IVPB 1 GM/100 ML BAG IV ONE (11:00)
[2024-05-15] MEDS: POTASSIUM PHOS IN 0.9 % NACL 15 MMOL/250 ML BAG IV SCH (11:01)
--- NOTE | 2024-05-15 14:39 | P.PN ---
Subjective Date of Service: 05/15/24 Chief Complaint: recurrent cellulitis, infected toe wound, DM, electrolyte derangement Pt is resting comfortably in bed. He is waiting for Gen surgery eval. No other complaint. Review of Systems General: Unremarkable Eyes: Unremarkable ENT: Unremarkable Respiratory: Unremarkable Cardiovascular: Unremarkable Gastrointestinal: Unremarkable Genitourinary: Unremarkable Musculoskeletal: Unremarkable Integumentary: Lesions Neurological: Unremarkable Lymphatics: Unremarkable Physical Examination - Vital Signs Temperature: 97.8 F Blood Pressure: 101/69 Pulse: 95 Respirations: 18 Pulse Ox (%): 96 - Physical Exam General: Alert, In no apparent distress, Oriented x3 HEENT: Atraumatic, Normocephalic, PERRLA Neck: Supple, 2+ carotid pulse no bruit, JVD not distended Respiratory: Clear to auscultation bilaterally, Normal air movement Cardiovascular: No edema, Normal pulses, Regular rate/rhythm, Normal S1 S2 Capillary refill: <2 Seconds Gastrointestinal: Normal bowel sounds, Soft and benign, Non-distended Musculoskeletal: No clubbing, No swelling, No contractures Integumentary: No rashes, No tenderness/swelling, Skin lesion, Diabetic ulcer Neurological: Normal gait, Normal speech, Normal strength at 5/5 x4 extr, Normal tone Lymphatics: No axilla or inguinal lymphadenopathy - Studies Laboratory Data (last 24 hrs) 05/14/24 05/14/24 05/14/24 14:20 14:20 14:20 WBC 10.40 Hgb 11.2 L Hct 35.4 L Plt Count 331 PT 20.5 H INR 1.86 APTT 35.7 Sodium 134 L Potassium 2.7 L BUN 42 H Creatinine 1.65 H Glucose 130 H Total Bilirubin 0.4 AST 21 ALT 30 Alkaline Phosphatase 94 Assessment And Plan - Plan Left leg cellulitis/ right great toe wound: Will continue iv vanc and rocephin. F/u blood and wound cultures. Continue IVF. Lactate is 1.0. CRP is 59.9. Consulted Gen surgeon for possible wound debridement. Will give tetanus shot. A.Fib: Will continue telemetry, BB, and aspirin. NAEEM: Cr is 1.07 <- 1.65. Will continue IVF, avoid nephrotoxins and monitor renal function. Hyperkalemia: k is 3.6 <- 2.7. Will replete and monitor. Will check mag level. DM II: continue accheck, SSI and ADA diet. Htn: Continue home med Lymphedema: keep legs elevated. Morbid obesity: Pt was advised to lose weight. DVT ppx: SCD Code: full Dispo: Pending hospital course.
[2024-05-15] MEDS: TDAP (DIPHTH,PERTUSS(ACELL),TET VAC) 0.5 ML VIAL IMVAC SCH (14:42)
[2024-05-15] MEDS: PNEUMOCOCCAL VACCINE 0.5 ML IMVAC ONE (14:46)
[2024-05-15] MEDS: VANCOMYCIN 2 GM in NA CHLORIDE 0.9% 500 ML IVPB SCH (14:48)
[2024-05-15] MEDS: SILVER SULFADIAZINE 1% 25 GM TOP SCH (17:39)
[2024-05-15] MEDS: WARFARIN SODIUM 6 MG TAB PO SCH (17:39)
[2024-05-15] MEDS: METOPROLOL TARTRATE 5 MG/5 ML INJ IV STA (21:13)
[2024-05-15] MEDS ORDERED: ACETAMINOPHEN 325 MG TABLET PO PRN (21:23)
[2024-05-16 08:10] LABS: Absolute Basophils 0.1 K/uL (0-0.5); Absolute Eosinophils 0.3 K/uL (0-0.5); Absolute Lymphocytes (CBC) 1.8 K/uL (0.7-4.9); Absolute Monocytes 1.2 K/uL (0.1-1.3); Absolute Neutrophil 5.3 K/uL (1.8-8.0); Basophils % 1.3 % (0-1.3); Eosinophils % 3.3 % (0-4.4); Hematocrit 32.5 % (39.6-49.0); Hemoglobin 10.9 g/dL (13.6-17.9); Lymphocytes % 20.7 % (15.3-44.8); MCHC 33.7 g/dL (32.0-36.0); Monocytes % 13.9 % (3.3-12.3); Neutrophils % 60.8 % (41.7-73.7); Platelets 323 thou/uL (152-406); RBC Red Blood Cell Count 3.91 M/uL (4.33-5.43)
[2024-05-16 08:26] LABS: Albumin 2.8 g/dL (3.4-5.0); Albumin/Globulin Ratio 0.7 (1.1-1.8); Anion Gap 4.7 mEq/L (5.0-15.0); Bilirubin Total 0.5 mg/dL (0.2-1.0); Globulin 4.2 g/dL (2.3-3.5); Magnesium 1.7 mg/dL (1.6-2.4); Phosphorus 2.4 mg/dL (2.5-4.9); Potassium 2.7 mEq/L (3.5-5.1)
--- NOTE | 2024-05-16 09:50 | P.PN ---
Subjective Date of Service: 05/16/24 Chief Complaint: recurrent cellulitis, infected toe wound, DM, electrolyte derangement Subjective: Improving (c/o muscle spasms, Marty wraps to bilat lower ext) <Rolanda Yarbrough - Last Filed: 05/16/24 09:45> Date of Service: 05/16/24 <Ele Montelongo C - Last Filed: 05/16/24 13:08> Review of Systems 10-point ROS is otherwise unremarkable General: As per HPI Musculoskeletal: Other (cramping) <Rolanda Yarbroughlen - Last Filed: 05/16/24 09:45> Physical Examination - Vital Signs Temperature: 97.5 F Blood Pressure: 99/68 Pulse: 82 Respirations: 16 Pulse Ox (%): 99 - Physical Exam General: Alert, In no apparent distress, Oriented x3, Obese HEENT: Atraumatic, Normocephalic Neck: Supple Respiratory: Normal air movement Cardiovascular: Regular rate/rhythm, Normal S1 S2 Capillary refill: <2 Seconds Gastrointestinal: Soft and benign Musculoskeletal: No clubbing Integumentary: Erythema (left lower medial ankle and mid to lower calf with ulceration to posterior mid-distal calf), Diabetic ulcer (right medial plantar surface of great toe) Neurological: Normal speech, Normal tone, Normal affect Lymphatics: No axilla or inguinal lymphadenopathy External genitalia: Deferred Rectal: Deferred <Rolanda Yarbrough - Last Filed: 05/16/24 09:45> Assessment And Plan - Plan Cellulitis Keep legs elevated Vancomycin 1.5gm IV BID, pharmacy to adjust Rocephin 1 gm IV daily (send UC) Hypokalemia Replete and monitor (20meq given in ED) pt K recovered yesterday (05/15) to normal but back to 2.7 this am tele NAEEM monitor and trend probable poor preload 2nd to lasix and metazolone, lymphedema 05/16/24 resolved Diabetes monitor and trend SSI moderate coverage maintain strict BS control ADA diet diabetic ulcer Consult Dr. Erich Jung following, vashe to right toe, left calf, silvadene to left lower leg, bilateral marty wraps from foot to knee atrial fibrillation Has mechanical valve Chronic anticoagulant - med list reconciliation Tele HTN pt states recently changed from coreg to metoprolol reconcile med list HLD Continue statin Lyphedema SCDs, marty to lower extremities VTE/GI prophylaxis On Coumadin??/Protonix <Rolanda Yarbrough - Last Filed: 05/16/24 09:45> - Plan Pt seen and examined. I agree with the note by the ASSISTANT CHILD CARE TEACHER. Continue iv vanc and rocephin. Waiting for evaluation by Gen surgeon. Continue home meds for other chronic medical problems. <Ele Montelongo - Last Filed: 05/16/24 13:08>
[2024-05-16] MEDS: KCL 20 MEQ/100 mL IVPB 20 MEQ/100 ML BAG IV SCH (10:11)
[2024-05-16] MEDS: MAGNESIUM SULFATE 1 gm IVPB 1 GM/100 ML BAG IV ONE (10:13)
[2024-05-16] MEDS: SILVER SULFADIAZINE 1% 25 GM TOP SCH (11:51)
[2024-05-16] MEDS: NA CHLORIDE 0.9% 500 ML IV SCH (13:43)
[2024-05-16] MEDS: ACETAMINOPHEN 500 MG TAB PO PRN (15:48)
[2024-05-16] MEDS: TIZANIDINE 4 MG TABLET PO PRN (15:48)
[2024-05-16] MEDS: POTASSIUM 25 MEQ EFFERV TAB PO ONE (20:46)
[2024-05-17 07:14] LABS: Absolute Basophils 0.1 K/uL (0-0.5); Absolute Eosinophils 0.4 K/uL (0-0.5); Absolute Lymphocytes (CBC) 1.9 K/uL (0.7-4.9); Absolute Neutrophil 5.6 K/uL (1.8-8.0); Basophils % 1.2 % (0-1.3); Eosinophils % 4.5 % (0-4.4); Hematocrit 32.8 % (39.6-49.0); Hemoglobin 10.9 g/dL (13.6-17.9); Lymphocytes % 20.9 % (15.3-44.8); MCH 27.7 pg (27.0-35.0); MCHC 33.2 g/dL (32.0-36.0); MCV 83.4 fL (80-100); MPV 8.5 fL (7.6-11.3); Monocytes % 11.5 % (3.3-12.3); Neutrophils % 61.9 % (41.7-73.7); Nucleated Red Blood Cells % 0.1 % (0-0); Platelets 335 thou/uL (152-406); RBC Red Blood Cell Count 3.94 M/uL (4.33-5.43); Red Cell Distribution Width 14.8 % (12.1-15.2)
[2024-05-17 07:31] LABS: Albumin 2.8 g/dL (3.4-5.0); Albumin/Globulin Ratio 0.7 (1.1-1.8); Bilirubin Total 0.4 mg/dL (0.2-1.0); Globulin 4.2 g/dL (2.3-3.5); Magnesium 1.7 mg/dL (1.6-2.4); Phosphorus 2.4 mg/dL (2.5-4.9)
[2024-05-17] MEDS: POTASSIUM CL SA 10 MEQ TAB PO SCH (10:17)
--- NOTE | 2024-05-17 12:45 | P.DS ---
Admission Date: 05/14/24 Discharge Date: 05/17/24 Reason for Admission: recurrent cellulitis, infected toe wound, DM, electrolyte derangement Consultations: Dr. Jung Procedures: none Brief History of Present Illness: Ольга Nelson is a 59-year-old male with a past medical history of hypertension, hyperlipidemia, diabetes, hypothyroidism, CHF, A-fib with a mechanical heart valve on chronic anti-coagulation, and lymphedema. He has a long history of cellulitis. He states about a month ago he noted an area of blood on the floor after a shower but could not find a lesion. A few days ago, he noted a diabetic ulcer to his medial right great toe at the base. He noted he had a low-grade fever and that his left leg seemed to be getting more red. He called her PCP requesting p.o. antibiotics and was referred to the emergency department. On arrival, vital signs were: 100/55, 86, 18, 98.2, 94% on room air. The patient is 6 foot 1 and has a weight of 133.8 kg. The diabetic ulcer was noted to the right great toe and he was diagnosed with cellulitis of the left lower extremity. Vascular studies were performed and there is no DVT. X-ray of the right foot shows no fracture or dislocation, no bony destructive lesions, and a large posterior calcaneal spur. Labs: WBC 10.4, H/H 11.2/35.4 with platelets of 331, he is noted to have a sodium was 134, potassium 2.7, chloride 93, CO2 39, glucose 130, BUN 42, with a creatinine of 1.65 and a GFR 48, LFTs normal, albumin 3.1, lactate 1, INR 1.86, C-reactive 59.9. He will be evaluated further, treated with IV antibiotics, management of electrolytes, and consultation with Dr. Jung. Hospital Course: Mr. Nelson did well over the course of his hospitalization. His electrolytes were repleted, he received IV antibiotics for his cellulitis of his left lower extremity, Dr. Jung was consulted for wound care management. With wash to the right great toe ulceration and left posterior calf ulceration, these areas are clean and drying. The left lower extremity cellulitis is improving. Mr. Nelson is stable for discharge and will be released with p.o. antibiotics, wound care recommendations, and continued cheryle bandaging for lymphedema with outpatient follow-up with Dr. Jung. Vital Signs/Physical Exam: Temp Pulse Resp BP Pulse Ox 97.6 F 84 18 91/57 L 97 05/17/24 08:00 05/17/24 08:00 05/17/24 08:00 05/17/24 08:00 05/17/24 08:00 General: Alert, In no apparent distress, Oriented x3 HEENT: Atraumatic, Normocephalic Neck: Supple Respiratory: Normal air movement Cardiovascular: Normal pulses Capillary refill: <2 Seconds Gastrointestinal: Soft and benign Musculoskeletal: No clubbing Integumentary: Diabetic ulcer, Pressure ulcer, Other (resolving cellulitis) Neurological: Normal speech, Normal tone, Normal affect Lymphatics: No axilla or inguinal lymphadenopathy External genitalia: Deferred Rectal: Deferred Laboratory Data at Discharge: WBC 9.10 thou/uL (4.3-10.9) 05/17/24 06:11 Hgb 10.9 g/dL (13.6-17.9) L 05/17/24 06:11 Hct 32.8 % (39.6-49.0) L 05/17/24 06:11 Plt Count 335 thou/uL (152-406) 05/17/24 06:11 PT 18.2 SECONDS (9.4-12.5) H 05/15/24 06:06 INR 1.65 05/15/24 06:06 APTT 35.7 SECONDS (24.3-36.9) 05/14/24 14:20 Sodium 137 mEq/L (136-145) 05/17/24 06:11 Potassium 3.0 mEq/L (3.5-5.1) L 05/17/24 06:11 BUN 15 mg/dL (7-18) 05/17/24 06:11 Creatinine 0.96 mg/dL (0.70-1.30) 05/17/24 06:11 Glucose 105 mg/dL (74-106) 05/17/24 06:11 Phosphorus 2.4 mg/dL (2.5-4.9) L 05/17/24 06:11 Magnesium 1.7 mg/dL (1.6-2.4) 05/17/24 06:11 Total Bilirubin 0.4 mg/dL (0.2-1.0) 05/17/24 06:11 AST 20 U/L (15-37) 05/17/24 06:11 ALT 24 U/L (16-61) 05/17/24 06:11 Alkaline Phosphatase 77 U/L (45-117) 05/17/24 06:11 Triglycerides 133 mg/dL (<150) 05/15/24 06:06 Cholesterol 136 mg/dL (<200) 05/15/24 06:06 HDL Cholesterol 28 mg/dL (40-60) L 05/15/24 06:06 Cholesterol/HDL Ratio 4.86 05/15/24 06:06 Home Medications: Pregabalin [Lyrica] 75 mg PO TID 11/02/21 ARIPiprazole [Aripiprazole] 5 mg PO DAILY 01/15/22 Furosemide 40 mg PO BID 01/15/22 Metoprolol Tartrate [Lopressor*] 100 mg PO BID tab 01/17/22 Silver Sulfadiazine Crm [Silvadene*] 1 appl TOP BID 20 Days #100 jar 01/17/22 Warfarin Sodium [Coumadin*] 6 mg PO DAILY 5 PM tab 01/17/22 Fluoxetine HCl [Prozac] 20 mg PO DAILY 07/11/22 Sitagliptin Phosphate [Januvia] 100 mg PO DAILY 07/11/22 Aspirin Chewable [Aspirin Chewable*] 81 mg PO DAILY #30 tab.chew 10/30/22 Daridorexant HCl [Quviviq] 50 mg PO DAILY 05/14/24 Lisinopril [Zestril] 20 mg PO BID 05/14/24 Tramadol HCl [Ultram] 50 mg PO TIDP PRN 05/14/24 Valproic Acid 250 mg PO BID 05/14/24 Physician Discharge Instructions: Mr. Nelson did well over the course of his hospitalization. His electrolytes were repleted, he received IV antibiotics for his cellulitis of his left lower extremity, Dr. Jung was consulted for wound care management. With wash to the right great toe ulceration and left posterior calf ulceration, these areas are clean and drying. The left lower extremity cellulitis is improving. Mr. Nelson is stable for discharge and will be released with p.o. antibiotics, wound care recommendations, and continued cheryle bandaging for lymphedema with outpatient follow-up with Dr. Jung. Diet: ADA Activity: Ad linda Followup: Faviola Barragan NP [Primary Care Provider] - Cholo Jung MD [ACTIVE - CAN ADMIT] -
--- NOTE | 2024-05-17 13:46 | P.DS ---
Admission Date: 05/14/24 Discharge Date: 05/17/24 Reason for Admission: recurrent cellulitis, infected toe wound, DM, electrolyte derangement Consultations: Dr. Jung Procedures: none Brief History of Present Illness: Ольга Nelson is a 59-year-old male with a past medical history of hypertension, hyperlipidemia, diabetes, hypothyroidism, CHF, A-fib with a mechanical heart valve on chronic anti-coagulation, and lymphedema. He has a long history of cellulitis. He states about a month ago he noted an area of blood on the floor after a shower but could not find a lesion. A few days ago, he noted a diabetic ulcer to his medial right great toe at the base. He noted he had a low-grade fever and that his left leg seemed to be getting more red. He called her PCP requesting p.o. antibiotics and was referred to the emergency department. On arrival, vital signs were: 100/55, 86, 18, 98.2, 94% on room air. The patient is 6 foot 1 and has a weight of 133.8 kg. The diabetic ulcer was noted to the right great toe and he was diagnosed with cellulitis of the left lower extremity. Vascular studies were performed and there is no DVT. X-ray of the right foot shows no fracture or dislocation, no bony destructive lesions, and a large posterior calcaneal spur. Labs: WBC 10.4, H/H 11.2/35.4 with platelets of 331, he is noted to have a sodium was 134, potassium 2.7, chloride 93, CO2 39, glucose 130, BUN 42, with a creatinine of 1.65 and a GFR 48, LFTs normal, albumin 3.1, lactate 1, INR 1.86, C-reactive 59.9. He will be evaluated further, treated with IV antibiotics, management of electrolytes, and consultation with Dr. Jung. Hospital Course: Mr. Nelson did well over the course of his hospitalization. His electrolytes were repleted, he received IV antibiotics for his cellulitis of his left lower extremity, Dr. Jung was consulted for wound care management. With wash to the right great toe ulceration and left posterior calf ulceration, these areas are clean and drying. The left lower extremity cellulitis is improving. Mr. Nelson is stable for discharge and will be released with p.o. antibiotics, wound care recommendations, and continued cheryle bandaging for lymphedema with outpatient follow-up with Dr. Jung. <Rolanda Yarbrough Rodney - Last Filed: 05/17/24 13:52> Admission Date: 05/14/24 Discharge Date: 05/19/24 Hospital Course: Pt seen and examined. I agree with the note by the PROGRAM INSTRUCTOR. Gen surgeon evaluated pt and cleared him for discharge. Pt was advised to follow up with Gen surgeon in clinic. Continue po abx and wound care. <Ele Montelongo Giancarlo - Last Filed: 05/19/24 18:03> Disposition: ROUTINE DISCHARGE Discharge Condition: GOOD Vital Signs/Physical Exam: Temp Pulse Resp BP Pulse Ox 96.7 F L 106 H 20 122/63 100 05/17/24 12:00 05/17/24 12:00 05/17/24 12:00 05/17/24 12:00 05/17/24 12:00 General: Alert, In no apparent distress, Oriented x3 HEENT: Atraumatic, Normocephalic Neck: Supple Respiratory: Clear to auscultation bilaterally, Normal air movement Cardiovascular: Normal pulses, Regular rate/rhythm, Normal S1 S2 Capillary refill: <2 Seconds Gastrointestinal: Soft and benign Musculoskeletal: No clubbing Integumentary: Diabetic ulcer, Pressure ulcer, Other (improving cellulitis left lower leg) Neurological: Normal speech, Normal tone, Normal affect Lymphatics: No axilla or inguinal lymphadenopathy External genitalia: Deferred Rectal: Deferred Laboratory Data at Discharge: WBC 9.10 thou/uL (4.3-10.9) 05/17/24 06:11 Hgb 10.9 g/dL (13.6-17.9) L 05/17/24 06:11 Hct 32.8 % (39.6-49.0) L 05/17/24 06:11 Plt Count 335 thou/uL (152-406) 05/17/24 06:11 PT 18.2 SECONDS (9.4-12.5) H 05/15/24 06:06 INR 1.65 05/15/24 06:06 APTT 35.7 SECONDS (24.3-36.9) 05/14/24 14:20 Sodium 137 mEq/L (136-145) 05/17/24 06:11 Potassium 3.0 mEq/L (3.5-5.1) L 05/17/24 06:11 BUN 15 mg/dL (7-18) 05/17/24 06:11 Creatinine 0.96 mg/dL (0.70-1.30) 05/17/24 06:11 Glucose 105 mg/dL (74-106) 05/17/24 06:11 Phosphorus 2.4 mg/dL (2.5-4.9) L 05/17/24 06:11 Magnesium 1.7 mg/dL (1.6-2.4) 05/17/24 06:11 Total Bilirubin 0.4 mg/dL (0.2-1.0) 05/17/24 06:11 AST 20 U/L (15-37) 05/17/24 06:11 ALT 24 U/L (16-61) 05/17/24 06:11 Alkaline Phosphatase 77 U/L (45-117) 05/17/24 06:11 Triglycerides 133 mg/dL (<150) 05/15/24 06:06 Cholesterol 136 mg/dL (<200) 05/15/24 06:06 HDL Cholesterol 28 mg/dL (40-60) L 05/15/24 06:06 Cholesterol/HDL Ratio 4.86 05/15/24 06:06 <Yarbrough,Rolanda Rodney - Last Filed: 05/17/24 13:52> Vital Signs/Physical Exam: Temp Pulse Resp BP Pulse Ox 97.6 F 95 H 20 101/61 96 05/17/24 16:00 05/17/24 16:00 05/17/24 16:00 05/17/24 16:00 05/17/24 16:00 Laboratory Data at Discharge: WBC 9.10 thou/uL (4.3-10.9) 05/17/24 06:11 Hgb 10.9 g/dL (13.6-17.9) L 05/17/24 06:11 Hct 32.8 % (39.6-49.0) L 05/17/24 06:11 Plt Count 335 thou/uL (152-406) 05/17/24 06:11 PT 18.2 SECONDS (9.4-12.5) H 05/15/24 06:06 INR 1.65 05/15/24 06:06 APTT 35.7 SECONDS (24.3-36.9) 05/14/24 14:20 Sodium 137 mEq/L (136-145) 05/17/24 06:11 Potassium 3.0 mEq/L (3.5-5.1) L 05/17/24 06:11 BUN 15 mg/dL (7-18) 05/17/24 06:11 Creatinine 0.96 mg/dL (0.70-1.30) 05/17/24 06:11 Glucose 105 mg/dL (74-106) 05/17/24 06:11 Phosphorus 2.4 mg/dL (2.5-4.9) L 05/17/24 06:11 Magnesium 1.7 mg/dL (1.6-2.4) 05/17/24 06:11 Total Bilirubin 0.4 mg/dL (0.2-1.0) 05/17/24 06:11 AST 20 U/L (15-37) 05/17/24 06:11 ALT 24 U/L (16-61) 05/17/24 06:11 Alkaline Phosphatase 77 U/L (45-117) 05/17/24 06:11 Triglycerides 133 mg/dL (<150) 05/15/24 06:06 Cholesterol 136 mg/dL (<200) 05/15/24 06:06 HDL Cholesterol 28 mg/dL (40-60) L 05/15/24 06:06 Cholesterol/HDL Ratio 4.86 05/15/24 06:06 <Ele Montelongo - Last Filed: 05/19/24 18:03> Diet: ADA Activity: Ad linda <Yarbrough,Rolanda Rodney - Last Filed: 05/17/24 13:52> <Ele Montelongo - Last Filed: 05/19/24 18:03> Home Medications: Pregabalin [Lyrica] 75 mg PO TID 11/02/21 ARIPiprazole [Aripiprazole] 5 mg PO DAILY 01/15/22 Furosemide 40 mg PO BID 01/15/22 Metoprolol Tartrate [Lopressor*] 100 mg PO BID tab 01/17/22 Warfarin Sodium [Coumadin*] 6 mg PO DAILY 5 PM tab 01/17/22 Fluoxetine HCl [Prozac] 20 mg PO DAILY 07/11/22 Sitagliptin Phosphate [Januvia] 100 mg PO DAILY 07/11/22 Aspirin Chewable [Aspirin Chewable*] 81 mg PO DAILY #30 tab.chew 10/30/22 Daridorexant HCl [Quviviq] 50 mg PO DAILY 05/14/24 Lisinopril [Zestril] 20 mg PO BID 05/14/24 Tramadol HCl [Ultram] 50 mg PO TIDP PRN 05/14/24 Valproic Acid 250 mg PO BID 05/14/24 Doxycycline Hyclate 100 mg PO BID #20 cap 05/17/24 Potassium Oral Tab [Klor-Con 10 mEq Tab*] 20 meq PO DAILY #60 tab 05/17/24 Silver Sulfadiazine Crm [Silvadene*] 1 appl TOP BID 20 Days #100 jar 05/17/24 Sodium Chlor/Hypochlorous Acid [Vashe Solution] 50 ml IR DAILY #475 irri 05/17/24 New Medications: Doxycycline Hyclate 100 mg PO BID #20 cap Potassium Oral Tab [Klor-Con 10 mEq Tab*] 20 meq PO DAILY #60 tab Silver Sulfadiazine Crm [Silvadene*] 1 appl TOP BID 20 Days #100 jar Sodium Chlor/Hypochlorous Acid [Vashe Solution] 50 ml IR DAILY #475 irri Physician Discharge Instructions: Mr. Nelson did well over the course of his hospitalization. His electrolytes were repleted, he received IV antibiotics for his cellulitis of his left lower extremity, Dr. Jung was consulted for wound care management. With Vashe to the right great toe ulceration and left posterior calf ulceration, these areas are clean and drying. The left lower extremity cellulitis is improving with silvadene. Mr. Nelson is stable for discharge and will be released with p.o. antibiotics, wound care recommendations, and continued cheryle bandaging for lymphedema with outpatient follow-up with Dr. Jung. Assessment: Hypokalemia Diabetic ulcer Cellulitis PMH: hypertension, hyperlipidemia, diabetes, hypothyroidism, CHF, A-fib with a mechanical heart valve on chronic anti-coagulation, lymphedema. New prescriptions: Klor-Con 10 mill equivalents 2 p.o. daily Doxycycline 100 mg p.o. twice daily x 10 days Vashe and Silvadene for wound care Continue home medicines as previously prescribed GOAL: Clear understanding of disease process Diet: ADA, low sodium Activity: Ad linda, lymphedema wraps to legs INSTRUCTIONS: Physician Discharge Instructions: Okay to DC IV and DC home Follow-up with primary care provider in 1 to 2 weeks Follow-up with Dr. Jung in 1 week Please call the inpatient unit for any questions or concerns regarding hospital stay Return to the ER for worsening symptoms Followup: Faviola Barragan NP [Primary Care Provider] - 1-2 Weeks Cholo Jung MD [ACTIVE - CAN ADMIT] - 1-2 Weeks
--- NOTE | 2024-05-17 16:26 | EKG ---
Test Date: 2024-05-14 Test Time: 15:05:05 Sticker On: RIKKI MEASUREMENT RESULTS: Intervals: Rate: 79 [place]: QRSD: 100 QT: 414 QTc: 474 [place]: P: GA: QRS: 56 T: 107 INTERPRETIVE STATEMENTS: Atrial fibrillation Nonspecific ST and T wave abnormality, probably digitalis effect Prolonged QT Abnormal ECG Compared to ECG 10/26/2022 13:07:57 Prolonged QT interval now present ST (T wave) deviation still present Electronically Signed On 05-17-24 16:25:00 CDT by Willie Perera
[2024-05-17 16:58] VITALS: BP 101/61; TEMP 97.6
[2024-05-17] MEDS ORDERED: CEFDINIR 300 MG CAP PO SCH (17:00)
[2024-05-17] MEDS ORDERED: DOXYCYCLINE 100 MG CAP PO SCH (17:00)
[2024-05-17] MEDS ORDERED: VALPROIC ACID 250 MG PO SCH (21:00)
[2024-05-17] MEDS ORDERED: lisinopriL 20 MG TAB PO SCH (21:00)
[2024-05-17] MEDS ORDERED: METOPROLOL TAR 50 MG TAB PO SCH (21:00)
== END 2024-05-17 17:00 | disposition home or self-care (01) | DRG 638 ==
LOC: ER 13:11 → ERHOLD 17:20 → 4TH 18:01
PROVIDERS: ADMIT Hospitalist; ATTEND Hospitalist
DX: E11.621 Type 2 diabetes mellitus with foot ulcer (principal); L03.116 Cellulitis of left lower limb; N17.9 Acute kidney failure, unspecified; L97.519 Non-pressure chronic ulcer of other part of right foot with unspecified severity; E11.40 Type 2 diabetes mellitus with diabetic neuropathy, unspecified; I48.91 Unspecified atrial fibrillation; E87.6 Hypokalemia; I11.0 Hypertensive heart disease with heart failure; I50.9 Heart failure, unspecified; E78.5 Hyperlipidemia, unspecified; E87.5 Hyperkalemia; E03.9 Hypothyroidism, unspecified; I89.0 Lymphedema, not elsewhere classified; E66.01 Morbid (severe) obesity due to excess calories; S91.311A Laceration without foreign body, right foot, initial encounter; Z23 Encounter for immunization; Z95.2 Presence of prosthetic heart valve; Z79.82 Long term (current) use of aspirin; Z68.38 Body mass index [BMI] 38.0-38.9, adult; Z79.01 Long term (current) use of anticoagulants; Z79.02 Long term (current) use of antithrombotics/antiplatelets; Z79.899 Other long term (current) drug therapy
CPT/HCPCS: 36415; 80053; 80061; 80164; 80202; 82947; 83605; 83735; 84100; 84132; 84443; 85025; 85610; 85730; 86140; 87040; 87086; 87088; 90471; 90732; 93005; 93926; 93971; 96365; 96375; 99285; J0696; J1940; J2543; J3475; J3480; J7040; J7050

== ENCOUNTER 2025-01-29 15:07 | Inpatient (IN) | payer MEDICAID ==
--- OUTSIDE RECORDS SUMMARY | 2025-01-29 15:11 | XMS REPORT | Continuity of Care Document ---
Author Name Unknown Address [address] [facility]. [address] [place] [address] Organization [facility] [place] Address [address] [facility]. [address] [place] [address] Care Team Providers Care Fleet Mechanic Name Role Phone Faviola Barragan Attending Clinician Unavailable Payers Payer Name Policy Type Policy Number Effective Date Expirati on Date Source [facility] Community [employer] RUPA 2 [id number] [facility] RUPA 2 [id number] 2011 00:00:00 [facility] Problems Condition Name Condition Details Condition Category Status Onset Date Resolution Date Last Treatment Date Treating Clinician Comments Source [id number] Cellulitis of left lower limb Problem [facility] [id number] Cellulitis of right lower limb Problem [facility] [id number] Uncontroll ed type 2 diabetes mellitus with hyperglyce aleks Problem [facility] [id number] PVD (periphera l vascular disease) Problem [facility] Seizure Seizure Problem [facility] [id number] Statin intoleranc e Problem [facility] [id number] Neuropathy Problem Com mon [facility] Basal cell carcinoma of face Basal cell carcinoma of face Problem [facility] History of heart valve recipient Aortic valve replaced Problem [facility] Gastroesop hageal reflux disease GERD without esophagiti s Problem [facility] Hypertensi on Hypertensi on Problem [facility] [id number] USP current use of anticoagul ant Problem [facility] [id number] Type 2 diabetes mellitus without complicati on, without long-term current use of insulin Problem [facility] [id number] Male-to-fe male transgende r person Problem [facility] [id number] Type 2 diabetes mellitus with diabetic neuropathy , without long-term current use of insulin Problem [facility] [id number] Body mass index [BMI] 45.0-49.9, adult Problem [facility] [id number] Injury of left foot, subsequent encounter Problem [facility] [id number] Ankylosing spondyliti s of cervical region Problem [facility] Bipolar disorder Bipolar disorder Problem [facility] [id number] Kidney pain Problem [facility] [id number] Mixed hyperlipid emia Problem [facility] Atrial fibrillati on Atrial fibrillati on Problem [facility] [id number] Morbid (severe) obesity due to excess calories Problem [facility] [id number] Acute combined systolic and diastolic congestive heart failure Problem [facility] [id number] Encounter for preoperati ve dental examinatio n Problem [facility] [id number] Difficulty swallowing solids Problem [facility] [id number] Hypertrigl yceridemia Problem [facility] Increased blood leukocyte number Other elevated white blood cell (WBC) count Problem [facility] Iron deficiency anemia Other iron deficiency anemia Problem [facility] Essential hypertensi on Benign essential HTN Problem [facility] Dysphagia Dysphagia, unspecifie d Problem [facility] [id number] Problem [facility] [id number] Problem [facility] Allergies, Adverse Reactions, Alerts Allergy Name Allergy Type Status Severity Reaction(s) Onset Date Inactive Date Treating Clinician Comments Source Substanc e with 3-hydrox y-3-meth ylglutar yl-coenz yme A reductas e inhibito r mechanis m of action (substan ce) Substanc e with 3-hydrox y-3-meth ylglutar yl-coenz yme A reductas e inhibito r mechanis m of action (substan ce) Active [facility] ezetimib e ezetimib e Active [facility] Social History Social Habit Start Date Stop Date Quantity Comments Source History of Tobacco Use [facility] Sex Assigned At [facility] Smoking Status Start Date Stop Date Source Never Smoker [facility] Medications Ordered Medication Name Filled Medication Name Start Date Stop Date Current Medication? Ordering Clinician Indication Dosage Frequency Signature (SIG) Comments Components Source Pregabalin 75 MG Pregabalin 75 MG 2- 00:00: 00 No 1{capsu le} TID Pregabalin 75 MG Amoxicillin -Pot Clavulanate 875-125 MG Amoxicillin -Pot Clavulanate 875-125 MG 2023-10 1- 00:00: 00 No 1{table t} BID Amoxicilli n-Pot Clavulanat e 875-125 MG [place]-3-aci d Ethyl Esters 1 GM [place]-3-aci d Ethyl Esters 1 GM 2023-10 1 00:00: 00 No 2{capsu les} BID [place]-3-ac id Ethyl Esters 1 GM Januvia 100 MG Januvia 100 MG No 1{table t} QD Januvia 100 MG Lisinopril 20 MG Lisinopril 20 MG No 1{table t} QD Lisinopril 20 MG Jantoven 6 MG Jantoven 6 MG No 1{table t} QD Jantoven 6 MG Furosemide 40 MG Furosemide 40 MG No 1{table t} BID Furosemide 40 MG Metoprolol Tartrate 100 MG Metoprolol Tartrate 100 MG No 1{table t_with_ food} BID Metoprolol Tartrate 100 MG Benztropine Mesylate 1 MG Benztropine Mesylate 1 MG No 1{table t} QD Benztropin e Mesylate 1 MG FLUoxetine HCl 20 MG FLUoxetine HCl 20 MG No FLUoxetine HCl 20 MG Divalproex Sodium 500 MG Divalproex Sodium 500 MG No Divalproex Sodium 500 MG Klor-Con M10 10 MEQ Klor-Con M10 10 MEQ No 1{table t_with_ food} BID Klor-Con M10 10 MEQ FeroSul 325 (65 Fe) MG FeroSul 325 (65 Fe) MG No 1{table t} QD FeroSul 325 (65 Fe) MG Magnesium 400 MG Magnesium 400 MG No Magnesium 400 MG Immunizations Ordered Immunization Name Filled Immunization Name Date Status Comments Source Moderna COVID-19 Vaccine Moderna COVID-19 Vaccine 2021-01-24 08:27:00 Completed [facility] Moderna COVID-19 Vaccine Moderna COVID-19 Vaccine 2021-01-24 08:27:00 Completed [facility] Moderna COVID-19 Vaccine Moderna COVID-19 Vaccine 2021-01-24 08:27:00 Completed [facility] Moderna COVID-19 Vaccine Moderna COVID-19 Vaccine 2021-01-24 08:27:00 Completed [facility] Moderna COVID-19 Vaccine Moderna COVID-19 Vaccine 2021-01-24 08:27:00 Completed [facility] Moderna COVID-19 Vaccine Moderna COVID-19 Vaccine 2021-01-24 08:27:00 Completed [facility] Moderna COVID-19 Vaccine Moderna COVID-19 Vaccine 2021-01-24 08:27:00 Completed [facility] Moderna COVID-19 Vaccine Moderna COVID-19 Vaccine 2020-12-27 08:27:00 Completed [facility] Moderna COVID-19 Vaccine Moderna COVID-19 Vaccine 2020-12-27 08:27:00 Completed [facility] Moderna COVID-19 Vaccine Moderna COVID-19 Vaccine 2020-12-27 08:27:00 Completed [facility] Moderna COVID-19 Vaccine Moderna COVID-19 Vaccine 2020-12-27 08:27:00 Completed [facility] Moderna COVID-19 Vaccine Moderna COVID-19 Vaccine 2020-12-27 08:27:00 Completed [facility] Moderna COVID-19 Vaccine Moderna COVID-19 Vaccine 2020-12-27 08:27:00 Completed [facility] Moderna COVID-19 Vaccine Moderna COVID-19 Vaccine 2020-12-27 08:27:00 Completed [facility] Flucelvax - multidose vial Flucelvax - multidose vial 2018-08-10 14:14:00 Completed [facility] Flucelvax - multidose vial Flucelvax - multidose vial 2018-08-10 14:14:00 Completed [facility] Flucelvax - multidose vial Flucelvax - multidose vial 2018-08-10 14:14:00 Completed [facility] Flucelvax - multidose vial Flucelvax - multidose vial 2018-08-10 14:14:00 Completed [facility] Flucelvax - multidose vial Flucelvax - multidose vial 2018-08-10 14:14:00 Completed [facility] Flucelvax - multidose vial Flucelvax - multidose vial 2018-08-10 14:14:00 Completed [facility] Flucelvax - multidose vial Flucelvax - multidose vial 2018-08-10 14:14:00 Completed [facility] Moderna COVID-19 Vaccine Moderna COVID-19 Vaccine Unknown Completed [facility] Fluarix Fluarix Unknown Completed [facility] Flucelvax - multidose vial Flucelvax - multidose vial Unknown Completed [facility] Moderna COVID-19 Vaccine Moderna COVID-19 Vaccine Unknown Completed [facility] Fluarix (IIV4) - SDS - 0.5mL Fluarix (IIV4) - SDS - 0.5mL Unknown Completed [facility] Flucelvax (ccIIV4) - MDV - 0.5mL Flucelvax (ccIIV4) - MDV - 0.5mL Unknown Completed [facility] Moderna COVID-19 Vaccine Moderna COVID-19 Vaccine Unknown Completed [facility] Fluarix (IIV4) - SDS - 0.5mL Fluarix (IIV4) - SDS - 0.5mL Unknown Completed [facility] Flucelvax (ccIIV4) - MDV - 0.5mL Flucelvax (ccIIV4) - MDV - 0.5mL Unknown Completed [facility] Moderna COVID-19 Vaccine Moderna COVID-19 Vaccine Unknown Completed [facility] Fluarix (IIV4) - SDS - 0.5mL Fluarix (IIV4) - SDS - 0.5mL Unknown Completed [facility] Flucelvax (ccIIV4) - MDV - 0.5mL Flucelvax (ccIIV4) - MDV - 0.5mL Unknown Completed [facility] Moderna COVID-19 Vaccine Moderna COVID-19 Vaccine Unknown Completed [facility] Fluarix (IIV4) - SDS - 0.5mL Fluarix (IIV4) - SDS - 0.5mL Unknown Completed [facility] Flucelvax (ccIIV4) - MDV - 0.5mL Flucelvax (ccIIV4) - MDV - 0.5mL Unknown Completed [facility] Moderna COVID-19 Vaccine Moderna COVID-19 Vaccine Unknown Completed [facility] Fluarix (IIV4) - SDS - 0.5mL Fluarix (IIV4) - SDS - 0.5mL Unknown Completed [facility] Flucelvax (ccIIV4) - MDV - 0.5mL Flucelvax (ccIIV4) - MDV - 0.5mL Unknown Completed [facility] Moderna COVID-19 Vaccine Moderna COVID-19 Vaccine Unknown Completed [facility] Fluarix (IIV4) - SDS - 0.5mL Fluarix (IIV4) - SDS - 0.5mL Unknown Completed [facility] Flucelvax (ccIIV4) - MDV - 0.5mL Flucelvax (ccIIV4) - MDV - 0.5mL Unknown Completed [facility] Moderna COVID-19 Vaccine Moderna COVID-19 Vaccine Unknown Completed [facility] Fluarix (IIV4) - SDS - 0.5mL Fluarix (IIV4) - SDS - 0.5mL Unknown Completed [facility] Flucelvax (ccIIV4) - MDV - 0.5mL Flucelvax (ccIIV4) - MDV - 0.5mL Unknown Completed [facility] Vital Signs Vital Name Observation Time Observation Value Comments S ource height 2024-12-27 16:20:00 72 [in_i] Commo n [facility] weight 2024-12-27 16:20:00 292 [lb_av] Comm on [facility] bmi 2024-12-27 16:20:00 39.6 kg/m2 Commo n [facility] height 2024-11-08 14:40:00 72 [in_i] Commo n [facility] weight 2024-11-08 14:40:00 296.0 [lb_av] Co mmon [facility] temperature 2024-11-08 14:40:00 97.3 [degF] Com mon [facility] bmi 2024-11-08 14:40:00 40.14 kg/m2 Comm on [facility] oximetry 2024-11-08 14:40:00 95 % Commo n [facility] respiratory rate 2024-11-08 14:40:00 15 /min Common [facility] blood pressure systolic 2024-11-08 14:40:00 116 mm[Hg] Common [facility] blood pressure diastolic 2024-11-08 14:40:00 62 mm[Hg] [facility] height 2024-08-08 14:00:00 72 [in_i] Commo n [facility] weight 2024-08-08 14:00:00 286.2 [lb_av] Co mmon [facility] temperature 2024-08-08 14:00:00 97.4 [degF] Com mon [facility] bmi 2024-08-08 14:00:00 38.81 kg/m2 Comm on [facility] oximetry 2024-08-08 14:00:00 95 % Commo n [facility] respiratory rate 2024-08-08 14:00:00 15 /min [facility] blood pressure systolic 2024-08-08 14:00:00 113 mm[Hg] Common [facility] blood pressure diastolic 2024-08-08 14:00:00 55 mm[Hg] Common [facility] height 2024-05-21 15:40:00 72 [in_i] Commo n [facility] weight 2024-05-21 15:40:00 303 [lb_av] Comm on [facility] temperature 2024-05-21 15:40:00 97.5 [degF] Com mon [facility] bmi 2024-05-21 15:40:00 41.09 kg/m2 Comm on [facility] respiratory rate 2024-05-21 15:40:00 15 /min Common [facility] height 2024-05-01 15:00:00 72 [in_i] Commo n [facility] weight 2024-05-01 15:00:00 296.0 [lb_av] Co mmon [facility] temperature 2024-05-01 15:00:00 97.5 [degF] Com mon [facility] bmi 2024-05-01 15:00:00 40.14 kg/m2 Comm on [facility] oximetry 2024-05-01 15:00:00 95 % Commo n [facility] respiratory rate 2024-05-01 15:00:00 15 /min [facility] blood pressure systolic 2024-05-01 15:00:00 106 mm[Hg] [facility] blood pressure diastolic 2024-05-01 15:00:00 61 mm[Hg] Common [facility] height 2024-05-01 15:00:00 72 [in_i] Commo n [facility] weight 2024-05-01 15:00:00 296.0 [lb_av] Co [facility] temperature 2024-05-01 15:00:00 97.5 [degF] Com [facility] bmi 2024-05-01 15:00:00 40.14 kg/m2 Comm on [facility] oximetry 2024-05-01 15:00:00 95 % Commo n [facility] respiratory rate 2024-05-01 15:00:00 15 /min [facility] blood pressure systolic 2024-05-01 15:00:00 106 mm[Hg] Common [facility] blood pressure diastolic 2024-05-01 15:00:00 61 mm[Hg] [facility] height 2024-01-16 14:20:00 72 [in_i] Commo n [facility] weight 2024-01-16 14:20:00 303.6 [lb_av] Co [facility] temperature 2024-01-16 14:20:00 97.7 [degF] Com [facility] bmi 2024-01-16 14:20:00 41.17 kg/m2 Comm on [facility] oximetry 2024-01-16 14:20:00 96 % Commo n [facility] respiratory rate 2024-01-16 14:20:00 15 /min Common [facility] blood pressure systolic 2024-01-16 14:20:00 93 mm[Hg] Common [facility]iri [facility] blood pressure diastolic 2024-01-16 14:20:00 55 mm[Hg] [facility] height 2023-09-22 15:20:00 72 [in_i] Commo n [facility] weight 2023-09-22 15:20:00 298.2 [lb_av] Co [facility] temperature 2023-09-22 15:20:00 97.7 [degF] Com [facility] bmi 2023-09-22 15:20:00 40.44 kg/m2 Comm on [facility] oximetry 2023-09-22 15:20:00 97 % Commo n [facility] respiratory rate 2023-09-22 15:20:00 15 /min [facility] blood pressure systolic 2023-09-22 15:20:00 109 mm[Hg] [facility] blood pressure diastolic 2023-09-22 15:20:00 62 mm[Hg] Common [facility] height 2023-09-06 09:40:00 72 [in_i] Commo n [facility] weight 2023-09-06 09:40:00 296.4 [lb_av] Co mmon [facility] temperature 2023-09-06 09:40:00 97.5 [degF] Com [facility] bmi 2023-09-06 09:40:00 40.19 kg/m2 Comm on [facility] oximetry 2023-09-06 09:40:00 96 % Commo n [facility] respiratory rate 2023-09-06 09:40:00 15 /min [facility] blood pressure systolic 2023-09-06 09:40:00 98 mm[Hg] Common [facility] blood pressure diastolic 2023-09-06 09:40:00 59 mm[Hg] Common [facility] height 2023-06-27 14:00:00 72 [in_i] Commo n [facility] weight 2023-06-27 14:00:00 284.8 [lb_av] Co mmon [facility] temperature 2023-06-27 14:00:00 97.2 [degF] Com mon [facility] bmi 2023-06-27 14:00:00 38.62 kg/m2 Comm on [facility] oximetry 2023-06-27 14:00:00 95 % Commo n [facility] respiratory rate 2023-06-27 14:00:00 15 /min [facility] blood pressure systolic 2023-06-27 14:00:00 83 mm[Hg] Common [facility] blood pressure diastolic 2023-06-27 14:00:00 51 mm[Hg] Common [facility] height 2023-03-31 11:20:00 72 [in_i] Commo n [facility] weight 2023-03-31 11:20:00 293.0 [lb_av] Co mmon [facility] temperature 2023-03-31 11:20:00 98.0 [degF] Com mon [facility] bmi 2023-03-31 11:20:00 39.73 kg/m2 Comm on [facility] oximetry 2023-03-31 11:20:00 95 % Commo n [facility] respiratory rate 2023-03-31 11:20:00 16 /min Common [facility] blood pressure systolic 2023-03-31 11:20:00 97 mm[Hg] Common [facility] blood pressure diastolic 2023-03-31 11:20:00 58 mm[Hg] Common [facility] height 2022-07-22 08:20:00 72 [in_i] Commo n [facility] weight 2022-07-22 08:20:00 328 [lb_av] Comm on [facility] temperature 2022-07-22 08:20:00 97.2 [degF] Com mon [facility] bmi 2022-07-22 08:20:00 44.48 kg/m2 Comm on [facility] oximetry 2022-07-22 08:20:00 98 % Commo n [facility] respiratory rate 2022-07-22 08:20:00 18 /min Common [facility] blood pressure systolic 2022-07-22 08:20:00 130 mm[Hg] Common [facility] blood pressure diastolic 2022-07-22 08:20:00 60 mm[Hg] Common [facility] height 2022-02-11 14:00:00 72 [in_i] Commo n [facility] weight 2022-02-11 14:00:00 331.6 [lb_av] Co mmon [facility] temperature 2022-02-11 14:00:00 97.7 [degF] Com [facility] bmi 2022-02-11 14:00:00 44.97 kg/m2 Comm on [facility] oximetry 2022-02-11 14:00:00 97 % Commo n [facility] respiratory rate 2022-02-11 14:00:00 18 /min Common [facility] blood pressure systolic 2022-02-11 14:00:00 138 mm[Hg] Common [facility]iri [facility] blood pressure diastolic 2022-02-11 14:00:00 74 mm[Hg] Common [facility] height 2021-11-16 14:20:00 72 [in_i] Commo n [facility] weight 2021-11-16 14:20:00 341 [lb_av] Comm on [facility] temperature 2021-11-16 14:20:00 97.1 [degF] Com mon [facility] bmi 2021-11-16 14:20:00 46.24 kg/m2 Comm on [facility] oximetry 2021-11-16 14:20:00 96 % Commo n [facility] respiratory rate 2021-11-16 14:20:00 18 /min [facility] blood pressure systolic 2021-11-16 14:20:00 136 mm[Hg] [facility] blood pressure diastolic 2021-11-16 14:20:00 78 mm[Hg] [facility] Encounters Start Date/Time End Date/Time Encounter Type Admission Type Attending [facility] Care Department Encounter ID Source 2024-11-13 13:36:00 Outpatient [place] [facility] [id number] [facility] 2024-11-06 10:26:00 Outpatient Faviola Barragan [facility] [id number] [facility] 2024-08-08 13:53:00 Outpatient Faviola Barragan [facility] [id number] [facility] 2024-04-12 14:15:00 Outpatient Faviola Barragan [facility] [id number] [facility] 2023-06-27 13:56:00 Outpatient Faviola Barragan [facility] [id number] [facility] 2023-03-31 12:02:00 Outpatient Faviola Barragan [facility] [id number] [facility] 2022-11-03 09:54:02 Outpatient Faviola Barragan [facility] [id number] [facility] 2022-10-14 08:15:02 Outpatient [place] [facility] [id number] [facility] 2022-05-10 09:21:01 Outpatient Faviola Barragan [facility] [id number] [facility] 2021-11-16 14:09:03 Outpatient Faviola Barragan [facility] [id number] [facility] 2024-12-27 00:00:00 2024-12-27 00:00:00 OFFICE VISIT ESTAB PT LEVEL 4 [facility] [id number] [facility] 2024-12-26 00:00:00 2024-12-26 00:00:00 (TEL) [facility]C [facility] [id number] [facility] 2024-11-13 00:00:00 2024-11-13 00:00:00 (TEL) [facility] ST[facility] [id number] [facility] 2024-11-08 00:00:00 2024-11-08 00:00:00 OFFICE VISIT ESTAB PT LEVEL 4 [facility] [id number] [facility] 2024-08-13 00:00:00 2024-08-13 00:00:00 (TEL) [facility] [id number] [facility] 2024-08-08 00:00:00 2024-08-08 00:00:00 OFFICE VISIT ESTAB PT LEVEL 4 [facility] [id number] [facility] 2024-07-11 00:00:00 2024-07-11 00:00:00 (TEL) [facility]C [facility] [id number] [facility] 2024-07-05 00:00:00 2024-07-05 00:00:00 (TEL) [facility] [id number] [facility] 2024-06-27 00:00:00 2024-06-27 00:00:00 (TEL) [facility]C ST[facility] [id number] [facility] 2024-05-21 00:00:00 2024-05-21 00:00:00 (EST. VIDEO) EST VIRTUAL VIDEO VISIT [facility] ST[facility] [id number] [facility] 2024-05-18 00:00:00 2024-05-18 00:00:00 (TEL) ST[facility]C ST[facility] [id number] [facility] 2024-05-14 00:00:00 2024-05-14 00:00:00 (TEL) [facility] ST[facility] [id number] [facility] 2024-05-01 00:00:00 2024-05-01 00:00:00 OFFICE VISIT ESTAB PT LEVEL 4 [facility] [id number] [facility] 2024-04-17 00:00:00 2024-04-17 00:00:00 (TEL) STL[facility]C ST[facility] [id number] [facility] 2024-02-01 00:00:00 2024-02-01 00:00:00 (TEL) ST[facility]C ST[facility] [id number] [facility] 2024-01-16 00:00:00 2024-01-16 00:00:00 OFFICE VISIT ESTAB PT LEVEL 4 [facility] [id number] [facility] 2023-09-22 00:00:00 2023-09-22 00:00:00 OFFICE VISIT ESTAB PT LEVEL 3 [facility] [id number] [facility] 2023-09-09 00:00:00 2023-09-09 00:00:00 (TEL) [facility] [id number] [facility] 2023-09-06 00:00:00 2023-09-06 00:00:00 OFFICE VISIT ESTAB PT LEVEL 3 [facility] [id number] [facility] 2023-06-27 00:00:00 2023-06-27 00:00:00 OFFICE VISIT ESTAB PT LEVEL 4 [facility] [id number] [facility] 2023-05-13 00:00:00 2023-05-13 00:00:00 (TEL) [facility]C ST[facility] [id number] [facility] 2023-03-31 00:00:00 2023-03-31 00:00:00 OFFICE VISIT ESTAB PT LEVEL 4 [facility] [id number] [facility] 2022-10-25 00:00:00 2022-10-25 00:00:00 (TEL) [facility] [id number] [facility] 2022-07-22 00:00:00 2022-07-22 00:00:00 OFFICE VISIT ESTAB PT LEVEL 4 [facility] [id number] [facility] 2022-07-16 00:00:00 2022-07-16 00:00:00 (TEL) [facility] ST[facility] [id number] [facility] 2022-02-11 00:00:00 2022-02-11 00:00:00 OFFICE VISIT ESTAB PT LEVEL 4 [facility] [id number] [facility] 2022-02-09 00:00:00 2022-02-09 00:00:00 (TEL) [facility] ST[facility] [id number] [facility] 2022-01-22 00:00:00 2022-01-22 00:00:00 (TEL) [facility]C ST[facility] [id number] [facility] 2021-12-31 00:00:00 2021-12-31 00:00:00 (TEL) [facility] ST[facility] [id number] [facility] 2021-11-26 00:00:00 2021-11-26 00:00:00 (TEL) ST[facility]C ST[facility] [id number] [facility] 2021-11-16 00:00:00 2021-11-16 00:00:00 (TEL) ST[facility]C ST[facility] [id number] [facility] 2021-11-16 00:00:00 2021-11-16 00:00:00 OFFICE VISIT ESTAB PT LEVEL 4 [facility] [id number] [facility] [facility] Results Test Description Test Time Test Comments Results Result Co mments Source COMPREHENSIVE METABOLIC PANEL(CMP)2024-10-19 00:00:00* Test Item Value Reference Range Interpretation Comme nts HEMOGLOBIN A1c (test code = 4548-4) 6.0 % of total Hgb See_Comment H [Automated message] The system which generated this result transmitted reference range: <5.7 % of total Hgb. The reference range was not used to interpret this result as normal/abnormal. ABSOLUTE BASOPHILS (test code = 704-7) 131 cells/uL See_Comment N [Automated m essage] The system which generated this result transmitted reference range: 0-200 cells/uL. The reference range was not used to interpret this result as normal/abnormal. ABSOLUTE EOSINOPHILS (test code = 711-2) 320 cells/uL See_Comment N [Automated m essage] The system which generated this result transmitted reference range: 15-500 cells/uL. The reference range was not used to interpret this result as normal/abnormal. ABSOLUTE LYMPHOCYTES (test code = 731-0) 2370 cells/uL See_Comment N [Automated m essage] The system which generated this result transmitted reference range: 850-3900 cells/uL. The reference range was not used to interpret this result as normal/abnormal. ABSOLUTE MONOCYTES (test code = 742-7) 1099 cells/uL See_Comment H [Automated m essage] The system which generated this result transmitted reference range: 200-950 cells/uL. The reference range was not used to interpret this result as normal/abnormal. ABSOLUTE NEUTROPHILS (test code = 751-8) 4280 cells/uL See_Comment N [Automated m essage] The system which generated this result transmitted reference range: 8242-8094 cells/uL. The reference range was not used to interpret this result as normal/abnormal. BASOPHILS (test code = 706-2) 1.6 % N EOSINOPHILS (test code = 713-8) 3.9 % N HEMATOCRIT (test code = 4544-3) 33.4 % See_Comment L [Automated messa ge] The system which generated this result transmitted reference range: 38.5-50.0 %. The reference range was not used to interpret this result as normal/abnormal. HEMOGLOBIN (test code = 718-7) 10.9 g/dL See_Comment L [Automated messa ge] The system which generated this result transmitted reference range: 13.2-17.1 g/dL. The reference range was not used to interpret this result as normal/abnormal. LYMPHOCYTES (test code = 736-9) 28.9 % N MCH (test code = 785-6) 27.9 pg See_Comment N [Automated messa ge] The system which generated this result transmitted reference range: 27.0-33.0 pg. The reference range was not used to interpret this result as normal/abnormal. MCHC (test code = 786-4) 32.6 g/dL See_Comment N [Automated messa ge] The system which generated this result transmitted reference range: 32.0-36.0 g/dL. The reference range was not used to interpret this result as normal/abnormal. MCV (test code = 787-2) 85.4 fL See_Comment N [Automated messa ge] The system which generated this result transmitted reference range: 80.0-100.0 fL. The reference range was not used to interpret this result as normal/abnormal. MONOCYTES (test code = 5905-5) 13.4 % N MPV (test code = 776-5) 10.7 fL See_Comment N [Automated messa ge] The system which generated this result transmitted reference range: 7.5-12.5 fL. The reference range was not used to interpret this result as normal/abnormal. NEUTROPHILS (test code = 770-8) 52.2 % N PLATELET COUNT (test code = 777-3) 378 Thousand/uL See_Comment N [Automated message] The system which generated this result transmitted reference range: 140-400 Thousand/uL. The reference range was not used to interpret this result as normal/abnormal. RDW (test code = 788-0) 13.6 % See_Comment N [Automated messa ge] The system which generated this result transmitted reference range: 11.0-15.0 %. The reference range was not used to interpret this result as normal/abnormal. RED BLOOD CELL COUNT (test code = 789-8) 3.91 Million/uL See_Comment L [Automated message] The system which generated this result transmitted reference range: 4.20-5.80 Million/uL. The reference range was not used to interpret this result as normal/abnormal. WHITE BLOOD CELL COUNT (test code = 6690-2) 8.2 Thousand/uL See_Comment N [Automated message] The system which generated this result transmitted reference range: 3.8-10.8 Thousand/uL. The reference range was not used to interpret this result as normal/abnormal. CHOL/HDLC RATIO (test code = 9830-1) 5.4 (calc) See_Comment H [Automated [employer]] The system which generated this result transmitted reference range: <5.0 (calc). The reference range was not used to interpret this result as normal/abnormal. CHOLESTEROL, TOTAL (test code = 2093-3) 150 mg/dL See_Comment N [Automated message] The system which generated this result transmitted reference range: <200 mg/dL. The reference range was not used to interpret this result as normal/abnormal. HDL CHOLESTEROL (test code = 2085-9) 28 mg/dL See_Comment L [Automated [employer] [place]] The system which generated this result transmitted reference range: > OR = 40 mg/dL. The reference range was not used to interpret this result as normal/abnormal. LDL-CHOLESTEROL (test code = 68906-4) 97 mg/dL (calc) N NON HDL CHOLESTEROL (test code = 74612-8) 122 mg/dL (calc) See_Comment N [Automated message] The system which generated this result transmitted reference range: <130 mg/dL (calc). The reference range was not used to interpret this result as normal/abnormal. TRIGLYCERIDES (test code = 2571-8) 157 mg/dL See_Comment H [Automated [employer]] The system which generated this result transmitted reference range: <150 mg/dL. The reference range was not used to interpret this result as normal/abnormal. ALBUMIN (test code = 1751-7) 3.6 g/dL See_Comment N [Automated [employer]] The system which generated this result transmitted reference range: 3.6-5.1 g/dL. The reference range was not used to interpret this result as normal/abnormal. ALBUMIN/GLOBULIN RATIO (test code = 1759-0) 1.1 (calc) See_Comment N [Automated message] The system which generated this result transmitted reference range: 1.0-2.5 (calc). The reference range was not used to interpret this result as normal/abnormal. ALKALINE PHOSPHATASE (test code = 6768-6) 71 U/L See_Comment N [Automated message] The system which generated this result transmitted reference range: 35-144 U/L. The reference range was not used to interpret this result as normal/abnormal. ALT (test code = 1742-6) 9 U/L See_Comment N [Automated messa ge] The system which generated this result transmitted reference range: 9-46 U/L. The reference range was not used to interpret this result as normal/abnormal. AST (test code = 1920-8) 13 U/L See_Comment N [Automated messa ge] The system which generated this result transmitted reference range: 10-35 U/L. The reference range was not used to interpret this result as normal/abnormal. BILIRUBIN, TOTAL (test code = 1975-2) 0.3 mg/dL See_Comment N [Automated messa ge] The system which generated this result transmitted reference range: 0.2-1.2 mg/dL. The reference range was not used to interpret this result as normal/abnormal. BUN/CREATININE RATIO (test code = 3097-3) 27 (calc) See_Comment H [Automated message] The system which generated this result transmitted reference range: 6-22 (calc). The reference range was not used to interpret this result as normal/abnormal. CALCIUM (test code = 48594-4) 8.6 mg/dL See_Comment N [Automated messa ge] The system which generated this result transmitted reference range: 8.6-10.3 mg/dL. The reference range was not used to interpret this result as normal/abnormal. CARBON DIOXIDE (test code = 2027-9) 38 mmol/L See_Comment H [Automated messa ge] The system which generated this result transmitted reference range: 20-32 mmol/L. The reference range was not used to interpret this result as normal/abnormal. CHLORIDE (test code = 5-0) 99 mmol/L See_Comment N [Automated messa ge] The system which generated this result transmitted reference range: 98-110 mmol/L. The reference range was not used to interpret this result as normal/abnormal. CREATININE (test code = 2160-0) 1.35 mg/dL See_Comment H [Automated messa ge] The system which generated this result transmitted reference range: 0.70-1.30 mg/dL. The reference range was not used to interpret this result as normal/abnormal. GLOBULIN (test code = 72887-2) 3.4 g/dL (calc) See_Comment N [Automated message] The system which generated this result transmitted reference range: 1.9-3.7 g/dL (calc). The reference range was not used to interpret this result as normal/abnormal. GLUCOSE (test code = 2345-7) 94 mg/dL See_Comment N [Automated [employer]] The system which generated this result transmitted reference range: 65-99 mg/dL. The reference range was not used to interpret this result as normal/abnormal. POTASSIUM (test code = 2823-3) 3.7 mmol/L See_Comment N [Automated [employer]] The system which generated this result transmitted reference range: 3.5-5.3 mmol/L. The reference range was not used to interpret this result as normal/abnormal. PROTEIN, TOTAL (test code = 2885-2) 7.0 g/dL See_Comment N [Automated [employer]] The system which generated this result transmitted reference range: 6.1-8.1 g/dL. The reference range was not used to interpret this result as normal/abnormal. SODIUM (test code = 2951-2) 142 mmol/L See_Comment N [Automated [employer]] The system which generated this result transmitted reference range: 135-146 mmol/L. The reference range was not used to interpret this result as normal/abnormal. UREA NITROGEN (BUN) (test code = 3094-0) 36 mg/dL See_Comment H [Automated message] The system which generated this result transmitted reference range: 7-25 mg/dL. The reference range was not used to interpret this result as normal/abnormal. COMPREHENSIVE METABOLIC PANEL(CMP)2024-07-27 00:00:00* Test Item Value Reference Range Interpretation Comme nts HEMOGLOBIN A1c (test code = 4548-4) 6.0 % of total Hgb See_Comment H [Automated message] The system which generated this result transmitted reference range: <5.7 % of total Hgb. The reference range was not used to interpret this result as normal/abnormal. ABSOLUTE BASOPHILS (test code = 704-7) 123 cells/uL See_Comment N [Automated m essage] The system which generated this result transmitted reference range: 0-200 cells/uL. The reference range was not used to interpret this result as normal/abnormal. ABSOLUTE EOSINOPHILS (test code = 711-2) 647 cells/uL See_Comment H [Automated m essage] The system which generated this result transmitted reference range: 15-500 cells/uL. The reference range was not used to interpret this result as normal/abnormal. ABSOLUTE LYMPHOCYTES (test code = 731-0) 3527 cells/uL See_Comment N [Automated m essage] The system which generated this result transmitted reference range: 850-3900 cells/uL. The reference range was not used to interpret this result as normal/abnormal. ABSOLUTE MONOCYTES (test code = 742-7) 1632 cells/uL See_Comment H [Automated m essage] The system which generated this result transmitted reference range: 200-950 cells/uL. The reference range was not used to interpret this result as normal/abnormal. ABSOLUTE NEUTROPHILS (test code = 751-8) 9471 cells/uL See_Comment H [Automated m essage] The system which generated this result transmitted reference range: 9787-3279 cells/uL. The reference range was not used to interpret this result as normal/abnormal. BASOPHILS (test code = 706-2) 0.8 % N EOSINOPHILS (test code = 713-8) 4.2 % N HEMATOCRIT (test code = 4544-3) 41.4 % See_Comment N [Automated messa ge] The system which generated this result transmitted reference range: 38.5-50.0 %. The reference range was not used to interpret this result as normal/abnormal. HEMOGLOBIN (test code = 718-7) 13.4 g/dL See_Comment N [Automated messa ge] The system which generated this result transmitted reference range: 13.2-17.1 g/dL. The reference range was not used to interpret this result as normal/abnormal. LYMPHOCYTES (test code = 736-9) 22.9 % N MCH (test code = 785-6) 28.3 pg See_Comment N [Automated messa ge] The system which generated this result transmitted reference range: 27.0-33.0 pg. The reference range was not used to interpret this result as normal/abnormal. MCHC (test code = 786-4) 32.4 g/dL See_Comment N [Automated messa ge] The system which generated this result transmitted reference range: 32.0-36.0 g/dL. The reference range was not used to interpret this result as normal/abnormal. MCV (test code = 787-2) 87.3 fL See_Comment N [Automated messa ge] The system which generated this result transmitted reference range: 80.0-100.0 fL. The reference range was not used to interpret this result as normal/abnormal. MONOCYTES (test code = 5905-5) 10.6 % N MPV (test code = 776-5) 10.6 fL See_Comment N [Automated messa ge] The system which generated this result transmitted reference range: 7.5-12.5 fL. The reference range was not used to interpret this result as normal/abnormal. NEUTROPHILS (test code = 770-8) 61.5 % N PLATELET COUNT (test code = 777-3) 479 Thousand/uL See_Comment H [Automated message] The system which generated this result transmitted reference range: 140-400 Thousand/uL. The reference range was not used to interpret this result as normal/abnormal. RDW (test code = 788-0) 14.5 % See_Comment N [Automated messa ge] The system which generated this result transmitted reference range: 11.0-15.0 %. The reference range was not used to interpret this result as normal/abnormal. RED BLOOD CELL COUNT (test code = 789-8) 4.74 Million/uL See_Comment N [Automated message] The system which generated this result transmitted reference range: 4.20-5.80 Million/uL. The reference range was not used to interpret this result as normal/abnormal. WHITE BLOOD CELL COUNT (test code = 6690-2) 15.4 Thousand/uL See_Comment H [Automated message] The system which generated this result transmitted reference range: 3.8-10.8 Thousand/uL. The reference range was not used to interpret this result as normal/abnormal. CREATININE, RANDOM URINE (test code = 2161-8) 89 mg/dL See_Comment N [Automated messa ge] The system which generated this result transmitted reference range: 20-320 mg/dL. The reference range was not used to interpret this result as normal/abnormal. ALBUMIN, URINE (test code = 46169-4) 0.2 mg/dL See Note: mg/dL N ALBUMIN/CREATININE RATIO, RANDOM URINE (test code = 9318-7) 2 mg/g creat See_Comment N [Automated message] The system which generated this result transmitted reference range: <30 mg/g creat. The reference range was not used to interpret this result as normal/abnormal. CHOL/HDLC RATIO (test code = 9830-1) 5.8 (calc) See_Comment H [Automated messa ge] The system which generated this result transmitted reference range: <5.0 (calc). The reference range was not used to interpret this result as normal/abnormal. CHOLESTEROL, TOTAL (test code = 2093-3) 180 mg/dL See_Comment N [Automated message] The system which generated this result transmitted reference range: <200 mg/dL. The reference range was not used to interpret this result as normal/abnormal. HDL CHOLESTEROL (test code = 2085-9) 31 mg/dL See_Comment L [Automated messa ge] The system which generated this result transmitted reference range: > OR = 40 mg/dL. The reference range was not used to interpret this result as normal/abnormal. LDL-CHOLESTEROL (test code = 78672-1) 103 mg/dL (calc) H NON HDL CHOLESTEROL (test code = 86813-2) 149 mg/dL (calc) See_Comment H [Automated message] The system which generated this result transmitted reference range: <130 mg/dL (calc). The reference range was not used to interpret this result as normal/abnormal. TRIGLYCERIDES (test code = 2571-8) 343 mg/dL See_Comment H [Automated messa ge] The system which generated this result transmitted reference range: <150 mg/dL. The reference range was not used to interpret this result as normal/abnormal. ALBUMIN (test code = 1751-7) 4.3 g/dL See_Comment N [Automated messa ge] The system which generated this result transmitted reference range: 3.6-5.1 g/dL. The reference range was not used to interpret this result as normal/abnormal. ALBUMIN/GLOBULIN RATIO (test code = 1759-0) 1.1 (calc) See_Comment N [Automated message] The system which generated this result transmitted reference range: 1.0-2.5 (calc). The reference range was not used to interpret this result as normal/abnormal. ALKALINE PHOSPHATASE (test code = 6768-6) 99 U/L See_Comment N [Automated message] The system which generated this result transmitted reference range: 35-144 U/L. The reference range was not used to interpret this result as normal/abnormal. ALT (test code = 1742-6) 12 U/L See_Comment N [Automated messa ge] The [...] normal/abnormal. BILIRUBIN, TOTAL (test code = 1975-2) 0.3 mg/dL See_Comment N [Automated messa ge] The system which generated this result transmitted reference range: 0.2-1.2 mg/dL. The reference range was not used to interpret this result as normal/abnormal. BUN/CREATININE RATIO (test code = 3097-3) 29 (calc) See_Comment H [Automated message] The system which generated this result transmitted reference range: 6-22 (calc). The reference range was not used to interpret this result as normal/abnormal. CALCIUM (test code = 03019-7) 9.2 mg/dL See_Comment N [Automated messa ge] The system which generated this result transmitted reference range: 8.6-10.3 mg/dL. The reference range was not used to interpret this result as normal/abnormal. CARBON DIOXIDE (test code = 2027-9) 37 mmol/L See_Comment H [Automated messa ge] The system which generated this result transmitted reference range: 20-32 mmol/L. The reference range was not used to interpret this result as normal/abnormal. CHLORIDE (test code = 5-0) 91 mmol/L See_Comment L [Automated messa ge] The system which generated this result transmitted reference range: 98-110 mmol/L. The reference range was not used to interpret this result as normal/abnormal. CREATININE (test code = 2160-0) 1.46 mg/dL See_Comment H [Automated messa ge] The system which generated this result transmitted reference range: 0.70-1.30 mg/dL. The reference range was not used to interpret this result as normal/abnormal. GLOBULIN (test code = 67163-4) 3.9 g/dL (calc) See_Comment H [Automated message] The system which generated this result transmitted reference range: 1.9-3.7 g/dL (calc). The reference range was not used to interpret this result as normal/abnormal. GLUCOSE (test code = 2345-7) 123 mg/dL See_Comment H [Automated messa ge] The system which generated this result transmitted reference range: 65-99 mg/dL. The reference range was not used to interpret this result as normal/abnormal. POTASSIUM (test code = 2823-3) 3.6 mmol/L See_Comment N [Automated messa ge] The system which generated this result transmitted reference range: 3.5-5.3 mmol/L. The reference range was not used to interpret this result as normal/abnormal. PROTEIN, TOTAL (test code = 2885-2) 8.2 g/dL See_Comment H [Automated messa ge] The system which generated this result transmitted reference range: 6.1-8.1 g/dL. The reference range was not used to interpret this result as normal/abnormal. SODIUM (test code = 2951-2) 138 mmol/L See_Comment N [Automated messa ge] The system which generated this result transmitted reference range: 135-146 mmol/L. The reference range was not used to interpret this result as normal/abnormal. UREA NITROGEN (BUN) (test code = 3094-0) 43 mg/dL See_Comment H [Automated message] The system which generated this result transmitted reference range: 7-25 mg/dL. The reference range was not used to interpret this result as normal/abnormal. HEMOGLOBIN [id number] 00:00:00* Test Item Value Reference Range Interpretation Comme nts HEMOGLOBIN A1c (test code = 4548-4) 6.2 % of total Hgb See_Comment H [Automated message] The system which generated this result transmitted reference range: <5.7 % of total Hgb. The reference range was not used to interpret this result as normal/abnormal. HEMOGLOBIN [id number] 00:00:00* Test Item Value Reference Range Interpretation Comme [facility] A1C (test code = 4548-4) 6.1 COMPREHENSIVE METABOLIC PANEL(CMP)2023-07-11 00:00:00* Test Item Value Reference Range Interpretation Comme [facility] ALBUMIN (test code = 1751-7) 4.1 g/dL [...] result as normal/abnormal. CALCIUM (test code = 35212-6) 9.0 mg/dL See_Comment N [Automated messa ge] The system which generated this result transmitted reference range: 8.6-10.3 mg/dL. The reference range was not used to interpret this result as normal/abnormal. CARBON DIOXIDE (test code = 2027-9) 31 mmol/L See_Comment N [Automated messa ge] The system which generated this result transmitted reference range: 20-32 mmol/L. The reference range was not used to interpret this result as normal/abnormal. CHLORIDE (test code = 5-0) 96 mmol/L See_Comment L [Automated messa ge] [...] result as normal/abnormal. GLOBULIN (test code = 06990-7) 3.7 g/dL (calc) See_Comment N [Automated message] [...]
[2025-01-29 16:03] LABS: Absolute Basophils 0.1 K/uL (0-0.5); Absolute Eosinophils 0.2 K/uL (0-0.5); Absolute Lymphocytes (CBC) 1.9 K/uL (0.7-4.9); Absolute Monocytes 1.3 K/uL (0.1-1.3); Absolute Neutrophil 6.9 K/uL (1.8-8.0); Basophils % 1.2 % (0-1.3); Eosinophils % 2.2 % (0-4.4); Hematocrit 39.8 % (39.6-49.0); Hemoglobin 13.7 g/dL (13.6-17.9); Lymphocytes % 18.1 % (15.3-44.8); MCH 28.1 pg (27.0-35.0); MCHC 34.3 g/dL (32.0-36.0); MCV 81.9 fL (80-100); MPV 7.8 fL (7.6-11.3); Monocytes % 12.4 % (3.3-12.3); Neutrophils % 66.1 % (41.7-73.7); Platelets 342 thou/uL (152-406); RBC Red Blood Cell Count 4.85 M/uL (4.33-5.43); Red Cell Distribution Width 15.6 % (12.1-15.2)
[2025-01-29 16:21] LABS: Specific Gravity 1.021 (1.005-1.030); Sqamous Epithelial <5 /HPF (None Seen); Urine Bacteria None Seen /HPF (<20); Urine Bilirubin NEGATIVE (Negative); Urine Blood Trace (Negative); Urine Clarity Clear (Clear); Urine Color Yellow (Yellow); Urine Glucose NEGATIVE (Negative); Urine Ketones NEGATIVE (Negative); Urine Micro Reflex YN NO BILL MICROSCOPIC; Urine Nitrite NEGATIVE (Negative); Urine Protein NEGATIVE (Negative); Urine Urobilinogen Normal (Normal); Urine Yeast (Budding) Trace /HPF (None Seen); Urine pH 6.5 (5.0-7.0)
[2025-01-29 16:22] LABS: Anion Gap 5.3 mEq/L (5.0-15.0); Magnesium 1.9 mg/dL (1.6-2.4); Troponin High Sensitivity 13.5 pg/mL (<58.9)
[2025-01-29 16:24] LABS: Potassium 2.3 mEq/L (3.5-5.1)
--- NOTE | 2025-01-29 16:46 | ER ---
Nurse's Notes [facility] Name: Meryl Nelson Age: 59 yrs Sex: Male : 1965 Arrival Date: 01/29/2025 Time: 15:07 Bed 15 Private MD: Diagnosis: Hypokalemia;Alkalosis Presentation: 01/29 15:21 Chief complaint: Patient states: [facility] - PCP called to tell ld1 patient to come to ER due to critically low potassium level. Pt does not know level. Reports doctor faxed over result to ER. Pt also reporting UTI. Coronavirus screen: At this time, the client does not indicate any symptoms associated with coronavirus-19. Ebola Screen: No symptoms or risks identified at this time. Initial Sepsis Screen: Does the patient meet any 2 criteria? No. Patient's initial sepsis screen is negative. Does the patient have a suspected source of infection? No. Patient's initial sepsis screen is negative. Risk Assessment: Do you want to hurt yourself or someone else? Patient reports no desire to harm self or others. Onset of symptoms was January 29, 2025. 15:21 Method Of Arrival: Ambulatory ld1 15:21 Acuity: BOBBY 3 ld1 Triage Assessment: 15:23 General: Appears in no apparent distress. comfortable, Behavior is calm, cooperative, ld1 appropriate for age. Pain: Denies pain. EENT: No signs and/or symptoms were reported regarding the EENT system. Neuro: Level of Consciousness is awake, alert, obeys commands, Oriented to person, place, time, situation. Cardiovascular: Capillary refill < 3 seconds Patient's skin is warm and dry. Respiratory: Airway is patent Respiratory effort is even, unlabored. GI: Abdomen is round non-distended. : No signs and/or symptoms were reported regarding the genitourinary system. Derm: No signs and/or symptoms reported regarding the dermatologic system. Musculoskeletal: No signs and/or symptoms reported regarding the musculoskeletal system. Historical: - Allergies: 15: No Known Allergies; ld1 - PMHx: 15:23 Artificial heart valve; Atrial fibrillation; Bipolar disorder; Diabetes - NIDDM; ld1 diabetic leg ulcers; Hypertension; Lymphadema; neuropathy; - PSHx: 15: heart valve SX; ld1 - Immunization history:: Adult Immunizations up to date. - Infectious Disease History:: Denies. - Social history:: Smoking status: Patient denies any tobacco usage or history of. Patient uses alcohol, occasionally. Assessment: 17:42 General: Appears in no apparent distress. Behavior is cooperative. Pain: Denies pain. kj2 Neuro: Level of Consciousness is awake, alert, obeys commands, Oriented to person, place, time, situation. Cardiovascular: Patient's skin is warm and dry. Respiratory: Airway is patent Respiratory effort is unlabored. GI: No signs and/or symptoms were reported involving the gastrointestinal system. : No signs and/or symptoms were reported regarding the genitourinary system. Vital Signs: 15:21 Pulse 81; Resp 18; Temp 97.2(TE); Pulse Ox 99% on R/A; Weight 133.81 kg; Height 6 ft. 1 ld1 in. ; Pain 0/10; 17:43 BP 129 / 81; Pulse 87; Resp 18; Temp 98; Pulse Ox 98% on R/A; kj2 15:21 Body Mass Index 38.92 (133.81 kg, 185.42 cm) ld1 15:21 Pain Scale: Adult ld1 ED Course: 15:11 Patient arrived in ED. cj3 15:16 [facility] Strickland [facility] sb4 15:16 Stevan Valdez DO is Attending Physician. sb4 15:23 Triage completed. ld1 15:23 Arm band placed on right wrist. ld1 16:31 Initial lab(s) drawn, by me, sent to lab. EKG done, by ED staff, reviewed by Ginger Strickland PA-C. Inserted saline lock: 22 gauge in left antecubital area, using aseptic technique. Blood collected. Flushed with 10 mL NS. 16:45 Gary Mariscal MD is Hospitalizing Provider. sb4 16:48 Malik Bates is Hospitalizing Provider. sb4 17:22 Ena Mary, KVNG is Primary Nurse. kj2 Administered Medications: 17:42 Drug: Potassium PO Effervescent Tablet 50 mEq PO once; dissolve in 4 ounces of water or kj2 juice Route: PO; 19:38 Follow up: Response: No adverse reaction kj2 17:42 Drug: Potassium Chloride IV 20 mEq IV at calculated rate once; administer over 1-2 kj2 hours Route: IV; Rate: calculated rate; Site: left antecubital; 19:38 Follow up: IV Status: Completed infusion; IV Intake: 100ml kj2 01/30 01:40 CANCELLED (Physician Discretion): ondansetron 8 mg IVP once; over 2 minutes vc1 Intake: 01/29 19:38 IV: 100ml; Total: 100ml. kj2 Outcome: 16:45 Decision to Hospitalize by Provider. sb4 01/30 13:28 Patient left the ED. ll1 Signatures: Odell Quintanilla RN RN ll1 Joaquina Valdez RN RN ld1 Ginger Strickland, PA-C PA-C sb4 Meron Townsend bc6 Ena Mary RN RN kj2 Ama Cheema cj3 Tess Fajardo RN vc1
--- NOTE | 2025-01-29 16:46 | EDPHYS ---
Physician Documentation [facility] Name: Meryl Nelson Age: 59 yrs Sex: Male : 1965 Arrival Date: 01/29/2025 Time: 15:07 Bed 15 Private MD: ED Physician Stevan Valdez HPI: 01/29 15:50 This 59 yrs old Male presents to ER via Ambulatory with complaints of Abnormal Lab sb4 Results. 15:50 Patient has history of low potassium, was called today by PCP with results of her sb4 outpatient labs. Potassium was critically low. Patient is only complaining of UTI symptoms- burning, urgency, frequency. Denies any chest pain, shortness of breath, nausea, vomiting, diarrhea, fever, chills. Historical: - Allergies: 15:23 No Known Allergies; ld1 - PMHx: 15:23 Artificial heart valve; Atrial fibrillation; Bipolar disorder; Diabetes - NIDDM; ld1 diabetic leg ulcers; Hypertension; Lymphadema; neuropathy; - PSHx: 15:23 heart valve SX; ld1 - Immunization history:: Adult Immunizations up to date. - Infectious Disease History:: Denies. - Social history:: Smoking status: Patient denies any tobacco usage or history of. Patient uses alcohol, occasionally. ROS: 16:44 Constitutional: Negative for fever, chills, and weight loss, sb4 16:44 : Positive for urinary symptoms, burning with urination, 16:44 All other systems are negative, Exam: 16:44 Constitutional: This is a well developed, well nourished patient who is awake, alert, sb4 and in no acute distress. Head/Face: Normocephalic, atraumatic. Eyes: Extra-ocular motions intact. Periorbital areas with no swelling, redness, or edema. ENT: Mucous membranes moist. Respiratory: No increased work of breathing, no retractions or nasal flaring. Skin: Warm, dry with normal turgor. Normal color with no rashes, no lesions, and no evidence of cellulitis. Vital Signs: 15:21 Pulse 81; Resp 18; Temp 97.2(TE); Pulse Ox 99% on R/A; Weight 133.81 kg; Height 6 ft. 1 ld1 in. ; Pain 0/10; 17:43 BP 129 / 81; Pulse 87; Resp 18; Temp 98; Pulse Ox 98% on R/A; kj2 15:21 Body Mass Index 38.92 (133.81 kg, 185.42 cm) ld1 15:21 Pain Scale: Adult ld1 MDM: 15:17 Medical Screening Exam initiated sb4 16:44 Data reviewed: vital signs, nurses notes, lab test result(s), EKG, and as a result, I sb4 will admit patient. Consideration of Admission/Observation Patient was admitted/placed on observation. Counseling: I had a detailed discussion with the patient and/or guardian regarding the historical points, exam findings, and any diagnostic results supporting the discharge/admit diagnosis, lab results, the need for further work-up and treatment in the hospital. 01/29 15:26 Order name: Basic Metabolic Panel; Complete Time: 16:24 sb4 01/29 15:26 Order name: CBC with Diff; Complete Time: 16:17 sb4 01/29 15:26 Order name: Magnesium; Complete Time: 16:24 sb4 01/29 15:26 Order name: Troponin HS; Complete Time: 16:24 sb4 01/29 15:26 Order name: UAM; Complete Time: 16:21 sb4 01/29 16:44 Order name: ABG: vbg; Complete Time: 17:29 sb4 01/29 23:53 Order name: Glucose, Ancillary Testing; Complete Time: 23:53 EDMS 01/30 04:45 Order name: Protime (+INR) EDMS 01/30 05:09 Order name: CBC with Automated Diff EDMS 01/30 05:31 Order name: Comprehensive Metabolic Panel EDMS 01/30 05:31 Order name: Phosphorus EDMS 01/30 05:31 Order name: Magnesium EDMS 01/30 08:35 Order name: Glucose, Ancillary Testing EDMS 01/30 12:34 Order name: Glucose, Ancillary Testing EDMS 01/29 15:26 Order name: EKG; Complete Time: 15:26 sb4 01/29 15:26 Order name: Cardiac monitoring; Complete Time: 17:42 sb4 01/29 15:26 Order name: EKG - Nurse/Tech; Complete Time: 16:31 sb4 01/29 15:26 Order name: IV Saline Lock; Complete Time: 16:31 sb4 01/29 15:26 Order name: Labs collected and sent; Complete Time: 16:31 sb4 01/29 15:26 Order name: O2 Per Protocol; Complete Time: 16:31 sb4 01/29 15:26 Order name: O2 Sat Monitoring; Complete Time: 16:31 sb4 EC:02 Rate is 94 beats/min. Rhythm is irregularly irregular, A fib with Occasional PVCs. QRS sb4 interval is normal at 94 msec. QT interval is prolonged at 480 msec. Administered Medications: 17:42 Drug: Potassium PO Effervescent Tablet 50 mEq PO once; dissolve in 4 ounces of water or kj2 juice Route: PO; 19:38 Follow up: Response: No adverse reaction kj2 17:42 Drug: Potassium Chloride IV 20 mEq IV at calculated rate once; administer over 1-2 kj2 hours Route: IV; Rate: calculated rate; Site: left antecubital; 19:38 Follow up: IV Status: Completed infusion; IV Intake: 100ml kj2 01/30 01:40 CANCELLED (Physician Discretion): ondansetron 8 mg IVP once; over 2 minutes vc1 Disposition: 01/29 19:13 I was immediately available on-site in the Emergency Department for consultation in the ms3 care of the patient. Disposition Summary: 01/29/25 16:45 Hospitalization Ordered Notes: Hospitalization Status: Inpatient Admission sb4 Condition: Fair sb4 Problem: new sb4 Symptoms: are unchanged sb4 Bed/Room Type: Standard sb4 Provider: Malik Bates(01/29/25 16:48) sb4 Location: Telemetry/MedSur (Inpatient)(01/30/25 10:47) bd Room Assignment: [facility](01/30/25 10:47) bd Diagnosis - Hypokalemia sb4 - Alkalosis sb4 Forms: - Medication Reconciliation Form sb4 - SBAR form sb4 - Leadership Thank You Letter sb4 Critical care time excluding procedures: 18:05 Critical care time: Bedside Care: 10 minutes, Consultation: 25 minutes. Total time: 35 sb4 minutes Signatures: Dispatcher [employer] EDSuzette Beck Marcus, DO DO ms3 Joaquina Valdez RN RN ld1 Ginger Strickland PA-C PAAlina sb4 Gabriel Cheatham MD MD sp4 Ena Mary RN RN kj2 Tess Fajardo RN vc1 Corrections: (The following items were deleted from the chart) 16:48 16:45 Gary Mariscal sb4 sb4 18:16 16:45 Telemetry/MedSurg (Inpatient) sb4 bd 18:16 16:45 sb4 bd 01/30 01:40 01:37 Ondansetron IVP 8 mg IVP once; over 2 minutes ordered. sp4 vc1 10:47 01/29 18:16 [facility] ER HOLD bd bd 01/30 10:47 01/29 18:16 ERHOLD- bd bd
[2025-01-29 17:25] LABS: Blood Gas Oxyhemoglobin 26.8 % (94-97); Blood O2 Saturation 27.6 % (92-98.5)
[2025-01-29 17:26] LABS: Arterial Blood Carboxyhemoglob 0.7 % (0-1.5); Blood Gas THB 13.8 g/dl (12-18)
[2025-01-29] MEDS ORDERED: POTASSIUM 25 MEQ EFFERV TAB ONE (17:26)
[2025-01-29] MEDS ORDERED: NA CHLORIDE 0.9% 500 ML ONE (17:26)
[2025-01-29] MEDS ORDERED: KCL 20 MEQ/100 mL IVPB 100 ML IV ONE (17:27)
[2025-01-29] MEDS ORDERED: ACETAMINOPHEN 325 MG TABLET PO PRN (17:38)
[2025-01-29] MEDS ORDERED: D5.45NS W/KCL 20MEQ 1,000 ML IV SCH (18:00)
[2025-01-29] MEDS ORDERED: GLUCAGON 1 MG/VIAL IM PRN ×2 (18:15→18:21)
[2025-01-29] MEDS ORDERED: D10W 125 ML IV PRN ×2 (18:15→18:21)
--- NOTE | 2025-01-29 18:20 | P.HP ---
Certification for Inpatient Patient admitted to: Observation Patient will require the following post-hospital care: None Practitioner: I am a practitioner with admitting privileges, knowledge of patient current condition, hospital course, and medical plan of care. Services: Services provided to patient in accordance with Admission requirements found in Title 42 Section 412.3 of the Code of Federal Regulations Patient History Date of Service: 01/29/25 Reason for admission: Hypokalemia potassium 2.3, UTI. History of Present Illness: Patient is a 59-year-old male with past medical history of atrial fibrillation, bipolar disorder, type 2 diabetes mellitus, history of leg ulcers bilateral lower extremities completely healed, bilateral lower extremities lymphedema, hypertension, diabetic neuropathy, aortic valve malformation with aortic valve replacement 1995, and obesity. Presents to the ER today, sent by his PCP due to abnormal potassium of 2.3. Patient states he went for some labs today requested by his PCP, and received a call from his PCP later on and requested for him to go to ER due to abnormal potassium. Patient states he has been having some burning urination for the past 3 weeks. Patient denies of any fever, chills, chest pain, shortness of breath, or abdominal pain. When i saw the patient in ER, patient was still being worked up. Potassium 2.3, sodium 133, positive UTI. Allergies No Known Allergies Allergy (Verified 10/10/24 11:09) Home medications list reviewed: No Home Medications: Pregabalin [Lyrica] 75 mg PO TID 11/02/21 ARIPiprazole [Aripiprazole] 5 mg PO DAILY 01/15/22 Furosemide 40 mg PO BID 01/15/22 Metoprolol Tartrate [Lopressor*] 100 mg PO BID tab 01/17/22 Warfarin Sodium [Coumadin*] 6 mg PO DAILY 5 PM tab 01/17/22 Fluoxetine HCl [Prozac] 20 mg PO DAILY 07/11/22 Sitagliptin Phosphate [Januvia] 100 mg PO DAILY 07/11/22 Aspirin Chewable [Aspirin Chewable*] 81 mg PO DAILY #30 tab.chew 10/30/22 Daridorexant HCl [Quviviq] 50 mg PO DAILY 05/14/24 Tramadol HCl [Ultram] 50 mg PO TIDP PRN 05/14/24 Valproic Acid 250 mg PO BID 05/14/24 lisinopriL [Zestril] 20 mg PO BID 05/14/24 Doxycycline Hyclate 100 mg PO BID #20 cap 05/17/24 Potassium Oral Tab [Klor-Con 10 mEq Tab*] 20 meq PO DAILY #60 tab 05/17/24 Silver Sulfadiazine Crm [Silvadene*] 1 appl TOP BID 20 Days #100 jar 05/17/24 Sodium Chlor/Hypochlorous Acid [Vashe Solution] 50 ml IR DAILY #475 irri 05/17/24 - Past Medical/Surgical History Has patient received pneumonia vaccine in the past: No Diabetic: Yes -: DM -: Bipolar -: Neuropathy -: HTN -: CHF -: A. fib -: siezures -: Bilateral lower extremities lymphedema, -: Bilateral lower extremities ulcers -: Mechanical aortic valve replacement. Psychosocial/ Personal History: Lives at home. - Family History Mother -: Diabetes, Other (see notes) (Type 2 diabetes mellitus.) Father Notes: throat Brother -: Liver disease - Social History Smoking Status: Unknown if ever smoked Alcohol use: Yes Place of Residence: Home Review of Systems 10-point ROS is otherwise unremarkable General: As per HPI Cardiovascular: Edema Genitourinary: Dysuria, Frequency, Urgency Musculoskeletal: Pedal edema Lymphatics: Unremarkable Physical Examination - Physical Exam General: Oriented x3, Cooperative HEENT: Atraumatic, Normocephalic, PERRLA, Mucous membr. moist/pink Neck: Supple, 2+ carotid pulse no bruit, Without JVD or thyroid abnormality Respiratory: Clear to auscultation bilaterally Cardiovascular: Normal pulses, No gallops, No rubs, Edema, Irregular heart rate/rhythm Gastrointestinal: Normal bowel sounds, Soft and benign, Non-distended, W/out hepatomegaly, No ascites, No tenderness, No masses, No rebound, No guarding Musculoskeletal: No clubbing, No swelling, No erythema, No tenderness, Swelling Integumentary: No rashes, No breakdown, No significant lesion, No erythema, No warmth, No cyanosis Neurological: Normal gait, Normal speech, Normal strength at 5/5 x4 extr, Normal tone, Sensation intact, Cranial nerves 3-12 intact, Normal reflexes 2+, Normal affect Lymphatics: No axilla or inguinal lymphadenopathy External genitalia: Normal Rectal: Normal - Studies Laboratory Data (last 24 hrs) 01/29/25 01/29/25 15:55 15:55 WBC 10.40 Hgb 13.7 Hct 39.8 Plt Count 342 Sodium 133 L Potassium 2.3 L* BUN 29 H Creatinine 1.14 Glucose 172 H Magnesium 1.9 Male Exam - Male Exam Scrotum: No lesions, No edema, Non-tender Penile exam: No discharge Anus & perineum: Patent Assessment and Plan - Plan Patient is a 59-year-old male who reports to the ER requested by his PCP due to hypokalemia of 2.3, and also complaining of burning urination. Patient denies any associated chest pain, shortness of breath, abdominal pain, nausea or vomiting, fever or chills. (1) Acute hypokalemia of 2.3. Patient received potassium supplement in ER po tassium K-Lyte 50 mEq x 1, and potassium chloride 20 mEq IV x 1. -Order for recheck of patient potassium tonight, patient might need more potassium replacement based on the results. -Ordered telemetry. -D51/2NS +20 meq KCL at 100ml/hr. Patient placed on IV fluid of D5 because during admission assessment, patient states his appetite is poor and he has not been eating well. (2)Acute UTI. -Ceftriaxone 1 g IV on admission, patient states he has been having symptoms for the past 3 weeks. -Ceftriaxone 1 g IV daily. (3)chronic type II DM. -Ordered A1c in the morning to evaluate patient current diabetic status. -Moderate sliding scale. -Will continue patient home medications when available, patient states he does not remember what medications he takes for his diabetes at this time but will request medications to be brought in by his family member shan. (4)chronic hypertension. -Continue home medication metoprolol 100 mg p.o. twice daily. (5)Aortic valve replacement 1995. Patient states he was started on Coumadin after his valve replacement. -Continue home medication Coumadin 6 mg p.o. daily.. (6)Home medications to be resumed and continued after reconciliation. (7)Explained attachment plan to the patient, solicit questions answered and voiced understanding. Discharge Plan: Home Plan to discharge in: 48 Hours - Advance Directives Does patient have a Living Will: No Does patient have a Durable POA for Healthcare: No - Code Status/Comfort Care Code Status Assessed: Yes Code Status: Full Code Critical Care: No Time Spent Managing Pts Care (In Minutes): 55
[2025-01-29] MEDS: CEFTRIAXONE 1,000 MG in NA CHLORIDE 0.9% 50 ML IVPB SCH (20:00)
[2025-01-29] MEDS: METOPROLOL TAR 50 MG TAB PO SCH (21:00)
[2025-01-29] MEDS: INSULIN REGULAR (HUMAN) 100 UNIT/ML SQ SCH (21:00)
[2025-01-29 21:58] VITALS: BMI 38.9
[2025-01-30] MEDS ORDERED: METOPROLOL TAR 50 MG TAB ONE ×2 (00:08→08:28)
[2025-01-30] MEDS ORDERED: NA CHLORIDE 0.9% 50 ML ONE (00:08)
[2025-01-30] MEDS ORDERED: CEFTRIAXONE 1000 MG/VIAL ONE (00:08)
[2025-01-30 04:45] LABS: PT Prothrombin Time 31.7 SECONDS (10-13.0); Protime INR 2.93
[2025-01-30 04:49] LABS: Absolute Basophils 0.1 K/uL (0-0.5); Absolute Eosinophils 0.2 K/uL (0-0.5); Absolute Lymphocytes (CBC) 2.8 K/uL (0.7-4.9); Absolute Monocytes 1.7 K/uL (0.1-1.3); Absolute Neutrophil 8.1 K/uL (1.8-8.0); Basophils % 0.9 % (0-1.3); Eosinophils % 1.5 % (0-4.4); Hematocrit 37.9 % (39.6-49.0); Lymphocytes % 21.4 % (15.3-44.8); MCHC 34.2 g/dL (32.0-36.0); Monocytes % 13.3 % (3.3-12.3); Neutrophils % 62.9 % (41.7-73.7); Nucleated Red Blood Cells % 0.1 % (0-0); Platelets 366 thou/uL (152-406); RBC Red Blood Cell Count 4.62 M/uL (4.33-5.43); Red Cell Distribution Width 15.6 % (12.1-15.2)
[2025-01-30 05:28] LABS: Albumin 3.2 g/dL (3.4-5.0); Albumin/Globulin Ratio 0.7 (1.1-1.8); Anion Gap 6.4 mEq/L (5.0-15.0); Bilirubin Total 0.4 mg/dL (0.2-1.0); Globulin 4.7 g/dL (2.3-3.5); Magnesium 1.9 mg/dL (1.6-2.4); Phosphorus 2.4 mg/dL (2.5-4.9); Protein, Total 7.9 g/dL (6.4-8.2)
[2025-01-30 05:31] LABS: Potassium 2.4 mEq/L (3.5-5.1)
[2025-01-30] MEDS ORDERED: KCL 20 MEQ/100 mL IVPB 100 ML IV ONE (06:39)
[2025-01-30] MEDS ORDERED: NA CHLORIDE 0.9% 1,000 ML ONE ×2 (06:49→08:28)
[2025-01-30] MEDS: KCL 20 MEQ/100 mL IVPB 20 MEQ/100 ML BAG IV SCH ×2 (07:00→14:05)
[2025-01-30] MEDS ORDERED: FLU (Fluarix Triv) TS24-25(6MOS UP)/PF 45 MCG/0.5 ML Syringe IM ONE (07:15)
[2025-01-30] MEDS ORDERED: KCL 20 MEQ/100 mL IVPB 200 ML IV ONE (08:52)
--- NOTE | 2025-01-30 12:35 | EKG ---
Test Date: 2025-01-29 Test Time: 15:59:52 [place] [employer] Net: THOMAS MEASUREMENT RESULTS: Intervals: Rate: 94 WV: QRSD: 94 QT: 384 QTc: 480 Manson: P: WV: QRS: 58 T: 130 INTERPRETIVE STATEMENTS: Atrial fibrillation with premature ventricular or aberrantly conducted complexes ST & T wave abnormality, consider lateral ischemia Prolonged QT Abnormal ECG Compared to ECG 05/14/2024 15:05:05 Ventricular premature complex(es) now present Possible ischemia now present ST (T wave) deviation still present Electronically Signed On 01-30-25 12:34:14 CDT by Willie Perera
[2025-01-30] MEDS: CEFTRIAXONE 1,000 MG in NA CHLORIDE 0.9% 50 ML IVPB ONE (14:11)
[2025-01-30] MEDS: WARFARIN SODIUM 6 MG TAB PO SCH (16:32)
[2025-01-30] MEDS: PREGABALIN 75 MG CAP PO ONE (17:06)
--- NOTE | 2025-01-30 19:43 | P.PN ---
Subjective Date of Service: 01/30/25 Chief Complaint: Hypokalemia potassium 2.3, UTI. Patient complaining of neck pain and pain in bilateral legs. No recorded fever. Serum potassium level is still low. Physical Examination - Vital Signs Temperature: 97.7 F Blood Pressure: 128/78 Pulse: 79 Respirations: 18 Pulse Ox (%): 96 Assessment And Plan - Plan Physical examination General: Alert and oriented x3, NAD, obese HEENT: Conjunctiva not pale, anicteric sclera Neck: Supple, no elevated JVD Heart: Heart sounds 1 and 2 normal, regular rhythm, normal rate, no pedal edema Lungs: Clear to auscultation bilaterally, adequate breath sounds bilaterally, no rhonchi or crackles. Abdomen: Soft, nondistended, nontender, normal bowel sounds. Extremities: No tenderness, bilateral lower extremity lymphedema Skin: Normal skin turgor, bilateral lower extremity venous stasis dermatitis. Neuro: No focal motor deficit. Normal speech. Psychiatry: Normal mood, no agitation. Diagnosis Acute UTI Hypokalemia History of aortic valve replacement Chronic anticoagulation with Coumadin Chronic lymphedema Essential hypertension Acute hypokalemia Patient has been on diuretics. Patient likely has potassium deficit. Continue to replace potassium IV and orally. Monitor BMP. Acute UTI UA did not show significant evidence of UTI. Continue IV Rocephin for now. DM type II Diabetic neuropathy Insulin sliding scale for glucose management. Resume home dose Lyrica. Essential hypertension Continue metoprolol History of aortic valve replacement INR is therapeutic. Continue home dose Coumadin. History of bipolar disorder Continue home medications. DVT prophylaxis: On warfarin
[2025-01-30] MEDS: POTASSIUM 25 MEQ EFFERV TAB PO ONE (21:14)
[2025-01-30] MEDS: DIVALPROEX DR 500MG TAB PO SCH (21:14)
[2025-01-30] MEDS: PREGABALIN 75 MG CAP PO SCH (21:14)
[2025-01-31] MEDS: LOPERAMIDE HCL 2 MG CAPSULE PO STA (01:29)
[2025-01-31 07:25] LABS: Absolute Basophils 0.1 K/uL (0-0.5); Absolute Eosinophils 0.2 K/uL (0-0.5); Absolute Lymphocytes (CBC) 2.1 K/uL (0.7-4.9); Absolute Monocytes 1.2 K/uL (0.1-1.3); Absolute Neutrophil 5.7 K/uL (1.8-8.0); Basophils % 0.7 % (0-1.3); Hematocrit 33.7 % (39.6-49.0); Hemoglobin 11.6 g/dL (13.6-17.9); Lymphocytes % 22.7 % (15.3-44.8); MCH 28.6 pg (27.0-35.0); MCHC 34.3 g/dL (32.0-36.0); MCV 83.4 fL (80-100); MPV 8.2 fL (7.6-11.3); Neutrophils % 61.6 % (41.7-73.7); Platelets 281 thou/uL (152-406); RBC Red Blood Cell Count 4.04 M/uL (4.33-5.43); Red Cell Distribution Width 15.1 % (12.1-15.2)
[2025-01-31 07:52] LABS: Albumin 2.6 g/dL (3.4-5.0); Albumin/Globulin Ratio 0.7 (1.1-1.8); Anion Gap 5.7 mEq/L (5.0-15.0); Bilirubin Total 0.3 mg/dL (0.2-1.0); Globulin 3.9 g/dL (2.3-3.5); Magnesium 1.9 mg/dL (1.6-2.4); Phosphorus 2.7 mg/dL (2.5-4.9); Potassium 2.7 mEq/L (3.5-5.1); Protein, Total 6.5 g/dL (6.4-8.2)
[2025-01-31] MEDS: FLUOXETINE 20 MG CAP PO SCH (08:34)
[2025-01-31] MEDS ORDERED: VORTIOXETINE HYDROBROMIDE 20 MG PO SCH (09:00)
[2025-01-31] MEDS: NA CHLORIDE 0.9% 250 ML IV ONE (11:57)
[2025-01-31] MEDS: KCL 20 MEQ/100 mL IVPB 20 MEQ/100 ML BAG IV SCH (11:57)
[2025-01-31] MEDS: POTASSIUM 25 MEQ EFFERV TAB PO ONE ×2 (14:01→22:20)
[2025-01-31] MEDS: TRAMADOL HCL 50 MG TAB PO PRN (19:24)
[2025-01-31 21:39] LABS: Anion Gap 8.6 mEq/L (5.0-15.0); Potassium 3.6 mEq/L (3.5-5.1)
[2025-02-01 07:38] LABS: Anion Gap 7.8 mEq/L (5.0-15.0); Potassium 2.8 mEq/L (3.5-5.1)
[2025-02-01] MEDS: NA CHLORIDE 0.9% 1,000 ML IV SCH (12:17)
[2025-02-01] MEDS: KCL 20 MEQ/100 mL IVPB 20 MEQ/100 ML BAG IV SCH (12:17)
[2025-02-01] MEDS: POTASSIUM 25 MEQ EFFERV TAB PO SCH (15:15)
[2025-02-01 16:38] LABS: PT Prothrombin Time 25.5 SECONDS (10-13.0); Protime INR 2.33
[2025-02-02 08:38] VITALS: BP 122/62; TEMP 97.8
[2025-02-02] MEDS: POTASSIUM 25 MEQ EFFERV TAB PO ONE ×2 (09:38→12:15)
[2025-02-02 09:41] VITALS: O2SAT 99
[2025-02-02 10:18] LABS: Anion Gap 5.3 mEq/L (5.0-15.0); Potassium 3.3 mEq/L (3.5-5.1)
--- NOTE | 2025-02-02 12:00 | P.PN ---
Subjective Date of Service: 01/31/25 Chief Complaint: Hypokalemia potassium 2.3, UTI. Patient has no new complaint Potassium level remains low. Patient denies any diarrhea or vomiting. Patient is tolerating diet and ambulatory. Assessment And Plan - Plan Physical examination General: Alert and oriented x3, NAD. Neck: Supple, no elevated JVD Heart: Heart sounds 1 and 2 normal, regular rhythm, normal rate, no pedal edema Lungs: Clear to auscultation bilaterally, adequate breath sounds bilaterally, no rhonchi or crackles. Abdomen: Soft, nondistended, nontender, normal bowel sounds. Extremities: No tenderness, bilateral lower extremity lymphedema Skin: Bilateral lower extremity venous stasis dermatitis. Neuro: No focal motor deficit. Normal speech. Psychiatry: Normal mood, no agitation. Diagnosis Acute UTI Hypokalemia History of aortic valve replacement Chronic anticoagulation with Coumadin Chronic lymphedema Essential hypertension Acute hypokalemia Patient has been on diuretics. Patient likely has potassium deficit. Potassium level still low. Continue to replace potassium IV and orally Monitor BMP. Acute UTI UA did not show significant evidence of UTI. On IV Rocephin. DM type II Diabetic neuropathy Insulin sliding scale for glucose management. Continue home dose Lyrica. Essential hypertension Continue metoprolol History of aortic valve replacement INR is therapeutic. Continue home dose Coumadin. History of bipolar disorder Continue home medications. DVT prophylaxis: On warfarin
--- NOTE | 2025-02-02 12:04 | P.PN ---
Subjective Date of Service: 02/01/25 Chief Complaint: Hypokalemia potassium 2.3, UTI. Patient has no new complaint Potassium has been fluctuating but overall remain low. Physical Examination - Vital Signs Temperature: 97.8 F Blood Pressure: 122/62 Pulse: 76 Respirations: 16 Pulse Ox (%): 99 Assessment And Plan - Plan Physical examination General: Alert and oriented x3, NAD. Neck: Supple, no elevated JVD Heart: Heart sounds 1 and 2 normal, regular rhythm, normal rate, no pedal edema Lungs: Clear to auscultation bilaterally, adequate breath sounds bilaterally, no rhonchi or crackles. Abdomen: Soft, nondistended, nontender, normal bowel sounds. Extremities: No tenderness, bilateral lower extremity lymphedema Skin: Bilateral lower extremity venous stasis dermatitis. Neuro: No focal motor deficit. Normal speech. Psychiatry: Normal mood, no agitation. Diagnosis Acute UTI Hypokalemia History of aortic valve replacement Chronic anticoagulation with Coumadin Chronic lymphedema Essential hypertension Acute hypokalemia Continue to replace potassium Continue to monitor BMP Acute UTI UA did not show significant evidence of UTI. IV Rocephin daily x 2 doses. Discontinue IV Rocephin DM type II Diabetic neuropathy Insulin sliding scale for glucose management. Continue home dose Lyrica. Essential hypertension Continue metoprolol History of aortic valve replacement INR is therapeutic. Continue home dose Coumadin and monitor PT/INR. History of bipolar disorder Continue home medications. DVT prophylaxis: On warfarin
--- NOTE | 2025-02-02 12:11 | P.DS ---
Admission Date: 01/31/25 Discharge Date: 02/02/25 Disposition: ROUTINE DISCHARGE Discharge Condition: FAIR Reason for Admission: Hypokalemia potassium 2.3, UTI. Hospital Course: Diagnosis Acute UTI Hypokalemia History of aortic valve replacement Chronic anticoagulation with Coumadin Chronic lymphedema Essential hypertension Patient with a history of atrial fibrillation, bipolar disorder, type 2 diabetes mellitus, history of leg ulcers bilateral lower extremities completely healed, bilateral lower extremities lymphedema, hypertension, diabetic neuropathy, aortic valve malformation with aortic valve replacement 1995, and obesity presented to the ER sent by his PCP due to abnormal potassium of 2.3. Patient has been taking diuretics-Lasix and sometimes metolazone. Potassium level checked in the ED was 2.3, sodium 133. Patient admitted to the medical floor and treated for hypokalemia with IV potassium and oral potassium supplementation. Patient suspected to have had a potassium deficit. Serum potassium level eventually improved. Patient is on Lasix which was held during the hospital stay. Urine potassium level was within normal range. Patient evaluated by nephrology Dr. Mccollum and patient placed on Aldactone. Overall patient potassium level has improved and stabilized. He is discharged and advised to follow-up with Dr. Mccollum as outpatient for further monitoring. Vital Signs/Physical Exam: Temp Pulse Resp BP Pulse Ox 97.8 F 76 16 122/62 99 02/02/25 12:03 02/02/25 12:03 02/02/25 12:03 02/02/25 12:02/02/25 12:03 General: Alert, In no apparent distress, Oriented x3, Obese HEENT: Mucous membr. moist/pink Neck: JVD not distended Respiratory: Clear to auscultation bilaterally, Normal air movement Cardiovascular: Edema (Bilateral lower extremities) Gastrointestinal: Soft and benign, Non-distended Musculoskeletal: Swelling (B/L LE) Integumentary: Other (B/L LE venous stasis dermatitis.) Laboratory Data at Discharge: WBC 9.30 thou/uL (4.3-10.9) 01/31/25 07:03 Hgb 11.6 g/dL (13.6-17.9) L D 01/31/25 07:03 Hct 33.7 % (39.6-49.0) L 01/31/25 07:03 Plt Count 281 thou/uL (152-406) 01/31/25 07:03 PT Cancelled 02/01/25 17:00 INR Cancelled 02/01/25 17:00 Sodium 140 mEq/L (136-145) 02/02/25 09:50 Potassium 3.3 mEq/L (3.5-5.1) L 02/02/25 09:50 BUN 18 mg/dL (7-18) 02/02/25 09:50 Creatinine 0.82 mg/dL (0.70-1.30) 02/02/25 09:50 Glucose 131 mg/dL (74-106) H 02/02/25 09:50 Phosphorus 2.7 mg/dL (2.5-4.9) 01/31/25 07:03 Magnesium 1.9 mg/dL (1.6-2.4) 01/31/25 07:03 Total Bilirubin 0.3 mg/dL (0.2-1.0) 01/31/25 07:03 AST 18 U/L (15-37) 01/31/25 07:03 ALT 19 U/L (16-61) 01/31/25 07:03 Alkaline Phosphatase 67 U/L (45-117) 01/31/25 07:03 Home Medications: Pregabalin [Lyrica] 75 mg PO TID 11/02/21 Metoprolol Tartrate [Lopressor*] 100 mg PO BID tab 01/17/22 Warfarin Sodium [Coumadin*] 6 mg PO DAILY 5 PM tab 01/17/22 Fluoxetine HCl [Prozac] 20 mg PO DAILY 07/11/22 Sitagliptin Phosphate [Januvia] 100 mg PO DAILY 07/11/22 Tramadol HCl [Ultram] 50 mg PO TIDP PRN 05/14/24 Valproic Acid 500 mg PO BID 05/14/24 Vortioxetine Hydrobromide [Trintellix] 20 mg PO DAILY 01/30/25 Spironolactone [Aldactone*] 100 mg PO BID #30 tab 02/02/25 New Medications: Spironolactone [Aldactone*] 100 mg PO BID #30 tab Physician Discharge Instructions: Patient with a history of atrial fibrillation, bipolar disorder, type 2 diabetes mellitus, history of leg ulcers bilateral lower extremities completely healed, bilateral lower extremities lymphedema, hypertension, diabetic neuropathy, aortic valve malformation with aortic valve replacement 1995, and obesity presented to the ER sent by his PCP due to abnormal potassium of 2.3. Patient has been taking diuretics-Lasix and sometimes metolazone. Potassium level checked in the ED was 2.3, sodium 133. Patient admitted to the medical floor and treated for hypokalemia with IV potassium and oral potassium supplementation. Patient suspected to have had a potassium deficit. Serum potassium level eventually improved. Patient is on Lasix which was held during the hospital stay. Urine potassium level was within normal range. Patient evaluated by nephrology Dr. Mccollum and patient placed on Aldactone. Overall patient potassium level has improved and stabilized. He is discharged and advised to follow-up with Dr. Mccollum as outpatient for further monitoring. New medication: Spironolactone( Aldactone) Diet: AHA Activity: Ad linda Followup: Faviola Barragan, [employer] [Primary Care Provider] - 1-2 Weeks Time spent managing pt's care (in minutes): 34
--- NOTE | 2025-02-02 12:15 | CON ---
Date of Consultation: 02/02/2025 Reason For Consultation: Persistent hypokalemia, fluid overload. Chief Complaint: Low potassium. Urinary tract infection. History Of Present Illness: This is a 59-year-old man with a past medical history of lymphedema who is taking Lasix and metolazone, bipolar disorder, diabetes mellitus, and history of leg ulcer. The p odell was sent into the ER by his PCP for potassium of 2.3. The patient was not taking Lasix and me tolazone. He denied any history of hypokalemia in the past. Denied nausea, vomiting, diarrhea, or c onstipation. Currently, he is off Lasix and metolazone and continued to have hypokalemia. Nephrolog y consulted for further evaluation. Past Medical History: Atrial fibrillation, diabetes mellitus, lymphedema, bipolar disorder. Past Surgical History: Aortic valve replacement. Family History: Mother having diabetes mellitus. Social History: No known history of tobacco or recreational drug abuse. Review of Systems: Positive for weakness, lower extremity swelling. Physical Examination: Vital signs: Temperature 97.8, pulse of 76, blood pressure 122/62. General: On physical examination, awake, alert, oriented x3. Obese. Neck: Supple. No elevated JVD. Heart: Regular rate and rhythm. Normal S1, S2. Chest: Clear to auscultation bilaterally. No rales or wheezes. Abdomen: Soft and nontender. Extremities: +2 edema. Laboratory Data: Sodium 142, potassium 3.3, magnesium 1.9. Urinalysis showed no proteinuria. Medications: Include metoprolol, Coumadin. Assessment And Plan: 1. Persistent hypokalemia, improving, likely due to Lasix and metolazone. Continue to hold Lasix and metolazone. We will add Aldactone. We will replace potassium today. 2. Lymphedema. We will start Aldactone as above. Consider to resume Lasix once potassium more than 4. 3. Mechanical aortic valve. We will hold Coumadin. 4. Hypertension. Blood pressure is controlled, currently on metoprolol. 5. Lower extremity swelling. 6. Urinary tract infection. Continue antibiotic. Thank you for allowing me to participate in patient's care. Total time spent 55 minutes including do cumentation, reviewing labs, placing orders. ROSA Voice ID: [id number] Report ID: [id number]
[2025-02-02] MEDS: SPIRONOLACTONE 100 MG TAB PO SCH (12:23)
== END 2025-02-02 13:00 | disposition home or self-care (01) | DRG 690 ==
LOC: ER 15:07 → ERHOLD 17:35 → 2ND 01-30 12:59 → OBSVTOIN 01-31 07:53
PROVIDERS: ADMIT Internal Medicine; ATTEND Internal Medicine
DX: N39.0 Urinary tract infection, site not specified (principal); E87.3 Alkalosis; E87.6 Hypokalemia; I89.0 Lymphedema, not elsewhere classified; I48.91 Unspecified atrial fibrillation; E11.40 Type 2 diabetes mellitus with diabetic neuropathy, unspecified; I10 Essential (primary) hypertension; E66.9 Obesity, unspecified; Z95.2 Presence of prosthetic heart valve; Z68.38 Body mass index [BMI] 38.0-38.9, adult; Z79.82 Long term (current) use of aspirin; Z79.01 Long term (current) use of anticoagulants; Z79.899 Other long term (current) drug therapy
CPT/HCPCS: 36415; 36600; 80048; 80053; 81001; 82805; 82947; 83036; 83735; 84100; 84132; 84484; 85025; 85610; 93005; 94760; 96365; 96366; 99284; G0378; J0696; J3480; J7030; J7040; J7050